=== PATIENT | female | born 1950 | race Caucasian/White ===

== ENCOUNTER 2019-06-07 12:57 | Emergency (ER) | payer MEDICARE, OTHER, SELFPAY ==
[2019-06-07 12:59] VITALS: BP 142/74; PULSE 70; RESP 20; TEMP 36.4; O2SAT 97; BMI 36.2
--- NOTE | 2019-06-07 13:02 | ED_ITS ---
Entered by Gumaro Herrera, acting as scribe for Willie Cabezas DO HPI - Syncope General: Chief Complaint: Syncope Stated Complaint: SYNCOPE Time Seen by Provider: 06/07/19 13:09 History of Present Illness: HPI narrative: 68 yo female presents with fall. Pt states that she was taking her medications, she was standing. Pt states that she blacked out and woke up on the floor. Pt states that her throat hit a roller. Pt states that she passed out 1 month ago. MD complaint: loss of consciousness Witnessed: No Context: standing up Injuries sustained associated with event: neck Associated symptoms: Reports other (throat pain); Deny abdominal pain, chest pain, fever(s), headache(s), lightheadedness or nausea Review of Systems Const: Denies: fever, chills, body aches, change in appetite, change in weight, fatigue or malaise Eyes: Denies: change in vision, blurry vision, eye discomfort or eye discharge ENMT: Reports: throat pain, painful swallowing and hoarseness; Denies: ear discharge, Change in hearing or nasal congestion Card: Reports: swelling of feet/ankles and syncope; Denies: chest pain, palpitations or lightheadedness Resp: Denies: shortness of breath, productive cough, wheezing or pain on inspiration GI: Reports: difficulty swallowing; Denies: abdominal pain, nausea, vomiting, vomiting blood, coffee grounds in vomit, diarrhea or painful bowel movements : Denies: flank pain, difficulty urinating, painful urination, urinary frequency or urinary urgency Musc: Reports: neck pain and extremity swelling; Denies: back pain, extremity pain, joint pain or joint swelling Neuro: Denies: headache, numbness in extremities or weakness in extremities Endo: Denies: excessive urination or excessive thirst Ricardo/Lymph: Denies: easy bruising or easy bleeding PFSH ED PFSH: Statuses (acute, chronic, etc) shown below reflect problem list status as previously entered and may not be historically accurate Social History Smoking and tobacco status: former smoker Physical Exam Const: COMMON NORMALS: no apparent distress, oriented x3 and alert GENERAL APPEARANCE: cooperative and well kempt; not in distress ORIENTATION/CONSCIOUSNESS: Yes awake, Yes oriented to person, Yes oriented to place and Yes oriented to time HENMT: COMMON NORMALS: normocephalic HEAD & SCALP: normal to inspection and normocephalic Eye: COMMON NORMALS: PERRL PUPIL: Yes PERRL Neck/C-Spine: COMMON NORMALS: full ROM, no lymphadenopathy, supple and no JVD OTHER: bruising on left side of throat at the base of the neck Lymph: LYMPHATIC: no lymphadenopathy noted and no lymphedema noted Chest: COMMONS NORMALS: inspection of chest normal and palpation of chest normal Resp: COMMON NORMALS: normal respiratory effort, no retractions, no use of accessory muscles and clear to auscultation bilaterally AUSCULTATION: clear to auscultation bilaterally Cardio: COMMON NORMALS: no JVD, regular rate, regular rhythm, S1 normal heart sound and S2 normal heart sound RATE: regular rate RHYTHM: regular rhythm HEART SOUNDS: S1 normal and S2 normal GI: COMMON NORMALS: normal to inspection, nondistended, normoactive bowel sounds, soft to palpation, non-tender, no hepatosplenomegaly and no masses INSPECTION: Yes normal to inspection PALPATION: Yes soft and Yes no hepatosplenomegaly : COMMON NORMALS: Yes no CVA tenderness BLADDER/KIDNEY EXAM: Yes no CVA tenderness Back/Pelvis: COMMON NORMALS: no CVA tenderness THORACIC SPINE/UPPER BACK: Yes normal to inspection, Yes thoracic ROM normal and Yes ROM limited Extremity: COMMON NORMALS: normal to inspection and full ROM Neuro: COMMON NORMALS: oriented x3 SENSORIUM/ORIENTATION: Yes alert, Yes oriented to person, Yes oriented to place and Yes oriented to time Psych: APPEARANCE: Yes well kempt Course ED course: Initial evaluation there is no stridor no subcutaneous air in the neck there is some bruising at the base the neck on the left side. CT head and neck were unremarkable patient is feeling fine sounds that she had a vasovagal episode. I went back up to discuss her findings with her she states she had difficulty swallowing which was a new finding from when I first examined her. We ordered a CT of the neck with IV contrast soft tissues this was reviewed and was negative patient was discharged home. Vital Signs: Vital signs: Vital Signs Temperature 97.5 F L 06/07/19 12:59 Pulse Rate 78 06/07/19 18:24 Respiratory Rate 18 06/07/19 18:24 Blood Pressure 154/83 06/07/19 18:24 Pulse Oximetry 97 06/07/19 18:24 MDM - Syncope Lab Data: Labs: Lab Results 06/07/19 06/07/19 Range/Units 13:59 15:42 WBC 5.1 (4.0-10.0) 10^3/ uL RBC 4.33 (4.1-5.3) 10^6/u L Hgb 13.7 (11.5-15.3) g/dL Hct 43.8 (37.0-47.0) % MCV 101.2 H (81-99) fL MCH 31.6 (28.0-34.0) pg MCHC 31.3 (30.0-36.0) g/dL RDW 12.3 (12.1-15.1) % Plt Count 179 (130-400) 10^3/c mm MPV 10.9 H (7.4-10.4) fL Neut % (Auto) 56.4 % Lymph % (Auto) 31.4 % [place] % (Auto) 10.8 % Eos % (Auto) 0.8 % Baso % (Auto) 0.4 % Neut # (Auto) 2.9 (1.8-7.7) 10^3/u L Lymph # (Auto) 1.6 (0.8-4.8) 10^3/u L [place] # (Auto) 0.6 (0.2-0.9) 10^3/u L Eos # (Auto) 0.0 (0.0-0.8) 10^3/u L Baso # (Auto) 0.0 (0.0-0.1) 10^3/u L Nucleated RBC % (a uto) 0 % Nucleated RBCs # 0.0 /100WBC Sodium 140 (136-145) mmol/L Potassium 4.0 (3.5-5.1) mmol/L Chloride 102 (98-107) mmol/L Carbon Dioxide 26 (22-29) mmol/L Anion Gap 16.0 (5-19) BUN 22 (8-23) mg/dL Creatinine 1.3 H (0.5-0.9) mg/dL GFR Calculation 40.6 L (90-130) mL/min Glucose 105 (74-106) mg/dL Calcium 9.8 (8.8-10.2) mg/Dl Total Bilirubin 0.3 (0.15-1.2) mg/dL AST 21 (0-32) U/L ALT 5 (0-33) U/L Alkaline Phosphata se 72 (35-105) IU/L Total Protein 7.1 (6.6-8.7) g/dL Albumin 3.9 (3.5-5.2) g/dL Globulin 3.2 (1.3-4.6) g/dL Imaging Data^: Other Xray: Radiologist's impression: Cervical spine, 3 views, 06/07/2019 Clinical Data: fall/neck pain Comparison: None. Findings: No compression fractures are seen. The disc heights are mildly narrow at C5-C6 and C6-C7. Anterior osteophyte formation is present at the C5 and C6 vertebral bodies.. There is no prevertebral soft tissue swelling. The odontoid is unremarkable. The soft tissues of the neck demonstrate minimal calcification which may be in the carotid arteries. The lung apices are normal. XR/XR cervical spine 2V* [id number] Impression: Negative for cervical spine fracture. Dictated By: Lesly Thompson MD Other Imaging: Radiologist's impression: PROCEDURE INFORMATION: Exam: CT Neck With Contrast Exam date and time: 06/07/2019 4:51 PM Age: 68 years old Clinical indication: Injury or trauma; Fall; Work related; Initial encounter; Blunt trauma (contusions or hematomas); Dysphagia / difficulty swallowing and other: Feels like lump in throat; Injury details: Syncopal episode-- woke up with neck against a walker wheel TECHNIQUE: Imaging protocol: Computed tomography images of the neck with intravenous contrast. Total DLP: 697.2 mGy-cm Radiation optimization: All CT scans at this facility use at least one of these dose optimization techniques: automated exposure control; mA and/or kV adjustment per patient size (includes targeted exams where dose is matched to clinical indication); or iterative reconstruction. Contrast material: VISI 320; Contrast volume: 95 ml; Contrast route: IV; COMPARISON: CR XR cervical spine 2V* [id number] 06/07/2019 2:07 PM FINDINGS: Nasopharynx: Unremarkable. Oropharynx: Unremarkable. No significant tonsillar enlargement. Hypopharynx: Unremarkable Larynx: Unremarkable. Normal epiglottis. Retropharyngeal space: Unremarkable. Submandibular/Parotid glands: Normal. Glands are normal in size. Thyroid: Normal. No enlarged or calcified nodules. Lymph nodes: Unremarkable. No lymphadenopathy. Trachea: Visualized trachea is unremarkable. Lungs: Unremarkable as visualized. Emphysematous changes and mild apical fibrosis is noted. Bones/joints: Unremarkable. No acute fracture. [id number] diffuse degenerative changes. Soft tissues: Unremarkable. No significant soft tissue swelling. No fluid collection. CT/CT neck w con* [id number] IMPRESSION: No acute findings. Radiation Dose CTDIVOL = (mGy): DLP = 697.2 (mGy-cm) Dictated By: Christi Hamilton CT Head: Radiologist's impression: Clinical Data: LOC, fall Comparison: None. DLP: 762.[address] scans at [facility] use at least one of these dose optimization techniques: automated exposure control; mA and/or kV adjustment per patient size (includes targeted exams where dose is matched to clinical indication); or iterative reconstruction. Findings: The ventricular system is minimally dilated without shift. No recent infarct or hemorrhage is seen. There are no abnormal intracerebral masses. The cerebellum and brainstem are not remarkable. Bony windows of the skull and skull base show no fractures or erosions. The mastoid air cells, internal auditory canals, sella turcica, intraorbital contents, and paranasal sinuses are unremar kable. CT/CT head wo con* [id number] Impression: 1. Mild cerebral atrophy. 2. The emergency room was contacted at 1400 hours. Dictated By: Lesly Thompson MD Discharge Plan Discharge Patient Disposition: Home, Self-Care Clinical Impression: Vasovagal syncope, Fall Condition: Stable Prescriptions: No Action lamotrigine 200 mg tablet 200 mg PO BEDTIME RF: 0 potassium chloride 10 mEq tablet extended release 10 meq PO BID RF: 0 Aspirin Low Dose 81 mg Tablet,Delayed Release (Dr/Ec) 81 mg PO DAILY RF: 0 Calcium 600 600 mg calcium (1,500 mg) Tablet 600 mg PO TID RF: 0 modafinil 200 mg tablet 200 mg PO DAILY RF: 0 gabapentin 300 mg capsule 300 mg PO TID RF: 0 furosemide 20 mg tablet 20 mg PO BID RF: 0 docusate sodium 250 mg Capsule 250 mg PO BID RF: 0 carbidopa-levodopa 25-100 mg tablet 1 tab PO TID RF: 0 lisinopril 2.5 mg Tablet 2.5 mg PO DAILY PRN (Reason: Blood Pressure) RF: 0 aripiprazole 10 mg tablet 10 mg PO BEDTIME RF: 0 rosuvastatin 20 mg tablet 20 mg PO BEDTIME RF: 0 memantine 10 mg tablet 10 mg PO BID RF: 0 duloxetine 30 mg capsule,delayed release(DR/EC) See Rx Instructions .ROUTE .COMPLEX RF: 0 [place] Thyroid 90 mg tablet 90 mg PO DAILY RF: 0 Discharge Orders: Discharge Order (Routine); Ordered 06/07/19 Ordered By: Willie Cabezas Referrals: Jose Esquivel, [employer] [Primary Care Provider] - Discharge Diet: Advance as tolerated Discharge Activity: Increase activity as tolerated Discharge Date/Time: 06/07/19 19:27 Coding Level of Care Code ED Animal Park Code Enforcement Officer for Chg Fwd Exam Problem Focused The documentation recorded by the Javier myles Kialy, accurately reflects the service I personally performed and the decisions made by Jocelynn guillermo Curtis L, DO Jun 07, 2019 12:57
[2019-06-07 13:08] VITALS: O2SAT 97
--- NOTE | 2019-06-07 13:17 | CT_ITS ---
WS: [id number] CT scan of the head, 06/07/2019 Clinical Data: LOC, fall Comparison: None. DLP: 762.[address] scans at [facility] use at least one of these dose optimization techniques: automat ed exposure control; mA and/or kV adjustment per patient size (includes targeted exams where dose is matched to clinical indication); or iterative reconstruction. Findings: The ventricular system is minimally dilated without shift. No recent infarct or hemorrhage is seen. T here are no abnormal intracerebral masses. The cerebellum and brainstem are not remarkable. Bony windows of the skull and skull base show no fractures or erosions. The mastoid air cells, intern brand al auditory canals, sella turcica, intraorbital contents, and paranasal sinuses are unremarkable. CT/CT head wo con* [id number] Impression: 1. Mild cerebral atrophy. 2. The emergency room was contacted at 1400 hours.
--- NOTE | 2019-06-07 13:17 | XR_ITS ---
WS: [id number] Cervical spine, 3 views, 06/07/2019 Clinical Data: fall/neck pain Comparison: None. Findings: No compression fractures are seen. The disc heights are mildly narrow at C5-C6 and C6-C7. A nterior osteophyte formation is present at the C5 and C6 vertebral bodies.. There is no prevertebral soft tissue swelling. The odontoid is unremarkable. The soft tissues of the neck demonstrate minimal calcification which may be in the carotid arteries. The lung apices are normal. XR/XR cervical spine 2V* [id number] Impression: Negative for cervical spine fracture.
[2019-06-07] MEDS: sodium chloride 0.9% 500 ML IV (13:35)
[2019-06-07 14:07] LABS: Basophils % 0.4 %; Eosinophils % 0.8 %; Hematocrit 43.8 % (37.0-47.0); Hemoglobin 13.7 g/dL (11.5-15.3); Lymphocytes # 1.6 10^3/uL (0.8-4.8); Lymphocytes % 31.4 %; Mean Corpuscular HGB Conc 31.3 g/dL (30.0-36.0); Mean Corpuscular Hemoglobin 31.6 pg (28.0-34.0); Mean Corpuscular Volume 101.2 fL (81-99); Mean Platelet Volume 10.9 fL (7.4-10.4); Monocytes # 0.6 10^3/uL (0.2-0.9); Monocytes % 10.8 %; Neutrophils # 2.9 10^3/uL (1.8-7.7); Neutrophils % 56.4 %; Nucleated Red Blood Cells % 0 %; Platelet Count 179 10^3/cmm (130-400); Red Blood Count 4.33 10^6/uL (4.1-5.3); Red Cell Distribution Width 12.3 % (12.1-15.1); White Blood Count 5.1 10^3/uL (4.0-10.0)
[2019-06-07 14:58] VITALS: PULSE 72; RESP 16; O2SAT 99
[2019-06-07 15:21] VITALS: BP 152/102; BP 159/79; BP 162/88; PULSE 69; PULSE 74; PULSE 77
[2019-06-07 16:06] LABS: Alanine Aminotransferase 5 U/L (0-33); Albumin Level 3.9 g/dL (3.5-5.2); Alkaline Phosphatase 72 IU/L (35-105); Aspartate Amino Transferase 21 U/L (0-32); Blood Urea Nitrogen 22 mg/dL (8-23); Calcium 9.8 mg/Dl (8.8-10.2); Carbon Dioxide 26 mmol/L (22-29); Chloride 102 mmol/L (98-107); Globulin 3.2 g/dL (1.3-4.6); Glomerular Filtration Rate 40.6 mL/min (90-130); Glucose 105 mg/dL (74-106); Sodium 140 mmol/L (136-145); Total Bilirubin 0.3 mg/dL (0.15-1.2); Total Protein 7.1 g/dL (6.6-8.7)
[2019-06-07] MEDS: acetaminophen 500 mg Tablet 1000 MG PO (16:26)
--- NOTE | 2019-06-07 16:48 | CTR_ITS ---
PROCEDURE INFORMATION: Exam: CT Neck With Contrast Exam date and time: 06/07/2019 4:51 PM Age: 68 years old Clinical indication: Injury or trauma; Fall; Work related; Initial encounter; Blunt trauma (contusions or hematomas); Dysphagia / difficulty swallowing and other: Feels like lump in throat; Injury details: Syncopal episode-- woke up with neck against a walker wheel TECHNIQUE: Imaging protocol: Computed tomography images of the neck with intravenous contrast. Total DLP: 697.2 mGy-cm Radiation optimization: All CT scans at this facility use at least one of these dose optimization techniques: automated exposure control; mA and/or kV adjustment per patient size (includes targeted exams where dose is matched to clinical indication); or iterative reconstruction. Contrast material: VISI 320; Contrast volume: 95 ml; Contrast route: IV; COMPARISON: CR XR cervical spine 2V* [id number] 06/07/2019 2:07 PM FINDINGS: Nasopharynx: Unremarkable. Oropharynx: Unremarkable. No significant tonsillar enlargement. Hypopharynx: Unremarkable Larynx: Unremarkable. Normal epiglottis. Retropharyngeal space: Unremarkable. Submandibular/Parotid glands: Normal. Glands are normal in size. Thyroid: Normal. No enlarged or calcified nodules. Lymph nodes: Unremarkable. No lymphadenopathy. Trachea: Visualized trachea is unremarkable. Lungs: Unremarkable as visualized. Emphysematous changes and mild apical fibrosis is noted. Bones/joints: Unremarkable. No acute fracture. [id number] diffuse degenerative changes. Soft tissues: Unremarkable. No significant soft tissue swelling. No fluid collection. CT/CT neck w con* [id number] IMPRESSION: No acute findings. Radiation Dose CTDIVOL = (mGy): DLP = 697.2 (mGy-cm)
[2019-06-07 17:08] VITALS: BP 185/90; PULSE 74; RESP 14; O2SAT 96
--- NOTE | 2019-06-07 17:29 | ECG_ITS ---
Measurements Intervals Sharon Rate: 67 P: 34 UT: 208 QRS: 9 QRSD: 101 T: 13 QT: 399 QTc: 421 SINUS RHYTHM POSSIBLE ANTERIOR MYOCARDIAL INFARCTION [30 ms Q WAVE IN V3/V4, OR R < 0.2 mV IN V4], OF INDETERMINATE AGE Compared to ECG 12/02/2017 11:45:20 Myocardial infarct finding now present Electronically Signed On 06-08-2019 5:39:11 GLOBAL CATEGORY MANAGER by Mirian Hernández M.D. [id number] f
[2019-06-07 18:24] VITALS: BP 154/83; PULSE 78; RESP 18; O2SAT 97
== END 2019-06-07 19:27 | disposition home or self-care (01) ==
PROVIDERS: Emergency Provider Family Medicine; Family Provider Nurse Practitioner; PCP Nurse Practitioner
DX: R55 Syncope and collapse (principal); Z87.891 Personal history of nicotine dependence
CPT/HCPCS: 36415; 70450; 70491; 72040; 80053; 85025; 93005; 96360; 99283; J7040; Q9967

== ENCOUNTER → 2019-07-25 08:30 | Outpatient (BNVA) | payer MEDICARE, OTHER, SELFPAY | PROVIDERS: Family Provider Nurse Practitioner; PCP Nurse Practitioner; Visit Provider Nurse Practitioner | DX: E03.8 Other specified hypothyroidism (principal); E55.9 Vitamin D deficiency, unspecified; I10 Essential (primary) hypertension; R55 Syncope and collapse | CPT/HCPCS: 82306 ==

== ENCOUNTER → 2019-08-02 09:53 | Outpatient (BNVA) | payer MEDICARE, OTHER, SELFPAY | PROVIDERS: Family Provider Nurse Practitioner; PCP Nurse Practitioner; Referring Provider Nurse Practitioner; Visit Provider Podiatrist Foot & Ankle Surgery | DX: M79.671 Pain in right foot (principal); E11.43 Type 2 diabetes mellitus with diabetic autonomic (poly)neuropathy; R09.89 Other specified symptoms and signs involving the circulatory and respiratory systems; L60.3 Nail dystrophy | CPT/HCPCS: 73630 ==

== ENCOUNTER → 2019-08-14 08:54 | Outpatient (BNVA) | payer MEDICARE, OTHER, SELFPAY | PROVIDERS: Family Provider Nurse Practitioner; PCP Nurse Practitioner; Visit Provider Specialist | DX: R25.1 Tremor, unspecified (principal); Z87.891 Personal history of nicotine dependence | CPT/HCPCS: 99214 ==

== ENCOUNTER 2019-08-16 06:00 | Outpatient (RCR) | payer MEDICARE, OTHER, SELFPAY | END 2019-09-04 23:59 | disposition home or self-care (01) | LOC: APT 06:00 | PROVIDERS: Family Provider Nurse Practitioner; PCP Nurse Practitioner; Referring Provider Internal Medicine Critical Care Medicine; Visit Provider Internal Medicine Critical Care Medicine | DX: R26.89 Other abnormalities of gait and mobility (principal) | CPT/HCPCS: 97110; 97163 ==

== ENCOUNTER 2019-09-03 08:00 | Outpatient (CLI) | payer MEDICARE, OTHER, SELFPAY | END 2019-09-03 09:00 | disposition home or self-care (01) | LOC: RHEOACUTE 01-22 15:15 | PROVIDERS: PCP Nurse Practitioner; Visit Provider Internal Medicine Rheumatology | DX: M81.0 Age-related osteoporosis without current pathological fracture (principal); Z79.899 Other long term (current) drug therapy; I10 Essential (primary) hypertension | CPT/HCPCS: 36415; 82310; 82565 ==

== ENCOUNTER 2019-09-06 13:51 | Outpatient (CLI) | payer MEDICARE, OTHER, SELFPAY ==
[2019-09-06 14:10] VITALS: BP 139/84; PULSE 57; RESP 18; TEMP 36.7; O2SAT 95
[2019-09-06] MEDS: denosumab 60 mg SDV (14:18)
[2019-09-06 14:19] VITALS: BP 113/74; TEMP 36.6
== END 2019-09-06 13:52 | disposition home or self-care (01) ==
LOC: RHEOACUTE 13:53
PROVIDERS: Family Provider Nurse Practitioner; PCP Nurse Practitioner; Visit Provider Internal Medicine Rheumatology
DX: M81.0 Age-related osteoporosis without current pathological fracture (principal)
CPT/HCPCS: 96372; J0897

== ENCOUNTER → 2019-10-31 11:19 | Outpatient (BNVA) | payer MEDICARE, OTHER, SELFPAY | PROVIDERS: Family Provider Nurse Practitioner; PCP Nurse Practitioner; Visit Provider Specialist | DX: R55 Syncope and collapse (principal); E03.8 Other specified hypothyroidism; I10 Essential (primary) hypertension; E55.9 Vitamin D deficiency, unspecified; F33.2 Major depressive disorder, recurrent severe without psychotic features | CPT/HCPCS: 80053; 80061; 82306; 82607; 84443; 85025; 85651; 86780 ==

== ENCOUNTER → 2019-11-05 09:18 | Outpatient (BNVA) | payer MEDICARE, OTHER, SELFPAY | PROVIDERS: Family Provider Nurse Practitioner; PCP Nurse Practitioner; Visit Provider Specialist | DX: G20 Parkinson's disease (principal); Z87.891 Personal history of nicotine dependence | CPT/HCPCS: 99214 ==

== ENCOUNTER 2019-11-06 10:01 | Outpatient (CLI) | payer MEDICARE, OTHER, SELFPAY ==
--- NOTE | 2019-11-06 13:06 | PFTS_ITS ---
Date of Study:11/06/19 Date of Dictation: MECHANICS: Forced vital capacity (FVC) is normal. Forced expiratory volume in one second (FEV1) is normal. FEV1/FVC is normal. FLOW VOLUME LOOP: Normal. LUNG VOLUMES: Total lung capacity (TLC) is normal. Residual volume (RV) is normal. DIFFUSING CAPACITY FOR CARBON MONOXIDE: Normal. INTERPRETATION: The pulmonary function tests are normal. Lung volumes are normal. Gas exchange (DLCO) is normal. MTDD
== END 2019-11-06 10:02 | disposition home or self-care (01) ==
LOC: RT 10:04
PROVIDERS: Family Provider Nurse Practitioner; PCP Nurse Practitioner; Visit Provider Internal Medicine Critical Care Medicine
DX: J44.9 Chronic obstructive pulmonary disease, unspecified (principal)
CPT/HCPCS: 94010; 94726; 94729

== ENCOUNTER 2019-11-27 06:00 | Outpatient (RCR) | payer MEDICARE, OTHER, SELFPAY | END 2019-12-04 23:59 | disposition home or self-care (01) | LOC: SPT 06:00 | PROVIDERS: PCP Nurse Practitioner; Referring Provider Specialist; Visit Provider Specialist | DX: G20 Parkinson's disease (principal) | CPT/HCPCS: 97110; 97163; 97530 ==

== ENCOUNTER 2019-12-05 06:00 | Outpatient (RCR) | payer MEDICARE, OTHER, SELFPAY | END 2020-01-04 23:59 | disposition home or self-care (01) | LOC: SPT 06:00 | PROVIDERS: PCP Nurse Practitioner; Referring Provider Specialist; Visit Provider Specialist | DX: G20 Parkinson's disease (principal) | CPT/HCPCS: 97110; 97112 ==

== ENCOUNTER 2019-12-10 09:56 | Outpatient (CLI) | payer MEDICARE, OTHER, SELFPAY ==
--- NOTE | 2019-12-10 11:00 | MR_ITS ---
WS: [id number] MRI BRAIN WITH HIGH-RESOLUTION IMAGING THROUGH THE INTERNAL AUDITORY CANALS WITHOUT AND WITH CONTRAST HISTORY: SYNCOPE/COLLAPSE;DIZZINESS/GIDDINESS;ELVIS SENSORINEURAL HEARING LOSS COMPARISON: 06/07/2019 TECHNIQUE: Multiplanar, multisequence imaging is performed through the brain. Additional 3 mm imaging performed in multiple planes through the internal auditory canal. Postcontrast imaging with 17 ml's of Prohance. Postcontrast studies are limited by motion. No acute intracranial hemorrhage, midline shift, edema or mass effect. Moderate chronic microvascular ischemic disease in the periventricular white matter and subcortical w jessica matter. Small ischemic area in the RIGHT jessica. No prior large territory infarcts. Mild atrophy. Ventricles and extra-axial spaces are normal. No inferior displacement of cerebellar tonsils. Clivus and pituitary gland are normal. Internal and external auditory canals: Unremarkable. Cranial nerves VII and VIII complexes: Unremarkable. No enhancement or mass. Cerebellopontine angles: Normal. Paranasal sinuses: Normal. Mastoid air cells: Normal. Calvarium and scalp: Normal. Visualized ruby of Kang and dural venous sinuses demonstrate no abnormality. MR/MR iac's wo/w con* [id number] IMPRESSION: 1. Negative MRI internal auditory canals. No masses. 2. Normal cerebellopontine angles. 3. Moderate chronic microvascular ischemic disease and mild cerebral atrophy. 4. No enhancing masses.
--- NOTE | 2019-12-10 11:45 | MR_ITS ---
WS: [id number] MRA CAROTID ARTERIES HISTORY: SYNCOPE;DIZZINESS;ELVIS SENSORINEURAL HEARING LOSS;ELVIS tinnitus COMPARISON: None available. TECHNIQUE: MRA is performed with intravenous gadolinium. MIP and source images are reviewed. Right: Mildly tortuous common carotid artery. There is very minimal plaque and intimal thickening at the bifurcation. No significant stenosis. Left: Common carotid artery arises normally from the arch. No significant stenosis. Very minimal plaq ue at the bifurcation. External carotid artery is patent. Subclavian Arteries: Normal. No stenosis. Vertebral Arteries: Normal. No significant asymmetry in caliber. MR/MR angio neck w con* [id number] IMPRESSION: 1. Minimal atherosclerosis at the carotid bifurcations. No stenosis. 2. Patent vertebral arteries.
== END 2019-12-10 09:57 | disposition home or self-care (01) ==
LOC: RADSHAW 10:09
PROVIDERS: PCP Nurse Practitioner; Visit Provider Specialist
DX: R55 Syncope and collapse (principal); R42 Dizziness and giddiness; H90.3 Sensorineural hearing loss, bilateral; H93.13 Tinnitus, bilateral; I67.82 Cerebral ischemia; G31.9 Degenerative disease of nervous system, unspecified
CPT/HCPCS: 70548; 70553; A9579

== ENCOUNTER 2019-12-11 11:40 | Outpatient (CLI) | payer MEDICARE, OTHER, SELFPAY ==
--- NOTE | 2019-12-11 11:46 | USCV_ITS ---
Crys Mir Age: 69 Gender: F : 1950 Exam Date: 12/11/2019 11:50 Ordering Phys: Scott Farley DPM Technologist: Exam Location: [facility] [place]_ Indication: DECREASED PEDAL PULSES RIGHT LEFT Brachial 127.00 mmHg Brachial 155.00 mmHg Pressure (mmHg) Waveform Pressure (mmHg) Waveform 152.00 Above Knee 144.00 166.00 Below Knee 157.00 113.00 PHYSICIAN'S ASSISTANT 165.00 179.00 DPA 158.00 1.15 Ankle/Brachial Index 1.06 117.00 Pre-Exercise Toe Pressure 116.00 0.75 Pre-Exercise Toe/Brachial Index 0.75 FINDINGS Normal resting ABIs bilaterally Normal resting TBI bilaterally PVR waveforms showing loss of dicrotic notch CONCLUSIONS 1. No significant arterial obstruction, based on the above findings 2. Features of extensive arterial sclerosis Dr Lonnie Torres MD [facility] (Electronically Signed) Final Date: 11 December 2019 20:11 S
== END 2019-12-11 11:41 | disposition home or self-care (01) ==
LOC: RAD 11:43
PROVIDERS: PCP Nurse Practitioner; Visit Provider Podiatrist Foot & Ankle Surgery
DX: R09.89 Other specified symptoms and signs involving the circulatory and respiratory systems (principal)
CPT/HCPCS: 93923; 99214

== ENCOUNTER → 2020-01-04 07:44 | Outpatient (BNVA) | payer MEDICARE, OTHER, SELFPAY | PROVIDERS: PCP Nurse Practitioner; Visit Provider Nurse Practitioner | DX: F33.2 Major depressive disorder, recurrent severe without psychotic features (principal) | CPT/HCPCS: 99214 ==

== ENCOUNTER 2020-01-30 20:00 | Outpatient (CLI) | payer MEDICARE, OTHER, SELFPAY | END 2020-01-30 20:01 | disposition home or self-care (01) | LOC: SLEEP 01-31 08:43 | PROVIDERS: PCP Nurse Practitioner; Visit Provider Internal Medicine Critical Care Medicine | DX: G47.33 Obstructive sleep apnea (adult) (pediatric) (principal) | CPT/HCPCS: 95811 ==

== ENCOUNTER 2020-02-05 08:43 | Outpatient (CLI) | payer MEDICARE, OTHER, SELFPAY ==
[2020-02-05 09:15] VITALS: BMI 34.0
--- NOTE | 2020-02-05 09:18 | ECG_ITS ---
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 Interpretive Statements NAME OF STUDY: LEXISCAN SESTAMIBI STRESS TEST INDICATION: Atypical chest symptoms, abnormal ekg/results to elaina garcia PROCEDURE: At the baseline, the EKG revealed normal sinus rhythm with borderline first-degree AV block. Possible left atrial enlargement. The baseline blood pressure was 211/91 mm Hg with a heart rate of 70 beats/min. Lexiscan was infused over a period of 20 seconds. A total of 0.4 milligrams of Lexiscan was infused. The stress phase was continued for a total of 5 minutes. Heart rate at the end of the stress phase was 80 with a blood pressure 144/80. The EKG at the peak infusion revealed no significant changes. Sestamibi was injected 20 seconds after the Lexiscan infusion. Blood pressure at the end of the recovery phase was 139/73 with a heart rate of 79 per minute. CONCLUSION: 1. No significant EKG changes with the LexiScan infusion 2. No LexiScan induced chest pain or cardiac arrhythmia 3. Normal blood pressur and heart rate response to exercise 4. Sestamibi/sestamibi perfusion scan pending; see separate report. Electronically Signed On 02-13-2020 19:31:32 CDT by Lonnie Torres M.D. [id number]
--- NOTE | 2020-02-05 09:19 | NMCV_ITS ---
NM steve perf SPECT r/s* [id number] Crys Mir Age: 69 Gender: F : 1950 Exam Date: 02/05/2020 10:07 Ordering Phys: Lonnie Torres MD ([email or web address]) Technologist: VLADIMIR Escobar Exam Location: [facility] Indications: Syncope, chest symptoms STRESS TEST Please [facility] stress [facility] for [facility] IMAGE PROTOCOL Rest/Stress 1 Lexiscan Day Radiopharmaceutical Dose (mCi) Administration Site Administered by Rest: Tc-99m 10.5 IV VLADIMIR Fry Sestamibi Stress:Tc-99m 32.8 IV VLADIMIR Escobar Sestamibi Rest: 05-Feb-2020 60 Discovery 630 Stress: 05-Feb-2020 45 Discovery 630 0.4mg Lexiscan. Images obtained in supine and prone position. SPECT RESULTS Technical Quality: Good Raw Data Analysis: Breast attenuation Image Corrections: Patient motion artifact - partial motion correction applied to supine stress images. Summed Stress Score: 1 Summed Rest Score: 0 Summed Difference Score: 1 PERFUSION FINDINGS A small area of mildly decreased tracer uptake in the apical lateral region with complete reversibility. However with the defect blackout mapping there was no significant reversibility. FUNCTIONAL RESULTS (calculated via Gated SPECT) Stress Image LV EF (%): 73 Stress EDV (mL):92 TID: 1.2 Stress ESV (mL):25 FUNCTIONAL FINDINGS: Segmental wall motion analysis revealing no gross wall motion normalities. IMPRESSIONS 1. Myocardial perfusion may revealing a small area of reversible defect in the apical lateral region, suggestive of ischemia in the distribution of the left circumflex artery. However because of the inconsistency, the reliability is questionable. Clinical correlation recommended. 2. Normal LV ejection fraction 73%. 3. LV wall motion analysis revealing no gross wall motion normalities. 4. Normal LV volume. No similar previous studies are available for comparison Dr Lonnie Torres MD [facility] (Electronically Signed) Final Date: 05 February 2020 18:33 S
[2020-02-05] MEDS: regadenoson 0.4 Mg/5 ml Syringe IVP (11:08)
[2020-02-05 11:31] VITALS: BP 139/73; PULSE 76
== END 2020-02-05 08:44 | disposition home or self-care (01) ==
LOC: CDL 08:44
PROVIDERS: PCP Nurse Practitioner; Visit Provider Internal Medicine Cardiovascular Disease
DX: R55 Syncope and collapse (principal)
CPT/HCPCS: 78452; 93017; A9500; J2785

== ENCOUNTER 2020-02-19 12:54 | Outpatient (CLI) | payer MEDICARE, OTHER, SELFPAY ==
--- NOTE | 2020-02-19 12:58 | USCV_ITS ---
Crys Mir Age: 69 Gender: F : 1950 Exam Date: 02/19/2020 13:32 Ordering Phys: Lonnie Torres MD ([email or web address]) Technologist: Kj Skelton Exam Location: [facility] [place] Indication: TIA Risk Factors: None Previous Vascular Surgery: None Right Brachial BP: / Left Brachial BP: / Right Left Velocity (cm/s) Spectral Plaque Velocity (cm/s) Spectral Plaque Syst/Diast Broadening Syst/Diast Broadening 88.20/ 12.10 Prox CCA 89.10 / 15.10 87.10/ 16.50 Mid CCA 80.70 / 11.80 79.40/ 15.40 Hetro Distal CCA 51.30 / 9.20 Hetro 91.60/ 17.40 Hetro Prox ICA 84.00 / 18.50 Hetro 81.50/ 23.50 Mid ICA 89.90 / 24.40 79.00/ 21.00 Distal ICA 93.30 / 23.50 83.80 ECA 99.20 1.04 ICA/CCA 1.05 Antegrade Vertebral Antegrade 60.50/ 12.60 cm/s 64.70/ 10.10 cm/s Tri Subclavian Tri 82.30 143.3 0 FINDINGS Moderate intravenous plaques of the right bifurcation and proximal internal carotid artery Mild to moderate plaques of the left bifurcation internal carotid artery Intimal thickening in the common carotid arteries bilaterally Antegrade flow in the vertebral arteries bilaterally Normal Doppler flow velocities in the external carotid arteries bilaterally CONCLUSIONS Moderate heterogeneous plaques at the right bifurcation and proximal internal carotid arterywith velocity elevation consistent with 16-49% stenosis. Mild to moderate plaques at the left bifurcation internal carotid artery No previous studies are available for comparison. Dr Lonnie Torres MD [facility] (Electronically Signed) Final Date: 19 February 2020 13:56 S
== END 2020-02-19 12:55 | disposition home or self-care (01) ==
LOC: US 12:55
PROVIDERS: PCP Nurse Practitioner; Visit Provider Internal Medicine Cardiovascular Disease
DX: R55 Syncope and collapse (principal); G45.9 Transient cerebral ischemic attack, unspecified
CPT/HCPCS: 93880

== ENCOUNTER → 2020-03-04 09:05 | Outpatient (BNVA) | payer MEDICARE, OTHER, SELFPAY | PROVIDERS: PCP Nurse Practitioner; Visit Provider Nurse Practitioner | DX: M17.11 Unilateral primary osteoarthritis, right knee (principal); M25.461 Effusion, right knee; M25.561 Pain in right knee; E03.8 Other specified hypothyroidism; E78.2 Mixed hyperlipidemia; E55.9 Vitamin D deficiency, unspecified | CPT/HCPCS: 73562; 80053; 80061; 82607; 84443; 85025; 85651 ==

== ENCOUNTER → 2020-03-11 09:19 | Outpatient (BNVA) | payer MEDICARE, OTHER, SELFPAY | PROVIDERS: PCP Nurse Practitioner; Visit Provider Specialist | DX: G20 Parkinson's disease (principal) | CPT/HCPCS: 99214 ==

== ENCOUNTER → 2020-03-12 09:05 | Outpatient (BNVA) | payer MEDICARE, OTHER, SELFPAY | PROVIDERS: PCP Nurse Practitioner; Visit Provider Nurse Practitioner | DX: M54.5 Low back pain; M54.2 Cervicalgia; M54.6 Pain in thoracic spine | CPT/HCPCS: 72040; 72072; 72100 ==

== ENCOUNTER 2020-03-18 15:44 | Outpatient (CLI) | payer MEDICARE, OTHER, SELFPAY ==
[2020-03-18 15:45] VITALS: BP 152/80; PULSE 68; RESP 16; TEMP 36.9; O2SAT 97
[2020-03-18] MEDS: denosumab 60 mg SDV (15:50)
[2020-03-18 15:55] VITALS: BMI 36.2
[2020-03-18 16:30] VITALS: BP 132/77; PULSE 70; RESP 16; TEMP 36.7; O2SAT 94
--- NOTE | 2020-03-18 16:31 | PC.NURSE ---
Pt inquired how long she's been on Prolia. Pt states used to get it at [facility] [address]. Release of information form signed.
--- NOTE | 2020-03-18 16:32 | PC.NURSE ---
1630 Escorted to vehicle to daughter. Ambulating with walker.
== END 2020-03-18 15:45 | disposition home or self-care (01) ==
LOC: RHEOACUTE 15:46
PROVIDERS: PCP Nurse Practitioner; Visit Provider Internal Medicine Rheumatology
DX: M81.0 Age-related osteoporosis without current pathological fracture (principal)
CPT/HCPCS: 96372; J0897

== ENCOUNTER 2020-03-25 13:56 | Outpatient (CLI) | payer MEDICARE, OTHER, SELFPAY ==
--- NOTE | 2020-03-25 14:00 | USCV_ITS ---
AdeolaChetia Age: 69 Gender: F : 1950 Exam Date: 03/25/2020 14:00 Ordering Phys: Lonnie Torres MD ([email or web address]) Technologist: Kj Skelton Exam Location: [facility] [place] Indication: SYNCOPE AND COLLAPSE BP: 120 / 70 HR: 70 Rhythm: Sinus Technical Quality: Fair MEASUREMENTS (Male / Female) Normal Values 2D ECHO LV Diastolic Diameter PLAX 4.2 cm 4.2 - 5.9 / 3.9 - 5.3 cm LV Systolic Diameter PLAX 2.4 cm IVS Diastolic Thickness 1.1 cm 0.6 - 1.0 / 0.6 - 0.9 cm IVS Systolic Thickness 1.2 cm LVPW Diastolic Thickness 1.0 cm 0.6 - 1.0 / 0.6 - 0.9 cm LVPW Systolic Thickness 1.3 cm LVOT Diameter 2.2 cm LV Ejection Fraction 2D Teich 74.9 % LV Ejection Fraction MOD 2C 49.9 % LV Ejection Fraction 2C AL 50.1 % LA Diameter 3.4 cm LA Width 4.2 cm LA Height 5.0 cm RA Width 3.5 cm RA Height 4.8 cm Aorta at Sinotubular Diameter 0.9 cm M-MODE LV Diastolic Diameter MM 4.7 cm 4.2 - 5.9 / 3.9 - 5.3 cm LV Systolic Diameter MM 3.0 cm LV Ejection Fraction MM Teich 67.6 % IVS Diastolic Thickness MM 1.1 cm 0.6 - 1.0 / 0.6 - 0.9 cm IVS Systolic Thickness MM 1.6 cm LVPW Diastolic Thickness MM 1.1 cm 0.6 - 1.0 / 0.6 - 0.9 cm LVPW Systolic Thickness MM 1.5 cm RV Diastolic Diameter MM 1.8 cm Aortic Annulus Diameter 2.9 cm LA Ao Ratio MM 1.4 MV E Point Septal Separation 0.6 cm DOPPLER AV Peak Velocity 162.0 cm/s LVOT Peak Velocity 104.0 cm/s AV Area Cont Eq vti 2.2 cm squared AV Area Cont Eq pk 2.4 cm squared MV Area PHT 5.0 cm squared Mitral E to A Ratio 0.8 MV E' Velocity 44.0 cm/s Mitral E to MV E' Ratio 9.4 Mitral E to LV E' Lateral Ratio 10.6 Mitral E to LV E' Septal Ratio 8.5 TR Peak Velocity 144.3 cm/s TR Peak Gradient 8.3 mmHg Right Atrial Pressure 3.0 mmHg Pulmonary Artery Systolic Pressu 11.3 mmHg PV Peak Velocity 127.0 cm/s FINDINGS Left Ventricle Normal left ventricular size and systolic function, EF 61 %. Mild left ventricular hypertrophy. Right Ventricle The right ventricle is normal in size and function. Right Atrium The right atrium is normal in size. Left Atrium Mildly increased left atrial size. Mitral Valve No gross abnormalities noted Aortic Valve Thickened aortic valve. Tricuspid Valve No gross abnormalities noted. Pulmonic Valve No gross abnormalities noted. Pericardium Normal pericardium without effusion. Aorta Normal ascending aorta dimension. CONCLUSIONS Normal left ventricular size and systolic function, EF 61 %. Mildly increased left atrial size. Mild left ventricular hypertrophy. Thickened aortic valve. There is no pericardial effusion. There are no intracardiac masses. No similar previous study is available for comparison. Dr Lonnie Torres MD FACC (Electronically Signed) Final Date: 25 March 2020 21:03 S
== END 2020-03-25 13:57 | disposition home or self-care (01) ==
PROVIDERS: PCP Nurse Practitioner; Visit Provider Internal Medicine Cardiovascular Disease
DX: R55 Syncope and collapse (principal); I35.8 Other nonrheumatic aortic valve disorders
CPT/HCPCS: 93306

== ENCOUNTER → 2020-04-21 10:13 | Outpatient (BNVA) | payer MEDICARE, OTHER, SELFPAY | PROVIDERS: PCP Nurse Practitioner; Referring Provider Nurse Practitioner; Visit Provider Specialist | DX: M25.562 Pain in left knee (principal); M25.561 Pain in right knee; M17.0 Bilateral primary osteoarthritis of knee; M25.462 Effusion, left knee; M25.461 Effusion, right knee | CPT/HCPCS: 73560; 73565 ==

== ENCOUNTER → 2020-04-25 07:24 | Outpatient (BNVA) | payer MEDICARE, OTHER, SELFPAY | PROVIDERS: PCP Nurse Practitioner; Visit Provider Nurse Practitioner | DX: F33.2 Major depressive disorder, recurrent severe without psychotic features (principal) | CPT/HCPCS: 99214 ==

== ENCOUNTER → 2020-06-18 09:51 | Outpatient (BNVA) | payer MEDICARE, OTHER, SELFPAY | PROVIDERS: PCP Nurse Practitioner; Visit Provider Specialist | DX: G20 Parkinson's disease (principal); Z87.891 Personal history of nicotine dependence | CPT/HCPCS: 99214 ==

== ENCOUNTER → 2020-08-07 09:00 | Outpatient (BNVA) | payer MEDICARE, OTHER, SELFPAY | PROVIDERS: PCP Nurse Practitioner; Visit Provider Nurse Practitioner | DX: F33.2 Major depressive disorder, recurrent severe without psychotic features (principal) | CPT/HCPCS: 99214 ==

== ENCOUNTER → 2020-08-27 15:37 | Outpatient (BNVA) | payer MEDICARE, OTHER, SELFPAY | PROVIDERS: PCP Nurse Practitioner; Visit Provider Nurse Practitioner | DX: E03.8 Other specified hypothyroidism (principal); E55.9 Vitamin D deficiency, unspecified; I10 Essential (primary) hypertension | CPT/HCPCS: 80053; 80061; 82306; 84443 ==

== ENCOUNTER → 2020-09-03 08:12 | Outpatient (BNVA) | payer MEDICARE, OTHER, SELFPAY | PROVIDERS: PCP Nurse Practitioner; Visit Provider Nurse Practitioner | DX: F33.2 Major depressive disorder, recurrent severe without psychotic features (principal) | CPT/HCPCS: 99214 ==

== ENCOUNTER → 2020-09-29 10:15 | Outpatient (BNVA) | payer MEDICARE, OTHER, SELFPAY | PROVIDERS: PCP Nurse Practitioner; Visit Provider Nurse Practitioner | DX: F33.2 Major depressive disorder, recurrent severe without psychotic features (principal); I10 Essential (primary) hypertension | CPT/HCPCS: 99214 ==

== ENCOUNTER 2020-09-30 13:05 | Outpatient (CLI) | payer MEDICARE, OTHER, SELFPAY ==
[2020-09-30] MEDS: denosumab 60 mg SDV SUBCUT (13:33)
== END 2020-09-30 13:06 | disposition home or self-care (01) ==
PROVIDERS: PCP Nurse Practitioner; Visit Provider Nurse Practitioner
DX: M81.0 Age-related osteoporosis without current pathological fracture (principal)
CPT/HCPCS: 96372; J0897

== ENCOUNTER 2020-10-20 15:20 | Emergency (ER) | payer MEDICARE, OTHER, SELFPAY ==
[2020-10-20 15:22] VITALS: BP 153/86; PULSE 84; RESP 16; TEMP 36.6; O2SAT 98; BMI 33.0
--- NOTE | 2020-10-20 15:50 | W.ED.PSYCH ---
Documented by User: Grace Johnson MD, MSM 10/21/20 22:55 HPI - Psych General: Chief Complaint: Psychiatric Symptoms Stated Complaint: MENTAL HEALTH EVAL/ SI Time Seen by Provider: 10/20/20 15:31 Source: patient Mode of arrival: EMS Limitations: no limitations History of Present Illness: HPI Narrative: 70-year-old female who was sent to the emergency department for psychiatric evaluation from [facility]. The patient complains of uncontrollable crying for several days. She had medication changed about 2 to 3 weeks ago, with her antidepressant stopped and another one started. She says she is very depressed and while not overtly suicidal she is worried that she may get to the point and she to call her sharp object out of her room and handed over to the nurses at the nurses station at [facility]. The patient states that she has had depression for 45 years but she has never felt this depressed in her life before. complaint: feels depressed Duration: constant History of same: Yes Relieving factors: none Exacerbating factors: medication Context: new medication(s) Associated psychiatric symptoms: depression Associated symptoms: Reports depression; Deny auditory hallucinations, visual hallucinations, delusions, homicidal ideation, suicidal ideation or racing thoughts Review of Systems General: Reports: 10 or more systems reviewed and unremarkable except in HPI and below Psych: Reports: depression; Denies: visual hallucinations, auditory hallucinations, suicidal ideation or homicidal ideation [facility] ED PFSH: Medical History Abnormal EKG Adult onset hypothyroidism Anxiety and depression Bradycardia COPD (chronic obstructive pulmonary disease) CPAP (continuous positive airway pressure) dependence Dementia Dependent on walker for ambulation Dyslipidemia Hypertension Lives in assisted living facility Major depressive disorder, recurrent severe without psychotic features Mixed hyperlipidemia Osteoarthritis of both knees Osteoarthritis of knee Osteoporosis, post-menopausal Parkinson disease Recurrent syncope Seasonal allergic rhinitis due to pollen Sleep apnea Slow transit constipation Spine deformity Vitamin D deficiency Surgical History History of back surgery 2016 T11-T12 History of bunionectomy bilateral 2015 History of hernia repair 2017 History of laparotomy 1972 no body parts removed History of tubal ligation Left removed only 1972 Hx of right breast biopsy 1999 Family History Mother Congestive heart failure Clotting disorder CAD (coronary artery disease) Family/Other Lung disease Cancer Grandmother Stroke Denies family history of Diabetes Dementia Chronic kidney disease (CKD) Suicide Anesthesia complication Bleeding disorder Social History Smoking and tobacco status: former smoker Quit status (tobacco): has quit using tobacco Year quit tobacco: 2004 - PPD x 35 Years Second hand smoke exposure: No Smoking risk assessment/counseling performed?: No Alcohol intake: former Desire information about alcohol rehabilitation?: No Counseling given: No Desire information about substance/drug rehabilitation?: No Counseling given: No Adopted: No Caregiver/support person: No Lives independently: Yes Household members: none Housing: House Marital status: Unknown Number of children: 1 service: Yes branch: [employer] Current occupational status: retired and disabled Pets and animals: No History of recent travel: No Current gender identity: Female Physical Exam Const: COMMON NORMALS: no acute distress, average body habitus, patient oriented x3, no limitations, healthy appearing, alert and well nourished HENMT: COMMON NORMALS: normocephalic, atraumatic and moist oral mucous membranes HEAD & SCALP: normocephalic and atraumatic Eye: COMMON NORMALS: Equal, round and reactive pupils present, EOMs intact bilaterally, conjunctivae normal and no scleral icterus CONJUNCTIVA: Yes conjunctivae normal PUPIL: Yes Equal, round and reactive pupils present Neck/C-Spine: COMMON NORMALS: no meningeal signs and no JVD Resp: COMMON NORMALS: normal respiratory effort, No retractions, No use of accessory muscles, clear to auscultation bilaterally and percussion normal AUSCULTATION: clear to auscultation bilaterally PERCUSSION: percussion normal Cardio: COMMON NORMALS: no JVD, regular rate, regular rhythm, S1 normal heart sound present, S2 normal heart sound present, No gallops present (Cardio), No clicks present (Cardio), No murmurs present (Cardio), No rub (Cardio) and Peripheral pulses 2+ throughout RATE: regular rate RHYTHM: regular rhythm HEART SOUNDS: S1 normal heart sound present and S2 normal heart sound present PERIPHERAL PULSES: Peripheral pulses 2+ throughout GI: COMMON NORMALS: Normal to inspection, nondistended, normoactive bowel sounds present, Soft to palpation, non-tender, No hepatosplenomegaly present, no masses and no bruits PALPATION: Yes Soft to palpation and Yes No hepatosplenomegaly present Extremity: COMMON NORMALS: normal to inspection, full ROM, capillary refill normal, no calf tenderness and no pedal edema Neuro: COMMON NORMALS: patient oriented x3 SENSORIUM/ORIENTATION: Yes alert MENINGEAL SIGNS: Yes no meningeal signs Psych: THOUGHT CONTENT: No delusions Skin: COMMON NORMALS: no rashes or lesions noted, no wounds, turgor normal, no jaundice, no petechiae and no mottling GENERAL SKIN EXAM: no rashes or lesions noted and turgor normal Course Reevaluation(s): Reevaluation #1: Patient with severe depression and who is at risk for suicide. She has been medically cleared and is awaiting acceptance by a geriatric psychiatric facility. I have explained the process to the patient and her daughter, especially letting them know that it might be a long time before she gets a bed. Time: 23:36 Vital Signs: Vital signs: Vital Signs Temperature 99 F 10/21/20 02:16 Pulse Rate 70 10/21/20 02:16 Respiratory Rate 16 10/21/20 02:16 Blood Pressure 128/70 10/21/20 02:16 Pulse Oximetry 95 10/21/20 02:16 MDM - Psych Lab Data: Labs: Lab Results 10/20/20 10/20/20 10/20/20 Range/Units 15:30 15:30 16:09 WBC 8.0 (4.0-10.0) 10^3/ uL RBC 4.09 L (4.1-5.3) 10^6/u L Hgb 13.5 (11.5-15.3) g/dL Hct 40.9 (37.0-47.0) % MCV 100.0 H (81-99) fL MCH 33.0 (28.0-34.0) pg MCHC 33.0 (30.0-36.0) g/dL RDW 13.1 (12.1-15.1) % Plt Count 184 (130-400) 10^3/c mm MPV 10.8 H (7.4-10.4) fL Neut % (Auto) 60.6 % Lymph % (Auto) 31.3 % [place] % (Auto) 7.5 % Eos % (Auto) 0.2 % Baso % (Auto) 0.2 % Neut # (Auto) 4.85 (1.8-7.7) 10^3/u L Lymph # (Auto) 2.5 (0.8-4.8) 10^3/u L [place] # (Auto) 0.6 (0.2-0.9) 10^3/u L Eos # (Auto) 0.0 (0.0-0.8) 10^3/u L Baso # (Auto) 0.0 (0.0-0.1) 10^3/u L Nucleated RBC % (a uto) 0 % Nucleated RBCs # 0.0 /100WBC Sodium (136-145) mmol/L Potassium (3.5-5.1) mmol/L Chloride (98-107) mmol/L Carbon Dioxide (22-29) mmol/L Anion Gap (5-19) BUN (8-23) mg/dL Creatinine (0.5-0.9) mg/dL GFR Calculation Glucose (65-115) mg/dL Calculated Osmolal ity (285-295) mOsm/k g Calcium (8.5-10.5) mg/dL Total Bilirubin (0.15-1.2) mg/dL AST (0-32) U/L ALT (0-33) U/L Alkaline Phosphata se (35-105) IU/L Total Protein (6.6-8.7) g/dL Albumin (3.5-5.2) g/dL Globulin (1.3-4.6) g/dL Urine Color Yellow (Yellow) Urine Appearance Clear (CLEAR) Urine pH 5 (5-7) Ur Specific Gravit y 1.015 (1.005-1.030) Urine Protein Neg (Negative) Urine Glucose (UA) Norm (Normal) Urine Ketones Negative (Negative) Urine Blood Neg (Negative) Urine Nitrate Negative (Negative) Urine Bilirubin Neg (Negative) Urine Urobilinogen Norm (Negative) mg/dL Ur Leukocyte Caren ase Negative (Negative) Salicylates (3-10) mg/dL Urine Opiates Scre en Negative (Negative) ng/mL Acetaminophen (10-30) ug/mL Ur Barbiturates Sc reen Negative (Negative) ng/mL Ur Phencyclidine S crn Negative (Negative) ng/mL Ur Amphetamines Sc reen Negative (Negative) ng/mL U Benzodiazepines Scrn Negative (Negative) ng/mL Urine Cocaine Scre en Negative (Negative) ng/mL U Marijuana (THC) Screen Negative (Negative) ng/mL Ethyl Alcohol (0-10) mg/dL SARS-CoV-2 Ag (Rap id) (Negative) 10/20/20 10/20/20 Range/Units 16:09 17:58 WBC (4.0-10.0) 10^3/ uL RBC (4.1-5.3) 10^6/u L Hgb (11.5-15.3) g/dL Hct (37.0-47.0) % MCV (81-99) fL MCH (28.0-34.0) pg MCHC (30.0-36.0) g/dL RDW (12.1-15.1) % Plt Count (130-400) 10^3/c mm MPV (7.4-10.4) fL Neut % (Auto) % Lymph % (Auto) % [place] % (Auto) % Eos % (Auto) % Baso % (Auto) % Neut # (Auto) (1.8-7.7) 10^3/u L Lymph # (Auto) (0.8-4.8) 10^3/u L [place] # (Auto) (0.2-0.9) 10^3/u L Eos # (Auto) (0.0-0.8) 10^3/u L Baso # (Auto) (0.0-0.1) 10^3/u L Nucleated RBC % (a uto) % Nucleated RBCs # /100WBC Sodium 140 (136-145) mmol/L Potassium 4.2 (3.5-5.1) mmol/L Chloride 102 (98-107) mmol/L Carbon Dioxide 24 (22-29) mmol/L Anion Gap 18.2 (5-19) BUN 28 H (8-23) mg/dL Creatinine 0.9 (0.5-0.9) mg/dL GFR Calculation Not Reportable Glucose 98 (65-115) mg/dL Calculated Osmolal ity 295 (285-295) mOsm/k g Calcium 9.4 (8.5-10.5) mg/dL Total Bilirubin 0.2 (0.15-1.2) mg/dL AST 21 (0-32) U/L ALT < 5 (0-33) U/L Alkaline Phosphata se 86 (35-105) IU/L Total Protein 7.5 (6.6-8.7) g/dL Albumin 4.7 (3.5-5.2) g/dL Globulin 2.8 (1.3-4.6) g/dL Urine Color (Yellow) Urine Appearance (CLEAR) Urine pH (5-7) Ur Specific Gravit y (1.005-1.030) Urine Protein (Negative) Urine Glucose (UA) (Normal) Urine Ketones (Negative) Urine Blood (Negative) Urine Nitrate (Negative) Urine Bilirubin (Negative) Urine Urobilinogen (Negative) mg/dL Ur Leukocyte Caren ase (Negative) Salicylates < 0.3 L (3-10) mg/dL Urine Opiates Scre en (Negative) ng/mL Acetaminophen < 5.0 L (10-30) ug/mL Ur Barbiturates Sc reen (Negative) ng/mL Ur Phencyclidine S crn (Negative) ng/mL Ur Amphetamines Sc reen (Negative) ng/mL U Benzodiazepines Scrn (Negative) ng/mL Urine Cocaine Scre en (Negative) ng/mL U Marijuana (THC) Screen (Negative) ng/mL Ethyl Alcohol < 10 (0-10) mg/dL SARS-CoV-2 Ag (Rap id) Negative (Negative) Imaging Data^: CXR: Attestation: I personally reviewed and interpreted this imaging study as follows: My impression: No acute findings on x-ray. Discharge Plan Discharge Patient Disposition: Xfer Psychiatric Hosp Clinical Impression: Suicidal risk Depression Qualifiers: Depression Type: major depressive disorder Major depression recurrence: recurrent Active/Remission status: currently active Major depression episode severity: severe Psychotic features: without psychotic features Qualified Code(s): F33.2 - Major depressive disorder, recurrent severe without psychotic features Condition: Stable Referrals: Jose Esquivel FNP-C [Primary Care Provider] - Coding Level of Care Code ED Certified Respiratory Therapist for g Fwd Exam Comprehensive Documented by User: Dl Harris MD 10/21/20 01:25 HPI - Psych General: Chief Complaint: Psychiatric Symptoms Stated Complaint: MENTAL HEALTH EVAL/ SI Time Seen by Provider: 10/20/20 15:31 PFSH ED PFSH: Medical History Abnormal EKG Adult onset hypothyroidism Anxiety and depression Bradycardia COPD (chronic obstructive pulmonary disease) CPAP (continuous positive airway pressure) dependence Dementia Dependent on walker for ambulation Dyslipidemia Hypertension Lives in assisted living facility Major depressive disorder, recurrent severe without psychotic features Mixed hyperlipidemia Osteoarthritis of both knees Osteoarthritis of knee Osteoporosis, post-menopausal Parkinson disease Recurrent syncope Seasonal allergic rhinitis due to pollen Sleep apnea Slow transit constipation Spine deformity Vitamin D deficiency Surgical History History of back surgery 2016 T11-T12 History of bunionectomy bilateral 2015 History of hernia repair 2017 History of laparotomy 1972 no body parts removed History of tubal ligation Left removed only 1972 Hx of right breast biopsy 1999 Family History Mother Congestive heart failure Clotting disorder CAD (coronary artery disease) Family/Other Lung disease Cancer Grandmother Stroke Denies family history of Diabetes Dementia Chronic kidney disease (CKD) Suicide Anesthesia complication Bleeding disorder Social History Smoking and tobacco status: former smoker Quit status (tobacco): has quit using tobacco Year quit tobacco: 2005 - PPD x 35 Years Second hand smoke exposure: No Smoking risk assessment/counseling performed?: No Alcohol intake: former Desire information about alcohol rehabilitation?: No Counseling given: No Desire information about substance/drug rehabilitation?: No Counseling given: No Adopted: No Caregiver/support person: No Lives independently: Yes Household members: none Housing: House Marital status: Unknown Number of children: 1 service: Yes branch: [employer] Current occupational status: retired and disabled Pets and animals: No History of recent travel: No Current gender identity: Female Course Vital Signs: Vital signs: Vital Signs Temperature 99 F 10/21/20 02:16 Pulse Rate 70 10/21/20 02:16 Respiratory Rate 16 10/21/20 02:16 Blood Pressure 128/70 10/21/20 02:16 Pulse Oximetry 95 10/21/20 02:16 MDM - Psych MDM Narrative: Medical decision making narrative: Patient presents here with suicidal ideation with severe depression. Patient excepted at [facility] and is medically cleared will transfer there. Lab Data: Labs: Lab Results 10/20/20 10/20/20 10/20/20 Range/Units 15:30 15:30 16:09 WBC 8.0 (4.0-10.0) 10^3/ uL RBC 4.09 L (4.1-5.3) 10^6/u L Hgb 13.5 (11.5-15.3) g/dL Hct 40.9 (37.0-47.0) % MCV 100.0 H (81-99) fL MCH 33.0 (28.0-34.0) pg MCHC 33.0 (30.0-36.0) g/dL RDW 13.1 (12.1-15.1) % Plt Count 184 (130-400) 10^3/c mm MPV 10.8 H (7.4-10.4) fL Neut % (Auto) 60.6 % Lymph % (Auto) 31.3 % [place] % (Auto) 7.5 % Eos % (Auto) 0.2 % Baso % (Auto) 0.2 % Neut # (Auto) 4.85 (1.8-7.7) 10^3/u L Lymph # (Auto) 2.5 (0.8-4.8) 10^3/u L [place] # (Auto) 0.6 (0.2-0.9) 10^3/u L Eos # (Auto) 0.0 (0.0-0.8) 10^3/u L Baso # (Auto) 0.0 (0.0-0.1) 10^3/u L Nucleated RBC % (a uto) 0 % Nucleated RBCs # 0.0 /100WBC Sodium (136-145) mmol/L Potassium (3.5-5.1) mmol/L Chloride (98-107) mmol/L Carbon Dioxide (22-29) mmol/L Anion Gap (5-19) BUN (8-23) mg/dL Creatinine (0.5-0.9) mg/dL GFR Calculation Glucose (65-115) mg/dL Calculated Osmolal ity (285-295) mOsm/k g Calcium (8.5-10.5) mg/dL Total Bilirubin (0.15-1.2) mg/dL AST (0-32) U/L ALT (0-33) U/L Alkaline Phosphata se (35-105) IU/L Total Protein (6.6-8.7) g/dL Albumin (3.5-5.2) g/dL Globulin (1.3-4.6) g/dL Urine Color Yellow (Yellow) Urine Appearance Clear (CLEAR) Urine pH 5 (5-7) Ur Specific Gravit y 1.015 (1.005-1.030) Urine Protein Neg (Negative) Urine Glucose (UA) Norm (Normal) Urine Ketones Negative (Negative) Urine Blood Neg (Negative) Urine Nitrate Negative (Negative) Urine Bilirubin Neg (Negative) Urine Urobilinogen Norm (Negative) mg/dL Ur Leukocyte Caren ase Negative (Negative) Salicylates (3-10) mg/dL Urine Opiates Scre en Negative (Negative) ng/mL Acetaminophen (10-30) ug/mL Ur Barbiturates Sc reen Negative (Negative) ng/mL Ur Phencyclidine S crn Negative (Negative) ng/mL Ur Amphetamines Sc reen Negative (Negative) ng/mL U Benzodiazepines Scrn Negative (Negative) ng/mL Urine Cocaine Scre en Negative (Negative) ng/mL U Marijuana (THC) Screen Negative (Negative) ng/mL Ethyl Alcohol (0-10) mg/dL SARS-CoV-2 Ag (Rap id) (Negative) 10/20/20 10/20/20 Range/Units 16:09 17:58 WBC (4.0-10.0) 10^3/ uL RBC (4.1-5.3) 10^6/u L Hgb (11.5-15.3) g/dL Hct (37.0-47.0) % MCV (81-99) fL MCH (28.0-34.0) pg MCHC (30.0-36.0) g/dL RDW (12.1-15.1) % Plt Count (130-400) 10^3/c mm MPV (7.4-10.4) fL Neut % (Auto) % Lymph % (Auto) % [place] % (Auto) % Eos % (Auto) % Baso % (Auto) % Neut # (Auto) (1.8-7.7) 10^3/u L Lymph # (Auto) (0.8-4.8) 10^3/u L [place] # (Auto) (0.2-0.9) 10^3/u L Eos # (Auto) (0.0-0.8) 10^3/u L Baso # (Auto) (0.0-0.1) 10^3/u L Nucleated RBC % (a uto) % Nucleated RBCs # /100WBC Sodium 140 (136-145) mmol/L Potassium 4.2 (3.5-5.1) mmol/L Chloride 102 (98-107) mmol/L Carbon Dioxide 24 (22-29) mmol/L Anion Gap 18.2 (5-19) BUN 28 H (8-23) mg/dL Creatinine 0.9 (0.5-0.9) mg/dL GFR Calculation Not Reportable Glucose 98 (65-115) mg/dL Calculated Osmolal ity 295 (285-295) mOsm/k g Calcium 9.4 (8.5-10.5) mg/dL Total Bilirubin 0.2 (0.15-1.2) mg/dL AST 21 (0-32) U/L ALT < 5 (0-33) U/L Alkaline Phosphata se 86 (35-105) IU/L Total Protein 7.5 (6.6-8.7) g/dL Albumin 4.7 (3.5-5.2) g/dL Globulin 2.8 (1.3-4.6) g/dL Urine Color (Yellow) Urine Appearance (CLEAR) Urine pH (5-7) Ur Specific Gravit y (1.005-1.030) Urine Protein (Negative) Urine Glucose (UA) (Normal) Urine Ketones (Negative) Urine Blood (Negative) Urine Nitrate (Negative) Urine Bilirubin (Negative) Urine Urobilinogen (Negative) mg/dL Ur Leukocyte Caren ase (Negative) Salicylates < 0.3 L (3-10) mg/dL Urine Opiates Scre en (Negative) ng/mL Acetaminophen < 5.0 L (10-30) ug/mL Ur Barbiturates Sc reen (Negative) ng/mL Ur Phencyclidine S crn (Negative) ng/mL Ur Amphetamines Sc reen (Negative) ng/mL U Benzodiazepines Scrn (Negative) ng/mL Urine Cocaine Scre en (Negative) ng/mL U Marijuana (THC) Screen (Negative) ng/mL Ethyl Alcohol < 10 (0-10) mg/dL SARS-CoV-2 Ag (Rap id) Negative (Negative) Discharge Plan Discharge Patient Disposition: Xfer Psychiatric Hosp Clinical Impression: Suicidal risk Depression Qualifiers: Depression Type: major depressive disorder Major depression recurrence: recurrent Active/Remission status: currently active Major depression episode severity: severe Psychotic features: without psychotic features Qualified Code(s): F33.2 - Major depressive disorder, recurrent severe without psychotic features Condition: Stable Referrals: Jose Esquivel [employer] SPECIALIST-C [Primary Care Provider] - Coding Level of Care Code ED Certified Respiratory Therapist for [facility] Fwd Exam Comprehensive
[2020-10-20 15:59] LABS: Add Urine Microscopic? NO; Charge for UA Resulting for Rev
[2020-10-20 16:11] LABS: Urine Appearance Clear (CLEAR); Urine Color Yellow (Yellow); pH Urine 5 (5-7)
[2020-10-20 16:12] LABS: Bilirubin Urine Neg (Negative); Blood Urine Neg (Negative); Glucose Urine UA Norm (Normal); Ketones Urine Negative (Negative); Leukocyte Esterase Urine Negative (Negative); Nitrate Urine Negative (Negative); Protein Urine Neg (Negative); Specific Gravity, Urine 1.015 (1.005-1.030); Urobilinogen Urine Norm (Negative)
[2020-10-20 16:15] LABS: Amphetamines Screen Urine Negative (Negative); Barbiturates Screen Urine Negative (Negative); Benzodiazepines Screen Urine Negative (Negative); Cocaine Screen Urine Negative (Negative); Opiate Screen Urine Negative (Negative); PCP Screen Urine Negative (Negative); THC Screen Urine Negative (Negative)
[2020-10-20 16:17] LABS: Basophils % 0.2 %; Eosinophils % 0.2 %; Hematocrit 40.9 % (37.0-47.0); Hemoglobin 13.5 g/dL (11.5-15.3); Lymphocytes # 2.5 10^3/uL (0.8-4.8); Lymphocytes % 31.3 %; Mean Platelet Volume 10.8 fL (7.4-10.4); Monocytes # 0.6 10^3/uL (0.2-0.9); Monocytes % 7.5 %; Neutrophils # 4.85 10^3/uL (1.8-7.7); Neutrophils % 60.6 %; Nucleated Red Blood Cells % 0 %; Platelet Count 184 10^3/cmm (130-400); Red Blood Count 4.09 10^6/uL (4.1-5.3); Red Cell Distribution Width 13.1 % (12.1-15.1)
[2020-10-20 16:50] LABS: Alanine Aminotransferase < 5 U/L (0-33); Albumin Level 4.7 g/dL (3.5-5.2); Alkaline Phosphatase 86 IU/L (35-105); Anion Gap 18.2 (5-19); Aspartate Amino Transferase 21 U/L (0-32); Blood Urea Nitrogen 28 mg/dL (8-23); Calcium 9.4 mg/dL (8.5-10.5); Carbon Dioxide 24 mmol/L (22-29); Chloride 102 mmol/L (98-107); Globulin 2.8 g/dL (1.3-4.6); Glucose 98 mg/dL (65-115); Osmolality Calculated 295 mOsm/kg (285-295); Potassium 4.2 mmol/L (3.5-5.1); Sodium 140 mmol/L (136-145); Total Bilirubin 0.2 mg/dL (0.15-1.2); Total Protein 7.5 g/dL (6.6-8.7)
[2020-10-20 16:54] LABS: Acetaminophen < 5.0 ug/mL (10-30); Alcohol Level < 10 mg/dL (0-10); Salicylate < 0.3 mg/dL (3-10)
--- NOTE | 2020-10-20 17:01 | PC.NURSE ---
contacted [facility] for pt placement. [place] confirms that they have [facility] beds available. [place] requests that information be faxed to the facility and placement pending.
--- NOTE | 2020-10-20 17:19 | ECG_ITS ---
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 Measurements Intervals [place] Rate: 83 P: 47 [place]: 185 QRS: 5 QRSD: 107 T: -1 QT: 351 QTc: 414 Interpretive Statements SINUS RHYTHM POSSIBLE LEFT ATRIAL ENLARGEMENT [-0.1mV P WAVE IN V1/V2] PROBABLE LATERAL MYOCARDIAL INFARCTION , PROBABLY OLD [35 ms Q WAVE IN I/aVL/V5/V6] Compared to ECG 06/07/2019 13:07:35 No significant changes Electronically Signed On 10-21-2020 0:48:57 CDT by Lonnie Torres M.D. [email or web address]
[2020-10-20 18:35] VITALS: BP 132/78; PULSE 82; RESP 17; O2SAT 98
[2020-10-20 18:49] LABS: SARS Covid-2 Antigen Negative (Negative)
[2020-10-20 19:00] VITALS: BP 122/70; PULSE 75; RESP 17; O2SAT 95
[2020-10-20] MEDS: LORazepam 1 mg Tablet PO (19:22)
--- NOTE | 2020-10-20 20:15 | PC.NURSE ---
Neg covid result and chart faxed to [facility]. pt and pt daughter informed.
[2020-10-20 21:00] VITALS: BP 128/70; PULSE 75; RESP 16; O2SAT 99
--- NOTE | 2020-10-20 22:13 | XRR_ITS ---
PROCEDURE INFORMATION: Exam: XR Chest Exam date and time: 10/20/2020 10:14 PM Age: 70 years old Clinical indication: Screening exam; Other screening; Additional info: Medical clearance TECHNIQUE: Imaging protocol: XR of the chest. Views: 1 view. COMPARISON: CR XR knees AP WB w BI lmt ORTH 04/21/2020 10:19 AM FINDINGS: Lungs: There is no consolidation. Pleural spaces: There is no pleural effusion or pneumothorax. Heart/Mediastinum: There is mild enlargement of the cardiac silhouette. Bones/joints: Bones are unremarkable. XR/XR chest 1V portable [id number] IMPRESSION: No acute findings.
[2020-10-20 23:00] VITALS: BP 126/68; PULSE 75; RESP 16; O2SAT 99
[2020-10-21 00:13] VITALS: BP 126/70; PULSE 75
--- NOTE | 2020-10-21 01:10 | PC.NURSE ---
Report to Tonia Morris RN
[2020-10-21 02:16] VITALS: BP 128/70; PULSE 70; RESP 16; TEMP 37.2; O2SAT 95
== END 2020-10-21 02:18 ==
PROVIDERS: Family Medicine; Emergency Provider Emergency Medicine; PCP Nurse Practitioner
DX: F33.2 Major depressive disorder, recurrent severe without psychotic features (principal); J44.9 Chronic obstructive pulmonary disease, unspecified; E78.5 Hyperlipidemia, unspecified; I10 Essential (primary) hypertension; E78.2 Mixed hyperlipidemia; G20 Parkinson's disease; F02.80 Dementia in other diseases classified elsewhere, unspecified severity, without behavioral disturbance, psychotic disturbance, mood disturbance, and anxiety; Z87.891 Personal history of nicotine dependence
CPT/HCPCS: 71045; 80053; 80306; 80307; 81003; 85025; 87426; 93005; 99285

== ENCOUNTER → 2020-11-25 12:49 | Outpatient (BNVA) | payer MEDICARE, OTHER, SELFPAY | PROVIDERS: PCP Nurse Practitioner; Visit Provider Nurse Practitioner Psychiatric/Mental Health | DX: F33.2 Major depressive disorder, recurrent severe without psychotic features (principal) | CPT/HCPCS: 99213 ==

== ENCOUNTER → 2020-12-22 07:22 | Outpatient (BNVA) | payer MEDICARE, OTHER, SELFPAY | PROVIDERS: PCP Nurse Practitioner; Visit Provider Nurse Practitioner Psychiatric/Mental Health | DX: F33.2 Major depressive disorder, recurrent severe without psychotic features (principal); F90.2 Attention-deficit hyperactivity disorder, combined type | CPT/HCPCS: 99213 ==

== ENCOUNTER → 2020-12-31 11:49 | Outpatient (BNVA) | payer MEDICARE, OTHER, SELFPAY | PROVIDERS: PCP Nurse Practitioner; Visit Provider Specialist | DX: G20 Parkinson's disease (principal); F33.2 Major depressive disorder, recurrent severe without psychotic features; Z87.891 Personal history of nicotine dependence | CPT/HCPCS: 99214 ==

== ENCOUNTER → 2021-02-17 07:40 | Outpatient (BNVA) | payer MEDICARE, OTHER, SELFPAY | PROVIDERS: PCP Nurse Practitioner; Visit Provider Nurse Practitioner Psychiatric/Mental Health | DX: F33.2 Major depressive disorder, recurrent severe without psychotic features (principal) | CPT/HCPCS: 99214 ==

== ENCOUNTER → 2021-03-04 12:20 | Outpatient (BNVA) | payer MEDICARE, OTHER, SELFPAY | PROVIDERS: PCP Nurse Practitioner; Visit Provider Nurse Practitioner | DX: E03.8 Other specified hypothyroidism (principal); E55.9 Vitamin D deficiency, unspecified; Z23 Encounter for immunization; J41.0 Simple chronic bronchitis; I10 Essential (primary) hypertension | CPT/HCPCS: 80053; 80061; 82306; 84443 ==

== ENCOUNTER → 2021-04-02 08:00 | Outpatient (BNVA) | payer MEDICARE, OTHER, SELFPAY | PROVIDERS: PCP Nurse Practitioner; Visit Provider Nurse Practitioner Psychiatric/Mental Health | DX: F33.2 Major depressive disorder, recurrent severe without psychotic features (principal) | CPT/HCPCS: 99213 ==

== ENCOUNTER 2021-04-06 12:48 | Outpatient (CLI) | payer MEDICARE, OTHER, SELFPAY ==
[2021-04-06 13:05] VITALS: BP 149/85; PULSE 71; RESP 18; TEMP 36.7; O2SAT 97
[2021-04-06] MEDS: denosumab 60 mg SDV SUBCUT (13:17)
[2021-04-06 13:25] VITALS: BP 144/83; PULSE 68; RESP 18; TEMP 36.8; O2SAT 90
== END 2021-04-06 12:49 | disposition home or self-care (01) ==
PROVIDERS: PCP Nurse Practitioner; Referring Provider Nurse Practitioner; Visit Provider Internal Medicine Medical Oncology
DX: M81.0 Age-related osteoporosis without current pathological fracture (principal)
CPT/HCPCS: 96372; J0897

== ENCOUNTER → 2021-06-17 09:38 | Outpatient (BNVA) | payer MEDICARE, OTHER, SELFPAY | PROVIDERS: PCP Nurse Practitioner; Visit Provider Specialist | DX: G20 Parkinson's disease (principal) | CPT/HCPCS: 99214 ==

== ENCOUNTER 2021-07-02 15:02 | Outpatient (CLI) | payer MEDICARE, OTHER, SELFPAY | END 2021-07-02 15:03 | disposition home or self-care (01) | LOC: SPT 15:03 | PROVIDERS: PCP Nurse Practitioner; Visit Provider Specialist | DX: Z46.89 Encounter for fitting and adjustment of other specified devices (principal) | CPT/HCPCS: 97760; L1812 ==

== ENCOUNTER → 2021-07-22 11:25 | Outpatient (BNVA) | payer MEDICARE, OTHER, SELFPAY | PROVIDERS: PCP Nurse Practitioner; Visit Provider Specialist | DX: M17.0 Bilateral primary osteoarthritis of knee (principal) | CPT/HCPCS: 73560; 73565 ==

== ENCOUNTER 2021-08-02 20:00 | Emergency (ER) | payer MEDICARE, OTHER, SELFPAY ==
[2021-08-02 20:04] VITALS: BP 192/73; PULSE 78; RESP 16; TEMP 36.6; O2SAT 95; BMI 33.2
--- NOTE | 2021-08-02 20:11 | PC.NURSE ---
patient received via EMS stretcher with c/o fall from wheel chair, states just leaned over to far. denies LOC, no confusion noted. speech clear, sentences complete, respirations even equal and unlabored.
--- NOTE | 2021-08-02 20:20 | CTR_ITS ---
PROCEDURE INFORMATION: Exam: CT Head Without Contrast Exam date and time: 08/02/2021 8:20 PM Age: 71 years old Clinical indication: Injury or trauma; Fall; Blunt trauma (contusions or hematomas); Without loss of consciousness; Patient HX: Fell out of wheelchair -loc abrasion to R side of head; Additional info: Fall hit head TECHNIQUE: Imaging protocol: Computed tomography of the head without contrast. Radiation optimization: All CT scans at this facility use at least one of these dose optimization techniques: automated exposure control; mA and/or kV adjustment per patient size (includes targeted exams where dose is matched to clinical indication); or iterative reconstruction. COMPARISON: CT head wo con* [id number] 06/07/2019 1:43 PM RADIATION DOSE METRICS: Total DLP (mGy-cm): 818.86 FINDINGS: Brain: There is marked cerebral atrophy. There is mild diffuse heterogeneity of the white matter attenuation, consistent with chronic white matter ischemic changes. Negative for acute intracranial hemorrhage. No midline shift of the brain. No cerebral sulcal effacement. No space-occupying intracranial mass. Cerebral ventricles: No ventriculomegaly. Paranasal sinuses: Visualized sinuses are unremarkable. No fluid levels. Mastoid air cells: Visualized mastoid air cells are well aerated. Orbital cavity: Symmetric orbits. Bones/joints: Unremarkable. No acute fracture. Soft tissues: Unremarkable. CT/CT head wo con* [id number] IMPRESSION: Negative for acute intracranial injury.
--- NOTE | 2021-08-02 20:20 | XRR_ITS ---
PROCEDURE INFORMATION: Exam: XR Right Elbow Exam date and time: 08/02/2021 8:20 PM Age: 71 years old Clinical indication: Injury or trauma; Fall; Blunt trauma (contusions or hematomas); Elbow; Right; Additional info: Fall elbow pain TECHNIQUE: Imaging protocol: XR Right elbow. Views: 3 or more views. COMPARISON: No relevant prior studies available. FINDINGS: Bones/joints: Normal. Soft tissues: Normal. XR/XR elbow RT min 3V* [id number] IMPRESSION: No acute findings.
--- NOTE | 2021-08-02 20:20 | XRR_ITS ---
PROCEDURE INFORMATION: Exam: XR Chest Exam date and time: 08/02/2021 8:20 PM Age: 71 years old Clinical indication: Cough TECHNIQUE: Imaging protocol: XR of the chest. Views: 1 view. COMPARISON: CR (CHEST, ) 10/20/2020 10:13 PM FINDINGS: Lungs: Unremarkable. No consolidation. Pleural spaces: Unremarkable. No pleural effusion. No pneumothorax. Heart/Mediastinum: Unremarkable. No cardiomegaly. Bones/joints: Unremarkable. XR/XR chest 1V portable [id number] IMPRESSION: No acute findings.
[2021-08-02 20:51] LABS: Basophils % 0.3 %; Eosinophils # 0.1 10^3/uL (0.0-0.8); Eosinophils % 1.8 %; Hematocrit 37.2 % (37.0-47.0); Hemoglobin 12.1 g/dL (11.5-15.3); Lymphocytes # 3.2 10^3/uL (0.8-4.8); Lymphocytes % 41.3 %; Mean Corpuscular HGB Conc 32.5 g/dL (30.0-36.0); Mean Corpuscular Hemoglobin 33.2 pg (28.0-34.0); Mean Corpuscular Volume 102.2 fl (81-99); Monocytes # 0.8 10^3/uL (0.2-0.9); Monocytes % 10.2 %; Neutrophils # 3.55 10^3/uL (1.8-7.7); Neutrophils % 46.1 %; Nucleated Red Blood Cells % 0 %; Platelet Count 214 10^3/cmm (130-400); Red Blood Count 3.64 10^6/uL (4.1-5.3); Red Cell Distribution Width 12.4 % (12.1-15.1); White Blood Count 7.7 10^3/uL (4.0-10.0)
[2021-08-02 21:12] LABS: Alanine Aminotransferase < 5 U/L (0-33); Albumin Level 4.1 g/dL (3.5-5.2); Alkaline Phosphatase 94 IU/L (35-105); Aspartate Amino Transferase 19 U/L (0-32); Blood Urea Nitrogen 20 mg/dL (8-23); Calcium 9.9 mg/dL (8.5-10.5); Carbon Dioxide 26 mmol/L (22-29); Chloride 100 mmol/L (98-107); Globulin 3.1 g/dL (1.3-4.6); Glucose 94 mg/dL (65-115); Osmolality Calculated 286 mOsm/kg (285-295); Sodium 137 mmol/L (136-145); Total Bilirubin 0.2 mg/dL (0.15-1.2); Total Protein 7.2 g/dL (6.6-8.7)
[2021-08-02 21:14] LABS: Creatinine Clr Calc Pharmacy 48.6586
[2021-08-02 21:15] LABS: Anion Gap 15.4 (5-19); Potassium 4.4 mmol/L (3.5-5.1)
[2021-08-02 21:22] LABS: Add Urine Microscopic? NO; Charge for UA Resulting for Rev
--- NOTE | 2021-08-02 21:25 | W.ED.FALL ---
HPI - Fall General: Chief Complaint: Fall Stated Complaint: FALL Time Seen by Provider: 08/02/21 20:07 Source: patient and other History of Present Illness: 71-year-old lady from assisted living facility. She fell out of a wheelchair, sliding to the ground striking her head. She has a headache. She also struck her right elbow. No loss of consciousness. She says she has been more generally weak lately. Facility reports that this is her third fall/stumble today. complaint: fall Onset (ago): minute(s) Fall from: wheelchair Fall witnessed: yes, by living facility staff Place fall occurred: other Loss of consciousness: None Prolonged down time: no Symptoms prior to fall: none Location of injury: head Location of injury - extremities: Right: elbow Severity: moderate Quality: throbbing Associated symptoms-after fall: Reports headache(s); Denies abdominal pain, chest pain, confusion, lightheadedness, neck pain, numbness, short of breath or weakness Review of Systems Card: Denies: chest pain or lightheadedness GI: Denies: abdominal pain Musc: Denies: neck pain Neuro: Reports: headache(s); Denies: confusion PFSH ED PFSH: Medical History Abnormal EKG Adult onset hypothyroidism Anxiety and depression Bradycardia COPD (chronic obstructive pulmonary disease) CPAP (continuous positive airway pressure) dependence Dementia Dependent on walker for ambulation DNR no code (do not resuscitate) Dyslipidemia Hypertension Lives in assisted living facility Lymphedema Major depressive disorder, recurrent severe without psychotic features Mixed hyperlipidemia Osteoarthritis of knee Osteoporosis, post-menopausal Parkinson disease Psychiatric care Recurrent syncope Seasonal allergic rhinitis due to pollen Sleep apnea Slow transit constipation Spine deformity Vitamin D deficiency Surgical History History of back surgery 2016 T11-T12 History of bunionectomy bilateral 2015 History of hernia repair 2017 History of laparotomy 1972 no body parts removed History of repair of hiatal hernia History of tubal ligation Left removed only 1972 Hx of cataract surgery Hx of right breast biopsy 1999 Family History Mother Congestive heart failure Clotting disorder CAD (coronary artery disease) Family/Other Lung disease Cancer Grandmother Stroke Denies family history of Diabetes Dementia Chronic kidney disease (CKD) Suicide Anesthesia complication Bleeding disorder Social History Smoking and tobacco status: never smoked Quit status (tobacco): has quit using tobacco Year quit tobacco: 2004 - PPD x 35 Years Second hand smoke exposure: No Smoking risk assessment/counseling performed?: No Alcohol intake: former Desire information about alcohol rehabilitation?: No Counseling given: No Desire information about substance/drug rehabilitation?: No Counseling given: No Adopted: No Caregiver/support person: No Lives independently: Yes Household members: none Housing: House Marital status: Unknown Number of children: 1 service: Yes branch: [employer] Current occupational status: retired and disabled Pets and animals: No History of recent travel: No Current gender identity: Female Physical Exam Const: GENERAL APPEARANCE: cooperative and frail appearing; not ill appearing HENMT: COMMON NORMALS: normocephalic, atraumatic and Normal external nose present HEAD & SCALP: normocephalic and atraumatic FACE & SINUS: normal facial exam and face symmetric NOSE: Normal external nose present Eye: COMMON NORMALS: EOMs intact bilaterally Chest: COMMONS NORMALS: normal inspection of the chest Resp: COMMON NORMALS: normal respiratory effort, No use of accessory muscles and clear to auscultation bilaterally AUSCULTATION: clear to auscultation bilaterally Cardio: COMMON NORMALS: regular rate and regular rhythm RATE: regular rate RHYTHM: regular rhythm GI: COMMON NORMALS: Normal to inspection, nondistended, normoactive bowel sounds present, Soft to palpation and non-tender PALPATION: Yes Soft to palpation Back/Pelvis: PELVIS: Yes no pain with anterior-posterior compression Extremity: NARRATIVE EXTREMITY EXAM: Exam of the right upper extremity reveals some tenderness over the right lateral posterior elbow. No deformity. Range of motion is actually normal. Course Vital Signs: Vital signs: Vital Signs Temperature 97.8 F 08/02/21 20:04 Pulse Rate 78 08/02/21 20:04 Respiratory Rate 16 08/02/21 20:04 Blood Pressure 192/73 08/02/21 20:04 Pulse Oximetry 95 08/02/21 20:04 MDM - Fall Medical Decision Making X-ray of the elbow is normal. CT of the head is negative for hemorrhage or swelling. Chest x-ray is read as normal as well she will be allowed back to nursing facility. Lab Data : 08/02/21 20:45 08/02/21 20:45 Radiology Impressions Chest X-Ray 08/02/21 20:20 IMPRESSION: No acute findings. Elbow X-Ray 08/02/21 20:20 IMPRESSION: No acute findings. Head CT 08/02/21 20:20 IMPRESSION: Negative for acute intracranial injury. Laboratory Results WBC 7.7 10^3/uL (4.0-10.0) 08/02/21 20:45 RBC 3.64 10^6/uL (4.1-5.3) L 08/02/21 20:45 Hgb 12.1 g/dL (11.5-15.3) 08/02/21 20:45 Hct 37.2 % (37.0-47.0) 08/02/21 20:45 MCV 102.2 fl (81-99) H 08/02/21 20:45 MCH 33.2 pg (28.0-34.0) 08/02/21 20:45 MCHC 32.5 g/dL (30.0-36.0) 08/02/21 20:45 RDW 12.4 % (12.1-15.1) 08/02/21 20:45 Plt Count 214 10^3/cmm (130-400) 08/02/21 20:45 MPV 11.0 fL (7.4-10.4) H 08/02/21 20:45 Neut % (Auto) 46.1 % 08/02/21 20:45 Lymph % (Auto) 41.3 % 08/02/21 20:45 [place] % (Auto) 10.2 % 08/02/21 20:45 Eos % (Auto) 1.8 % 08/02/21 20:45 Baso % (Auto) 0.3 % 08/02/21 20:45 Neut # (Auto) 3.55 10^3/uL (1.8-7.7) 08/02/21 20:45 Lymph # (Auto) 3.2 10^3/uL (0.8-4.8) 08/02/21 20:45 [place] # (Auto) 0.8 10^3/uL (0.2-0.9) 08/02/21 20:45 Eos # (Auto) 0.1 10^3/uL (0.0-0.8) 08/02/21 20:45 Baso # (Auto) 0.0 10^3/uL (0.0-0.1) 08/02/21 20:45 Nucleated RBC % (auto) 0 % 08/02/21 20:45 Nucleated RBCs # 0.0 /100WBC 08/02/21 20:45 Sodium 137 mmol/L (136-145) 08/02/21 20:45 Potassium 4.4 mmol/L (3.5-5.1) 08/02/21 20:45 Chloride 100 mmol/L (98-107) 08/02/21 20:45 Carbon Dioxide 26 mmol/L (22-29) 08/02/21 20:45 Anion Gap 15.4 (5-19) 08/02/21 20:45 BUN 20 mg/dL (8-23) 08/02/21 20:45 Creatinine 1.0 mg/dL (0.5-0.9) H 08/02/21 20:45 GFR Calculation Not Reportable 08/02/21 20:45 Glucose 94 mg/dL (65-115) 08/02/21 20:45 Calculated Osmolality 286 mOsm/kg (285-295) 08/02/21 20:45 Lactate 1.2 mmol/L (0.5-2.2) 08/02/21 21:07 Calcium 9.9 mg/dL (8.5-10.5) 08/02/21 20:45 Total Bilirubin 0.2 mg/dL (0.15-1.2) 08/02/21 20:45 AST 19 U/L (0-32) 08/02/21 20:45 ALT < 5 U/L (0-33) 08/02/21 20:45 Alkaline Phosphatase 94 IU/L (35-105) 08/02/21 20:45 C-Reactive Protein 3.0 mg/L (0.0-4.9) 08/02/21 20:45 Total Protein 7.2 g/dL (6.6-8.7) 08/02/21 20:45 Albumin 4.1 g/dL (3.5-5.2) 08/02/21 20:45 Globulin 3.1 g/dL (1.3-4.6) 08/02/21 20:45 Urine Color Yellow (Yellow) 08/02/21 21:04 Urine Appearance Clear (CLEAR) 08/02/21 21:04 Urine pH 7 (5-7) 08/02/21 21:04 Ur Specific [place] 1.010 (1.005-1.030) 08/02/21 21:04 Urine Protein Neg (Negative) 08/02/21 21:04 Urine Glucose (UA) Norm (Normal) 08/02/21 21:04 Urine Ketones Negative (Negative) 08/02/21 21:04 Urine Blood Neg (Negative) 08/02/21 21:04 Urine Nitrate Negative (Negative) 08/02/21 21:04 Urine Bilirubin Neg (Negative) 08/02/21 21:04 Urine Urobilinogen Norm mg/dL (Negative) 08/02/21 21:04 Ur Leukocyte Esterase Negative (Negative) 08/02/21 21:04 Discharge Plan Discharge Patient Disposition: Home Clinical Impression: Contusion of scalp, Contusion of elbow Condition: Stable Prescriptions: No Action ascorbate calcium (vitamin C) 500 mg tablet 1,000 mg PO DAILY@0800 0RF multivitamin Tablet 1 tab PO DAILY@0800 0[place] [place] [facility] Code for Bed side rails, half length. See Rx Instructions .Route .MEDSUPPLY Qty: 1 0RF Rx Instructions: As directed potassium chloride 10 mEq tablet extended release 10 meq PO BID Qty: 180 1RF quetiapine [Seroquel] 100 mg tablet 100 mg PO DAILY Qty: 90 3RF carbidopa-levodopa 25-100 mg tablet 1 tab PO TID@08,13,20 Qty: 270 3RF donepezil 10 mg tablet See Rx Instructions .ROUTE .COMPLEX Qty: 90 2RF Dose Instruction: TAKE 1 TABLET DAILY Rx Instructions: TAKE 1 TABLET DAILY memantine 10 mg tablet See Rx Instructions .ROUTE .COMPLEX Qty: 180 2RF Dose Instruction: TAKE 1 TABLET TWICE A DAY Rx Instructions: TAKE 1 TABLET TWICE A DAY hydrocortisone 1 % cream 1 applic topical BID PRN (Reason: skin irritation) Qty: 28.4 0RF promethazine-DM 6.25-15 mg/5 mL syrup 5 ml PO Q6H Qty: 120 0RF Rx Instructions: use for 5 days then stop lorazepam 0.5 mg tablet 0.5 mg PO TID PRN (Reason: anxiety) Qty: 90 0RF Systane Complete 0.6 % drops 1 drp ophthalmic (eye) TID PRN (Reason: dry eye(s)) Qty: 10 0RF (DME) Bed Rail See Rx Instructions .Route .MEDSUPPLY Qty: 1 0RF Rx Instructions: As directed (DME) HINGED KNEE BRACE See Rx Instructions .Route .MEDSUPPLY Qty: 1 0RF Rx Instructions: As directed docusate sodium 100 mg capsule See Rx Instructions PO .COMPLEX Qty: 1 0RF Rx Instructions: 300mg AM and 200mg PM PO; Please make changes on MAR lamotrigine 200 mg tablet 200 mg PO DAILY@1800 Qty: 90 0RF Rx Instructions: take one tablet daily each evening [place] [place]er front wheel slide on back See Rx Instructions .Route .MEDSUPPLY Qty: 1 0RF Rx Instructions: As directed gabapentin 300 mg capsule See Rx Instructions .ROUTE .COMPLEX Qty: 90 11RF Dose Instruction: TAKE 1 CAPSULE THREE TIMES A DAY Rx Instructions: TAKE 1 CAPSULE THREE TIMES A DAY furosemide 20 mg tablet 40 mg PO QAM Qty: 180 0RF duloxetine [Cymbalta] 30 mg capsule,delayed release(DR/EC) 30 mg PO BID Qty: 180 1RF modafinil 200 mg tablet 200 mg PO DAILY@0800 Qty: 90 1RF rosuvastatin 10 mg tablet 10 mg PO BEDTIME@2000 Qty: 90 0RF lisinopril 5 mg tablet 5 mg PO DAILY@0800 Qty: 90 0RF [place] Thyroid 90 mg tablet 90 mg PO .at 8PM Qty: 90 1RF nystatin 100,000 unit/gram powder 1 applic topical BID Qty: 60 1RF Rx Instructions: apply abdomen skin fold Flovent Diskus 100 mcg/actuation blister with device 1 inh inhalation Q12H Qty: 180 3RF Aspirin Low Dose 81 mg tablet,delayed release (DR/EC) 81 mg PO DAILY@0800 0RF Calcium 600 600 mg calcium (1,500 mg) tablet 600 mg PO BID@0800,1999 0RF fluticasone propionate 50 mcg/actuation spray,suspension 2 spray INTRANASAL DAILY@1999 0RF acetaminophen 500 mg capsule 500 mg PO TID@,,20 0RF PreserVision AREDS 1 cap PO BID@08,21 0RF Discharge Orders: Discharge ED (Routine); Ordered 08/02/21 Ordered By: Nabor Stein Referrals: Jose Esquivel, [employer] [Primary Care Provider] - Patient Instructions: Scalp Contusion in Adults (ED) Activity Restrictions/Additional Instructions: Return for worsening mental status, vomiting, continued or repeated episodes of falls, shortness of breath, chest discomfort, any other concerning symptoms. Check morning blood pressures prior to blood pressure medication administration. If blood pressure is less than 130 systolic, hold medication. Coding Level of Care Code ED Neurodiagnostic Technician for Chg Fwd Exam Comprehensive
[2021-08-02 21:27] LABS: Bilirubin Urine Neg (Negative); Blood Urine Neg (Negative); Glucose Urine UA Norm (Normal); Ketones Urine Negative (Negative); Leukocyte Esterase Urine Negative (Negative); Nitrate Urine Negative (Negative); Protein Urine Neg (Negative); Urine Appearance Clear (CLEAR); Urine Color Yellow (Yellow); Urobilinogen Urine Norm (Negative); pH Urine 7 (5-7)
[2021-08-02 21:27] LABS: Lactate (Lactic Acid level) 1.2 mmol/L (0.5-2.2)
== END 2021-08-02 22:20 | disposition home or self-care (01) ==
PROVIDERS: Emergency Provider Emergency Medicine; PCP Nurse Practitioner
DX: S00.03XA Contusion of scalp, initial encounter (principal); S50.01XA Contusion of right elbow, initial encounter; Z79.82 Long term (current) use of aspirin; J44.9 Chronic obstructive pulmonary disease, unspecified; I10 Essential (primary) hypertension; E78.2 Mixed hyperlipidemia; G20 Parkinson's disease; F02.80 Dementia in other diseases classified elsewhere, unspecified severity, without behavioral disturbance, psychotic disturbance, mood disturbance, and anxiety; Z87.891 Personal history of nicotine dependence; W05.0XXA Fall from non-moving wheelchair, initial encounter
CPT/HCPCS: 70450; 71045; 73080; 80053; 81003; 83605; 85025; 86140; 99283

== ENCOUNTER → 2021-10-01 10:32 | Outpatient (BNVA) | payer MEDICARE, OTHER, SELFPAY | PROVIDERS: PCP Nurse Practitioner; Visit Provider Specialist | DX: Z71.89 Other specified counseling (principal); Z87.891 Personal history of nicotine dependence; M17.0 Bilateral primary osteoarthritis of knee | CPT/HCPCS: 20610; J1100; J2795; J3301 ==

== ENCOUNTER 2021-10-05 13:05 | Outpatient (CLI) | payer MEDICARE, OTHER, SELFPAY ==
[2021-10-05 13:23] VITALS: BP 116/69; PULSE 71; RESP 18; TEMP 36.5; O2SAT 96
[2021-10-05] MEDS: denosumab 60 mg SDV SUBCUT (13:45)
[2021-10-05 13:53] VITALS: BP 104/66; PULSE 69; RESP 18; TEMP 36.6; O2SAT 95
== END 2021-10-05 13:06 | disposition home or self-care (01) ==
PROVIDERS: PCP Nurse Practitioner; Referring Provider Nurse Practitioner; Visit Provider Nurse Practitioner
DX: M81.0 Age-related osteoporosis without current pathological fracture (principal)
CPT/HCPCS: 96372; J0897

== ENCOUNTER 2021-10-26 09:26 | Outpatient (CLI) | payer MEDICARE, OTHER, SELFPAY ==
--- NOTE | 2021-10-26 11:00 | CT_ITS ---
WS: [id number] CT CHEST, ABDOMEN, AND PELVIS TECHNIQUE: Noncontrast CT of the chest, abdomen, and pelvis with coronal and sagittal reformatted katarina ges. CLINICAL INFORMATION: J41.0 - Simple chronic bronchitis COMPARISON: None. DLP: 1198.[address] scans at [facility] use at least one of these dose optimization techniques: automated e xposure control; mA and/or kV adjustment per patient size (includes targeted exams where dose is matc hed to clinical indication); or iterative reconstruction. CT CHEST: Mild chronic emphysematous changes. Biapical fibrosis. Subsegmental atelectasis in the RIGHT middle l obe. No acute pulmonary infiltrates. No focal pneumonia or pleural fluid. No mediastinal or hilar lym phadenopathy. Mild aortic calcification. Coronary calcification. Moderate esophageal hiatal hernia. A ssociated periesophageal component. No axillary lymphadenopathy.Prior vertebroplasty changes T11 and T12 with chronic compression at T12 vertebral body. CT ABDOMEN AND PELVIS: Noncontrast liver is normal. Adrenal glands are normal. Noncontrast pancreas appears normal. Normal n oncontrast spleen. Adrenal glands are normal. No hydronephrosis in either kidney. Normal caliber abdo carola aorta. Mild aortic calcification. Prior hysterectomy. No evidence of high-grade small or large bowel obstruction. Tiny fat-containing umbilical hernia. Dis c space narrowing worse at T12-L1 and L5-S1. CT/CT chest abd pel wo con IMPRESSION: 1. Prior hysterectomy. 2. Mild chronic emphysematous changes. No acute pulmonary infiltrates. 3. Moderate esophageal hiatal hernia with a paraesophageal component. 4. Tiny fat-containing umbilical hernia. 5. Prior vertebroplasty changes T11 and T12. Chronic compression of the T12 ve rtebral body. 6. No other acute findings.
== END 2021-10-26 09:27 | disposition home or self-care (01) ==
LOC: RAD 09:29
PROVIDERS: PCP Nurse Practitioner; Visit Provider Nurse Practitioner
DX: J44.9 Chronic obstructive pulmonary disease, unspecified (principal); R63.4 Abnormal weight loss; Z90.710 Acquired absence of both cervix and uterus; K44.9 Diaphragmatic hernia without obstruction or gangrene
CPT/HCPCS: 71250; 74176

== ENCOUNTER → 2021-11-24 08:15 | Outpatient (BNVA) | payer MEDICARE, OTHER, SELFPAY | PROVIDERS: PCP Nurse Practitioner; Visit Provider Specialist | DX: G20 Parkinson's disease (principal); F32.A Depression, unspecified; I95.9 Hypotension, unspecified; I95.1 Orthostatic hypotension | CPT/HCPCS: 99214 ==

== ENCOUNTER → 2022-01-06 14:29 | Outpatient (BNVA) | payer MEDICARE, OTHER, SELFPAY | PROVIDERS: PCP Nurse Practitioner; Visit Provider Nurse Practitioner | DX: R20.0 Anesthesia of skin (principal); R20.2 Paresthesia of skin; E03.8 Other specified hypothyroidism; I10 Essential (primary) hypertension; E55.9 Vitamin D deficiency, unspecified | CPT/HCPCS: 80053; 80061; 82306; 84443; 85025 ==

== ENCOUNTER 2022-01-27 19:54 | Emergency (ER) | payer MEDICARE, OTHER, SELFPAY ==
[2022-01-27 20:01] VITALS: BP 117/63; PULSE 70; RESP 18; TEMP 36.8; O2SAT 99; BMI 26.6
--- NOTE | 2022-01-27 20:03 | XRR_ITS ---
PROCEDURE INFORMATION: Exam: XR Right Shoulder Exam date and time: 01/27/2022 8:24 PM Age: 71 years old Clinical indication: Pain; Shoulder; Right; Additional info: Injury TECHNIQUE: Imaging protocol: Radiologic exam of the Right shoulder. Views: 2 or more views. COMPARISON: [place] [id number] 10/26/2021 9:57 AM FINDINGS: Bones/joints: Alignment is normal. No acute fracture. Soft tissues: Visible soft tissues are unremarkable. XR/XR shoulder RT min 2V* [id number] IMPRESSION: No acute findings.
--- NOTE | 2022-01-27 20:03 | XRR_ITS ---
PROCEDURE INFORMATION: Exam: XR Right Knee Exam date and time: 01/27/2022 8:24 PM Age: 71 years old Clinical indication: Injury or trauma; Fall; Other: Unknown TECHNIQUE: Imaging protocol: Radiologic exam of the Right knee. Views: 3 views. COMPARISON: CR XR knees AP WB w BI lmt ORTH 07/22/2021 11:32 AM FINDINGS: Bones/joints: Mild lateral compartment joint space narrowing. Mild tricompartmental osteophytes. Alignment is normal. No acute fracture. No joint effusion. Soft tissues: Visible soft tissues are unremarkable. XR/XR knee RT 3V* [id number] IMPRESSION: No acute findings.
--- NOTE | 2022-01-27 20:03 | XRR_ITS ---
PROCEDURE INFORMATION: Exam: XR Right Hip Exam date and time: 01/27/2022 8:24 PM Age: 71 years old Clinical indication: Injury or trauma; Fall; Other: Unknown TECHNIQUE: Imaging protocol: Radiologic exam of the Right hip. Views: 1 view hip with pelvis when performed. COMPARISON: [place] [id number] 10/26/2021 9:57 AM FINDINGS: Bones/joints: Alignment is normal. No acute fracture. Soft tissues: Unremarkable. XR/XR hip RT 2-3V wo/w pel* [id number] IMPRESSION: No acute fracture.
--- NOTE | 2022-01-27 20:04 | ED_ITS ---
HPI - Fall General: Chief Complaint: Fall Stated Complaint: Fall/Hip Pain Time Seen by Provider: 01/27/22 20:00 Source: patient and EMS Mode of arrival: EMS Limitations: no limitations History of Present Illness: 71-year-old female states that she had was walking and felt like her knee gave out and fell. States she has chronic issues with her right knee she landed on that knee has pain to the lateral portion of the knee and hip has some mild shoulder pain as well she denies any head injury denies any headache or neck pain. States pain is currently a 4 out of 10. Associated symptoms-after fall: Denies abdominal pain, chest pain or headache(s) Review of Systems Const: Denies: fever(s), chills, body aches or change in appetite Eyes: Denies: blurry vision or eye discomfort ENMT: Denies: throat pain or dental pain Card: Denies: chest pain Resp: Denies: dyspnea GI: Denies: abdominal pain, nausea, vomiting or diarrhea : Denies: dysuria Musc: Reports: extremity pain Skin/Breast: Denies: rash Neuro: Denies: headache(s) Psych: Denies: depression Ricardo/Lymph: Denies: easy bruising All/Imm: Denies: urticaria PFSH ED PFSH: Medical History Abnormal EKG Adult onset hypothyroidism Anxiety and depression Bradycardia COPD (chronic obstructive pulmonary disease) CPAP (continuous positive airway pressure) dependence Dementia Dependent on walker for ambulation DNR no code (do not resuscitate) Dyslipidemia Hypertension Lives in assisted living facility Lymphedema Major depressive disorder, recurrent severe without psychotic features Mixed hyperlipidemia Osteoarthritis of knee Osteoporosis, post-menopausal Parkinson disease Recurrent syncope Seasonal allergic rhinitis due to pollen Sleep apnea Slow transit constipation Spine deformity Vitamin D deficiency Surgical History History of back surgery 2016 T11-T12 History of bunionectomy bilateral 2015 History of hernia repair 2017 History of laparotomy 1972 no body parts removed History of repair of hiatal hernia History of tubal ligation Left removed only 1972 Hx of cataract surgery Hx of right breast biopsy 1999 Family History Mother Congestive heart failure Clotting disorder CAD (coronary artery disease) Family/Other Lung disease Cancer Grandmother Stroke Denies family history of Diabetes Dementia Chronic kidney disease (CKD) Suicide Anesthesia complication Bleeding disorder Social History Smoking and tobacco status: never smoked Quit status (tobacco): has quit using tobacco Year quit tobacco: 2004 - PPD x 35 Years Second hand smoke exposure: No Smoking risk assessment/counseling performed?: No Alcohol intake: former Desire information about alcohol rehabilitation?: No Counseling given: No Desire information about substance/drug rehabilitation?: No Counseling given: No Adopted: No Caregiver/support person: No Lives independently: Yes Household members: none Housing: House Marital status: Unknown Number of children: 1 service: Yes branch: [employer] Current occupational status: retired and disabled Pets and animals: No History of recent travel: No Current gender identity: Female Physical Exam Const: COMMON NORMALS: no acute distress, patient oriented x3 and healthy appearing HENMT: COMMON NORMALS: normocephalic and atraumatic HEAD & SCALP: normocephalic and atraumatic Eye: COMMON NORMALS: Equal, round and reactive pupils present and EOMs intact bilaterally PUPIL: Yes Equal, round and reactive pupils present Neck/C-Spine: COMMON NORMALS: full ROM and supple Chest: COMMONS NORMALS: normal inspection of the chest and normal palpation of entire chest wall Resp: COMMON NORMALS: normal respiratory effort, No retractions, No use of accessory muscles and clear to auscultation bilaterally AUSCULTATION: clear to auscultation bilaterally Cardio: COMMON NORMALS: regular rate, regular rhythm and No murmurs present (Cardio) RATE: regular rate RHYTHM: regular rhythm GI: COMMON NORMALS: Normal to inspection, nondistended, normoactive bowel sounds present, Soft to palpation, non-tender and no masses PALPATION: Yes Soft to palpation Extremity: COMMON NORMALS: full ROM NARRATIVE EXTREMITY EXAM: Some tenderness over right lateral knee and hip and right shoulder full range of motion available no obvious deformity. Neuro: COMMON NORMALS: patient oriented x3, moves all extremities and no focal motor deficits Psych: COMMON NORMALS: mental status grossly normal, Normal thought process present and cooperative THOUGHT PROCESS: Normal thought process present Skin: COMMON NORMALS: no rashes or lesions noted and no wounds GENERAL SKIN EXAM: no rashes or lesions noted Course Vital Signs: Vital signs: Vital Signs Temperature 98.3 F 01/27/22 20:01 Pulse Rate 70 01/27/22 20:01 Respiratory Rate 18 01/27/22 20:01 Blood Pressure 117/63 01/27/22 20:01 Pulse Oximetry 99 01/27/22 20:01 Oxygen Delivery Me thod 01/27/22 20:01 MDM - Fall Medical Decision Making Patient presents here with a contusion to the knee from a fall x-ray here is negative she is able to walk with her walker she is stable for discharge she is to follow-up with PCP and return if worsening. Lab Data Radiology Impressions Hip/Pelvis X-Ray 01/27/22 20:03 IMPRESSION: No acute fracture. Knee X-Ray 01/27/22 20:03 IMPRESSION: No acute findings. Shoulder X-Ray 01/27/22 20:03 IMPRESSION: No acute findings. Discharge Plan Discharge Patient Disposition: Home Clinical Impression: Fall, Contusion of knee, right Condition: Stable Prescriptions: No Action ascorbate calcium (vitamin C) 500 mg tablet 1,000 mg PO DAILY@0800 multivitamin Tablet 1 tab PO DAILY@0800 (DME) [id number] - [facility] Code for Bed side rails, half length. See Rx Instructions .Route .MEDSUPPLY Qty: 1 0RF Rx Instructions: As directed hydrocortisone 1 % cream 1 applic topical BID PRN (Reason: skin irritation) Qty: 28.4 0RF promethazine-DM 6.25-15 mg/5 mL syrup 5 ml PO Q6H Qty: 120 0RF Rx Instructions: use for 5 days then stop lorazepam 0.5 mg tablet 0.5 mg PO TID PRN (Reason: anxiety) Qty: 90 0RF (DME) Bed Rail See Rx Instructions .Route .MEDSUPPLY Qty: 1 0RF Rx Instructions: As directed (DME) HINGED KNEE BRACE See Rx Instructions .Route .MEDSUPPLY Qty: 1 0RF Rx Instructions: As directed docusate sodium 100 mg capsule See Rx Instructions PO .COMPLEX Qty: 1 0RF Rx Instructions: 300mg AM and 200mg PM PO; Please make changes on MAR (DME) walker front wheel slide on back See Rx Instructions .Route .MEDSUPPLY Qty: 1 0RF Rx Instructions: As directed furosemide 20 mg tablet 20 mg PO QAM Qty: 1 0RF Hold Instructions: Low Blood pressure Rx Instructions: Put on hold on the EMR duloxetine [Cymbalta] 60 mg capsule,delayed release(DR/EC) 60 mg PO BID Qty: 180 1RF Rx Instructions: dose increase modafinil 200 mg tablet 200 mg PO DAILY@0800 Qty: 90 1RF rosuvastatin 10 mg tablet 10 mg PO BEDTIME@2000 Qty: 90 1RF Stem Thyroid 90 mg tablet 90 mg PO .at 8PM Qty: 90 1RF gabapentin 300 mg capsule See Rx Instructions .ROUTE .COMPLEX Qty: 90 11RF Dose Instruction: TAKE 1 CAPSULE THREE TIMES A DAY Rx Instructions: TAKE 1 CAPSULE THREE TIMES A DAY nystatin 100,000 unit/gram powder 1 applic topical BID Qty: 60 1RF Rx Instructions: apply abdomen skin fold Flovent Diskus 100 mcg/actuation blister with device 1 inh inhalation Q12H Qty: 180 3RF potassium chloride 10 mEq tablet extended release 10 meq PO BID Qty: 180 1RF lisinopril 5 mg tablet 5 mg PO DAILY@0800 Qty: 90 1RF lamotrigine 200 mg tablet 200 mg PO DAILY@1800 Qty: 90 0RF Rx Instructions: take one tablet daily each evening donepezil 10 mg tablet See Rx Instructions .ROUTE .COMPLEX Qty: 90 3RF Dose Instruction: TAKE 1 TABLET DAILY Rx Instructions: TAKE 1 TABLET DAILY memantine 10 mg tablet See Rx Instructions .ROUTE .COMPLEX Qty: 180 3RF Dose Instruction: TAKE 1 TABLET TWICE A DAY Rx Instructions: TAKE 1 TABLET TWICE A DAY quetiapine 100 mg tablet See Rx Instructions .ROUTE .COMPLEX Qty: 90 3RF Dose Instruction: TAKE 1 TABLET DAILY Rx Instructions: TAKE 1 TABLET DAILY Systane Complete 0.6 % drops 1 drp ophthalmic (eye) TID PRN (Reason: dry eye(s)) Qty: 10 0RF carbidopa-levodopa 25-100 mg tablet See Rx Instructions .ROUTE .COMPLEX Qty: 180 5RF Dose Instruction: TAKE 1 TABLET THREE TIMES A DAY AT 0800, 1300 AND 2000 Rx Instructions: TAKE 2 TABLET THREE TIMES A DAY AT 0800, 1300 AND 1800 Arya Low Dose Aspirin 81 mg tablet,delayed release (DR/EC) 81 mg PO DAILY@0800 Calcium 600 600 mg calcium (1,500 mg) tablet 600 mg PO BID@0800,2000 fluticasone propionate 50 mcg/actuation spray,suspension 2 spray INTRANASAL DAILY@1999 acetaminophen 500 mg capsule 500 mg PO TID@,, PreserVision AREDS 1 cap PO BID@, Discharge Orders: Discharge ED (Routine); Ordered 01/27/22 Ordered By: Dl Harris Referrals: Jose Esquivel, ARTISTIC DIRECTOR-C [Primary Care Provider] - 1-3 days Discharge Diet: Advance as tolerated Discharge Activity: Resume usual activity Patient Instructions: Contusion in Adults (ED) Coding Level of Care Code ED Product Tester Fiberglass for Chg Fwd Exam Comprehensive
--- NOTE | 2022-01-27 20:45 | PC.NURSE ---
Pt was ambulated to restroom and back with rolling walker. Pt was placed in no-slip socks and tolerated walk well. She was able to bear weight on the right leg with a slight limp; however, independent enough to not need assistance from nurse but standby assistance. Dr. Harris notified of progress.
[2022-01-27 21:38] VITALS: BP 112/68; PULSE 74; RESP 18; TEMP 36.8; O2SAT 99
== END 2022-01-27 21:48 | disposition home or self-care (01) ==
PROVIDERS: Emergency Provider Emergency Medicine; PCP Nurse Practitioner
DX: S80.01XA Contusion of right knee, initial encounter (principal); Z79.82 Long term (current) use of aspirin; J44.9 Chronic obstructive pulmonary disease, unspecified; I10 Essential (primary) hypertension; E78.2 Mixed hyperlipidemia; G20 Parkinson's disease; F02.80 Dementia in other diseases classified elsewhere, unspecified severity, without behavioral disturbance, psychotic disturbance, mood disturbance, and anxiety; Z87.891 Personal history of nicotine dependence; W18.39XA Other fall on same level, initial encounter
CPT/HCPCS: 73030; 73502; 73562; 99284

== ENCOUNTER 2022-01-28 06:00 | Outpatient (RCR) | payer MEDICARE, OTHER, SELFPAY | END 2022-02-03 23:59 | disposition home or self-care (01) | LOC: AOT 06:00 | PROVIDERS: PCP Nurse Practitioner; Referring Provider Nurse Practitioner; Visit Provider Nurse Practitioner | DX: G20 Parkinson's disease (principal); R53.81 Other malaise | CPT/HCPCS: 97167 ==

== ENCOUNTER → 2022-02-11 10:48 | Outpatient (BNVA) | payer MEDICARE, OTHER, SELFPAY | PROVIDERS: PCP Nurse Practitioner; Visit Provider Specialist | DX: M17.0 Bilateral primary osteoarthritis of knee (principal) | CPT/HCPCS: 20610; J7327 ==

== ENCOUNTER 2022-03-09 03:44 | Emergency (ER) | payer MEDICARE, OTHER, SELFPAY ==
[2022-03-09 03:46] VITALS: PULSE 67; RESP 18; TEMP 36.4; O2SAT 98; BMI 25.9
--- NOTE | 2022-03-09 03:46 | XRR_ITS ---
PROCEDURE INFORMATION: Exam: XR Right Hip Exam date and time: 03/09/2022 3:52 AM Age: 71 years old Clinical indication: Injury or trauma; Blunt trauma (contusions or hematomas); Right; Patient HX: From assisted living facility for fall. Fell back striking back of head against door and falling onto RT hip on floor. C/O head and hip pain. TECHNIQUE: Imaging protocol: Radiologic exam of the Right hip. Views: 1 view hip with pelvis when performed. COMPARISON: CR XR hip RT 2-3V wo/w pel* [id number] 01/27/2022 8:24 PM FINDINGS: Bones/joints: Unremarkable. No acute fracture. Soft tissues: Unremarkable. XR/XR hip RT 2-3V wo/w pel* [id number] IMPRESSION: No acute findings.
--- NOTE | 2022-03-09 03:46 | W.ED.FALL ---
HPI - Fall General: Chief Complaint: Fall Stated Complaint: Fall Time Seen by Provider: 03/09/22 03:59 Source: patient and EMS Mode of arrival: EMS Limitations: no limitations History of Present Illness: 71-year-old female who is here from assisted living she had 2 falls yesterday morning she states she has had hip pain. She was able to ambulate yesterday but states that she woke up this morning having severe pain in the right hip she rates her pain a 7 out of 10 denies any other injuries with her falls. Associated symptoms-after fall: Denies abdominal pain, chest pain or headache(s) Review of Systems Const: Denies: fever(s), chills, body aches or change in appetite Eyes: Denies: blurry vision or eye discomfort ENMT: Denies: throat pain or dental pain Card: Denies: chest pain Resp: Denies: dyspnea GI: Denies: abdominal pain, nausea, vomiting or diarrhea : Denies: dysuria Musc: Reports: extremity pain Skin/Breast: Denies: rash Neuro: Denies: headache(s) Psych: Denies: depression Ricardo/Lymph: Denies: easy bruising All/Imm: Denies: urticaria PFSH ED PFSH: Medical History Abnormal EKG Adult onset hypothyroidism Anxiety and depression Bradycardia COPD (chronic obstructive pulmonary disease) CPAP (continuous positive airway pressure) dependence Dementia Dependent on walker for ambulation DNR no code (do not resuscitate) Dyslipidemia Lives in assisted living facility Major depressive disorder, recurrent severe without psychotic features Mixed hyperlipidemia Osteoarthritis of knee Osteoporosis, post-menopausal Parkinson disease Recurrent syncope Seasonal allergic rhinitis due to pollen Sleep apnea Slow transit constipation Spine deformity Vitamin D deficiency Surgical History History of back surgery 2016 T11-T12 History of bunionectomy bilateral 2015 History of hernia repair 2017 History of laparotomy 1972 no body parts removed History of repair of hiatal hernia History of tubal ligation Left removed only 1972 Hx of cataract surgery Hx of right breast biopsy 1999 Family History Mother Congestive heart failure Clotting disorder CAD (coronary artery disease) Family/Other Lung disease Cancer Grandmother Stroke Denies family history of Diabetes Dementia Chronic kidney disease (CKD) Suicide Anesthesia complication Bleeding disorder Social History Smoking and tobacco status: never smoked Quit status (tobacco): has quit using tobacco Year quit tobacco: 2004 - PPD x 35 Years Second hand smoke exposure: No Smoking risk assessment/counseling performed?: No Alcohol intake: former Desire information about alcohol rehabilitation?: No Counseling given: No Desire information about substance/drug rehabilitation?: No Counseling given: No Adopted: No Caregiver/support person: No Lives independently: Yes Household members: none Housing: House Marital status: Unknown Number of children: 1 service: Yes branch: [employer] Current occupational status: retired and disabled Pets and animals: No History of recent travel: No Current gender identity: Female Physical Exam Const: COMMON NORMALS: no acute distress, patient oriented x3 and healthy appearing HENMT: COMMON NORMALS: normocephalic and atraumatic HEAD & SCALP: normocephalic and atraumatic Eye: COMMON NORMALS: Equal, round and reactive pupils present and EOMs intact bilaterally PUPIL: Yes Equal, round and reactive pupils present Neck/C-Spine: COMMON NORMALS: full ROM and supple Chest: COMMONS NORMALS: normal inspection of the chest and normal palpation of entire chest wall Resp: COMMON NORMALS: normal respiratory effort, No retractions, No use of accessory muscles and clear to auscultation bilaterally AUSCULTATION: clear to auscultation bilaterally Cardio: COMMON NORMALS: regular rate, regular rhythm and No murmurs present (Cardio) RATE: regular rate RHYTHM: regular rhythm GI: COMMON NORMALS: Normal to inspection, nondistended, normoactive bowel sounds present, Soft to palpation, non-tender and no masses PALPATION: Yes Soft to palpation Extremity: COMMON NORMALS: full ROM NARRATIVE EXTREMITY EXAM: tenderness to right hip, distal pulses intact Neuro: COMMON NORMALS: patient oriented x3, moves all extremities and no focal motor deficits Psych: COMMON NORMALS: mental status grossly normal, Normal thought process present and cooperative THOUGHT PROCESS: Normal thought process present Skin: COMMON NORMALS: no rashes or lesions noted and no wounds GENERAL SKIN EXAM: no rashes or lesions noted Course Vital Signs: Vital signs: Vital Signs Temperature 97.5 F L 03/09/22 03:46 Pulse Rate 65 03/09/22 05:14 Respiratory Rate 16 03/09/22 05:14 Blood Pressure 127/70 03/09/22 05:14 Pulse Oximetry 100 03/09/22 05:14 Oxygen Delivery Me thod 03/09/22 03:46 MDM - Fall Medical Decision Making Patient presents with hip contusion from a fall. CT of her hip here is normal she did hit her head as well her head CT is normal she has no neck pain she is stable for discharge back to retirement. Lab Data Radiology Impressions Hip/Pelvis X-Ray 03/09/22 03:46 IMPRESSION: No acute findings. Head CT 03/09/22 03:59 IMPRESSION: No acute intracranial abnormality. Please note that MRI is more sensitive for early changes of acute ischemia. Hip CT 03/09/22 03:59 IMPRESSION: There are no acute osseous findings.. Discharge Plan Discharge Patient Disposition: Home Clinical Impression: Fall Contusion of hip Qualifiers: Encounter type: initial encounter Laterality: right Qualified Code(s): S70.01XA - Contusion of right hip, initial encounter Condition: Stable Prescriptions: No Action ascorbate calcium (vitamin C) 500 mg tablet 1,000 mg PO DAILY@0800 multivitamin Tablet 1 tab PO DAILY@0800 hydrocortisone 1 % cream 1 applic topical BID PRN (Reason: skin irritation) Qty: 28.4 0RF promethazine-DM 6.25-15 mg/5 mL syrup 5 ml PO Q6H Qty: 120 0RF Rx Instructions: use for 5 days then stop lorazepam 0.5 mg tablet 0.5 mg PO TID PRN (Reason: anxiety) Qty: 90 0RF docusate sodium 100 mg capsule See Rx Instructions PO .COMPLEX Qty: 1 0RF Rx Instructions: 300mg AM and 200mg PM PO; Please make changes on AUG duloxetine [Cymbalta] 60 mg capsule,delayed release(DR/EC) 60 mg PO BID Qty: 180 1RF Rx Instructions: dose increase trazodone 100 mg tablet 100 mg PO .bedtime for sleep Qty: 1 0RF Rx Instructions: STOP Lasix 20mg on AUG....add trazodone 100mg at bedtime to AUG..[facility] to [facility] modafinil 200 mg tablet 200 mg PO DAILY@0800 Qty: 90 1RF rosuvastatin 10 mg tablet 10 mg PO BEDTIME@2000 Qty: 90 1RF [place] Thyroid 90 mg tablet 90 mg PO .at 8PM Qty: 90 1RF gabapentin 300 mg capsule See Rx Instructions .ROUTE .COMPLEX Qty: 90 11RF Dose Instruction: TAKE 1 CAPSULE THREE TIMES A DAY Rx Instructions: TAKE 1 CAPSULE THREE TIMES A DAY nystatin 100,000 unit/gram powder 1 applic topical BID Qty: 60 1RF Rx Instructions: apply abdomen skin fold Flovent Diskus 100 mcg/actuation blister with device 1 inh inhalation Q12H Qty: 180 3RF potassium chloride 10 mEq tablet extended release 10 meq PO BID Qty: 180 1RF lamotrigine 200 mg tablet 200 mg PO DAILY@1800 Qty: 90 0RF Rx Instructions: take one tablet daily each evening donepezil 10 mg tablet See Rx Instructions .ROUTE .COMPLEX Qty: 90 3RF Hold Instructions: Nausea Dose Instruction: TAKE 1 TABLET DAILY Rx Instructions: TAKE 1 TABLET DAILY memantine 10 mg tablet See Rx Instructions .ROUTE .COMPLEX Qty: 180 3RF Dose Instruction: TAKE 1 TABLET TWICE A DAY Rx Instructions: TAKE 1 TABLET TWICE A DAY quetiapine 100 mg tablet See Rx Instructions .ROUTE .COMPLEX Qty: 90 3RF Dose Instruction: TAKE 1 TABLET DAILY Rx Instructions: TAKE 1 TABLET DAILY Systane Complete 0.6 % drops 1 drp ophthalmic (eye) TID PRN (Reason: dry eye(s)) Qty: 10 0RF carbidopa-levodopa 25-100 mg tablet 1 tab PO QID Qty: 120 5RF Rx Instructions: 2 with breakfast, 1 with lunch and 1 with supper Arya Low Dose Aspirin 81 mg tablet,delayed release (DR/EC) 81 mg PO DAILY@0800 Calcium 600 600 mg calcium (1,500 mg) tablet 600 mg PO BID@0800,2000 fluticasone propionate 50 mcg/actuation spray,suspension 2 spray INTRANASAL DAILY@1999 acetaminophen 500 mg capsule 500 mg PO TID@07,,20 PreserVision AREDS 1 cap PO BID@,21 Discharge Orders: Discharge ED (Routine); Ordered 03/09/22 Ordered By: Dl Harris Referrals: Jose Esquivel, SOCKET PULLER-C [Primary Care Provider] - 1-3 days Discharge Diet: Advance as tolerated Discharge Activity: Resume usual activity Patient Instructions: Hip Contusion (ED) Coding Level of Care Code ED Turbine Attendant for Chg Fwd Exam Comprehensive
[2022-03-09 03:51] VITALS: BP 157/82
--- NOTE | 2022-03-09 03:59 | CTR_ITS ---
PROCEDURE INFORMATION: Exam: CT Right Lower Extremity Without Contrast, Hip Exam date and time: 03/09/2022 4:14 AM Age: 71 years old Clinical indication: Injury or trauma; Blunt trauma; Right; Patient HX: From assisted living facility for fall. Fell back striking back of head against door and falling onto RT hip on floor. C/O head and hip pain. TECHNIQUE: Imaging protocol: CT of the Right lower extremity without contrast was performed. Exam focused on the hip. Radiation optimization: All CT scans at this facility use at least one of these dose optimization techniques: automated exposure control; mA and/or kV adjustment per patient size (includes targeted exams where dose is matched to clinical indication); or iterative reconstruction. COMPARISON: CR (PELVIS, ) 03/09/2022 3:52 AM RADIATION DOSE METRICS: Total DLP (mGy-cm): 213.09 FINDINGS: Bones/joints: Normal. No acute fracture or dislocation. Soft tissues: Some strandy opacities are seen in the subcutaneous fat and fascia overlying the right gluteal region compatible with some bruising or edema.. CT/CT hip RT wo con* [id number] IMPRESSION: There are no acute osseous findings..
--- NOTE | 2022-03-09 03:59 | CTR_ITS ---
PROCEDURE INFORMATION: Exam: CT Head Without Contrast Exam date and time: 03/09/2022 4:10 AM Age: 71 years old Clinical indication: Injury or trauma; Blunt trauma (contusions or hematomas); Patient HX: From assisted living facility for fall. Fell back striking back of head against door and falling onto RT hip on floor. C/O head and hip pain. TECHNIQUE: Imaging protocol: Computed tomography of the head without contrast. Radiation optimization: All CT scans at this facility use at least one of these dose optimization techniques: automated exposure control; mA and/or kV adjustment per patient size (includes targeted exams where dose is matched to clinical indication); or iterative reconstruction. COMPARISON: CT head wo con* [id number] 08/02/2021 8:33 PM RADIATION DOSE METRICS: Total DLP (mGy-cm): 1004.98 FINDINGS: Brain: Patchy hypoattenuation in the periventricular and subcortical white matter, consistent with chronic small vessel ischemia. No CT evidence of acute ischemia. No acute hemorrhage. No mass effect. Cerebral ventricles: Global cerebral volume loss with ex vacuo dilatation of the ventricles. Paranasal sinuses: Visualized sinuses are unremarkable. No fluid levels. Mastoid air cells: Visualized mastoid air cells are well aerated. Bones/joints: Unremarkable. No acute fracture. Soft tissues: Unremarkable. CT/CT head wo con* [id number] IMPRESSION: No acute intracranial abnormality. Please note that MRI is more sensitive for early changes of acute ischemia.
[2022-03-09 04:25] VITALS: BP 170/80; PULSE 66; RESP 18; O2SAT 98
[2022-03-09] MEDS: ondansetron 2 mg/ML SDV 2 mL 4 MG IVP (04:31)
[2022-03-09 04:32] VITALS: RESP 18
[2022-03-09] MEDS: HYDROmorphone 1 mg/mL INJ 1 mL 0.5 MG IVP (04:32)
[2022-03-09 04:45] VITALS: BP 123/68; PULSE 69; RESP 16; O2SAT 96
--- NOTE | 2022-03-09 04:50 | PC.NURSE ---
After pt was given pain medication, O2 saturation was dropping to low 80's. Upon entering room pt was resting with eyes closed and was asked to take deep breaths in through her nose and out through her mouth. Upon instruction to take deep breaths, O2 saturation increased to high 90s. Returned to nurse station and within minutes pt O2 sats returned to low to mid 80's. I returned to pt room and applied 2L oxygen nasal cannula
--- NOTE | 2022-03-09 05:00 | PC.NURSE ---
Daughter arrived to transport pt back to detention, O2 was removed from pt and O2 saturation stayed between 98-100 without O2. Pt transfer from bed to wheelchair and taken to vehicle
[2022-03-09 05:14] VITALS: BP 127/70; PULSE 65; RESP 16; O2SAT 100
== END 2022-03-09 05:05 | disposition home or self-care (01) ==
PROVIDERS: Emergency Provider Emergency Medicine; PCP Nurse Practitioner
DX: S70.01XA Contusion of right hip, initial encounter (principal); J44.9 Chronic obstructive pulmonary disease, unspecified; E78.2 Mixed hyperlipidemia; F03.90 Unspecified dementia, unspecified severity, without behavioral disturbance, psychotic disturbance, mood disturbance, and anxiety; Z87.891 Personal history of nicotine dependence; W19.XXXA Unspecified fall, initial encounter
CPT/HCPCS: 70450; 73502; 73700; 96374; 96375; 99285; J1170; J2405

== ENCOUNTER → 2022-03-23 11:50 | Outpatient (BNVA) | payer MEDICARE, OTHER, SELFPAY | PROVIDERS: PCP Nurse Practitioner; Visit Provider Nurse Practitioner | DX: R30.0 Dysuria (principal) | CPT/HCPCS: 81000 ==

== ENCOUNTER 2022-04-08 12:47 | Outpatient (CLI) | payer MEDICARE, OTHER, SELFPAY ==
[2022-04-08 13:43] LABS: Albumin Level 4.2 g/dL (3.5-5.2); Calcium 9.7 mg/dL (8.5-10.5)
[2022-04-08 13:56] VITALS: BP 180/86; PULSE 83; RESP 18; TEMP 36.9; O2SAT 99
[2022-04-08] MEDS: denosumab 60 mg SDV SUBCUT (14:05)
[2022-04-08 14:10] VITALS: BP 184/92; PULSE 84; RESP 18; TEMP 36.4; O2SAT 98
== END 2022-04-08 12:48 | disposition home or self-care (01) ==
PROVIDERS: PCP Nurse Practitioner; Visit Provider Nurse Practitioner
DX: Z01.89 Encounter for other specified special examinations (principal); M81.0 Age-related osteoporosis without current pathological fracture
CPT/HCPCS: 36415; 82040; 82310; 96372; J0897

== ENCOUNTER 2022-04-18 22:41 | Emergency (ER) | payer MEDICARE, OTHER, SELFPAY ==
[2022-04-18 22:41] VITALS: BP 152/89; PULSE 86; RESP 18; TEMP 37.1; O2SAT 97; BMI 27.6
[2022-04-18 22:49] VITALS: O2SAT 95
[2022-04-18 23:00] VITALS: BP 172/87; O2SAT 88
--- NOTE | 2022-04-18 23:17 | XRR_ITS ---
PROCEDURE INFORMATION: Exam: XR Chest Exam date and time: 04/19/2022 12:25 AM Age: 71 years old Clinical indication: Cough; Additional info: Cough, AMS TECHNIQUE: Imaging protocol: Radiologic exam of the chest. Views: 1 view. COMPARISON: CT chest abdpel [id number] 10/26/2021 9:57 AM FINDINGS: Lungs: Emphysematous changes. Right hilar to lower lobe atelectasis versus infiltrate. Pleural spaces: Unremarkable. No pleural effusion. No pneumothorax. Heart/Mediastinum: Unremarkable. No cardiomegaly. Bones/joints: Unremarkable. XR/XR chest 1V portable [id number] IMPRESSION: 1. Emphysematous changes. 2. Right hilar to lower lobe atelectasis versus infiltrate.
--- NOTE | 2022-04-18 23:17 | CTR_ITS ---
PROCEDURE INFORMATION: Exam: CT Head Without Contrast Exam date and time: 04/18/2022 11:28 PM Age: 71 years old Clinical indication: Injury or trauma; Fall; Blunt trauma (contusions or hematomas); Additional info: Head injury, AMS TECHNIQUE: Imaging protocol: Computed tomography of the head without contrast. Radiation optimization: All CT scans at this facility use at least one of these dose optimization techniques: automated exposure control; mA and/or kV adjustment per patient size (includes targeted exams where dose is matched to clinical indication); or iterative reconstruction. COMPARISON: CT head wo con* [id number] 03/09/2022 4:10 AM RADIATION DOSE METRICS: Total DLP (mGy-cm): 1785.32 FINDINGS: Brain: Mild diffuse white matter disease likely reflecting chronic microvascular ischemic changes. Cerebral ventricles: No ventriculomegaly. Paranasal sinuses: Paranasal sinus opacifications. Mastoid air cells: Visualized mastoid air cells are well aerated. Bones/joints: Unremarkable. No acute fracture. Soft tissues: Unremarkable. CT/CT head wo con* [id number] IMPRESSION: 1. Negative for intracranial hemorrhage or mass effect. 2. Paranasal sinus opacifications. 3. Mild diffuse white matter disease likely reflecting chronic microvascular ischemic changes.
[2022-04-18 23:30] VITALS: BP 135/104
[2022-04-18 23:31] LABS: Basophils % 0.2 %; Hemoglobin 13.1 g/dL (11.5-15.3); Lymphocytes # 2.9 10^3/uL (0.8-4.8); Lymphocytes % 24.3 %; Mean Corpuscular HGB Conc 32.8 g/dL (30.0-36.0); Mean Corpuscular Volume 103.9 fl (81-99); Mean Platelet Volume 11.2 fL (7.4-10.4); Monocytes # 1.2 10^3/uL (0.2-0.9); Monocytes % 9.8 %; Neutrophils # 7.89 10^3/uL (1.8-7.7); Neutrophils % 65.3 %; Nucleated Red Blood Cells % 0 %; Platelet Count 176 10^3/cmm (130-400); Red Blood Count 3.85 10^6/uL (4.1-5.3); Red Cell Distribution Width 12.4 % (12.1-15.1); White Blood Count 12.1 10^3/uL (4.0-10.0)
[2022-04-18 23:44] LABS: Alanine Aminotransferase < 5 U/L (0-33); Albumin Level 3.9 g/dL (3.5-5.2); Alkaline Phosphatase 82 U/L (35-105); Anion Gap 15.6 (5-19); Aspartate Amino Transferase 22 U/L (0-32); Blood Urea Nitrogen 20 mg/dL (8-23); Calcium 9.7 mg/dL (8.5-10.5); Carbon Dioxide 27 mmol/L (22-29); Chloride 99 mmol/L (98-107); Globulin 3.1 g/dL (1.3-4.6); Glucose 105 mg/dL (65-115); Osmolality Calculated 287 mOsm/kg (285-295); Potassium 4.6 mmol/L (3.5-5.1); Sodium 137 mmol/L (136-145); Total Bilirubin 0.3 mg/dL (0.15-1.2)
[2022-04-19] VITALS: O2SAT 95
[2022-04-19 00:30] VITALS: BP 153/81; O2SAT 94
--- NOTE | 2022-04-19 00:59 | ED_ITS ---
HPI - General Adult General: Chief complaint: General Medical Stated complaint: AMS, Alzheimer's, lethargy, drowsiness Time Seen by Provider: 04/18/22 22:42 History of Present Illness: 71-year-old female with a recent diagnosis of Alzheimer's dementia. senior living called EMS, as evidently she was more sleepy than usual. She is mildly lethargic, but answers questions appropriately. She has some bruising to her right eyelid. She notes that she fell a few days ago, striking this area. She denies any headache associated with this. She was not evaluated for it. She also notes that she has been coughing quite a bit the last couple of days. She has chills. No documented fever to her knowledge. No sputum production. No vomiting no diarrhea. Onset (ago): hour(s) Radiation: other Severity: mild Quality: other Pain Consistency: other Relieving factors: other Exacerbating factors: other Associated symptoms: Reports confusion, decreased appetite and fevers/chills; Deny chest pain, dyspnea, headache(s), nausea, rash or vomiting Review of Systems Const: Reports: chills; Denies: fever(s) ENMT: Denies: throat pain Card: Denies: chest pain Resp: Reports: non-productive cough; Denies: dyspnea GI: Denies: abdominal pain, nausea or vomiting : Denies: flank pain Skin/Breast: Denies: rash Neuro: Reports: confusion; Denies: headache(s) [facility] ED PFSH: Medical History Abnormal EKG Adult onset hypothyroidism Anxiety and depression Bradycardia COPD (chronic obstructive pulmonary disease) CPAP (continuous positive airway pressure) dependence Dementia Dependent on walker for ambulation DNR no code (do not resuscitate) Dyslipidemia Lives in assisted living facility Major depressive disorder, recurrent severe without psychotic features Mixed hyperlipidemia Osteoarthritis of knee Osteoporosis, post-menopausal Parkinson disease Recurrent syncope Seasonal allergic rhinitis due to pollen Sleep apnea Slow transit constipation Spine deformity Vitamin D deficiency Surgical History History of back surgery 2016 [id number] History of bunionectomy bilateral 2015 History of hernia repair 2017 History of laparotomy 1972 no body parts removed History of repair of hiatal hernia History of tubal ligation Left removed only 1972 Hx of cataract surgery Hx of right breast biopsy 1999 Family History Mother Congestive heart failure Clotting disorder CAD (coronary artery disease) Family/Other Lung disease Cancer Grandmother Stroke Denies family history of Diabetes Dementia Chronic kidney disease (CKD) Suicide Anesthesia complication Bleeding disorder Social History Smoking and tobacco status: never smoked Quit status (tobacco): has quit using tobacco Year quit tobacco: 2004 - PPD x 35 Years Second hand smoke exposure: No Smoking risk assessment/counseling performed?: No Alcohol intake: former Desire information about alcohol rehabilitation?: No Counseling given: No Desire information about substance/drug rehabilitation?: No Counseling given: No Adopted: No Caregiver/support person: No Lives independently: Yes Household members: none Housing: House Marital status: Unknown Number of children: 1 service: Yes branch: [employer] Current occupational status: retired and disabled Pets and animals: No History of recent travel: No Current gender identity: Female Physical Exam Const: COMMON NORMALS: no acute distress GENERAL APPEARANCE: cooperative and frail appearing HENMT: COMMON NORMALS: normocephalic and Normal external nose present HEAD & SCALP: normocephalic and contusion (r uuper eyelid and periorbital); no scalp tenderness FACE & SINUS: no edema NOSE: Normal external nose present and Normal nares present Eye: COMMON NORMALS: Equal, round and reactive pupils present and EOMs intact bilaterally PUPIL: Yes Equal, round and reactive pupils present Neck/C-Spine: GENERAL: Yes trachea midline Chest: CHEST: Yes Symmetrical chest wall rise Resp: COMMON NORMALS: normal respiratory effort, No use of accessory muscles and clear to auscultation bilaterally AUSCULTATION: clear to auscultation bilaterally Cardio: COMMON NORMALS: regular rate and regular rhythm RATE: regular rate RHYTHM: regular rhythm GI: COMMON NORMALS: Normal to inspection, nondistended, normoactive bowel sounds present and Soft to palpation PALPATION: Yes Soft to palpation Extremity: GENERAL: Yes edema (minimal) Neuro: ARGELIA COMA SCALE: document GCS findings Argelia coma scale eye opening: To sound [place] coma scale verbal response: Orientated Argelia coma scale motor response: Obey commands [place] coma scale total score: 14 Psych: COMMON NORMALS: cooperative Skin: COMMON NORMALS: no rashes or lesions noted GENERAL SKIN EXAM: no rashes or lesions noted Course Vital Signs: Vital signs: Vital Signs Temperature 98.7 F 04/18/22 22:41 Pulse Rate 86 04/18/22 22:41 Respiratory Rate 18 04/18/22 22:41 Blood Pressure 149/74 04/19/22 01:30 Pulse Oximetry 92 04/19/22 01:30 Oxygen Delivery Me thod 04/18/22 22:41 MDM - General Adult Medical Decision Making White blood cell count is 12. BMP is normal. Head CT is nonacute. Chest x-ray shows right hilar to lower lobe atelectasis versus infiltrate. Other laboratories not remarkable. Sats have been normal here. She will be placed on antibiotics, and allowed to return. We will perform respiratory panel on the patient. Lab Data : 04/18/22 22:48 04/18/22 22:48 Radiology Impressions Chest X-Ray 04/18/22 23:17 IMPRESSION: 1. Emphysematous changes. 2. Right hilar to lower lobe atelectasis versus infiltrate. Head CT 04/18/22 23:17 IMPRESSION: 1. Negative for intracranial hemorrhage or mass effect. 2. Paranasal sinus opacifications. 3. Mild diffuse white matter disease likely reflecting chronic microvascular ischemic changes. Laboratory Results WBC 12.1 10^3/uL (4.0-10.0) H 04/18/22 22:48 RBC 3.85 10^6/uL (4.1-5.3) L 04/18/22 22:48 Hgb 13.1 g/dL (11.5-15.3) 04/18/22 22:48 Hct 40.0 % (37.0-47.0) 04/18/22 22:48 MCV 103.9 fl (81-99) H 04/18/22 22:48 MCH 34.0 pg (28.0-34.0) 04/18/22 22:48 MCHC 32.8 g/dL (30.0-36.0) 04/18/22 22:48 RDW 12.4 % (12.1-15.1) 04/18/22 22:48 Plt Count 176 10^3/cmm (130-400) 04/18/22 22:48 MPV 11.2 fL (7.4-10.4) H 04/18/22 22:48 Neut % (Auto) 65.3 % 04/18/22 22:48 Lymph % (Auto) 24.3 % 04/18/22 22:48 [place] % (Auto) 9.8 % 04/18/22 22:48 Eos % (Auto) 0.0 % 04/18/22 22:48 Baso % (Auto) 0.2 % 04/18/22 22:48 Neut # (Auto) 7.89 10^3/uL (1.8-7.7) H 04/18/22 22:48 Lymph # (Auto) 2.9 10^3/uL (0.8-4.8) 04/18/22 22:48 [place] # (Auto) 1.2 10^3/uL (0.2-0.9) H 04/18/22 22:48 Eos # (Auto) 0.0 10^3/uL (0.0-0.8) 04/18/22 22:48 Baso # (Auto) 0.0 10^3/uL (0.0-0.1) 04/18/22 22:48 Nucleated RBC % (auto) 0 % 04/18/22 22:48 Nucleated RBCs # 0.0 /100WBC 04/18/22 22:48 Sodium 137 mmol/L (136-145) 04/18/22 22:48 Potassium 4.6 mmol/L (3.5-5.1) 04/18/22 22:48 Chloride 99 mmol/L (98-107) 04/18/22 22:48 Carbon Dioxide 27 mmol/L (22-29) 04/18/22 22:48 Anion Gap 15.6 (5-19) 04/18/22 22:48 BUN 20 mg/dL (8-23) 04/18/22 22:48 Creatinine 0.7 mg/dL (0.5-0.9) 04/18/22 22:48 GFR Calculation Not Reportable 04/18/22 22:48 Glucose 105 mg/dL (65-115) 04/18/22 22:48 Calculated Osmolality 287 mOsm/kg (285-295) 04/18/22 22:48 Calcium 9.7 mg/dL (8.5-10.5) 04/18/22 22:48 Total Bilirubin 0.3 mg/dL (0.15-1.2) 04/18/22 22:48 AST 22 U/L (0-32) 04/18/22 22:48 ALT < 5 U/L (0-33) 04/18/22 22:48 Alkaline Phosphatase 82 U/L (35-105) 04/18/22 22:48 Total Protein 7.0 g/dL (6.6-8.7) 04/18/22 22:48 Albumin 3.9 g/dL (3.5-5.2) 04/18/22 22:48 Globulin 3.1 g/dL (1.3-4.6) 04/18/22 22:48 Nasal Influ A H1 2009 PCR Not detected (NOT DETECT) 04/19/22 01:40 Adenovirus (PCR) Not detected (NOT DETECT) 04/19/22 01:40 C. pneumoniae DNA (PCR) Not detected (NOT DETECT) 04/19/22 01:40 Coronavirus 229E (PCR) Not detected (NOT DETECT) 04/19/22 01:40 Human Metapneumovir PCR Not detected (NOT DETECT) 04/19/22 01:40 Influenza A (H1) PCR Not detected (NOT DETECT) 04/19/22 01:40 Influenza A (H3) PCR Not detected (NOT DETECT) 04/19/22 01:40 Influenza Type A (PCR) Not detected (NOT DETECT) 04/19/22 01:40 Influenza Type B (PCR) Not detected (NOT DETECT) 04/19/22 01:40 M. pneumoniae (PCR) Not detected (NOT DETECT) 04/19/22 01:40 Parainfluenza 1 (PCR) Not detected (NOT DETECT) 04/19/22 01:40 Parainfluenza 2 (PCR) Not detected (NOT DETECT) 04/19/22 01:40 Parainfluenza 3 (PCR) Not detected (NOT DETECT) 04/19/22 01:40 Parainfluenza 4 (PCR) Not detected (NOT DETECT) 04/19/22 01:40 RSV Type A (PCR) Detected (NOT DETECT) A 04/19/22 01:40 RSV Type B (PCR) Not detected (NOT DETECT) 04/19/22 01:40 Entero/Rhino (PCR) Not detected (NOT DETECT) 04/19/22 01:40 SARS-CoV-2 (PCR) Not detected (NOT DETECT) 04/19/22 01:40 Discharge Plan Discharge Patient Disposition: Home Clinical Impression: Pneumonia Condition: Stable Prescriptions: New doxycycline hyclate 100 mg tablet 100 mg PO BID 7 Days Qty: 14 0RF albuterol sulfate 2.5 mg /3 mL (0.083 %) solution for nebulization 1.25 mg inhalation Q6H PRN (Reason: shortness of breath or wheezing) Qty: 90 0RF No Action ascorbate calcium (vitamin C) 500 mg tablet 1,000 mg PO DAILY@0800 multivitamin Tablet 1 tab PO DAILY@0800 hydrocortisone 1 % cream 1 applic topical BID PRN (Reason: skin irritation) Qty: 28.4 0RF promethazine-DM 6.25-15 mg/5 mL syrup 5 ml PO Q6H Qty: 120 0RF Rx Instructions: use for 5 days then stop docusate sodium 100 mg capsule See Rx Instructions PO .COMPLEX Qty: 1 0RF Rx Instructions: 300mg AM and 200mg PM PO; Please make changes on AUG duloxetine [Cymbalta] 60 mg capsule,delayed release(DR/EC) 60 mg PO BID Qty: 180 1RF Rx Instructions: dose increase trazodone 100 mg tablet 100 mg PO .bedtime for sleep Qty: 1 0RF Rx Instructions: STOP Lasix 20mg on AUG....add trazodone 100mg at bedtime to AUG..[facility] modafinil 200 mg tablet 200 mg PO DAILY@0800 Qty: 90 1RF rosuvastatin 10 mg tablet 10 mg PO BEDTIME@2000 Qty: 90 1RF [place] Thyroid 90 mg tablet 90 mg PO .at 8PM Qty: 90 1RF gabapentin 300 mg capsule See Rx Instructions .ROUTE .COMPLEX Qty: 90 11RF Dose Instruction: TAKE 1 CAPSULE THREE TIMES A DAY Rx Instructions: TAKE 1 CAPSULE THREE TIMES A DAY nystatin 100,000 unit/gram powder 1 applic topical BID Qty: 60 1RF Rx Instructions: apply abdomen skin fold Flovent Diskus 100 mcg/actuation blister with device 1 inh inhalation Q12H Qty: 180 3RF donepezil 10 mg tablet See Rx Instructions .ROUTE .COMPLEX Qty: 90 3RF Hold Instructions: Nausea Dose Instruction: TAKE 1 TABLET DAILY Rx Instructions: TAKE 1 TABLET DAILY memantine 10 mg tablet See Rx Instructions .ROUTE .COMPLEX Qty: 180 3RF Dose Instruction: TAKE 1 TABLET TWICE A DAY Rx Instructions: TAKE 1 TABLET TWICE A DAY quetiapine 100 mg tablet See Rx Instructions .ROUTE .COMPLEX Qty: 90 3RF Dose Instruction: TAKE 1 TABLET DAILY Rx Instructions: TAKE 1 TABLET DAILY Systane Complete 0.6 % drops 1 drp ophthalmic (eye) TID PRN (Reason: dry eye(s)) Qty: 10 0RF carbidopa-levodopa 25-100 mg tablet 1 tab PO QID Qty: 120 5RF Rx Instructions: 2 with breakfast, 1 with lunch and 1 with supper fluticasone propionate 50 mcg/actuation spray,suspension 2 spray INTRANASAL DAILY@2000 Qty: 48 1RF potassium chloride 10 mEq tablet extended release 10 meq PO BID Qty: 180 1RF lamotrigine 200 mg tablet 200 mg PO DAILY@1800 Qty: 90 1RF Rx Instructions: take one tablet daily each evening lorazepam 0.5 mg tablet 0.5 mg PO TID PRN (Reason: anxiety) Qty: 90 0RF Arya Low Dose Aspirin 81 mg tablet,delayed release (DR/EC) 81 mg PO DAILY@0800 Calcium 600 600 mg calcium (1,500 mg) tablet 600 mg PO BID@0800,2000 acetaminophen 500 mg capsule 500 mg PO TID@07,13,20 PreserVision AREDS 1 cap PO BID@08,21 Discharge Orders: Discharge ED (Routine); Ordered 04/19/22 Ordered By: Nabor Stein Referrals: Jose Esquivel, [employer] [Primary Care Provider] - Patient Instructions: Pneumonia (ED) Activity Restrictions/Additional Instructions: Return for worsening mental status despite treatment, fever despite 3 or more doses of antibiotics, worsening shortness of breath, any other concerning symptoms. Call back later today for respiratory panel results, as it may change treatment. 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
[2022-04-19 01:00] VITALS: BP 160/84; O2SAT 74
[2022-04-19 01:30] VITALS: BP 149/74; O2SAT 92
[2022-04-19] MEDS: doxycycline 100 mg Tablet PO (01:36)
[2022-04-19 03:55] LABS: Adenovirus Not Detected (NOT DETECT); Chlamydia Pneumoniae Not Detected (NOT DETECT); Coronavirus 229E,HKU1,NL63,OC4 Not Detected (NOT DETECT); Human Metapneumovirus Not Detected (NOT DETECT); Human Rhinovirus/Enterovirus Not Detected (NOT DETECT); Influenza A Not Detected (NOT DETECT); Influenza A H1 Not Detected (NOT DETECT); Influenza A H1-2009 Not Detected (NOT DETECT); Influenza A H3 Not Detected (NOT DETECT); Influenza B Not Detected (NOT DETECT); Mycoplasma Pneumoniae Not Detected (NOT DETECT); Parainfluenza Virus Type 1 Not Detected (NOT DETECT); Parainfluenza Virus Type 2 Not Detected (NOT DETECT); Parainfluenza Virus Type 3 Not Detected (NOT DETECT); Parainfluenza Virus Type 4 Not Detected (NOT DETECT); Respiratory Syncytial Virus A Detected (NOT DETECT); Respiratory Syncytial Virus B Not Detected (NOT DETECT); SARS-COV-2 Not Detected (NOT DETECT)
== END 2022-04-19 02:06 | disposition home or self-care (01) ==
PROVIDERS: Emergency Provider Emergency Medicine; PCP Nurse Practitioner
DX: J18.9 Pneumonia, unspecified organism (principal); S00.11XA Contusion of right eyelid and periocular area, initial encounter; W19.XXXA Unspecified fall, initial encounter
CPT/HCPCS: 70450; 71045; 80053; 85025; 87486; 87581; 87633; 99285

== ENCOUNTER → 2022-04-26 08:53 | Outpatient (BNVA) | payer MEDICARE, OTHER, SELFPAY | PROVIDERS: PCP Nurse Practitioner; Visit Provider Specialist | DX: G31.83 Neurocognitive disorder with Lewy bodies (principal); F02.80 Dementia in other diseases classified elsewhere, unspecified severity, without behavioral disturbance, psychotic disturbance, mood disturbance, and anxiety; F32.A Depression, unspecified | CPT/HCPCS: 99214 ==

== ENCOUNTER → 2022-07-13 10:35 | Outpatient (BNVA) | payer MEDICARE, OTHER, SELFPAY | PROVIDERS: PCP Nurse Practitioner; Visit Provider Specialist | DX: G20 Parkinson's disease (principal); F02.B2 Dementia in other diseases classified elsewhere, moderate, with psychotic disturbance | CPT/HCPCS: 99214 ==

== ENCOUNTER 2022-10-21 11:33 | Oncology outpatient (recurring) (ONCR) | payer MEDICARE, OTHER, SELFPAY ==
[2022-10-21] MEDS: denosumab 60 mg SDV SUBCUT (12:14)
[2022-10-21 13:25] VITALS: BP 175/77; PULSE 83; RESP 16; TEMP 36.4; O2SAT 93
== END 2022-11-03 23:59 | disposition home or self-care (01) ==
LOC: ONCMED 11:39
PROVIDERS: PCP Internal Medicine; Visit Provider Internal Medicine
DX: M81.0 Age-related osteoporosis without current pathological fracture (principal)
CPT/HCPCS: 96401; J0897

== ENCOUNTER 2022-12-11 07:45 | Emergency (ER) | payer MEDICARE, OTHER, SELFPAY ==
[2022-12-11 07:48] VITALS: BP 150/78; PULSE 82; RESP 18; TEMP 36.9; O2SAT 99; BMI 22.5
--- NOTE | 2022-12-11 07:50 | W.ED.NEUROSD ---
HPI - Neuro Symptoms/Deficit General: Chief Complaint: Neuro Symptoms/Deficit Stated Complaint: RIGHT SIDE FACIAL DROOP Time Seen by Provider: 12/11/22 07:50 Source: patient and EMS Mode of arrival: EMS History of Present Illness: 72-year-old female presents to the emergency room with complaint of right-sided facial droop and significant swelling to the face on the right side and the right arm. Patient is a resident of [facility] last known well was reported to be 5:10 AM was given medications and the nurse returned around 545 noticed some swelling and deficits and called EMS. On arrival here patient responds with a forced whisper she has a history of Parkinson's and dementia. She is not on any anticoagulants. There are no family members in attendance. Patient is able to answer questions she is aware that she is at the hospital and that she lives at the senior living. She will follow all simple commands is generally weak bilaterally difficult to score an NIH. Her only complaint is of bilateral knee pain. Time: 07:45 Last Observed Normal: 05:10 Timing confirmed by: caregiver Location: speech and left face Relieving factors: none Exacerbating factors: none Context: sudden onset Associated symptoms: Deny chest pain, cough, diaphoresis, fevers/chills, headache(s), anorexia, malaise, nausea, seizures, short of breath, syncope, tingling, vertigo, vomiting or weakness Review of Systems Const: Denies: fever(s), chills, malaise or diaphoresis Card: Denies: chest pain or syncope Resp: Denies: dyspnea GI: Denies: abdominal pain, nausea or vomiting : Denies: flank pain, dysuria, urinary frequency or urinary urgency Musc: Reports: joint pain (Bilateral knees) Skin/Breast: Denies: rash or pruritus Neuro: Denies: headache(s) or vertigo PFS ED PFSH: Medical History Abnormal EKG Adult onset hypothyroidism Anxiety and depression Bradycardia COPD (chronic obstructive pulmonary disease) CPAP (continuous positive airway pressure) dependence Dementia Dependent on walker for ambulation DNR no code (do not resuscitate) Dyslipidemia Lives in assisted living facility Major depressive disorder, recurrent severe without psychotic features Mixed hyperlipidemia Osteoarthritis of knee Osteoporosis, post-menopausal Parkinson disease Recurrent syncope Seasonal allergic rhinitis due to pollen Sleep apnea Slow transit constipation Spine deformity Vitamin D deficiency Surgical History History of back surgery 2016 T11-T12 History of bunionectomy bilateral 2015 History of hernia repair 2017 History of laparotomy 1972 no body parts removed History of repair of hiatal hernia History of tubal ligation Left removed only 1972 Hx of cataract surgery Hx of right breast biopsy 1999 Family History Mother Congestive heart failure Clotting disorder CAD (coronary artery disease) Family/Other Lung disease Cancer Grandmother Stroke Denies family history of Diabetes Dementia Chronic kidney disease (CKD) Suicide Anesthesia complication Bleeding disorder Social History Smoking and tobacco status: never smoked Quit status (tobacco): has quit using tobacco Year quit tobacco: 2004 - PPD x 35 Years Second hand smoke exposure: No Smoking risk assessment/counseling performed?: No Alcohol intake: former Desire information about alcohol rehabilitation?: No Counseling given: No Substance/Drug Use: never Desire information about substance/drug rehabilitation?: No Counseling given: No Adopted: No Caregiver/support person: No Lives independently: Yes Household members: none Housing: House Marital status: Unknown Number of children: 1 service: Yes branch: [employer] Current occupational status: retired and disabled Pets and animals: No Do you think of yourself as: Straight/Heterosexual Current gender identity: Female NIH stroke score NIHSS: Level Of Consciousness - 1a: 1 Level Of Consciousness Questions - 1b: One Correct Level Of Consciousness Commands - 1c: Both Correct Best Gaze - 2: Normal Visual Payne - 3: No Visual Loss Facial Palsy - 4: Normal Motor Arm Right - 5: No Drift Motor Arm Left - 5: No Drift Motor Leg Right - 6: No Drift Motor Leg Left - 6: No Drift Limb Ataxia - 7: Absent Sensory - 8: Normal Best Language - 9: No Aphasia Dysarthia - 10: Mild/Moderate Dysarthia Extinction And Inattention - 11: 1 Score: Total Score: 4 Physical Exam Const: GENERAL APPEARANCE: cooperative and comfortable HENMT: COMMON NORMALS: normocephalic, atraumatic and hearing grossly normal bilaterally HEAD & SCALP: normocephalic and atraumatic Resp: COMMON NORMALS: normal respiratory effort, No retractions, No use of accessory muscles and clear to auscultation bilaterally AUSCULTATION: clear to auscultation bilaterally Cardio: COMMON NORMALS: regular rate, regular rhythm and No murmurs present (Cardio) RATE: regular rate RHYTHM: regular rhythm GI: COMMON NORMALS: Soft to palpation and No hepatosplenomegaly present AUSCULTATION: Yes normoactive bowel sounds PALPATION: Yes Soft to palpation, No Tenderness to palpation present (GI), No Guarding due to palpation present (GI) and Yes No hepatosplenomegaly present Extremity: COMMON NORMALS: normal to inspection, capillary refill normal, no clubbing, cyanosis or edema, no calf tenderness and no pedal edema Skin: COMMON NORMALS: no rashes or lesions noted GENERAL SKIN EXAM: no rashes or lesions noted Course Vital Signs: Vital signs: Vital Signs Temperature 98.5 F 12/11/22 07:48 Pulse Rate 76 12/11/22 10:10 Respiratory Rate 16 12/11/22 10:10 Blood Pressure 183/91 12/11/22 10:10 Pulse Oximetry 100 12/11/22 10:10 Oxygen Delivery Me thod Room Air 12/11/22 10:10 MDM - Neuro Symptoms/Deficit Medical Decision Making Were able to get a hold of the senior living staff. They report that the PERIOPERATIVE ASSISTANT came in the room and gave her the Synthroid they did not feel like she had a lot of facial swelling at that point. PERIOPERATIVE ASSISTANT went back in her room around 545 notices swelling reported to the nurse the nurse went in the room around 610 and felt there was swelling and some questionable facial droop and called EMS. Discussion with on-call neurologist for [facility] concurs with their assessment that he would not recommend thrombolytics at this time several of the points that we are assessing for on her stroke score are likely due to swelling in her face and her underlying chronic medical illnesses there does not appear to be any focality to her symptoms. Our nursing staff when talking to the nursing staff at [facility] also was told there is some question that the patient may have had some falls, evidently the roommate reported she had fallen out of her wheelchair but got herself back in the wheelchair not reported to staff. Family arrived at the bedside reviewed with them at the time they arrived patient was up looking around facial swelling had decreased significantly that even noticed that it decreased in the time they are waiting for the work-up to be completed. She does have a little bit left along the jawline but she is able to open her eyes she is up awake moving with good facial symmetry and use of all extremities. Suspect some of this may have been her Lewy body disease and/or Parkinson's as we had originally thought when we initially evaluated her. At this point there is no sign of any infection or other ongoing issue we will discharge her back to the senior living family will return her there. Reviewed differential diagnosis with them they are comfortable at this point with discharging home and just observing. Other differential diagnosis includes Gordillo's palsy seizure other craniofacial neuropathies Lewy bodies and Parkinson's Differential Diagnosis Likely convulsions, delirium, subarachnoid hemorrhage, peripheral neuropathy and cerebrovascular accident Medical Records I reviewed the patient's medical records. Lab Data I reviewed the patient's lab results. 12/11/22 08:11 12/11/22 08:[address] 12/11/22 07:51 IMPRESSION: No acute intracranial abnormality. ASSESSMENT: ASPECTS ([place] Stroke Program Early CT Score) is 10. Face CT 12/11/22 08:33 IMPRESSION: No acute findings. Laboratory Results WBC 8.0 10^3/uL (4.0-10.0) 12/11/22 08:11 RBC 3.59 10^6/uL (4.1-5.3) L 12/11/22 08:11 Hgb 11.6 g/dL (11.5-15.3) 12/11/22 08:11 Hct 36.5 % (37.0-47.0) L 12/11/22 08:11 MCV 101.7 fl (81-99) H 12/11/22 08:11 MCH 32.3 pg (28.0-34.0) 12/11/22 08:11 MCHC 31.8 g/dL (30.0-36.0) 12/11/22 08:11 RDW 12.2 % (12.1-15.1) 12/11/22 08:11 Plt Count 185 10^3/cmm (130-400) 12/11/22 08:11 MPV 10.8 fL (7.4-10.4) H 12/11/22 08:11 Neut % (Auto) 64.0 % 12/11/22 08:11 Lymph % (Auto) 24.4 % 12/11/22 08:11 Real % (Auto) 11.2 % 12/11/22 08:11 Eos % (Auto) 0.0 % 12/11/22 08:11 Baso % (Auto) 0.3 % 12/11/22 08:11 Neut # (Auto) 5.09 10^3/uL (1.8-7.7) 12/11/22 08:11 Lymph # (Auto) 1.9 10^3/uL (0.8-4.8) 12/11/22 08:11 Real # (Auto) 0.9 10^3/uL (0.2-0.9) 12/11/22 08:11 Eos # (Auto) 0.0 10^3/uL (0.0-0.8) 12/11/22 08:11 Baso # (Auto) 0.0 10^3/uL (0.0-0.1) 12/11/22 08:11 Nucleated RBC % (auto) 0 % 12/11/22 08:11 Nucleated RBCs # 0.0 /100WBC 12/11/22 08:11 PT 14.10 SECONDS (12.1-14.9) 12/11/22 08:11 INR 1.06 (0.8-1.2) 12/11/22 08:11 APTT 25.4 SECONDS (23.9-36.7) 12/11/22 08:11 Sodium 140 mmol/L (136-145) 12/11/22 08:11 Potassium 4.1 mmol/L (3.5-5.1) 12/11/22 08:11 Chloride 108 mmol/L (98-107) H 12/11/22 08:11 Carbon Dioxide 21 mmol/L (22-29) L 12/11/22 08:11 Anion Gap 15.1 (5-19) 12/11/22 08:11 BUN 18 mg/dL (8-23) 12/11/22 08:11 Creatinine 0.9 mg/dL (0.5-0.9) 12/11/22 08:11 GFR Calculation Not Reportable 12/11/22 08:11 Glucose 106 mg/dL (65-115) 12/11/22 08:11 POC Glucose 101 mg/dL (70-110) 12/11/22 07:58 Calculated Osmolality 292 mOsm/kg (285-295) 12/11/22 08:11 Calcium 8.4 mg/dL (8.5-10.5) L 12/11/22 08:11 Total Bilirubin 0.2 mg/dL (0.15-1.2) 12/11/22 08:11 AST 17 U/L (0-32) 12/11/22 08:11 ALT 13 U/L (0-33) 12/11/22 08:11 Alkaline Phosphatase 56 U/L (35-105) 12/11/22 08:11 Total Protein 6.2 g/dL (6.6-8.7) L 12/11/22 08:11 Albumin 3.7 g/dL (3.5-5.2) 12/11/22 08:11 Globulin 2.5 g/dL (1.3-4.6) 12/11/22 08:11 Urine Color Straw (Yellow) 12/11/22 09:27 Urine Appearance Cloudy (CLEAR) A 12/11/22 09:27 Urine pH 9 (5-7) H 12/11/22 09:27 Ur Specific Jay 1.015 (1.005-1.030) 12/11/22 09:27 Urine Protein Neg (Negative) 12/11/22 09:27 Urine Glucose (UA) Norm (Normal) 12/11/22 09:27 Urine Ketones Negative (Negative) 12/11/22 09:27 Urine Blood Neg (Negative) 12/11/22 09:27 Urine Nitrate Negative (Negative) 12/11/22 09:27 Urine Bilirubin Neg (Negative) 12/11/22 09:27 Prot Sulfosalicylic Acd Negative (Negative) 12/11/22 09:27 Urine Urobilinogen Norm mg/dL (Negative) 12/11/22 09:27 Ur Leukocyte Esterase Negative (Negative) 12/11/22 09:27 Urine RBC None /hpf (0-2) 12/11/22 09:27 Urine WBC None /hpf (0-5) 12/11/22 09:27 Ur Squamous Epith Cells None /hpf (0-5) 12/11/22 09:27 Amorphous Sediment 3+ /hpf 12/11/22 09:27 Urine Bacteria Trace /hpf (NONE) 12/11/22 09:27 Urine Opiates Screen Negative ng/mL (Negative) 12/11/22 09:27 Ur Barbiturates Screen Negative ng/mL (Negative) 12/11/22 09:27 Ur Phencyclidine Scrn Negative ng/mL (Negative) 12/11/22 09:27 Ur Amphetamines Screen Negative ng/mL (Negative) 12/11/22 09:27 U Benzodiazepines Scrn Negative ng/mL (Negative) 12/11/22 09:27 Urine Cocaine Screen Negative ng/mL (Negative) 12/11/22 09:27 U Marijuana (THC) Screen Negative ng/mL (Negative) 12/11/22 09:27 Discharge Plan Discharge Patient Disposition: Home Clinical Impression: Parkinson disease, Lewy body dementia, Facial swelling Condition: Stable Prescriptions: No Action docusate sodium 100 mg capsule See Rx Instructions PO .COMPLEX Qty: 1 0RF Rx Instructions: 300mg AM and 200mg PM PO; duloxetine [Cymbalta] 60 mg capsule,delayed release(DR/EC) 60 mg PO BID Qty: 180 1RF Rx Instructions: dose increase Flovent Diskus 100 mcg/actuation blister with device 1 inh inhalation Q12H Qty: 180 3RF fluticasone propionate 50 mcg/actuation spray,suspension 2 spray INTRANASAL DAILY@1999 Qty: 48 1RF potassium chloride 10 mEq tablet extended release 10 meq PO BID Qty: 180 1RF rosuvastatin 10 mg tablet 10 mg PO BEDTIME@1999 Qty: 90 1RF gabapentin 300 mg capsule 300 mg PO BID 30 Days Qty: 60 11RF aspirin [Arya Low Dose Aspirin] 81 mg tablet,delayed release (DR/EC) 81 mg PO DAILY@0800 calcium carbonate [Calcium 600] 600 mg calcium (1,500 mg) tablet 600 mg PO BID@0800,1999 memantine 28 mg capsule,sprinkle,ER 24hr 28 mg PO DAILY quetiapine 50 mg Tablet 50 mg PO BID carbidopa-levodopa 25-100 mg tablet 1 tab PO TID Rx Instructions: 2 with breakfast, 1 with lunch and 1 with supper Topamax 100 mg tablet 100 mg PO DAILY loperamide 2 mg Tablet 2 mg PO Q8H PRN (Reason: Diarrhea) Tylenol Ex Str Rapid Release 500 mg Tablet 500 mg PO TID lamotrigine 25 mg tablet 50 mg PO BEDTIME levothyroxine 200 mcg tablet 200 mcg PO QAM mirtazapine 15 mg tablet 15 mg PO BEDTIME polyethylene glycol 3350 17 gram/dose Powder 4 g PO DAILY Tylenol 325 mg Capsule 650 mg PO Q6H PRN (Reason: Pain) Seroquel XR 300 mg Tablet Extended Release 24 Hr 300 mg PO QPM melatonin 5 mg Capsule 5 mg PO BEDTIME Artificial Tears (cmc) 1 % Drops 1 drp OPHTHALMIC (EYE) QID PRN (Reason: Dry Eye(S)) naloxone 2 mg/2 mL Syringe Kit 2 mg IM Q3M PRN (Reason: Opioid Overdose) Rx Instructions: NTExceed 10 mg total dose/episode trazodone 100 mg tablet 100 mg PO BEDTIME Discharge Orders: Discharge ED (Routine); Ordered 12/11/22 Ordered By: Willie Cabezas Referrals: Deo Marshall MD [Primary Care Provider] - Discharge Diet: Usual diet Discharge Activity: Increase activity as tolerated Patient Instructions: Opioid Safety, Pain Management Coding Level of Care Code ED Tare Weigher for Anthony Love
--- NOTE | 2022-12-11 07:51 | ECG_ITS ---
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 Measurements Intervals [place] Rate: 81 P: 10 [place]: 183 QRS: 28 QRSD: 132 T: 24 QT: 379 QTc: 440 Interpretive Statements SINUS RHYTHM POSSIBLE LEFT ATRIAL ENLARGEMENT [-0.1mV P-WAVE IN V1/V2] INTRAVENTRICULAR CONDUCTION DELAY [130+ ms QRS DURATION] PROBABLE INFERIOR MYOCARDIAL INFARCTION , PROBABLY OLD [35 ms Q WAVE IN II/aVF] Compared to ECG 10/20/2020 18:30:47 Intraventricular conduction delay now present Myocardial infarct finding still present Electronically Signed On 12-11-2022 11:14:45 CDT by David Stokes M.D. [id number]
--- NOTE | 2022-12-11 07:51 | CTR_ITS ---
PROCEDURE INFORMATION: Exam: CT Head Without Contrast Exam date and time: 12/11/2022 7:44 AM Age: 72 years old Clinical indication: Stroke-like symptoms; Right facial droop; Additional info: Symptoms of acute stroke TECHNIQUE: Imaging protocol: Computed tomography of the head without contrast. Radiation optimization: All CT scans at this facility use at least one of these dose optimization techniques: automated exposure control; mA and/or kV adjustment per patient size (includes targeted exams where dose is matched to clinical indication); or iterative reconstruction. Other technique: STROKE PROTOCOL was implemented. REPORTING DATA: Count of CT and Cardiac NM exams in prior 12 months: This patient has received 3 known CTs and 0 known cardiac nuclear medicine studies in the 12 months prior to the current study. COMPARISON: CT head wo con* [id number] 04/18/2022 11:28 PM RADIATION DOSE METRICS: Total DLP (mGy-cm): 1122.58 FINDINGS: Brain: No hemorrhage, mass effect or midline shift. No acute, major vascular distribution infarction identified. There is foci of decreased attenuation in the periventricular and subcortical white matter, likely representing chronic small vessel ischemic changes. Mild cerebral volume loss is present. No intra-axial or extra-axial fluid collection seen. Cerebral ventricles: No ventriculomegaly. Paranasal sinuses: Visualized sinuses are unremarkable. No fluid levels. Mastoid air cells: Visualized mastoid air cells are well aerated. Orbital cavities: Bilateral lens replacement noted. Bones/joints: Unremarkable. No acute fracture. Soft tissues: There is mild swelling of the left facial and forehead soft tissues. CT/CT head thrombolytic [id number] IMPRESSION: No acute intracranial abnormality. ASSESSMENT: ASPECTS ([place] Stroke Program Early CT Score) is 10.
--- NOTE | 2022-12-11 08:00 | PC.NURSE ---
Spoke with RN at [facility] who reports that patient was seen this morning by ETHNOLOGY TEACHER in room at 0515 and reported to have increased swelling to bilateral hands. Patient given Synthroid as prescribed this morning at 0515. RN at [facility] observed patient at 0615 this morning and was unresponsive and appeared to have generalized swelling to face, bilateral hands, and bilateral hands. Pt derek reported to [facility] staff this morning that patient had fallen numerous times yesterday and that she got herself back up and into wheelchair after falls.
[2022-12-11 08:02] LABS: Glucose Point of Care 101 mg/dL (70-110)
[2022-12-11 08:11] VITALS: BP 140/70
[2022-12-11 08:15] LABS: Basophils % 0.3 %; Hematocrit 36.5 % (37.0-47.0); Hemoglobin 11.6 g/dL (11.5-15.3); Lymphocytes # 1.9 10^3/uL (0.8-4.8); Lymphocytes % 24.4 %; Mean Corpuscular HGB Conc 31.8 g/dL (30.0-36.0); Mean Corpuscular Hemoglobin 32.3 pg (28.0-34.0); Mean Corpuscular Volume 101.7 fl (81-99); Mean Platelet Volume 10.8 fL (7.4-10.4); Monocytes # 0.9 10^3/uL (0.2-0.9); Monocytes % 11.2 %; Neutrophils # 5.09 10^3/uL (1.8-7.7); Nucleated Red Blood Cells % 0 %; Platelet Count 185 10^3/cmm (130-400); Red Blood Count 3.59 10^6/uL (4.1-5.3); Red Cell Distribution Width 12.2 % (12.1-15.1)
[2022-12-11 08:19] VITALS: BP 150/78; PULSE 76; RESP 14; O2SAT 98
[2022-12-11 08:30] LABS: INR 1.06 (0.8-1.2)
[2022-12-11 08:31] LABS: Partial Thromboplastin Time 25.4 SECONDS (23.9-36.7)
--- NOTE | 2022-12-11 08:33 | CTR_ITS ---
PROCEDURE INFORMATION: Exam: CT Maxillofacial Without Contrast Exam date and time: 12/11/2022 8:40 AM Age: 72 years old Clinical indication: Injury or trauma; Fall; Blunt trauma (contusions or hematomas); Eyelid; Upper left; Additional info: Fall facial swelling TECHNIQUE: Imaging protocol: Computed tomography of the face without contrast. Radiation optimization: All CT scans at this facility use at least one of these dose optimization techniques: automated exposure control; mA and/or kV adjustment per patient size (includes targeted exams where dose is matched to clinical indication); or iterative reconstruction. REPORTING DATA: Count of CT and Cardiac NM exams in prior 12 months: This patient has received 3 known CTs and 0 known cardiac nuclear medicine studies in the 12 months prior to the current study. COMPARISON: CT head thrombolytic [id number] 12/11/2022 7:44 AM RADIATION DOSE METRICS: Total DLP (mGy-cm): 612.48 FINDINGS: Orbital cavities: Bilateral lens replacement noted. Bones/joints: Unremarkable. No acute fracture. Paranasal sinuses: Mild pansinus mucosal thickening is present. No fluid levels. Soft tissues: There is mild swelling of the left facial and forehead soft tissues. No significant hematoma identified. CT/CT facial bones wo con* [id number] IMPRESSION: No acute findings.
[2022-12-11 08:36] LABS: Alanine Aminotransferase 13 U/L (0-33); Albumin Level 3.7 g/dL (3.5-5.2); Alkaline Phosphatase 56 U/L (35-105); Blood Urea Nitrogen 18 mg/dL (8-23); Calcium 8.4 mg/dL (8.5-10.5); Carbon Dioxide 21 mmol/L (22-29); Chloride 108 mmol/L (98-107); Globulin 2.5 g/dL (1.3-4.6); Glucose 106 mg/dL (65-115); Osmolality Calculated 292 mOsm/kg (285-295); Sodium 140 mmol/L (136-145); Total Bilirubin 0.2 mg/dL (0.15-1.2); Total Protein 6.2 g/dL (6.6-8.7)
[2022-12-11 08:40] LABS: Anion Gap 15.1 (5-19); Potassium 4.1 mmol/L (3.5-5.1)
[2022-12-11 08:41] LABS: Aspartate Amino Transferase 17 U/L (0-32)
[2022-12-11] MEDS: acetaminophen 500 mg Tablet 1000 MG PO (09:39)
[2022-12-11 10:10] VITALS: BP 183/91; PULSE 76; RESP 16; O2SAT 100
[2022-12-11 10:48] LABS: Amphetamines Screen Urine Negative (Negative); Barbiturates Screen Urine Negative (Negative); Benzodiazepines Screen Urine Negative (Negative); Cocaine Screen Urine Negative (Negative); Opiate Screen Urine Negative (Negative); PCP Screen Urine Negative (Negative); THC Screen Urine Negative (Negative)
[2022-12-11 10:52] LABS: Specific Gravity, Urine 1.015 (1.005-1.030); Urine Appearance Cloudy (CLEAR); Urine Color Straw (Yellow); pH Urine 9 (5-7)
[2022-12-11 10:53] LABS: Add Urine Culture? No; Add Urine Microscopic? YES; Amorphous Sediment Urine 3+ /hpf; Bacteria Urine TRACE /hpf; Bilirubin Urine Neg (Negative); Blood Urine Neg (Negative); Glucose Urine UA Norm (Normal); Ketones Urine Negative (Negative); Leukocyte Esterase Urine Negative (Negative); Nitrate Urine Negative (Negative); Protein Urine Neg (Negative); Sulfosalicylic Acid Urine Negative (Negative); Urobilinogen Urine Norm (Negative)
--- NOTE | 2022-12-11 11:33 | PC.NURSE ---
Discharge report given to Susana BOSS at [facility].
== END 2022-12-11 11:49 | disposition home or self-care (01) ==
PROVIDERS: Emergency Provider Family Medicine; PCP Internal Medicine
DX: G20 Parkinson's disease (principal); F02.80 Dementia in other diseases classified elsewhere, unspecified severity, without behavioral disturbance, psychotic disturbance, mood disturbance, and anxiety; M79.89 Other specified soft tissue disorders; G31.83 Neurocognitive disorder with Lewy bodies; Z79.82 Long term (current) use of aspirin; Z87.891 Personal history of nicotine dependence; J44.9 Chronic obstructive pulmonary disease, unspecified; E78.2 Mixed hyperlipidemia
CPT/HCPCS: 36416; 70450; 70486; 80053; 80306; 81001; 82962; 85025; 85610; 85730; 93005; 99285

== ENCOUNTER → 2022-12-22 12:38 | Outpatient (BNVA) | payer MEDICARE, OTHER, SELFPAY | PROVIDERS: PCP Internal Medicine; Visit Provider Specialist | DX: G20 Parkinson's disease (principal) | CPT/HCPCS: 99215 ==

== ENCOUNTER 2023-03-17 17:52 | Emergency (ER) | payer MEDICARE, OTHER, MEDICAID, SELFPAY ==
[2023-03-17 17:59] VITALS: BP 177/97; PULSE 99; RESP 18; TEMP 36.9; O2SAT 97; BMI 21.7
[2023-03-17 18:13] VITALS: BP 177/97; PULSE 85; RESP 18; O2SAT 100
--- NOTE | 2023-03-17 18:15 | ECG_ITS ---
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 Measurements Intervals [place] Rate: 83 P: 32 [place]: 178 QRS: -1 QRSD: 127 T: -10 QT: 350 QTc: 413 Interpretive Statements SINUS RHYTHM POSSIBLE LEFT ATRIAL ENLARGEMENT [-0.1mV P-WAVE IN V1/V2] RIGHT BUNDLE BRANCH BLOCK [120+ ms QRS DURATION, UPRIGHT V1, 40+ ms S IN I/aVL/V4/V5/V6] Compared to ECG 12/11/2022 08:00:56 Right bundle-branch block now present Intraventricular conduction delay no longer present Myocardial infarct finding no longer present Electronically Signed On 03-17-2023 21:34:56 CDT by Lonnie Torres M.D. [id number]
--- NOTE | 2023-03-17 18:15 | CTR_ITS ---
PROCEDURE INFORMATION: Exam: CT Head Without Contrast Exam date and time: 03/17/2023 6:27 PM Age: 72 years old Clinical indication: Altered mental status/memory loss; Additional info: AMS TECHNIQUE: Imaging protocol: Computed tomography of the head without contrast. Radiation optimization: All CT scans at this facility use at least one of these dose optimization techniques: automated exposure control; mA and/or kV adjustment per patient size (includes targeted exams where dose is matched to clinical indication); or iterative reconstruction. REPORTING DATA: Count of CT and Cardiac NM exams in prior 12 months: This patient has received 3 known CTs and 0 known cardiac nuclear medicine studies in the 12 months prior to the current study. COMPARISON: CT head thrombolytic [id number] 12/11/2022 7:44 AM RADIATION DOSE METRICS: Total DLP (mGy-cm): 1078 FINDINGS: Brain: No hemorrhage. No edema. Moderate diffuse cerebral atrophy and mild sequela of chronic small vessel ischemic disease. No mass effect. Cerebral ventricles: No ventriculomegaly. Paranasal sinuses: Visualized sinuses are unremarkable. No fluid levels. Mastoid air cells: Visualized mastoid air cells are well aerated. Bones/joints: Unremarkable. No acute fracture. Soft tissues: Unremarkable. CT/CT head wo con* [id number] IMPRESSION: No acute intracranial abnormality.
[2023-03-17 19:14] LABS: Basophils % 0.5 %; Eosinophils # 0.1 10^3/uL (0.0-0.8); Eosinophils % 0.7 %; Hematocrit 37.3 % (36-47); Lymphocytes # 2.6 10^3/uL (0.8-4.8); Lymphocytes % 35.7 %; Mean Corpuscular HGB Conc 32.7 g/dL (30-55); Mean Corpuscular Hemoglobin 33.8 pg (27-33); Mean Corpuscular Volume 103.3 fl (85-98); Mean Platelet Volume 10.5 fL (7.4-10.4); Monocytes # 0.7 10^3/uL (0.2-0.9); Monocytes % 9.7 %; Neutrophils # 3.91 10^3/uL (1.8-7.7); Neutrophils % 53.3 %; Nucleated Red Blood Cells % 0 %; Platelet Count 235 10^3/cmm (157-399); Red Blood Count 3.61 10^6/uL (3.85-5.65); Red Cell Distribution Width 13.5 % (12.1-15.1); White Blood Count 7.34 10^3/uL (3.29-11.43)
--- NOTE | 2023-03-17 19:23 | W.ED.AMS ---
HPI - Altered Mental Status General: Chief Complaint: Altered Mental Status Stated Complaint: AMS Time Seen by Provider: 03/17/23 18:14 History of Present Illness: Patient presents to the ER by EMS from [facility]. Still he reports patient has multiple falls today and was found down on at least 2 occasions. Patient is alert and oriented x2 unknown baseline. Patient denies hitting her head and states the only thing that hurts is her back. Patient does states she has chronic back pain and takes pain medicine for. Patient has no other complaints at this time. Review of Systems General: Reports: 10 or more systems reviewed and unremarkable except in HPI and below PFSH ED PFSH: Medical History Abnormal EKG Adult onset hypothyroidism Anxiety and depression Bradycardia COPD (chronic obstructive pulmonary disease) CPAP (continuous positive airway pressure) dependence Dementia Dependent on walker for ambulation DNR no code (do not resuscitate) Dyslipidemia Lives in assisted living facility Major depressive disorder, recurrent severe without psychotic features Mixed hyperlipidemia Osteoarthritis of knee Osteoporosis, post-menopausal Parkinson disease Recurrent syncope Seasonal allergic rhinitis due to pollen Sleep apnea Slow transit constipation Spine deformity Vitamin D deficiency Surgical History History of back surgery 2016 T11-T12 History of bunionectomy bilateral 2015 History of hernia repair 2017 History of laparotomy 1972 no body parts removed History of repair of hiatal hernia History of tubal ligation Left removed only 1972 Hx of cataract surgery Hx of right breast biopsy 1999 Family History Mother Congestive heart failure Clotting disorder CAD (coronary artery disease) Family/Other Lung disease Cancer Grandmother Stroke Denies family history of Diabetes Dementia Chronic kidney disease (CKD) Suicide Anesthesia complication Bleeding disorder Social History Smoking and tobacco/nicotine status: never used tobacco/nicotine Quit status (tobacco/nicotine): has quit using Year quit tobacco: 2004 - PPD x 35 Years Second hand smoke exposure: No Alcohol intake: former Substance/Drug Use: never Adopted: No Caregiver/support person: No Lives independently: Yes Household members: none Housing: House Marital status: Unknown Number of children: 1 service: Yes branch: [employer] Current occupational status: retired and disabled Pets and animals: No Do you think of yourself as: Straight/Heterosexual Current gender identity: Female Physical Exam Const: COMMON NORMALS: no acute distress, average body habitus, healthy appearing, alert and well nourished; limitations (Altered mental status) HENMT: COMMON NORMALS: normocephalic, atraumatic, hearing grossly normal bilaterally, external ears normal, Normal external nose present, moist oral mucous membranes and oropharynx normal HEAD & SCALP: normocephalic and atraumatic NOSE: Normal external nose present EXTERNAL EAR: Yes external ears normal Eye: COMMON NORMALS: Equal, round and reactive pupils present, EOMs intact bilaterally, conjunctivae normal and no scleral icterus CONJUNCTIVA: Yes conjunctivae normal PUPIL: Yes Equal, round and reactive pupils present Neck/C-Spine: COMMON NORMALS: full ROM, no lymphadenopathy, supple, no meningeal signs, no JVD and Thyroid normal THYROID: Thyroid normal Lymph: LYMPHATIC: no lymphadenopathy noted Chest: COMMONS NORMALS: normal inspection of the chest and normal palpation of entire chest wall Resp: COMMON NORMALS: normal respiratory effort, No retractions, No use of accessory muscles and clear to auscultation bilaterally AUSCULTATION: clear to auscultation bilaterally Cardio: COMMON NORMALS: no JVD, regular rate, regular rhythm, S1 normal heart sound present, S2 normal heart sound present, No gallops present (Cardio), No clicks present (Cardio), No murmurs present (Cardio) and No rub (Cardio) RATE: regular rate RHYTHM: regular rhythm HEART SOUNDS: S1 normal heart sound present and S2 normal heart sound present GI: COMMON NORMALS: Normal to inspection, nondistended, normoactive bowel sounds present, Soft to palpation, non-tender and No hepatosplenomegaly present PALPATION: Yes Soft to palpation and Yes No hepatosplenomegaly present : COMMON NORMALS: Yes no CVA tenderness BLADDER/KIDNEY EXAM: Yes no CVA tenderness Back/Pelvis: COMMON NORMALS: no CVA tenderness Neuro: SENSORIUM/ORIENTATION: Yes alert MENINGEAL SIGNS: Yes no meningeal signs Course Vital Signs: Vital signs: Vital Signs Temperature 98.5 F 03/17/23 17:59 Pulse Rate 85 03/17/23 18:13 Respiratory Rate 18 03/17/23 18:13 Blood Pressure 177/97 03/17/23 18:13 Pulse Oximetry 100 03/17/23 18:13 Oxygen Delivery Me thod Room Air 03/17/23 18:13 MDM - Altered Mental Status Medical Decision Making Patient is alert and oriented x2 with no complaints. Patient had lab work done as well as a head CT and chest x-ray all essentially is normal except patient is high per thyroid. Patient be discharged back to the senior care for further evaluation and treatment. Differential Diagnosis Likely altered mental status; Unlikely alcoholic intoxication, delirium, dementia, hypoglycemia, hyponatremia, subarachnoid hemorrhage or sepsis Medical Records I reviewed the patient's medical records. Lab Data I reviewed the patient's lab results. 03/17/23 18:52 03/17/23 18:[address] 03/17/23 18:15 IMPRESSION: No acute intracranial abnormality. Chest X-Ray 03/17/23 19:31 IMPRESSION: No acute findings. Laboratory Results WBC 7.34 10^3/uL (3.29-11.43) 03/17/23 18:52 RBC 3.61 10^6/uL (3.85-5.65) L 03/17/23 18:52 Hgb 12.20 g/dL (11.27-16.99) 03/17/23 18:52 Hct 37.3 % (36-47) 03/17/23 18:52 MCV 103.3 fl (85-98) H 03/17/23 18:52 MCH 33.8 pg (27-33) H 03/17/23 18:52 MCHC 32.7 g/dL (30-55) 03/17/23 18:52 RDW 13.5 % (12.1-15.1) 03/17/23 18:52 Plt Count 235 10^3/cmm (157-399) 03/17/23 18:52 MPV 10.5 fL (7.4-10.4) H 03/17/23 18:52 Neut % (Auto) 53.3 % 03/17/23 18:52 Lymph % (Auto) 35.7 % 03/17/23 18:52 Frontier % (Auto) 9.7 % 03/17/23 18:52 Eos % (Auto) 0.7 % 03/17/23 18:52 Baso % (Auto) 0.5 % 03/17/23 18:52 Neut # (Auto) 3.91 10^3/uL (1.8-7.7) 03/17/23 18:52 Lymph # (Auto) 2.6 10^3/uL (0.8-4.8) 03/17/23 18:52 Frontier # (Auto) 0.7 10^3/uL (0.2-0.9) 03/17/23 18:52 Eos # (Auto) 0.1 10^3/uL (0.0-0.8) 03/17/23 18:52 Baso # (Auto) 0.0 10^3/uL (0.0-0.1) 03/17/23 18:52 Nucleated RBC % (auto) 0 % 03/17/23 18:52 Nucleated RBCs # 0.0 /100WBC 03/17/23 18:52 Sodium 144 mmol/L (136-145) 03/17/23 18:52 Potassium 4.0 mmol/L (3.5-5.1) 03/17/23 18:52 Chloride 107 mmol/L (98-107) 03/17/23 18:52 Carbon Dioxide 27 mmol/L (22-29) 03/17/23 18:52 Anion Gap 14.0 (5-19) 03/17/23 18:52 BUN 28 mg/dL (8-23) H 03/17/23 18:52 Creatinine 0.8 mg/dL (0.5-0.9) 03/17/23 18:52 GFR Calculation Not Reportable 03/17/23 18:52 Glucose 100 mg/dL (65-115) 03/17/23 18:52 Calculated Osmolality 304 mOsm/kg (285-295) H 03/17/23 18:52 Calcium 9.4 mg/dL (8.5-10.5) 03/17/23 18:52 Magnesium 2.6 mg/dL (1.7-2.3) H 03/17/23 18:52 Total Bilirubin 0.2 mg/dL (0.15-1.2) 03/17/23 18:52 AST 16 U/L (0-32) 03/17/23 18:52 ALT 11 U/L (0-33) 03/17/23 18:52 Alkaline Phosphatase 65 U/L (35-105) 03/17/23 18:52 Total Protein 7.6 g/dL (6.6-8.7) 03/17/23 18:52 Albumin 4.6 g/dL (3.5-5.2) 03/17/23 18:52 Globulin 3.0 g/dL (1.3-4.6) 03/17/23 18:52 TSH 0.04 uIU/mL (0.27-4.20) L 03/17/23 18:52 Urine Color Yellow (Yellow) 03/17/23 19:09 Urine Appearance Sl hazy (CLEAR) A 03/17/23 19:09 Urine pH 6.5 (5-7) 03/17/23 19:09 Ur Specific [place] 1.015 (1.005-1.030) 03/17/23 19:09 Urine Protein Neg (Negative) 03/17/23 19:09 Urine Glucose (UA) Norm (Normal) 03/17/23 19:09 Urine Ketones Negative (Negative) 03/17/23 19:09 Urine Blood Neg (Negative) 03/17/23 19:09 Urine Nitrate Negative (Negative) 03/17/23 19:09 Urine Bilirubin Neg (Negative) 03/17/23 19:09 Urine Urobilinogen Neg mg/dL (Negative) 03/17/23 19:09 Ur Leukocyte Esterase Negative (Negative) 03/17/23 19:09 Urine RBC None /hpf (0-2) 03/17/23 19:09 Urine WBC None /hpf (0-5) 03/17/23 19:09 Ur Squamous Epith Cells None /hpf (0-5) 03/17/23 19:09 Amorphous Sediment 1+ /hpf 03/17/23 19:09 Urine Bacteria Trace /hpf (NONE) 03/17/23 19:09 Urine Mucus 2+ /hpf 03/17/23 19:09 All radiology interpretation(s) finalized by discharge EKG Data EKG 1: I personally reviewed and interpreted this EKG as follows: EKG interpretation date: 03/17/23 EKG interpretation time: 18:41 Prior EKG tracings: not available for review Interpretation: EKG showed ventricular rate 83 bpm, DC interval 178, QRS duration 127, QTc of 390, sinus rhythm, possible left atrial lodgment, right bundle branch block Discharge Plan Discharge Patient Disposition: Home Clinical Impression: Hyperthyroidism Altered mental status Qualifiers: Altered mental status type: unspecified Qualified Code(s): R41.82 - Altered mental status, unspecified Condition: Stable Prescriptions: No Action docusate sodium 100 mg capsule See Rx Instructions PO .COMPLEX Qty: 1 0RF Rx Instructions: 300mg AM and 200mg PM PO; duloxetine [Cymbalta] 60 mg capsule,delayed release(DR/EC) 60 mg PO BID Qty: 180 1RF Rx Instructions: dose increase Flovent Diskus 100 mcg/actuation blister with device 1 inh inhalation Q12H Qty: 180 3RF fluticasone propionate 50 mcg/actuation spray,suspension 2 spray INTRANASAL DAILY@1999 Qty: 48 1RF potassium chloride 10 mEq tablet extended release 10 meq PO BID Qty: 180 1RF rosuvastatin 10 mg tablet 10 mg PO BEDTIME@1999 Qty: 90 1RF gabapentin 300 mg capsule 300 mg PO BID 30 Days Qty: 60 11RF aspirin [Arya Low Dose Aspirin] 81 mg tablet,delayed release (DR/EC) 81 mg PO DAILY@0800 calcium carbonate [Calcium 600] 600 mg calcium (1,500 mg) tablet 600 mg PO BID@0800,1999 memantine 28 mg capsule,sprinkle,ER 24hr 28 mg PO DAILY quetiapine 50 mg Tablet 50 mg PO BID carbidopa-levodopa 25-100 mg tablet 1 tab PO TID Rx Instructions: 2 with breakfast, 1 with lunch and 1 with supper Topamax 100 mg tablet 100 mg PO DAILY loperamide 2 mg Tablet 2 mg PO Q8H PRN (Reason: Diarrhea) Tylenol Ex Str Rapid Release 500 mg Tablet 500 mg PO TID lamotrigine 25 mg tablet 50 mg PO BEDTIME levothyroxine 200 mcg tablet 200 mcg PO QAM mirtazapine 15 mg tablet 15 mg PO BEDTIME polyethylene glycol 3350 17 gram/dose Powder 4 g PO DAILY Tylenol 325 mg Capsule 650 mg PO Q6H PRN (Reason: Pain) Seroquel XR 300 mg Tablet Extended Release 24 Hr 300 mg PO QPM melatonin 5 mg Capsule 5 mg PO BEDTIME Artificial Tears (cmc) 1 % Drops 1 drp OPHTHALMIC (EYE) QID PRN (Reason: Dry Eye(S)) naloxone 2 mg/2 mL Syringe Kit 2 mg IM Q3M PRN (Reason: Opioid Overdose) Rx Instructions: NTExceed 10 mg total dose/episode trazodone 100 mg tablet 100 mg PO BEDTIME Discharge Orders: Discharge ED (Routine); Ordered 03/17/23 Ordered By: Jose M Hyatt Referrals: Deo Marshall MD [Primary Care Provider] - 1 week Patient Instructions: Hyperthyroidism (ED), Altered Mental Status (ED) Activity Restrictions/Additional Instructions: Please follow-up with your family practice physician within the next week for more testing and evaluation. It appears she may be on too much thyroid medicine. They may want to lower your dose. Coding Level of Care Code ED Clinical Research Coordinator for Anthony Love
--- NOTE | 2023-03-17 19:31 | XRR_ITS ---
PROCEDURE INFORMATION: Exam: XR Chest Exam date and time: 03/17/2023 8:23 PM Age: 72 years old Clinical indication: Other: AMS TECHNIQUE: Imaging protocol: Radiologic exam of the chest. Views: 1 view. COMPARISON: CR XR chest 1V portable [id number] 04/19/2022 12:25 AM FINDINGS: Lungs: No consolidation. Pleural spaces: No pleural effusion. No pneumothorax. Heart/Mediastinum: No cardiomegaly. Bones/joints: Visualized osseous structures are intact. XR/XR chest 1V portable [id number] IMPRESSION: No acute findings.
[2023-03-17 19:40] LABS: Alanine Aminotransferase 11 U/L (0-33); Albumin Level 4.6 g/dL (3.5-5.2); Alkaline Phosphatase 65 U/L (35-105); Aspartate Amino Transferase 16 U/L (0-32); Blood Urea Nitrogen 28 mg/dL (8-23); Calcium 9.4 mg/dL (8.5-10.5); Carbon Dioxide 27 mmol/L (22-29); Chloride 107 mmol/L (98-107); Glucose 100 mg/dL (65-115); Magnesium 2.6 mg/dL (1.7-2.3); Osmolality Calculated 304 mOsm/kg (285-295); Sodium 144 mmol/L (136-145); Thyroid Stimulating Hormone 0.04 uIU/mL (0.27-4.20); Total Bilirubin 0.2 mg/dL (0.15-1.2); Total Protein 7.6 g/dL (6.6-8.7)
[2023-03-17 20:06] LABS: Add Urine Culture? No; Add Urine Microscopic? YES; Amorphous Sediment Urine 1+ /hpf; Bacteria Urine TRACE /hpf; Bilirubin Urine Neg (Negative); Blood Urine Neg (Negative); Glucose Urine UA Norm (Normal); Ketones Urine Negative (Negative); Leukocyte Esterase Urine Negative (Negative); Mucus Urine 2+ /hpf; Nitrate Urine Negative (Negative); Protein Urine Neg (Negative); Specific Gravity, Urine 1.015 (1.005-1.030); Urine Appearance SL Hazy (CLEAR); Urine Color Yellow (Yellow); Urobilinogen Urine Neg (Negative); pH Urine 6.5 (5-7)
[2023-03-18 01:33] VITALS: BP 148/73; PULSE 76; RESP 16; O2SAT 98
--- NOTE | 2023-03-18 02:11 | PC.NURSE ---
Patient had an episode of urinary incontinence. Patient was cleaned up, put in fresh briefs, and put in new pants and given new bedding. Pt was also given warm blanket.
== END 2023-03-18 04:10 | disposition home or self-care (01) ==
PROVIDERS: Emergency Provider Emergency Medicine; PCP Internal Medicine
DX: R41.82 Altered mental status, unspecified (principal); E05.90 Thyrotoxicosis, unspecified without thyrotoxic crisis or storm; Z79.82 Long term (current) use of aspirin; Z87.891 Personal history of nicotine dependence; J44.9 Chronic obstructive pulmonary disease, unspecified; E78.2 Mixed hyperlipidemia; G20.A1 Parkinson's disease without dyskinesia, without mention of fluctuations; F02.80 Dementia in other diseases classified elsewhere, unspecified severity, without behavioral disturbance, psychotic disturbance, mood disturbance, and anxiety
CPT/HCPCS: 36415; 70450; 71045; 80053; 81001; 83735; 84443; 85025; 93005; 99285

== ENCOUNTER 2023-03-21 00:52 | Inpatient (IN) | payer MEDICARE, OTHER, MEDICAID, SELFPAY ==
[2023-03-21] VITALS (10 sets, daily range): BP systolic 93–196; BP diastolic 50–116; PULSE 71–97; RESP 16–20; TEMP 36.4–37.3; O2SAT 95–99; BMI 20.7
--- NOTE | 2023-03-21 00:55 | CTR_ITS ---
PROCEDURE INFORMATION: Exam: CT Head Without Contrast Exam date and time: 03/21/2023 1:20 AM Age: 72 years old Clinical indication: Injury or trauma; Blunt trauma (contusions or hematomas); Patient HX: From retirement for unwitnessed fall. History of dementia and parkinson's TECHNIQUE: Imaging protocol: Computed tomography of the head without contrast. Radiation optimization: All CT scans at this facility use at least one of these dose optimization techniques: automated exposure control; mA and/or kV adjustment per patient size (includes targeted exams where dose is matched to clinical indication); or iterative reconstruction. REPORTING DATA: Count of CT and Cardiac NM exams in prior 12 months: This patient has received 4 known CTs and 0 known cardiac nuclear medicine studies in the 12 months prior to the current study. COMPARISON: CT head wo con* [id number] 03/17/2023 6:27 PM RADIATION DOSE METRICS: Total DLP (mGy-cm): 1029.18 FINDINGS: Brain: There is moderate cerebral atrophy. There is moderate diffuse heterogeneity of the white matter attenuation, consistent with chronic white matter ischemic changes. Negative for acute intracranial hemorrhage. Negative for intracranial mass. Negative for midline shift of the brain. Lyons matter and white matter interfaces are unremarkable. Cerebral ventricles: No ventriculomegaly. Paranasal sinuses: Visualized sinuses are unremarkable. No fluid levels. Mastoid air cells: Visualized mastoid air cells are well aerated. Bones/joints: Unremarkable. No acute fracture. Soft tissues: Unremarkable. CT/CT head wo con* [id number] IMPRESSION: Negative for acute intracranial pathology.
--- NOTE | 2023-03-21 00:55 | XRR_ITS ---
PROCEDURE INFORMATION: Exam: XR Pelvis Exam date and time: 03/21/2023 1:01 AM Age: 72 years old Clinical indication: Injury or trauma; Blunt trauma (contusions or hematomas); Prior surgery; Surgery date: 6+ months; Surgery type: Tubal ligation; Patient HX: From snf for unwitnessed fall. C/O left hip pain. TECHNIQUE: Imaging protocol: Radiologic exam of the pelvis. Views: 1 or 2 view. COMPARISON: CR XR hip RT 2-3V wo/w pel* [id number] 03/09/2022 3:52 AM FINDINGS: Bones/joints: Impacted left femoral neck fracture. Pelvic ring alignment is normal. Hip joints are aligned. Mild narrowing of joint spaces. Soft tissues: Unremarkable. XR/XR pelvis 1-2V* [id number] IMPRESSION: Acute impacted left proximal femoral neck fracture.
--- NOTE | 2023-03-21 00:55 | ED_ITS ---
HPI - Fall General: Chief Complaint: Fall Stated Complaint: Fall Time Seen by Provider: 03/21/23 00:53 Source: EMS Mode of arrival: EMS Limitations: no limitations History of Present Illness: Patient is a 72-year-old female who presents the emergency room via EMS for a fall. Patient resides at [facility] where she reports that she was up helping her roommate to the bathroom where she fell. She denies tripping over anything and states the room was dark. Patient has a complaint of left elbow pain, right knee pain, and bilateral hip pain. Denies hitting her head or losing consciousness. past medical history of Lewy body dementia and patient is unable to state current year or current place. denies any other symptoms at this time. MD complaint: fall Fall witnessed: no Associated symptoms-after fall: Denies abdominal pain, chest pain or headache(s) Review of Systems Const: Denies: fever(s), chills, body aches or change in appetite Eyes: Denies: blurry vision or eye discomfort ENMT: Denies: throat pain or dental pain Card: Denies: chest pain Resp: Denies: dyspnea GI: Denies: abdominal pain, nausea, vomiting or diarrhea : Denies: dysuria Musc: Reports: extremity pain ( Left elbow, right knee, bilateral hip) Skin/Breast: Denies: rash Neuro: Denies: headache(s) Psych: Denies: depression Ricardo/Lymph: Denies: easy bruising All/Imm: Denies: urticaria PFSH ED PFSH: Medical History Abnormal EKG Adult onset hypothyroidism Anxiety and depression Bradycardia COPD (chronic obstructive pulmonary disease) CPAP (continuous positive airway pressure) dependence Dementia Dependent on walker for ambulation DNR no code (do not resuscitate) Dyslipidemia Lives in assisted living facility Major depressive disorder, recurrent severe without psychotic features Mixed hyperlipidemia Osteoarthritis of knee Osteoporosis, post-menopausal Parkinson disease Recurrent syncope Seasonal allergic rhinitis due to pollen Sleep apnea Slow transit constipation Spine deformity Vitamin D deficiency Surgical History History of back surgery 2016 T11-T12 History of bunionectomy bilateral 2015 History of hernia repair 2017 History of laparotomy 1972 no body parts removed History of repair of hiatal hernia History of tubal ligation Left removed only 1972 Hx of cataract surgery Hx of right breast biopsy 1999 Family History Mother Congestive heart failure Clotting disorder CAD (coronary artery disease) Family/Other Lung disease Cancer Grandmother Stroke Denies family history of Diabetes Dementia Chronic kidney disease (CKD) Suicide Anesthesia complication Bleeding disorder Social History Smoking and tobacco/nicotine status: never used tobacco/nicotine Quit status (tobacco/nicotine): has quit using Year quit tobacco: 2004 - PPD x 35 Years Second hand smoke exposure: No Alcohol intake: former Substance/Drug Use: never Adopted: No Caregiver/support person: No Lives independently: Yes Household members: none Housing: House Marital status: Unknown Number of children: 1 service: Yes branch: [employer] Current occupational status: retired and disabled Pets and animals: No Do you think of yourself as: Straight/Heterosexual Current gender identity: Female Physical Exam Const: COMMON NORMALS: no acute distress and healthy appearing GENERAL APPEARANCE: cooperative ORIENTATION/CONSCIOUSNESS: Yes oriented to person; not oriented to place and not oriented to time ( at baseline) HENMT: COMMON NORMALS: normocephalic and atraumatic HEAD & SCALP: normocephalic and atraumatic Eye: COMMON NORMALS: Equal, round and reactive pupils present and EOMs intact bilaterally PUPIL: Yes Equal, round and reactive pupils present Neck/C-Spine: COMMON NORMALS: full ROM and supple Chest: COMMONS NORMALS: normal inspection of the chest and normal palpation of entire chest wall Resp: COMMON NORMALS: normal respiratory effort, No retractions, No use of accessory muscles and clear to auscultation bilaterally AUSCULTATION: clear to auscultation bilaterally Cardio: COMMON NORMALS: regular rate, regular rhythm and No murmurs present (Cardio) RATE: regular rate RHYTHM: regular rhythm GI: COMMON NORMALS: Normal to inspection, nondistended, normoactive bowel s ounds present, Soft to palpation, non-tender and no masses PALPATION: Yes Soft to palpation Extremity: COMMON NORMALS: normal to inspection and full ROM LEFT UPPER EXTREMITY: Yes elbow joint ( laceration, pain on palpation) Left elbow: Yes inspection and Yes palpation RIGHT LOWER EXTREMITY: Yes knee joint ( pain on palpation) Neuro: COMMON NORMALS: moves all extremities and no focal motor deficits SENSORIUM/ORIENTATION: Yes oriented to person, No oriented to place and No oriented to time ( at baseline) Psych: COMMON NORMALS: mental status grossly normal, Normal thought process present and cooperative THOUGHT PROCESS: Normal thought process present Skin: COMMON NORMALS: no rashes or lesions noted and no wounds GENERAL SKIN EXAM: no rashes or lesions noted Course Vital Signs: Vital signs: Vital Signs Temperature 98.2 F 03/21/23 00:53 Pulse Rate 75 03/21/23 01:08 Respiratory Rate 18 03/21/23 01:08 Blood Pressure 180/91 03/21/23 01:08 Pulse Oximetry 98 03/21/23 01:08 Oxygen Delivery Me thod Room Air 03/21/23 01:08 MDM - Fall Medical Decision Making Patient presents here with left hip fracture from a fall she has no other injuries noted spoke to the hospitalist along with orthopedic and will admit Medical Records I reviewed the patient's medical records. Lab Data I reviewed the patient's lab results. 03/21/23 01:00 03/21/23 01:00 Radiology Impressions Elbow X-Ray 03/21/23 00:55 IMPRESSION: No acute findings. Head CT 03/21/23 00:55 IMPRESSION: Negative for acute intracranial pathology. Knee X-Ray 03/21/23 00:55 IMPRESSION: Negative for acute fracture. Pelvis X-Ray 03/21/23 00:55 IMPRESSION: Acute impacted left proximal femoral neck fracture. Hip CT 03/21/23 01:17 IMPRESSION: Acute left hip fracture. All radiology interpretation(s) finalized by discharge Discharge Plan Discharge Condition: Stable Prescriptions: No Action docusate sodium 100 mg capsule See Rx Instructions PO .COMPLEX Qty: 1 0RF Rx Instructions: 300mg AM and 200mg PM PO; duloxetine [Cymbalta] 60 mg capsule,delayed release(DR/EC) 60 mg PO BID Qty: 180 1RF Rx Instructions: dose increase Flovent Diskus 100 mcg/actuation blister with device 1 inh inhalation Q12H Qty: 180 3RF fluticasone propionate 50 mcg/actuation spray,suspension 2 spray INTRANASAL DAILY@1999 Qty: 48 1RF potassium chloride 10 mEq tablet extended release 10 meq PO BID Qty: 180 1RF rosuvastatin 10 mg tablet 10 mg PO BEDTIME@1999 Qty: 90 1RF gabapentin 300 mg capsule 300 mg PO BID 30 Days Qty: 60 11RF aspirin [Arya Low Dose Aspirin] 81 mg tablet,delayed release (DR/EC) 81 mg PO DAILY@0800 calcium carbonate [Calcium 600] 600 mg calcium (1,500 mg) tablet 600 mg PO BID@0800,1999 memantine 28 mg capsule,sprinkle,ER 24hr 28 mg PO DAILY quetiapine 50 mg Tablet 50 mg PO BID carbidopa-levodopa 25-100 mg tablet 1 tab PO TID Rx Instructions: 2 with breakfast, 1 with lunch and 1 with supper Topamax 100 mg tablet 100 mg PO DAILY loperamide 2 mg Tablet 2 mg PO Q8H PRN (Reason: Diarrhea) Tylenol Ex Str Rapid Release 500 mg Tablet 500 mg PO TID lamotrigine 25 mg tablet 50 mg PO BEDTIME levothyroxine 200 mcg tablet 200 mcg PO QAM mirtazapine 15 mg tablet 15 mg PO BEDTIME polyethylene glycol 3350 17 gram/dose Powder 4 g PO DAILY Tylenol 325 mg Capsule 650 mg PO Q6H PRN (Reason: Pain) Seroquel XR 300 mg Tablet Extended Release 24 Hr 300 mg PO QPM melatonin 5 mg Capsule 5 mg PO BEDTIME Artificial Tears (cmc) 1 % Drops 1 drp OPHTHALMIC (EYE) QID PRN (Reason: Dry Eye(S)) naloxone 2 mg/2 mL Syringe Kit 2 mg IM Q3M PRN (Reason: Opioid Overdose) Rx Instructions: NTExceed 10 mg total dose/episode trazodone 100 mg tablet 100 mg PO BEDTIME Referrals: Deo Marshall MD [Primary Care Provider] - Coding Level of Care Code ED Refiner Operator for Anthony Love
--- NOTE | 2023-03-21 00:55 | XRR_ITS ---
PROCEDURE INFORMATION: Exam: XR Left Elbow Exam date and time: 03/21/2023 1:10 AM Age: 72 years old Clinical indication: Injury or trauma; Blunt trauma (contusions or hematomas); Patient HX: From [facility] for unwitnessed fall. C/O left elbow pain. TECHNIQUE: Imaging protocol: Radiologic exam of the left elbow. Views: 3 or more views. COMPARISON: No relevant prior studies available. FINDINGS: Bones/joints: Normal. Soft tissues: Normal. XR/XR elbow LT min 3V* [id number] IMPRESSION: No acute findings.
--- NOTE | 2023-03-21 00:55 | XRR_ITS ---
PROCEDURE INFORMATION: Exam: XR Right Knee Exam date and time: 03/21/2023 1:05 AM Age: 72 years old Clinical indication: Injury or trauma; Blunt trauma; Right; Patient HX: From skilled nursing for unwitnessed fall. C/O RT knee pain. TECHNIQUE: Imaging protocol: Radiologic exam of the right knee. Views: 3 views. COMPARISON: CT hip RT wo con* [id number] 03/09/2022 4:14 AM FINDINGS: Bones/joints: Severely narrowed joint spaces. Small joint effusion. Marginal osteophyte spurring. Negative for fracture or dislocation. Soft tissues: Normal. XR/XR knee RT 3V* [id number] IMPRESSION: Negative for acute fracture.
--- NOTE | 2023-03-21 01:17 | CTR_ITS ---
PROCEDURE INFORMATION: Exam: CT Left Lower Extremity Without Contrast, Hip Exam date and time: 03/21/2023 1:23 AM Age: 72 years old Clinical indication: Injury or trauma; Blunt trauma; Patient HX: From shelter for unwitnessed fall. C/O left hip pain. TECHNIQUE: Imaging protocol: CT of the left lower extremity without contrast was performed. Exam focused on the hip. Radiation optimization: All CT scans at this facility use at least one of these dose optimization techniques: automated exposure control; mA and/or kV adjustment per patient size (includes targeted exams where dose is matched to clinical indication); or iterative reconstruction. REPORTING DATA: Count of CT and Cardiac NM exams in prior 12 months: This patient has received 4 known CTs and 0 known cardiac nuclear medicine studies in the 12 months prior to the current study. COM[place] [id number] 10/26/2021 9:57 AM RADIATION DOSE METRICS: Total DLP (mGy-cm): 423.22 FINDINGS: Bones/joints: Impacted comminuted left femoral neck fracture. Bones are demineralized. Femoral head is aligned with the acetabulum. Moderate narrowing of the posterior joint space. Marginal osteophyte spurring of the acetabulum. Small left hip joint effusion. Soft tissues: Patchy superficial soft tissue edema lateral to the left hip. CT/CT hip LT wo con* [id number] IMPRESSION: Acute left hip fracture.
--- NOTE | 2023-03-21 02:05 | PC.NURSE ---
Found patient sitting up in bed with feet hanging off one side. Appeared as if patient was trying to get out of bed but denies this. Call light was within reach of patient. Informed patient to use call light if needing to get up or any other type of assistance. Patient verbalized understanding.
--- NOTE | 2023-03-21 02:28 | XRR_ITS ---
PROCEDURE INFORMATION: Exam: XR Chest Exam date and time: 03/21/2023 2:32 AM Age: 72 years old Clinical indication: Injury or trauma; Fall; Blunt trauma (contusions or hematomas); Prior surgery; Surgery date: 6+ months; Surgery type: Breast biopsy. Kyphoplasty; Patient HX: Pre op for ortho. TECHNIQUE: Imaging protocol: Radiologic exam of the chest. Views: 1 view. COMPARISON: CR (CHEST, ) 03/17/2023 8:23 PM FINDINGS: Lungs: Unremarkable. No consolidation. Pleural spaces: Unremarkable. No pleural effusion. No pneumothorax. Heart/Mediastinum: Unremarkable. No cardiomegaly. Bones/joints: Multilevel vertebral augmentation changes near the thoracolumbar junction. XR/XR chest 1V portable [id number] IMPRESSION: Negative for acute pulmonary disease.
[2023-03-21 02:42] LABS: Basophils % 0.4 %; Eosinophils # 0.1 10^3/uL (0.0-0.8); Hematocrit 37.8 % (36-47); INR 1.05 (0.8-1.2); Lymphocytes % 29.6 %; Mean Corpuscular HGB Conc 32.3 g/dL (30-55); Mean Corpuscular Hemoglobin 33.7 pg (27-33); Mean Corpuscular Volume 104.4 fl (85-98); Mean Platelet Volume 11.2 fL (7.4-10.4); Monocytes # 0.6 10^3/uL (0.2-0.9); Monocytes % 8.3 %; Neutrophils # 4.15 10^3/uL (1.8-7.7); Neutrophils % 60.1 %; Nucleated Red Blood Cells % 0 %; Platelet Count 213 10^3/cmm (157-399); Red Blood Count 3.62 10^6/uL (3.85-5.65); Red Cell Distribution Width 13.6 % (12.1-15.1)
--- NOTE | 2023-03-21 02:42 | ECG_ITS ---
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 Measurements Intervals [place] Rate: 75 P: 49 WI: 183 QRS: 8 QRSD: 141 T: 18 QT: 381 QTc: 428 Interpretive Statements SINUS RHYTHM RIGHT BUNDLE BRANCH BLOCK [120+ ms QRS DURATION, UPRIGHT V1, 40+ ms S IN I/aVL/V4/V5/V6] Compared to ECG 03/17/2023 18:41:22 No significant changes Electronically Signed On 03-21-2023 23:14:45 CDT by Lonnie Torres M.D. [id number]
[2023-03-21 02:49] LABS: Alanine Aminotransferase 15 U/L (0-33); Albumin Level 4.6 g/dL (3.5-5.2); Alkaline Phosphatase 71 U/L (35-105); Blood Urea Nitrogen 31 mg/dL (8-23); Calcium 9.7 mg/dL (8.5-10.5); Carbon Dioxide 27 mmol/L (22-29); Chloride 107 mmol/L (98-107); Creatinine Clr Calc Pharmacy 48.0891; Globulin 2.7 g/dL (1.3-4.6); Glucose 97 mg/dL (65-115); Osmolality Calculated 304 mOsm/kg (285-295); Sodium 144 mmol/L (136-145); Total Bilirubin 0.3 mg/dL (0.15-1.2); Total Protein 7.3 g/dL (6.6-8.7)
[2023-03-21 03:06] LABS: Anion Gap 14.2 (5-19); Aspartate Amino Transferase 19 U/L (0-32); Potassium 4.2 mmol/L (3.5-5.1)
--- NOTE | 2023-03-21 03:35 | P.HP_ITS ---
Providers/Chief Complaint Admitting Physician: Cristine Bell MD Primary Care Provider: Gerson Marshall MD Chief Complaint: Fall History of Present Illness Crys Mir is a 72 year old female with history of anxiety depression altered mental status hypothyroidism Lewy body dementia sleep apnea asthma dyslipidemia COPD was brought in from correction secondary to an unwitnessed fall. As per the nurse she was trying to help her roommate when she fell on her left hip. T here is no history of fever cold cough shortness of breath chest pain dizziness urinary or bowel complaints. She was able to answer few questions appropriately. She is a poor historian Review of Systems Narrative: As per HPI, limited Medications/Allergies Home Medications Medication Instructions Recorded Confirmed Last Taken Type aspirin 81 mg tablet,delayed 81 mg PO DAILY@0800 10/20/20 03/21/23 03/20/23 History release (Arya Low Dose Aspirin) calcium carbonate 600 mg calcium 600 mg PO BID@0800,199910/20/20 12/22/22 10/20/20 History (1,500 mg) tablet (Calcium) docusate sodium 100 mg capsule See Rx Instructions PO .COMPLEX #1 04/01/21 03/21/23 03/20/23 Rx cap fluticasone propionate 100 1 inh inhalation Q12H #180 ea 07/31/21 03/21/23 03/20/23 Rx mcg/actuation blister powder for inhalation (Flovent Diskus) duloxetine 60 mg capsule,delayed 60 mg PO BID #180 caps 12/13/21 03/21/23 03/20/23 Rx release (Cymbalta) fluticasone propionate 50 2 spray intranasal DAILY@1999 #48 03/28/22 03/21/23 03/20/23 Rx mcg/actuation nasal grams spray,suspension potassium chloride 10 mEq 10 meq PO BID #180 tabs 03/28/22 03/21/23 03/20/23 Rx tablet,extended release rosuvastatin 10 mg tablet 10 mg PO BEDTIME@1999 #90 tabs 04/25/22 03/21/23 03/20/23 Rx acetaminophen 325 mg capsule 650 mg PO Q6H PRN Pain 12/11/22 12/22/22 Unknown History (Tylenol) acetaminophen 500 mg tablet 500 mg PO TID 12/11/22 03/21/23 03/20/23 12:00 History carbidopa 25 mg-levodopa 100 mg 1 tab PO BID 12/11/22 03/21/23 03/20/23 History tablet carboxymethylcellulose sodium 1 % 1 drp ophthalmic (eye) QID PRN Dry 12/11/22 12/22/22 Unknown History eye drops (Artificial Tears Eye(S) (carboxymethylcellulose)) lamotrigine 25 mg tablet 50 mg PO BEDTIME 12/11/22 12/22/22 Unknown History levothyroxine 200 mcg tablet 200 mcg PO QAM 12/11/22 03/21/23 03/20/23 History loperamide 2 mg tablet 2 mg PO Q8H PRN Diarrhea 12/11/22 03/21/23 Unknown History melatonin 5 mg capsule 5 mg PO BEDTIME 12/11/22 03/21/23 03/20/23 History memantine 28 mg capsule 28 mg PO DAILY 12/11/22 12/22/22 Unknown History sprinkle,extended release 24hr mirtazapine 15 mg tablet 15 mg PO BEDTIME 12/11/22 03/21/23 03/20/23 History naloxone 2 mg/2 mL syringe kit 2 mg IM Q3M PRN Opioid Overdose 12/11/22 12/22/22 Unknown History polyethylene glycol 3350 17 4 g PO DAILY 12/11/22 03/21/23 Unknown History gram/dose oral powder quetiapine 300 mg tablet,extended 300 mg PO BEDTIME 12/11/22 03/21/23 03/20/23 History release 24 hr (Seroquel XR) quetiapine 50 mg tablet 25 mg PO 0700,1200 12/11/22 03/21/23 03/20/23 12:00 History topiramate 100 mg tablet (Topamax) 100 mg PO DAILY@1400 12/11/22 03/21/23 Unknown History trazodone 100 mg tablet 100 mg PO BEDTIME 12/11/22 12/22/22 Unknown History Artificial Tears 1 drp eye-both QID PRN Dry Eyes 03/21/23 03/21/23 Unknown History Med Plus 120 ml PO TIDWM 03/21/23 03/20/23 History aluminum-mag hydroxide-simethicone 30 ml PO Q8H PRN GI upset 03/21/23 03/21/23 Unknown History 200 mg-200 mg-20 mg/5 mL oral susp (Katy-[place]) ascorbic acid (vitamin C) 500 mg 1,000 mg PO QAM 03/21/23 03/21/23 03/14/23 History tablet bisacodyl 10 mg rectal suppository 10 mg AR DAILY PRN Constipation 03/21/23 03/21/23 Unknown History calcium carbonate 500 mg-vitamin 1 tab PO BID 03/21/23 03/21/23 03/20/23 History D3 10 mcg (400 unit) tablet (Calcium 500 + D) lamotrigine 150 mg tablet 150 mg PO QAM 03/21/23 03/20/23 History pregabalin 75 mg capsule 75 mg PO BID 03/21/23 03/21/23 03/20/23 History valacyclovir 1 gram tablet 1,000 mg PO TID 03/21/23 03/21/23 03/20/23 12:00 History Allergies Allergy/AdvReac Type Severity Reaction Status Date / Time No Known Allergies Allergy Verified 03/21/23 00:53 PFSH Acute PFSH: Medical History Abnormal EKG Adult onset hypothyroidism Anxiety and depression Bradycardia COPD (chronic obstructive pulmonary disease) CPAP (continuous positive airway pressure) dependence Dementia Dependent on walker for ambulation DNR no code (do not resuscitate) Dyslipidemia Lives in assisted living facility Major depressive disorder, recurrent severe without psychotic features Mixed hyperlipidemia Osteoarthritis of knee Osteoporosis, post-menopausal Parkinson disease Recurrent syncope Seasonal allergic rhinitis due to pollen Sleep apnea Slow transit constipation Spine deformity Vitamin D deficiency Surgical History History of back surgery 2016 T11-T12 History of bunionectomy bilateral 2015 History of hernia repair 2017 History of laparotomy 1972 no body parts removed History of repair of hiatal hernia History of tubal ligation Left removed only 1972 Hx of cataract surgery Hx of right breast biopsy 1999 Family History Mother Congestive heart failure Clotting disorder CAD (coronary artery disease) Family/Other Lung disease Cancer Grandmother Stroke Denies family history of Diabetes Dementia Chronic kidney disease (CKD) Suicide Anesthesia complication Bleeding disorder Social History Smoking and tobacco/nicotine status: never used tobacco/nicotine Quit status (tobacco/nicotine): has quit using Year quit tobacco: 2005 - PPD x 35 Years Second hand smoke exposure: No Alcohol intake: former Substance/Drug Use: never Adopted: No Caregiver/support person: No Lives independently: Yes Household members: none Housing: House Marital status: Unknown Number of children: 1 service: Yes branch: [employer] Current occupational status: retired and disabled Pets and animals: No Do you think of yourself as: Straight/Heterosexual Current gender identity: Female Vitals/I&O/Wt Last Vital Signs Temp 98.2 F 03/21/23 00:53 Pulse 78 03/21/23 03:03 Resp 20 H 03/21/23 03:03 BP 139/116 03/21/23 03:03 Pulse Ox 96 03/21/23 03:03 O2 Del Method Room Air 03/21/23 01:08 Weight last 48 hrs Weight 49.895 kg Physical Exam Narrative: She is awake alert oriented x2, poorly comprehensive Chest clear to auscultation bilaterally Cardiovascular normal heart sounds Abdomen soft nontender nondistended normal bowel sounds Extremities no edema noted bilaterally, she was sleeping on her left hip without any complaint of pain Data 03/21/23 01:00 03/21/23 01:00 Xray Ortho: Radiologist's impression: X-ray right knee No acute findings X-ray left elbow No acute findings X-ray pelvis IMPRESSION: Acute impacted left proximal femoral neck fracture. Other CT: Radiologist's impression: CT left hip Acute left hip fracture CT Head: Radiologist's impression: No acute findings CXR: Radiologist's impression: No acute findings EKG 1: My Interpretation: Normal sinus rhythm Right bundle branch block A&P Assessment and plan (1) Closed left hip fracture: (2) Fall: Plan 72 year old female with history of anxiety depression altered mental status hypothyroidism Lewy body dementia sleep apnea asthma dyslipidemia COPD was brought in from correction secondary to an unwitnessed fall and found to have left hip fracture Orthopedics aware of the patient She is n.p.o. past midnight Resume home medications IV Pepcid 20 mg twice a day for stress ulcer prophylaxis Intermittent compression devices for DVT prophylaxis She is full code[has power of assistant attorney general scanned in the system] Attestations Medical Necessity Statement*: She needs more than 2 days of continued hospitalization for corrective surgery for left hip fracture and postop recovery Time Spent in Patient Care: 25 minutes Coding Level of Care Code Acute Code for Chg Fwd Diagnoses Closed left hip fracture S72.002A Fall W19.XXXA Time Spent (min) 25
[2023-03-21] MEDS: famotidine 20 mg/2 mL INJ IVP ×2 (04:03→15:02)
[2023-03-21] MEDS: sodium chloride 0.9% 1,000 ML 60 ML IV ×2 (04:03→20:39)
[2023-03-21] MEDS: duloxetine 60 mg Capsule PO (08:14)
[2023-03-21] MEDS: quetiapine 25 mg Tablet 50 MG PO (08:14)
[2023-03-21] MEDS: polyethylene glycol 3350 Pkt 17 gm 4 GM PO (08:14)
[2023-03-21] MEDS: aspirin 81 mg EC Tablet PO (08:15)
[2023-03-21] MEDS: carbidopa-levodopa 25-100mg Tablet 1 EACH PO (08:15)
[2023-03-21] MEDS: topiramate 100 mg Tablet PO (08:15)
--- NOTE | 2023-03-21 08:51 | P.CONIM_ITS ---
Patient was seen and examined. Given patient's dementia unable to obtain HPI from patient however POA is present during encounter reviewed and agree with PAs assessment and plan. At this point in time reviewing of imaging patient has a displaced left femoral neck fracture and as result would recommend a left hip hemiarthroplasty. We talked about this in detail with patient's POA. We talked about the risks benefits complication alternatives surgery. In order for earlier mobilization as well as pain control would recommend surgical intervention. She understands the risk of surgery include not limited to make it better make it worse injury to nerves vessels or tendons blood clot, heart attack, stroke, on the table, leg length discrepancies, infection, instability. Understanding risk of surgery she agrees to have us proceed with surgical intervention. All questions answered at this time. We will proceed with a left hip hemiarthroplasty tomorrow morning. Teo Sewell DO/orthopedic surgery Providers/Reason For Consult Consulting Physician/Specialty*: Dr. Donato ORTEGA/orthopedic surgery Reason for Consult*: Closed left hip fracture Requesting Physician: Dr. Harris emergency department Attending Physician: Randal Stoner MD Primary Care Provider: Gerson Marshall MD History of Present Illness History of Present Illness Crys Mir is a 72 year old female with a history of altered mental status, hypothyroidism, Lewy body dementia, sleep apnea, asthma, dyslipidemia, COPD was brought in from skilled nursing secondary to an unwitnessed fall. Patient is a poor historian. She was unable to answer any of my questions at bedside today. I reviewed the previous history and notes from the emergency department and hospitalist for HPI information. Patient lives at [facility]. ?Nurse at facility stated patient was trying to help her roommate out when she fell and hurt her left hip. It was reported that she had no recent history of fever, cough, shortness of breath, chest pain, urinary or bowel complaints. Pt is not on a blood thinner. She does take aspirin daily. Unknown baseline ambulatory status. Review of Systems General: Reports: ROS unobtainable due to mental status (pt has lewy body dementia) Medications/Allergies Home Medications Medication Instructions Recorded Confirmed Last Taken Type aspirin 81 mg tablet,delayed 81 mg PO DAILY@0800 10/20/20 03/21/23 03/20/23 History release (Arya Low Dose Aspirin) calcium carbonate 600 mg calcium 600 mg PO BID@0800,199910/20/20 12/22/22 10/20/20 History (1,500 mg) tablet (Calcium) docusate sodium 100 mg capsule See Rx Instructions PO .COMPLEX #1 04/01/21 03/21/23 03/20/23 Rx cap fluticasone propionate 100 1 inh inhalation Q12H #180 ea 07/31/21 03/21/23 03/20/23 Rx mcg/actuation blister powder for inhalation (Flovent Diskus) duloxetine 60 mg capsule,delayed 60 mg PO BID #180 caps 12/13/21 03/21/23 03/20/23 Rx release (Cymbalta) fluticasone propionate 50 2 spray intranasal DAILY@1999 #48 03/28/22 03/21/23 03/20/23 Rx mcg/actuation nasal grams spray,suspension potassium chloride 10 mEq 10 meq PO BID #180 tabs 03/28/22 03/21/23 03/20/23 Rx tablet,extended release rosuvastatin 10 mg tablet 10 mg PO BEDTIME@1999 #90 tabs 04/25/22 03/21/23 03/20/23 Rx acetaminophen 325 mg capsule 650 mg PO Q6H PRN Pain 12/11/22 12/22/22 Unknown History (Tylenol) acetaminophen 500 mg tablet 500 mg PO TID 12/11/22 03/21/23 03/20/23 12:00 History carbidopa 25 mg-levodopa 100 mg 1 tab PO BID 12/11/22 03/21/23 03/20/23 History tablet carboxymethylcellulose sodium 1 % 1 drp ophthalmic (eye) QID PRN Dry 12/11/22 12/22/22 Unknown History eye drops (Artificial Tears Eye(S) (carboxymethylcellulose)) lamotrigine 25 mg tablet 50 mg PO BEDTIME 12/11/22 12/22/22 Unknown History levothyroxine 200 mcg tablet 200 mcg PO QAM 12/11/22 03/21/23 03/20/23 History loperamide 2 mg tablet 2 mg PO Q8H PRN Diarrhea 12/11/22 03/21/23 Unknown History melatonin 5 mg capsule 5 mg PO BEDTIME 12/11/22 03/21/23 03/20/23 History memantine 28 mg capsule 28 mg PO DAILY 12/11/22 12/22/22 Unknown History sprinkle,extended release 24hr mirtazapine 15 mg tablet 15 mg PO BEDTIME 12/11/22 03/21/23 03/20/23 History naloxone 2 mg/2 mL syringe kit 2 mg IM Q3M PRN Opioid Overdose 12/11/22 12/22/22 Unknown History polyethylene glycol 3350 17 4 g PO DAILY 12/11/22 03/21/23 Unknown History gram/dose oral powder quetiapine 300 mg tablet,extended 300 mg PO BEDTIME 12/11/22 03/21/23 03/20/23 History release 24 hr (Seroquel XR) quetiapine 50 mg tablet 25 mg PO 0700,1200 12/11/22 03/21/23 03/20/23 12:00 History topiramate 100 mg tablet (Topamax) 100 mg PO DAILY@1400 12/11/22 03/21/23 Unknown History trazodone 100 mg tablet 100 mg PO BEDTIME 12/11/22 12/22/22 Unknown History Artificial Tears 1 drp eye-both QID PRN Dry Eyes 03/21/23 03/21/23 Unknown History Med Plus 120 ml PO TIDWM 03/21/23 03/20/23 History aluminum-mag hydroxide-simethicone 30 ml PO Q8H PRN GI upset 03/21/23 03/21/23 Unknown History 200 mg-200 mg-20 mg/5 mL oral susp (Katy-Lanta) ascorbic acid (vitamin C) 500 mg 1,000 mg PO QAM 03/21/23 03/21/23 03/14/23 H istory tablet bisacodyl 10 mg rectal suppository 10 mg FL DAILY PRN Constipation 03/21/23 Unknown History calcium carbonate 500 mg-vitamin 1 tab PO BID 03/21/23 03/21/23 03/20/23 History D3 10 mcg (400 unit) tablet (Calcium 500 + D) lamotrigine 150 mg tablet 150 mg PO QAM 03/21/23 03/20/23 History pregabalin 75 mg capsule 75 mg PO BID 03/21/23 03/21/23 03/20/23 History valacyclovir 1 gram tablet 1,000 mg PO TID 03/21/23 03/21/23 03/20/23 12:00 History Allergies Allergy/AdvReac Type Severity Reaction Status Date / Time No Known Allergies Allergy Verified 03/21/23 00:53 Current Medications Generic Name Dose Route Start Last Admin Trade Name Malvin PRIndira Reason Stop Dose Admin Aspirin 81 mg 03/21/23 08:00 03/21/23 08:15 Aspirin 81 Mg Ec Tablet PO 81 mg DAILY@0800 GO Administration Carbidopa/Levodopa 1 each 03/21/23 09:00 03/21/23 08:15 Carbidopa-Levodopa 25-100mg Tablet PO 1 each TID GO Administration Duloxetine HCl 60 mg 03/21/23 09:00 03/21/23 08:14 Duloxetine 60 Mg Capsule PO 60 mg BID GO Administration Famotidine 20 mg 03/21/23 03:30 03/21/23 04:03 Famotidine 20 Mg/2 Ml Inj IVP 20 mg Q12H GO Administration Sodium Chloride 1,000 mls @ 60 mls/hr 03/21/23 03:30 03/21/23 04:03 Sodium Chloride 0.9% IV 60 mls/hr .[id number] GO Administration Levothyroxine Sodium 200 mcg 03/21/23 06:00 03/21/23 06:19 Levothyroxine 200 Mcg Tablet PO Not Given QAM GO Non-Formulary Medication 28 mg 03/21/23 09:00 03/21/23 08:15 Memantine PO Not Given DAILY GO Polyethylene Glycol 4 gm 03/21/23 09:00 03/21/23 08:14 Polyethylene Glycol 3350 Pkt 17 Gm PO 4 gm DAILY GO Administration Quetiapine Fumarate 50 mg 03/21/23 09:00 03/21/23 08:14 Quetiapine 25 Mg Tablet PO 50 mg BID GO Administration Topiramate 100 mg 03/21/23 09:00 03/21/23 08:15 Topiramate 100 Mg Tablet PO 100 mg DAILY GO Administration PFSH Acute PFSH: Medical History Abnormal EKG Adult onset hypothyroidism Anxiety and depression Bradycardia COPD (chronic obstructive pulmonary disease) CPAP (continuous positive airway pressure) dependence Dementia Dependent on walker for ambulation DNR no code (do not resuscitate) Dyslipidemia Lives in assisted living facility Major depressive disorder, recurrent severe without psychotic features Mixed hyperlipidemia Osteoarthritis of knee Osteoporosis, post-menopausal Parkinson disease Recurrent syncope Seasonal allergic rhinitis due to pollen Sleep apnea Slow transit constipation Spine deformity Vitamin D deficiency Surgical History History of back surgery 2016 T11-T12 History of bunionectomy bilateral 2015 History of hernia repair 2017 History of laparotomy 1972 no body parts removed History of repair of hiatal hernia History of tubal ligation Left removed only 1972 Hx of cataract surgery Hx of right breast biopsy 1999 Family History Mother Congestive heart failure Clotting disorder CAD (coronary artery disease) Family/Other Lung disease Cancer Grandmother Stroke Denies family history of Diabetes Dementia Chronic kidney disease (CKD) Suicide Anesthesia complication Bleeding disorder Social History Smoking and tobacco/nicotine status: never used tobacco/nicotine Quit status (tobacco/nicotine): has quit using Year quit tobacco: 2004 - PPD x 35 Years Second hand smoke exposure: No Alcohol intake: former Substance/Drug Use: never Adopted: No Caregiver/support person: No Lives independently: Yes Household members: none Housing: House Marital status: Unknown Number of children: 1 service: Yes branch: [employer] Current occupational status: retired and disabled Pets and animals: No Do you think of yourself as: Straight/Heterosexual Current gender identity: Female Vitals/I&O/Wt Last Vital Signs Temp 97.5 F L 03/21/23 07:52 Pulse 80 03/21/23 07:52 Resp 19 H 03/21/23 07:52 BP 140/68 03/21/23 07:52 Pulse Ox 95 03/21/23 07:52 O2 Del Method Room Air 03/21/23 07:52 Weight last 48 hrs Weight 110 lb Physical Exam Const: EXAM LIMITATIONS: altered mental status Resp: COMMON NORMALS: normal respiratory effort EFFORT & INSPECTION: No respiratory distress and No labored Extremity: NARRATIVE EXTREMITY EXAM: Left leg?shortened and externally rotated. Pedal pulse 2+. Her toes are warm and well-perfused and she has a normal cap refill under 2 seconds. Unable to assess sensation or have patient perform dorsiflex and plantarflexion or straight leg raise due to mental status Secondary assessment of other extremities Right leg show no obvious deformity. No trauma or injury seen. Pedal pulse 2+. Her toes are warm well perfused and she has normal cap refill under 2 seconds. Bilateral arms?no signs of any trauma or deformity noted. Radial pulse 2+ and fingers are warm and well-perfused with normal cap refill under 2 seconds. Patient was able to move her arms. Skin: GENERAL SKIN EXAM: dry skin Urinary Catheter Management: Kurtz Latex: Cath Placed During This Visit: yes Reason for Continuing Indwelling Catheter: Perioperative Use in Selected Surgeries Urinary Catheter Date of Insertion: 03/21/23 Urinary Catheter Time of Insertion: 03:15 Data 03/21/23 01:00 03/21/23 01:00 Xray Ortho: Radiologist's impression: [id number] [address] XRay Report Signed Patient: Crys Mir Unit #: [id number] : 1950 Age/Sex: 72 / F ADM Date: 03/21/23 Loc: ER Room/Bed: Attending Dr: Ordering Provider/Ordering MD: Dl Harris MD Date of Service: 03/21/23 Procedure(s): XR pelvis 1-2V* [id number] Accession Number(s): [id number] Report Number: [id number] PROCEDURE INFORMATION: Exam: XR Pelvis Exam date and time: 03/21/2023 1:01 AM Age: 72 years old Clinical indication: Injury or trauma; Blunt trauma (contusions or hematomas); Prior surgery; Surgery date: 6+ months; Surgery type: Tubal ligation; Patient HX: From skilled nursing for unwitnessed fall. C/O left hip pain. TECHNIQUE: Imaging protocol: Radiologic exam of the pelvis. Views: 1 or 2 view. COMPARISON: CR XR hip RT 2-3V wo/w pel* [id number] 03/09/2022 3:52 AM FINDINGS: Bones/joints: Impacted left femoral neck fracture. Pelvic ring alignment is normal. Hip joints are aligned. Mild narrowing of joint spaces. Soft tissues: Unremarkable. XR/XR pelvis 1-2V* [id number] IMPRESSION: Acute impacted left proximal femoral neck fracture. ? Dictated By: David Loya Signed By: David Loya Signed Date/Time: 03/21/23216 DD/ [address]: Radiologist's impression: [address] [place] [address] CT Scan Report Signed Patient: Crys Mir Unit #: [id number] : 1950 Age/Sex: 72 / F ADM Date: 03/21/23 Loc: ER Room/Bed: Attending Dr: Ordering Provider/Ordering MD: Dl Harris MD Date of Service: 03/21/23 Procedure(s): CT hip LT wo con* [id number] Accession Number(s): [id number] Report Number: [id number] PROCEDURE INFORMATION: Exam: CT Left Lower Extremity Without Contrast, Hip Exam date and time: 03/21/2023 1:23 AM Age: 72 years old Clinical indication: Injury or trauma; Blunt trauma; Patient HX: From skilled nursing for unwitnessed fall. C/O left hip pain. TECHNIQUE: Imaging protocol: CT of the left lower extremity without contrast was performed. Exam focused on the hip. Radiation optimization: All CT scans at this facility use at least one of these dose optimization techniques: automated exposure control; mA and/or kV adjustment per patient size (includes targeted exams where dose is matched to clinical indication); or iterative reconstruction. REPORTING DATA: Count of CT and Cardiac NM exams in prior 12 months: This patient has received 4 known CTs and 0 known cardiac nuclear medicine studies in the 12 months prior to the current study. COMPARISON[place] [id number] 10/26/2021 9:57 AM RADIATION DOSE METRICS: Total DLP (mGy-cm): 423.22 FINDINGS: Bones/joints: Impacted comminuted left femoral neck fracture. Bones are demineralized. Femoral head is aligned with the acetabulum. Moderate narrowing of the posterior joint space. Marginal osteophyte spurring of the acetabulum. Small left hip joint effusion. Soft tissues: Patchy superficial soft tissue edema lateral to the left hip. CT/CT hip LT wo con* [id number] IMPRESSION: Acute left hip fracture. ? Dictated By: David Loya Signed By: David Loya Signed Date/Time: 03/21/23216 DD/ 0123 A&P Assessment and plan (1) Closed left hip fracture: Plan Plan: -Imaging and Labs reviewed -Hospitalist on board for medical management. -VTE prophylaxis -Nonweightbearing on Left leg -Pain control -N.p.o. after midnight -Surgery tomorrow (03/22/23) morning for Left Hip hemiarthroplasty -Contacted her POA which is her daughter Prachi Beckman and told her about plan for surgery tomorrow. She understood and agreed with plan. Consult Attestations Medical Necessity Statement: Ongoing care for left hip fracture Coding Level of Care Code Acute Code for Chg Fwd Diagnoses Closed left hip fracture S72.002A
--- NOTE | 2023-03-21 10:19 | P.MISC_ITS ---
Miscellaneous Note Note: Patient is pleasant but confused She is from [facility] consulted Currently n.p.o. We will do physical therapy and DVT prophylaxis after her intervention She carries history of Parkinson's, continue carbidopa levodopa
[2023-03-21] MEDS: morphine 4 mg/mL SDV 1 mL 2 MG IVP (16:47)
[2023-03-22] VITALS (24 sets, daily range): BP systolic 106–155; BP diastolic 53–87; PULSE 74–87; RESP 10–20; TEMP 36–37.3; O2SAT 93–99
[2023-03-22] MEDS: morphine 4 mg/mL SDV 1 mL 2 MG IVP (01:39)
[2023-03-22] MEDS: famotidine 20 mg/2 mL INJ IVP ×2 (04:09→17:58)
[2023-03-22 05:41] LABS: Basophils % 0.5 %; Eosinophils % 0.4 %; Hematocrit 34.9 % (36-47); Lymphocytes # 1.7 10^3/uL (0.8-4.8); Lymphocytes % 21.2 %; Mean Corpuscular HGB Conc 32.7 g/dL (30-55); Mean Corpuscular Volume 104.2 fl (85-98); Mean Platelet Volume 10.4 fL (7.4-10.4); Monocytes # 0.8 10^3/uL (0.2-0.9); Monocytes % 9.4 %; Neutrophils # 5.45 10^3/uL (1.8-7.7); Neutrophils % 68.2 %; Nucleated Red Blood Cells % 0 %; Platelet Count 176 10^3/cmm (157-399); Red Blood Count 3.35 10^6/uL (3.85-5.65); Red Cell Distribution Width 13.7 % (12.1-15.1); White Blood Count 7.98 10^3/uL (3.29-11.43)
[2023-03-22 06:07] LABS: Alanine Aminotransferase 11 U/L (0-33); Albumin Level 3.6 g/dL (3.5-5.2); Alkaline Phosphatase 64 U/L (35-105); Anion Gap 12.8 (5-19); Aspartate Amino Transferase 14 U/L (0-32); Blood Urea Nitrogen 24 mg/dL (8-23); Calcium 8.1 mg/dL (8.5-10.5); Carbon Dioxide 21 mmol/L (22-29); Chloride 110 mmol/L (98-107); Creatinine Clr Calc Pharmacy 48.0891; Globulin 2.8 g/dL (1.3-4.6); Glucose 95 mg/dL (65-115); Osmolality Calculated 294 mOsm/kg (285-295); Phosphorus 1.8 mg/dL (2.5-4.5); Potassium 3.8 mmol/L (3.5-5.1); Sodium 140 mmol/L (136-145); Total Bilirubin 0.5 mg/dL (0.15-1.2); Total Protein 6.4 g/dL (6.6-8.7)
--- NOTE | 2023-03-22 06:34 | ANES.PREANE2 ---
Pre-Anesthetic Assessment Height/Weight: Height 1.55 m Weight 49.895 kg Temp Pulse Resp BP Pulse Ox O2 Del Method 98.6 F 83 18 150/70 95 Room Air 03/22/23 04:16 03/22/23 04:16 03/22/23 04:16 03/22/23 04:16 03/22/23 04:16 03/21/23 16:00 Operation Date: 03/22/23 07:00 Proposed Procedures p Hemiarthroplasty Hip-Cemented(Left) - Teo Sewell DO Familial anesthetic complications: None Was Beta Jhonny taken within 24 hours: N/A Was Clonidine taken within 24 hours: N/A Last intake: Intake Last Liquid Date 03/21/23 Last Liquid Time 20:00 Last Solid Date 03/20/23 Last Solid Time 19:00 Social No alcohol and No tobacco fromer smoker Exam alert, clear to auscultation bilaterally and regular rate & rhythm Airway Dentition: false Pulmonary Asthma, Chronic Obstructive Pulmonary Disease and Sleep Apnea Metabolic Hyperlipidemia and Thyroid Disease Neuropsych Dementia (lewy body) parkinson's disease Anesthetic Plan ASA status: 3 Anesthesia: General Risk of > 500 ml blood loss (7ml/kg in children): No Medications/Allergies Home Medications Medication Instructions Recorded Confirmed Last Taken Type aspirin 81 mg tablet,delayed 81 mg PO DAILY@0800 10/20/20 03/21/23 03/20/23 History release (Arya Low Dose Aspirin) calcium carbonate 600 mg calcium 600 mg PO BID@0800,199910/20/20 03/21/23 03/20/23 History (1,500 mg) tablet (Calcium) docusate sodium 100 mg capsule See Rx Instructions PO .COMPLEX #1 04/01/21 03/21/23 03/20/23 Rx cap fluticasone propionate 100 1 inh inhalation Q12H #180 ea 07/31/21 03/21/23 03/20/23 Rx mcg/actuation blister powder for inhalation (Flovent Diskus) duloxetine 60 mg capsule,delayed 60 mg PO BID #180 caps 12/13/21 03/21/23 03/20/23 Rx release (Cymbalta) fluticasone propionate 50 2 spray intranasal DAILY@1999 #48 03/28/22 03/21/23 03/20/23 Rx mcg/actuation nasal grams spray,suspension potassium chloride 10 mEq 10 meq PO BID #180 tabs 03/28/22 03/21/23 03/20/23 Rx tablet,extended release rosuvastatin 10 mg tablet 10 mg PO BEDTIME@1999 #90 tabs 04/25/22 03/21/23 03/20/23 Rx acetaminophen 325 mg capsule 650 mg PO Q6H PRN Pain 12/11/22 03/21/23 Unknown History (Tylenol) carbidopa 25 mg-levodopa 100 mg 1 tab PO BID 12/11/22 03/21/23 03/20/23 History tablet levothyroxine 200 mcg tablet 200 mcg PO QAM 12/11/22 03/21/23 03/20/23 History loperamide 2 mg tablet 2 mg PO Q8H PRN Diarrhea 12/11/22 03/21/23 Unknown History melatonin 5 mg capsule 5 mg PO BEDTIME 12/11/22 03/21/23 03/20/23 History mirtazapine 15 mg tablet 15 mg PO BEDTIME 12/11/22 03/21/23 03/20/23 History polyethylene glycol 3350 17 4 g PO DAILY 12/11/22 03/21/23 Unknown History gram/dose oral powder quetiapine 300 mg tablet,extended 300 mg PO BEDTIME 12/11/22 03/21/23 03/20/23 History release 24 hr (Seroquel XR) quetiapine 50 mg tablet 25 mg PO 0700,1200 12/11/22 03/21/23 03/20/23 12:00 History topiramate 100 mg tablet (Topamax) 100 mg PO DAILY@1400 12/11/22 03/21/23 03/20/23 History Artificial Tears 1 drp eye-both QID PRN Dry Eyes 03/21/23 03/21/23 Unknown History Med Plus 120 ml PO TIDWM 03/21/23 03/21/23 03/20/23 History acetaminophen 500 mg tablet 500 mg PO TID 03/21/23 03/21/23 03/20/23 History aluminum-mag hydroxide-simethicone 30 ml PO Q8H PRN GI upset 03/21/23 03/21/23 Unknown History 200 mg-200 mg-20 mg/5 mL oral susp (Katy-Lanta) ascorbic acid (vitamin C) 500 mg 1,000 mg PO QAM 03/21/23 03/21/23 03/14/23 History tablet bisacodyl 10 mg rectal suppository 10 mg [place] DAILY PRN Constipation 03/21/23 03/21/23 Unknown History calcium carbonate 500 mg-vitamin 1 tab PO BID 03/21/23 03/21/23 03/20/23 History D3 10 mcg (400 unit) tablet (Calcium 500 + D) gabapentin 300 mg capsule 300 mg PO BID 03/21/23 03/21/23 03/14/23 History lamotrigine 150 mg tablet 150 mg PO QAM 03/21/23 03/21/23 03/20/23 History pregabalin 75 mg capsule 75 mg PO BID 03/21/23 03/21/23 03/20/23 History valacyclovir 1 gram tablet 1,000 mg PO TID 03/21/23 03/21/23 03/20/23 12:00 History Allergies Allergy/AdvReac Type Severity Reaction Status Date / Time No Known Allergies Allergy Verified 03/21/23 00:53 Current Medications Generic Name Dose Route Start Last Admin Trade Name Freq PRN Reason Stop Dose Admin Aspirin 81 mg 03/21/23 08:00 03/21/23 08:15 Aspirin 81 Mg Ec Tablet PO 81 mg DAILY@0800 GO Administration Atorvastatin Calcium 40 mg 03/21/23 20:00 03/21/23 20:40 Atorvastatin 40 Mg Tablet PO Not Given BEDTIME@2000 [facility] Carbidopa/Levodopa 1 each 03/21/23 09:00 03/21/23 20:40 Carbidopa-Levodopa 25-100mg Tablet PO Not Given TID [facility] Duloxetine HCl 60 mg 03/21/23 09:00 03/21/23 17:25 Duloxetine 60 Mg Capsule PO Not Given BID GO Famotidine 20 mg 03/21/23 03:30 03/22/23 04:09 Famotidine 20 Mg/2 Ml Inj IVP 20 mg Q12H GO Administration Sodium Chloride 1,000 mls @ 60 mls/hr 03/21/23 03:30 03/21/23 20:39 Sodium Chloride 0.9% IV 60 mls/hr .[id number] GO Administration Lamotrigine 50 mg 03/21/23 21:00 03/21/23 20:40 Lamotrigine 25 Mg Tablet PO Not Given BEDTIME GO Levothyroxine Sodium 200 mcg 03/21/23 06:00 03/22/23 05:21 Levothyroxine 200 Mcg Tablet PO Not Given QAM GO Morphine Sulfate 2 mg 03/21/23 03:27 03/22/23 01:39 Morphine 4 Mg/Ml Sdv 1 Ml IVP 2 mg Q4H PRN Administration SEVERE PAIN Non-Formulary Medication 28 mg 03/21/23 09:00 03/21/23 08:15 Memantine PO Not Given DAILY GO Polyethylene Glycol 4 gm 03/21/23 09:00 03/21/23 08:14 Polyethylene Glycol 3350 Pkt 17 Gm PO 4 gm DAILY GO Administration Quetiapine Fumarate 50 mg 03/21/23 09:00 03/21/23 17:25 Quetiapine 25 Mg Tablet PO Not Given BID GO Topiramate 100 mg 03/21/23 09:00 03/21/23 08:15 Topiramate 100 Mg Tablet PO 100 mg DAILY GO Administration PFSH Anesthesia Medical History Abnormal EKG Adult onset hypothyroidism Anxiety and depression Bradycardia COPD (chronic obstructive pulmonary disease) CPAP (continuous positive airway pressure) dependence Dementia Dependent on walker for ambulation DNR no code (do not resuscitate) Dyslipidemia Lives in assisted living facility Major depressive disorder, recurrent severe without psychotic features Mixed hyperlipidemia Osteoarthritis of knee Osteoporosis, post-menopausal Parkinson disease Recurrent syncope Seasonal allergic rhinitis due to pollen Sleep apnea Slow transit constipation Spine deformity Vitamin D deficiency Surgical History History of back surgery 2016 T11-T12 History of bunionectomy bilateral 2015 History of hernia repair 2017 History of laparotomy 1972 no body parts removed History of repair of hiatal hernia History of tubal ligation Left removed only 1973 Hx of cataract surgery Hx of right breast biopsy 1999 Family History Mother Congestive heart failure Clotting disorder CAD (coronary artery disease) Family/Other Lung disease Cancer Grandmother Stroke Denies family history of Diabetes Dementia Chronic kidney disease (CKD) Suicide Anesthesia complication Bleeding disorder Social History Smoking and tobacco/nicotine status: never used tobacco/nicotine Quit status (tobacco/nicotine): has quit using Year quit tobacco: 2004 - PPD x 35 Years Second hand smoke exposure: No Alcohol intake: former Substance/Drug Use: never Adopted: No Caregiver/support person: No Lives independently: Yes Household members: none Housing: House Marital status: Unknown Number of children: 1 service: Yes branch: [employer] Current occupational status: retired and disabled Pets and animals: No Do you think of yourself as: Straight/Heterosexual Current gender identity: Female Data Anesthesia 03/22/23 05:25 03/22/23 05:25 Short CBC 03/21/23 03/22/23 Range/Units 01:00 05:25 WBC 6.90 7.98 (3.29-11.43) 10^3/uL Hgb 12.20 11.40 (11.27-16.99) g/dL Hct 37.8 34.9 L (36-47) % MCV 104.4 H 104.2 H (85-98) fl Plt Count 213 176 (157-399) 10^3/cmm Neut % (Auto) 60.1 68.2 % Neut # (Auto) 4.15 5.45 (1.8-7.7) 10^3/uL BMP 03/21/23 03/22/23 01:00 05:25 Sodium 144 140 Potassium 4.2 3.8 Chloride 107 110 H Carbon Dioxide 27 21 L BUN 31 H 24 H Creatinine 0.8 0.7 Glucose 97 95 Calcium 9.7 8.1 L Liver Function 03/21/23 03/22/23 Range/Units 01:00 05:25 Total Bilirubin 0.3 0.5 (0.15-1.2) mg/dL AST 19 14 (0-32) U/L ALT 15 11 (0-33) U/L Alkaline Phosphatase 71 64 (35-105) U/L Albumin 4.6 3.6 (3.5-5.2) g/dL Coags 03/21/23 01:00 PT 14.10 INR 1.05 Cardiac Studies: Echocardiogram Ultrasound 03/25/20 Sestamibi Stress Test (Cardiology) 02/05/20 Holter Monitor 01/04/20
--- NOTE | 2023-03-22 06:38 | W.PM.OPSUD ---
Surgery/Procedure H&P Update DATE OF PROCEDURE: March 22, 2023 DATE H&P PERFORMED: 03/21/23 H&P UPDATE INFORMATION: I have reviewed H&P completed within last 30 days, I have examined patient prior to procedure and No changes to prior documentation PREOP DIAGNOSIS: Left displaced femoral neck fracture PRIMARY INDICATION FOR PROCEDURE: Left femoral neck fracture PLANNED PROCEDURE: Operation Date: 03/22/23 07:00 Proposed Procedures p Hemiarthroplasty Hip-Cemented(Left) - Teo Sewell DO
[2023-03-22] MEDS: sodium chloride 0.9% 1,000 ML 30 ML IV (06:57)
[2023-03-22] MEDS: ceFAZolin 2,000 MG in sodium chloride 0.9% (plus) 50 ML 100 MG IV ×3 (06:59→22:07)
[2023-03-22] MEDS: vancomycin 1,000 MG SDV 1000 MG XX (08:02)
--- NOTE | 2023-03-22 08:06 | PC.NURSE ---
Patient family updated at 0873
--- NOTE | 2023-03-22 09:05 | PM.OP ---
Operative Report Date of procedure: March 22, 2023 Pre-op diagnosis: Left hip displaced femoral neck fracture Surgeon: Teo Sewell DO Senior Process Analyst: Billy Sewell PA-C PA was necessary for assistance in this case with appropriate leg positioning as well as to assist in implantation and retraction protection of neurovascular structures. Assist in wound closure Procedure: Post-op diagnosis: Same Procedure done: Left hip hemiarthroplasty, cemented Implants: Gill Accolade C 127 degree femoral stem size 3 Bipolar head 44 mm Femoral head +4 mm offset 8mm distal cement spacer Surgeon: Teo Sewell DO Estimated blood loss: 200 mL IV fluids: See anesthesia record Urine output: See anesthesia record Complications: None Findings: See operative report Condition: stable Disposition: floor Brief History: Patient was seen in the emergency department and subsequently admitted after fall.? Patient sustained a left displaced femoral neck fracture.? Patient was subsequently admitted by the hospitalist team for medical management and optimization and the orthopedic surgery team was consulted for evaluation and treatment recommendations.? At that point time discussed with patient? treatment options.? We talked about nonoperative versus operative intervention talked about the risk benefits complication alternatives to surgical nonsurgical treatment options.? Risks of surgery were discussed and patient's POA/daughter understands and agrees to proceed with procedure.? At this point time would recommend a left hip hemiarthroplasty.? This will offer patient pain control as well as early weightbearing.? Patient was medically optimized and was then taken to the OR.? Family understands risk benefits complication alternatives with surgical nonsurgical treatment options.? At this point time elects to proceed with left hip hemiarthroplasty.? All questions answered.? Patient understands agrees with current plan.? All questions answered. Procedure: Patient seen evaluated the preoperative holding area.? Consent was reviewed and signed with patient.? ?Pt was seen evaluated by the anesthesia department.? Once cleared for surgery patient patient was taken back to the operative suite.? Patient was then transported onto the OR table.? pt underwent anesthesia per the anesthesia department.? Once appropriately anesthetized patient was then positioned in lateral decubitus position with the left hip up.? Patient was placed on a pegboard appropriately secured to the bed all bony prominences well-padded.? Next the left lower extremity was then prepped and draped in sterile orthopedic fashion.? Final timeout performed.? Patient received appropriate preoperative antibiotics. A standard posterolateral approach was then made over the lateral aspect of the hip.? Sharp scalpel incision was made through skin and subcutaneous tissue I then utilized a Ronquillo elevator to mobilize over the fascia.? The fascia was then split longitudinally with electrocautery.? Next a bursectomy was then performed.? I then placed Hohmann underneath the abductors.? The hip was placed under tension with internal rotation.? I then utilizing electrocautery performed a full-thickness release of the short external rotators and capsule in 1 full thick sleeve for lateral repair.? This was then taken down to the lesser trochanter.? Immediately on capsulotomy hematoma was noticed and displaced femoral neck fracture appreciated.? I then placed a Hohmann above and below the neck.? I then utilized an oscillating saw to freshen the cut this was roughly half of a fingerbreadth above the lesser as patient did fracture slightly lower on the neck.? Once this was performed this access was removed with rongeur.? ?I then utilized a corkscrew to remove the head.? This was then subsequently sized and measured to be a 44 mm head size.? I then thoroughly irrigated the acetabulum.? A Hohmann was placed anteriorly and thorough inspection of the acetabulum no significant arthritic changes were noted.? I then utilized a rongeur and Bovie to remove the pulvinar.? Once this was performed I then subsequently took my trial 44 mm head and trialed this which had excellent fit and appropriate suction fit noted.? This was then subsequently removed. Once this was performed I irrigated the socket and then turned my attention towards the femoral preparation.? I utilized Bovie and rongeur to remove the soft tissue off of the saddle.? Once this was done a box osteotome followed by a canal finder and? lateralizing rattail rasp was used to appropriately lateralized in the canal.? Next I then subsequently broached to a size 3Accolade C. Gill femoral stem which had appropriate fixation.? I was able to trial with this and this appeared to be appropriate length with ability to add slight offset if needed once cemented.? Once this was done I then removed the femoral stem and then subsequently proceeded with standard cementation technique.? Cement was mixed on the back table the final implant was opened and appropriately measurement on distal cement plug to accommodate the cement mantle and femoral stem.? This was set and impacted in place to appropriate depth.? Next I utilized the cement brush thoroughly irrigated the canal and then dry the canal tampon.? Once cement was appropriately mixed and ready for cementation informed anesthesia and they optimize patient's oxygenation cement was then impacted using cement gun and then was subsequently pressurized.?? The femoral stem size 3 was then impacted in place with appropriate anteversion and held into place and all excess cement was removed and allowed to cure once cured I then trialed a standard size head which at that point there was which had excellent leg lengths as well as appropriate shuck, and excellent stability in all planes of motion with no evidence of instability.? At this point this was determined to being my final femoral head size.? This was subsequently dislocated the trial head was then removed the final implant of bipolar head 44 mm with a +4 mm offset was then opened.? The trunnion was then cleaned and dried and this was impacted in place with excellent fixation.? I then reduced the hip this had excellent stability and appropriate leg lengths.? The wound bed was then thoroughly irrigated.? I then utilizing #5 Ethibond suture performed my repair of the capsule and short external rotators through bone tunnels.? ?Wound bed was then thoroughly irrigated,1 gram vanco powder placed in wound bed.? IT band was closed with strata fix suture and the deep subcutaneous and subcutaneous layers were closed with 0 strata fix and 2-0 strata fix.? Skin was then closed reapproximated with rossi.? Silverlon dressing applied.? Patient placed in abduction pillow posterior hip precautions.? pt? was awakened from anesthesia and taken to PACU in stable condition Disposition: Patient taken to PACU in stable condition will receive appropriate discharge directions as well as pain medication DVT prophylaxis postoperatively.? Patient? will return to the floor postoperatively.? Patient will be weightbearing as tolerated to the operative lower extremity.? Posterior hip precautions. Abduction pillow in place.? DVT prophylaxis, pain medication, postoperative antibiotics and TXA.? Patient will work with PT/OT and discharge services for discharge planning.? Patient understands agrees with current plan.? All questions answered.? ?patient will? see me in the office in 2 weeks.
--- NOTE | 2023-03-22 09:06 | P.BOP_ITS ---
Date of Procedure: [March 22, 2023] Surgeon: [Dr. Donato ORTEGA] Health Careers Instructor(s): [Billy Sewell physician associate] Procedure(s) performed: [Left hip hemiarthroplasty with cement] Findings of the procedure(s): [Left displaced femoral neck fracture] Estimated blood loss: [150 mL] Specimen(s) removed: [N/A] Post-operative diagnosis: [Left displaced femoral neck fracture]
--- NOTE | 2023-03-22 09:07 | XRR_ITS ---
PROCEDURE INFORMATION: Exam: XR Left Hip Exam date and time: 03/22/2023 9:16 AM Age: 72 years old Clinical indication: Device placement; Other: Left ela; Prior surgery; Surgery date: Post-operative (0-2 days); Additional info: Post op left ela, do in pacu TECHNIQUE: Imaging protocol: Radiologic exam of the left hip. Views: 2 or 3 views hip with pelvis when performed. COMPARISON: CT hip LT wo con* [id number] 03/21/2023 1:23 AM FINDINGS: Bones/joints: The patient is post total hip arthroplasty without evidence for hardware complication. Soft tissues: Postsurgical change includes air in the deep soft tissues and overlying skin staple line. XR/XR hip LT 2-3V wo/w pel* [id number] IMPRESSION: Postsurgical change in the left hip.
--- NOTE | 2023-03-22 09:45 | ANE.PACU2 ---
Inpatient post-anesthesia follow up: Airway intact: Yes Vital signs: Temperature 97.2 F Pulse Rate 82 Respiratory Rate 18 Blood Pressure 153/71 Pulse Oximetry 93 Oxygen Delivery Me thod Room Air Oxygen Flow Rate 3 Fraction of Inspir ed Oxygen Hydration adequate: Yes Nausea and vomiting: No Pain level: 1 Mental status: Baseline
--- NOTE | 2023-03-22 09:51 | PC.CHAP ---
Pastoral Care Encounter/Spiritual Assessment Type of Contact [] Declined associate sales visit [] Patient/Family/Request visit [] Outpatient visit [] Follow-up visit [] Physician referral [] Code/Alert [] Routine visit [] Staff referral [] Actively dying [] Patient sleeping [] Family support [] [x] Out of room [] Palliative care [] [] Receiving care in room [] Pre-surgical visit [] Trauma [] Long length of stay [] ICU visit [] Other: Relational/Emotional Strength [] Patient feels connected with others/family/visitors/staff [] Distress [] Loneliness/isolation [] Abandonment Spirituality of Patient [] Person of Katelyn [] Attends Jehovah'S Witness of their Katelyn [] Believes in Prayer [] Reads Bible or Mu-Ism materials [] There are Spiritual issues to be addressed [employer] Craftsman Interventions [] Prayer [] Active listening [] Non-anxious presence [] Spiritual/emotional support [] Crisis/trauma care [] Spiritual counseling [] Bereavement support [] Provided bereavement packet [] Provided Bible/devotional materials [] Provided toy/stuffed animal, coloring book to patient or family member [] Provided Communion [] Anointing/[place] [] Salvation [] Completed spiritual assessment [] Other: Impact on Illness or Injury [] Angry [] Fearful [] Anxious [] Often cries [] Exhaustion [] Unable to work [] Unable to attend oriental orthodox [] Unable to walk/stand [] Unable to read [] Unable to drive [] Unable to eat/drink [] Unable to sleep [] Unable to be with family [] Patient intubated [] Other: Summary Time spent with patient
[2023-03-22] MEDS: HYDROmorphone 1 mg/mL INJ 1 mL 0.5 MG IVP ×2 (11:32→17:07)
--- NOTE | 2023-03-22 11:45 | PM.PN ---
Subjective Subjective: Postop day 0 No overnight events CBC BMP normal Low phosphorus noted Vitals/I&O/Wt Last Vital Signs Temp 97.2 F L 03/22/23 10:55 Pulse 82 03/22/23 10:55 Resp 18 03/22/23 11:32 BP 153/71 03/22/23 10:55 Pulse Ox 93 03/22/23 10:55 O2 Del Method Room Air 03/22/23 10:55 O2 Flow Rate 3 03/22/23 09:35 03/21/23 03/22/23 03/22/23 22:59 06:59 14:59 Intake Total 1116 / 1116 263 / 263 Output Total 1000 / 1000 350 / 1350 350 / 350 Balance 116 / 116 -350 / -234 -87 / -87 Weight last 48 hrs Weight 49.895 kg Physical Exam Narrative: Patient seems to have underlying dementia Memory issues S1, S2 Euvolemic Kurtz catheter in place Currently on room air Hypertensive Nonfocal neuro exam No audible stridor or wheezing Urinary Catheter Management: Kurtz Latex: Cath Placed During This Visit: yes Reason for Continuing Indwelling Catheter: Acute Urinary Retention or Obstruction Urinary Catheter Date of Insertion: 03/21/23 Urinary Catheter Time of Insertion: 03:15 Data 03/22/23 05:25 03/22/23 05:25 A&P Assessment and plan (1) Fall: (2) Closed left hip fracture: (3) Altered mental status: Qualifiers: Altered mental status type: unspecified Qualified Code(s): R41.82 - Altered mental status, unspecified (4) Hyperthyroidism: (5) Lewy body dementia: (6) CPAP (continuous positive airway pressure) dependence: (7) DNR no code (do not resuscitate): (8) Parkinson disease: (9) Sleep apnea: Plan Postop day 0 Patient will need to go back to her facility We will do PT after surgery DVT prophylaxis Resume diet Continue Parkinson's medications Bowel regimen added along opioids Attestations Medical Necessity Statement*: Anticipating discharge within next 24 to 48 hours Diagnoses Fall W19.XXXA Closed left hip fracture S72.002A Altered mental status R41.82 Altered mental status type: unspecified Hyperthyroidism E05.90 Lewy body dementia G31.83; F02.80 CPAP (continuous positive airway pressure) dependence Z99.89 DNR no code (do not resuscitate) Z66 Parkinson disease G20 Sleep apnea G47.30
[2023-03-22] MEDS: sodium chloride 0.9% 1,000 ML 60 ML IV (12:52)
--- NOTE | 2023-03-22 15:55 | PC.NURSE ---
Patient is alert to person but will not open mouth when directed by nurse. Patient can not safely consume oral medications at this time. Provider notified at 1640
[2023-03-22] MEDS: acetaminophen 1,000 MG/100 ML PIGGYBACK 400 MG IV ×2 (16:17→23:10)
[2023-03-22] MEDS: mupirocin oint 22 gm 1 APPLIC NASAL (18:07)
[2023-03-23] VITALS (12 sets, daily range): BP systolic 112–179; BP diastolic 51–81; PULSE 80–95; RESP 16–20; TEMP 36.5–37.6; O2SAT 95–98
[2023-03-23] MEDS: famotidine 20 mg/2 mL INJ IVP (04:02)
[2023-03-23] MEDS: morphine 4 mg/mL SDV 1 mL 2 MG IVP ×3 (05:00→21:02)
[2023-03-23 05:15] LABS: Basophils % 0.2 %; Eosinophils % 0.3 %; Hematocrit 32.1 % (36-47); Lymphocytes # 1.5 10^3/uL (0.8-4.8); Lymphocytes % 15.5 %; Mean Corpuscular HGB Conc 31.8 g/dL (30-55); Mean Corpuscular Hemoglobin 33.6 pg (27-33); Mean Corpuscular Volume 105.6 fl (85-98); Mean Platelet Volume 10.5 fL (7.4-10.4); Monocytes # 1.2 10^3/uL (0.2-0.9); Monocytes % 12.4 %; Neutrophils # 6.78 10^3/uL (1.8-7.7); Neutrophils % 71.3 %; Nucleated Red Blood Cells % 0 %; Platelet Count 159 10^3/cmm (157-399); Red Blood Count 3.04 10^6/uL (3.85-5.65); Red Cell Distribution Width 13.7 % (12.1-15.1); White Blood Count 9.51 10^3/uL (3.29-11.43)
[2023-03-23 05:34] LABS: Anion Gap 13.7 (5-19); Blood Urea Nitrogen 19 mg/dL (8-23); Calcium 7.8 mg/dL (8.5-10.5); Carbon Dioxide 18 mmol/L (22-29); Chloride 111 mmol/L (98-107); Creatinine Clr Calc Pharmacy 48.0891; Glucose 105 mg/dL (65-115); Osmolality Calculated 291 mOsm/kg (285-295); Potassium 3.7 mmol/L (3.5-5.1); Sodium 139 mmol/L (136-145)
[2023-03-23] MEDS: HYDROmorphone 1 mg/mL INJ 1 mL 0.5 MG IVP ×2 (05:50→16:05)
[2023-03-23] MEDS: sodium chloride 0.9% 1,000 ML 60 ML IV (06:30)
[2023-03-23] MEDS: ceFAZolin 2,000 MG in sodium chloride 0.9% (plus) 50 ML 100 MG IV (06:34)
[2023-03-23] MEDS: acetaminophen 1,000 MG/100 ML PIGGYBACK 400 MG IV (08:34)
[2023-03-23] MEDS: enoxaparin 30 mg/0.3 mL Syringe SUBCUT (08:35)
[2023-03-23] MEDS: mupirocin oint 22 gm 1 APPLIC NASAL (08:35)
--- NOTE | 2023-03-23 09:20 | PC.NURSE ---
MD aware of pt inability to swallow medications, not alert
--- NOTE | 2023-03-23 10:09 | PC.CHAP ---
Pastoral Care Encounter/Spiritual Assessment Type of Contact [] Declined edge banding off bearer visit [] Patient/Family/Request visit [] Outpatient visit [] Follow-up visit [] Physician referral [] Code/Alert [x] Routine visit [] Staff referral [] Actively dying [] Patient sleeping [] Family support [] [] Out of room [] Palliative care [] [] Receiving care in room [] Pre-surgical visit [] Trauma [] Long length of stay [] ICU visit [] Other: Relational/Emotional Strength [x] Patient feels connected with others/family/visitors/staff [] Distress [] Loneliness/isolation [] Abandonment Spirituality of Patient [] Person of Katelyn [] Attends Sabianism of their Katelyn [x] Believes in Prayer [] Reads Bible or Jew materials [] There are Spiritual issues to be addressed Tobacco Grower Interventions [x] Prayer [x] Active listening [] Non-anxious presence [] Spiritual/emotional support [] Crisis/trauma care [] Spiritual counseling [] Bereavement support [] Provided bereavement packet [] Provided Bible/devotional materials [] Provided toy/stuffed animal, coloring book to patient or family member [] Provided Communion [] Anointing/[place] [] Salvation [] Completed spiritual assessment [] Other: Impact on Illness or Injury [] Angry [] Fearful [] Anxious [] Often cries [] Exhaustion [] Unable to work [] Unable to attend pentecostal [] Unable to walk/stand [] Unable to read [] Unable to drive [] Unable to eat/drink [] Unable to sleep [] Unable to be with family [] Patient intubated [] Other: Summary Time spent with patient 15 min
[2023-03-23] MEDS: LORazepam 2 mg/mL INJ 1 mL 0.5 MG IVP (11:11)
--- NOTE | 2023-03-23 12:23 | PC.SOCIAL ---
Pg 2 IMM Explained to pt's daughter Pg 2 IMM. No questions voiced. Provided pt a copy. Initialed, dated, & timed a copy & placed in chart.
--- NOTE | 2023-03-23 17:10 | P.PN_ITS ---
reviewed PAs assessment and plan as well as patient was seen and evaluated and family was at bedside. She is more awake this evening with still low appetite and has not gotten up with therapy. Orthopedics will continue to follow. Dressings clean dry and intact postoperative x-rays show stable left hip hemiarthroplasty. Teo Sewell DO Subjective Subjective: Patient is a 72-year-old female that is 1 day postop left hip hemiarthroplasty. Denies any acute events overnight. Patient is a poor historian and did not answer any of my questions today. Family was not present either. I spoke with patient's nurse and she stated that patient was having trouble doing any PT/OT therapy and was not cooperating. Vitals/I&O/Wt Last Vital Signs Temp 98.5 F 03/23/23 16:03 Pulse 95 03/23/23 16:03 Resp 19 H 03/23/23 16:05 BP 175/81 03/23/23 16:03 Pulse Ox 95 03/23/23 16:05 O2 Del Method Room Air 03/23/23 16:03 O2 Flow Rate 3 03/22/23 09:35 03/23/23 03/23/23 03/23/23 06:59 14:59 22:59 Intake Total 1100 / 2766 390 / 390 Output Total 250 / 1075 Balance 850 / 1691 390 / 390 Physical Exam Narrative: Patient has underlying dementia and would not respond to any of my questions. Resp: COMMON NORMALS: normal respiratory effort EFFORT & INSPECTION: No respiratory distress and No labored Extremity: NARRATIVE EXTREMITY EXAM: Unable to do any further assessment of patient's extremity due to patient's mental status. Her surgical dressing on left hip was dry and in place. Her toes were warm and well-perfused and she had a normal cap refill under 2 seconds. Pedal pulse 2+. Skin: GENERAL SKIN EXAM: dry skin Urinary Catheter Management: Kurtz Latex: Cath Placed During This Visit: yes, but has since been removed by the nurse Reason for Continuing Indwelling Catheter: Decision to DC Catheter Urinary Catheter Date of Insertion: 03/21/23 Urinary Catheter Time of Insertion: 03:15 Date Urinary Catheter Removed: 03/23/23 Time Urinary Catheter Discontinued: 11:03 Data 03/23/23 04:30 03/23/23 04:30 A&P Assessment and plan (1) Closed left hip fracture: (2) Status post hip hemiarthroplasty: Plan Plan: -Imaging and Labs reviewed -Hospitalist on board for medical management. -DVT prophylaxis?medication per medicine (Lovenox) -Weight-bear as tolerated on left leg -Pain control -PT -Keep dressing on and dry -Schedule pt for a 2 week post op appt at Orthopedic clinic Attestations Medical Necessity Statement*: Ongoing care for left hip fracture Coding Level of Care Code Acute Code for [facility] Fwd Diagnoses Closed left hip fracture S72.002A Status post hip hemiarthroplasty Z96.649
[2023-03-23 18:20] LABS: ABG PCO2 27.8 mmHg (35-45); ABG PH Result 7.46 (7.35-7.45); Arterial Blood Gas Hematocrit 32.7 % (37-47); Base Excess ABG -3.3 mmol/L (-2.0-2.0); Blood Gas Allen Test Pos; Blood Gas Operator Identificat WALCI; Blood Gas Sample Site Radial, right; Blood Gas Sample Type Arterial; Carboxyhemoglobin 1.7 %THgb (0.4-20.1); HCO3 ABG 19.6 mmol/L (22-26); HGB O2 Sat 95.8 % (95-100); Ionized Calcium Level - ABG 1.1 mmol/L (1.1-1.4); Methemoglobin 0.7 % (0.4-1.5); Oxygen Device ROOM AIR; Oxygen Saturation ABG 98.1; PO2 ABG 75.1 mmHg (80.0-100.0); Potassium Level - ABG 3.6 mmol/L (3.5-5.0); Total Hemoglobin 10.7 g/dL (12-16)
--- NOTE | 2023-03-23 18:44 | CTR_ITS ---
PROCEDURE INFORMATION: Exam: CT Head Without Contrast Exam date and time: 03/23/2023 11:26 PM Age: 72 years old Clinical indication: Altered mental status/memory loss; Additional info: AMS TECHNIQUE: Imaging protocol: Computed tomography of the head without contrast. Radiation optimization: All CT scans at this facility use at least one of these dose optimization techniques: automated exposure control; mA and/or kV adjustment per patient size (includes targeted exams where dose is matched to clinical indication); or iterative reconstruction. REPORTING DATA: Count of CT and Cardiac NM exams in prior 12 months: This patient has received 6 known CTs and 0 known cardiac nuclear medicine studies in the 12 months prior to the current study. COMPARISON: CT head wo con* [id number] 03/21/2023 1:20 AM RADIATION DOSE METRICS: Total DLP (mGy-cm): 1150.66 FINDINGS: Brain: No acute intracranial hemorrhage. No mass effect or midline shift. Basal cisterns are patent. Normal ness-white matter differentiation. Periventricular and subcortical white matter hypodensities compatible with small vessel ischemic change. Cerebrovascular calcifications. Diffuse cerebral and cerebellar volume loss. 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 Cerebral ventricles: No ventriculomegaly. Paranasal sinuses: Visualized sinuses are unremarkable. Mastoid air cells: Visualized mastoid air cells are clear. Orbital cavities: Bilateral cataract lens replacement. Bones/joints: No acute calvarial fracture. Soft tissues: Unremarkable. CT/CT head wo con* [id number] IMPRESSION: No acute intracranial findings.
[2023-03-24] VITALS (7 sets, daily range): BP systolic 161–185; BP diastolic 71–83; PULSE 86–93; RESP 16–20; TEMP 36.6–37.7; O2SAT 94–99
[2023-03-24] MEDS: sodium chloride 0.9% 1,000 ML 60 ML IV (00:39)
[2023-03-24] MEDS: famotidine 20 mg/2 mL INJ IVP ×2 (04:44→19:33)
[2023-03-24] MEDS: morphine 4 mg/mL SDV 1 mL 2 MG IVP (04:44)
[2023-03-24 05:52] LABS: Basophils % 0.3 %; Eosinophils % 0.2 %; Hematocrit 35.9 % (36-47); Lymphocytes # 1.2 10^3/uL (0.8-4.8); Lymphocytes % 12.5 %; Mean Corpuscular HGB Conc 32.3 g/dL (30-55); Mean Corpuscular Hemoglobin 33.8 pg (27-33); Mean Corpuscular Volume 104.7 fl (85-98); Mean Platelet Volume 10.5 fL (7.4-10.4); Monocytes % 10.3 %; Neutrophils # 7.28 10^3/uL (1.8-7.7); Neutrophils % 76.3 %; Nucleated Red Blood Cells % 0 %; Platelet Count 171 10^3/cmm (157-399); Red Blood Count 3.43 10^6/uL (3.85-5.65); Red Cell Distribution Width 13.4 % (12.1-15.1); White Blood Count 9.54 10^3/uL (3.29-11.43)
[2023-03-24 06:14] LABS: Anion Gap 15.5 (5-19); Blood Urea Nitrogen 15 mg/dL (8-23); Carbon Dioxide 20 mmol/L (22-29); Chloride 111 mmol/L (98-107); Creatinine Clr Calc Pharmacy 48.0891; Glucose 112 mg/dL (65-115); Osmolality Calculated 298 mOsm/kg (285-295); Potassium 3.5 mmol/L (3.5-5.1); Sodium 143 mmol/L (136-145)
[2023-03-24] MEDS: HYDROmorphone 1 mg/mL INJ 1 mL 0.5 MG IVP (08:06)
--- NOTE | 2023-03-24 10:40 | PM.PN ---
Subjective Subjective: We will start PPN today, she has not eaten enough since Tuesday Daughter is in agreement CT head ABG unremarkable Kurtz catheter has been removed As per the physical therapist her bed sheets were soiled with urine, will request bladder scan to make sure this is not overflow incontinence Vitals/I&O/Wt Last Vital Signs Temp 97.8 F 03/24/23 07:13 Pulse 90 03/24/23 07:13 Resp 16 03/24/23 08:06 BP 185/83 03/24/23 07:13 Pulse Ox 99 03/24/23 07:13 O2 Del Method Room Air 03/24/23 03:52 O2 Flow Rate 3 03/22/23 09:35 03/23/23 03/24/23 03/24/23 22:59 06:59 14:59 Intake Total 0 / 390 1000 / 1390 Balance 0 / 390 1000 / 1390 Physical Exam Narrative: Patient is opening eyes and looks towards the examiner on verbal close however not able to communicate, when I gave her the orange juice she tried to blow in the pipe instead of sucking in Clinically looks dehydrated Sitting in a recliner Currently on room air Neuro exam is limited Abdomen soft Urinary Catheter Management: Kurtz Latex: Cath Placed During This Visit: yes, but has since been removed by the nurse Reason for Continuing Indwelling Catheter: Decision to DC Catheter Urinary Catheter Date of Insertion: 03/21/23 Urinary Catheter Time of Insertion: 03:15 Date Urinary Catheter Removed: 03/23/23 Time Urinary Catheter Discontinued: 11:03 Data 03/24/23 05:43 03/24/23 05:43 A&P Assessment and plan (1) Status post hip hemiarthroplasty: (2) Fall: (3) Hypoactive delirium after surgical procedure: (4) Closed left hip fracture: (5) Altered mental status: Qualifiers: Altered mental status type: unspecified Qualified Code(s): R41.82 - Altered mental status, unspecified (6) Lewy body dementia: (7) CPAP (continuous positive airway pressure) dependence: (8) DNR no code (do not resuscitate): (9) Anxiety and depression: (10) Parkinson disease: (11) Sleep apnea: Plan Acute hypoactive delirium with underlying dementia Etiology seems to be postsurgical and dehydration We will give her a trial of PPI CT head unremarkable Blood gas normal Patient is avoiding, requested bladder scan to make sure she is not showing signs of overflow incontinence, rule out urinary tension I will hold off on Seroquel Considering her Parkinson's I we will wait until she starts eating to give her Parkinson's medications As per the daughter she is mostly very active and restless and tries to get up and walk around this is not herself at all DNR/DNI We will consult dietitian Hip fracture status post intervention Postoperative delirium Attestations Medical Necessity Statement*: If she improves we can discharge her by tomorrow Diagnoses Status post hip hemiarthroplasty Z96.649 Fall W19.XXXA Hypoactive delirium after surgical procedure F05 Closed left hip fracture S72.002A Altered mental status R41.82 Altered mental status type: unspecified Lewy body dementia G31.83; F02.80 CPAP (continuous positive airway pressure) dependence Z99.89 DNR no code (do not resuscitate) Z66 Anxiety and depression F41.9; F32.9 Parkinson disease G20 Sleep apnea G47.30
[2023-03-24] MEDS: enoxaparin 30 mg/0.3 mL Syringe SUBCUT (10:47)
[2023-03-24] MEDS: AA-Dex 4.25%-5% w/Lytes 1,000 ML with multivitamin inj 10 ML 12 ML IV (13:37)
[2023-03-24] MEDS: dextrose 5%-sod chloride 0.9% 1,000 ML 75 ML IV (13:51)
[2023-03-24 15:21] LABS: SARS Covid-2 Antigen negative (Negative)
--- NOTE | 2023-03-24 17:09 | PM.PN ---
Subjective Subjective: Patient is a 72-year-old female that is 2 day postop left hip hemiarthroplasty. Denies any acute events overnight. Patient is a poor historian and did not answer any of my questions today. Patient's daughter was present. I also spoke with the OT to work with patient today. She stated that patient was more acitve today a and did some ADLs today. She was Still not verbally interactive. patient with physical therapy today and they said they were able to get patient up in a chair but she did not assist in all. Daughter says that she was able to get patient to eat about a quarter of a cup of ice cream yesterday. Daughter stated that hospitalist is considering getting Patient placed at another facility for more physical therapy or potentially sending her back to her previous residential since it will be a more familiar setting for her. Vitals/I&O/Wt Last Vital Signs Temp 98.1 F 03/24/23 16:00 Pulse 89 03/24/23 16:00 Resp 16 03/24/23 16:00 BP 167/80 03/24/23 16:00 Pulse Ox 94 03/24/23 16:00 O2 Del Method Room Air 03/24/23 03:52 O2 Flow Rate 3 03/22/23 09:35 03/24/23 03/24/23 03/24/23 06:59 14:59 22:59 Intake Total 1000 / 1390 Balance 1000 / 1390 Physical Exam Narrative: Patient has underlying dementia and would not respond to any of my questions. Resp: COMMON NORMALS: normal respiratory effort EFFORT & INSPECTION: No respiratory distress and No labored Extremity: NARRATIVE EXTREMITY EXAM: Unable to do any further assessment of patient's extremity due to patient's mental status. Her surgical dressing on left hip was dry and in place. Her toes were warm and well-perfused and she had a normal cap refill under 2 seconds. Pedal pulse 2+. Skin: GENERAL SKIN EXAM: dry skin Urinary Catheter Management: Kurtz Latex: Cath Placed During This Visit: yes, but has since been removed by the nurse Reason for Continuing Indwelling Catheter: Decision to DC Catheter Urinary Catheter Date of Insertion: 03/21/23 Urinary Catheter Time of Insertion: 03:15 Date Urinary Catheter Removed: 03/23/23 Time Urinary Catheter Discontinued: 11:03 Data 03/24/23 05:43 03/24/23 05:43 A&P Assessment and plan (1) Status post hip hemiarthroplasty: Plan Plan: -Imaging and Labs reviewed -Hospitalist on board for medical management. -DVT prophylaxis?medication per medicine (Lovenox) -Weight-bear as tolerated on left leg -Pain control -PT -Keep dressing on and dry -Schedule pt for a 2 week post op appt at [facility]opedic clinic No further orthopedic surgical intervention needed. We will be signing off care of patient and will be following peripherally. contact us as needed. Attestations Medical Necessity Statement*: on going care for left hip hemiarthroplasty Coding Level of Care Code Acute Code for Chg Fwd Diagnoses Status post hip hemiarthroplasty Z96.649
[2023-03-25] VITALS: BP 162/72; PULSE 96; RESP 19; TEMP 37.1; O2SAT 94
--- NOTE | 2023-03-25 02:34 | PC.NURSE ---
at 0230 increased pts PPN rate to 22; will pass on to day shift nurse to increase to 32 at 1030
[2023-03-25] MEDS: dextrose 5%-sod chloride 0.9% 1,000 ML 75 ML IV (03:48)
[2023-03-25 04:00] VITALS: BP 171/72; PULSE 90; RESP 17; TEMP 36.9; O2SAT 95
[2023-03-25 05:43] LABS: Basophils % 0.4 %; Eosinophils % 0.1 %; Hematocrit 27.5 % (36-47); Lymphocytes # 1.5 10^3/uL (0.8-4.8); Lymphocytes % 16.5 %; Mean Corpuscular HGB Conc 34.5 g/dL (30-55); Mean Corpuscular Hemoglobin 34.2 pg (27-33); Mean Corpuscular Volume 98.9 fl (85-98); Mean Platelet Volume 10.6 fL (7.4-10.4); Monocytes # 1.1 10^3/uL (0.2-0.9); Monocytes % 12.3 %; Neutrophils # 6.27 10^3/uL (1.8-7.7); Neutrophils % 70.4 %; Nucleated Red Blood Cells % 0 %; Platelet Count 165 10^3/cmm (157-399); Red Blood Count 2.78 10^6/uL (3.85-5.65); Red Cell Distribution Width 13.2 % (12.1-15.1); White Blood Count 8.92 10^3/uL (3.29-11.43)
[2023-03-25 06:07] LABS: Anion Gap 12.2 (5-19); Blood Urea Nitrogen 16 mg/dL (8-23); Calcium 7.8 mg/dL (8.5-10.5); Carbon Dioxide 20 mmol/L (22-29); Chloride 113 mmol/L (98-107); Creatinine Clr Calc Pharmacy 48.0891; Glucose 153 mg/dL (65-115); Osmolality Calculated 298 mOsm/kg (285-295); Potassium 3.2 mmol/L (3.5-5.1); Sodium 142 mmol/L (136-145)
[2023-03-25 07:40] VITALS: BP 169/76; PULSE 84; RESP 16; TEMP 36.9; O2SAT 94
--- NOTE | 2023-03-25 08:23 | P.DS_ITS ---
Discharge Providers Date of Admission: 03/21/23 02:51 Date of Discharge: March 25, 2023 Attending Provider at Admission: Cristine Bell MD Attending Provider at Discharge: Randal Stoner MD Primary Care Provider: Gerson Marshall MD Diagnoses at Discharge Discharge Diagnosis (1) Status post hip hemiarthroplasty: Status: Acute Reason for Visit Reason for Visit: Fall Hospital Course Hospital Course 72 female who has history of Parkinson's, resident of [facility] who presented after sustaining a fall she was diagnosed with left hip fracture status post left hip hemiarthroplasty with cement 03/22, no postoperative complications, patient developed hypoactive delirium in the hospital after surgery and was not able to eat we had to give her PPN for 1 day which improved her mentation to the point that she was able to respond to her name and take liquid diet she will be discharged back to the facility. We will give her Eliquis 2.5 mg twice daily for DVT prophylaxis for 4 weeks I have conveyed my concerns to the daughter that she has Parkinson she should not stay on DVT for prolonged Duration. She is in agreement.Considering multipleMedications I will discontinue Seroquel which can increase the chance of sedation Physical Exam Narrative: Awake and alert Lower extremity no edema Currently on room air Responding to her name She was able to take sips of water with a straw Urinary Catheter Management: Kurtz Latex: Cath Placed During This Visit: yes, but has since been removed by the nurse Reason for Continuing Indwelling Catheter: Decision to DC Catheter Urinary Catheter Date of Insertion: 03/21/23 Urinary Catheter Time of Insertion: 03:15 Date Urinary Catheter Removed: 03/23/23 Time Urinary Catheter Discontinued: 11:03 Discharge Data Studies Completed and Pending Completed Studies During Hospitalization Category Date Time Status CT head wo con* [id number] Routine Cat Scan 03/23/23 18:[address] head wo con* [id number] Stat Cat Scan 03/21/23 00:[address] hip LT wo con* [id number] Stat Cat Scan 03/21/23 01:17 Completed XR chest 1V portable [id number] Stat Exams 03/21/23 02:28 Completed XR elbow LT min 3V* [id number] Stat Exams 03/21/23 00:55 Completed XR hip LT 2-3V wo/w pel* [id number] Routine Exams 03/22/23 09:07 Completed XR knee RT 3V* [id number] Stat Exams 03/21/23 00:55 Completed XR pelvis 1-2V* [id number] Stat Exams 03/21/23 00:55 Completed Radiology Impressions Elbow X-Ray 03/21/23 00:55 IMPRESSION: No acute findings. Knee X-Ray 03/21/23 00:55 IMPRESSION: Negative for acute fracture. Pelvis X-Ray 03/21/23 00:55 IMPRESSION: Acute impacted left proximal femoral neck fracture. Hip CT 03/21/23 01:17 IMPRESSION: Acute left hip fracture. Chest X-Ray 03/21/23 02:28 IMPRESSION: Negative for acute pulmonary disease. Hip/Pelvis X-Ray 03/22/23 09:07 IMPRESSION: Postsurgical change in the left hip. Head CT 03/23/23 18:44 IMPRESSION: No acute intracranial findings. Laboratory Results WBC 8.92 10^3/uL (3.29-11.43) 03/25/23 05:20 RBC 2.78 10^6/uL (3.85-5.65) L 03/25/23 05:20 Hgb 9.50 g/dL (11.27-16.99) L 03/25/23 05:20 Hct 27.5 % (36-47) L 03/25/23 05:20 MCV 98.9 fl (85-98) H D 03/25/23 05:20 MCH 34.2 pg (27-33) H 03/25/23 05:20 MCHC 34.5 g/dL (30-55) D 03/25/23 05:20 RDW 13.2 % (12.1-15.1) 03/25/23 05:20 Plt Count 165 10^3/cmm (157-399) 03/25/23 05:20 MPV 10.6 fL (7.4-10.4) H 03/25/23 05:20 Neut % (Auto) 70.4 % 03/25/23 05:20 Lymph % (Auto) 16.5 % 03/25/23 05:20 [place] % (Auto) 12.3 % 03/25/23 05:20 Eos % (Auto) 0.1 % 03/25/23 05:20 Baso % (Auto) 0.4 % 03/25/23 05:20 Neut # (Auto) 6.27 10^3/uL (1.8-7.7) 03/25/23 05:20 Lymph # (Auto) 1.5 10^3/uL (0.8-4.8) 03/25/23 05:20 [place] # (Auto) 1.1 10^3/uL (0.2-0.9) H 03/25/23 05:20 Eos # (Auto) 0.0 10^3/uL (0.0-0.8) 03/25/23 05:20 Baso # (Auto) 0.0 10^3/uL (0.0-0.1) 03/25/23 05:20 Nucleated RBC % (auto) 0 % 03/25/23 05:20 Nucleated RBCs # 0.0 /100WBC 03/25/23 05:20 PT 14.10 SECONDS (12.1-14.9) 03/21/23 01:00 INR 1.05 (0.8-1.2) 03/21/23 01:00 Specimen Type Arterial 03/23/23 18:09 Sample Site Radial, right 03/23/23 18:09 ABG pH 7.46 (7.35-7.45) H 03/23/23 18:09 ABG pCO2 27.8 mmHg (35-45) L 03/23/23 18:09 ABG pO2 75.1 mmHg (80.0-100.0) L 03/23/23 18:09 ABG HCO3 19.6 mmol/L (22-26) L 03/23/23 18:09 ABG O2 Saturation 98.1 03/23/23 18:09 ABG Base Excess -3.3 mmol/L (-2.0-2.0) L 03/23/23 18:09 Alexander Test Pos 03/23/23 18:09 A-a O2 Gradient 5.0 mmHg (5-10) 03/23/23 18:09 Hematocrit 32.7 % (37-47) L 03/23/23 18:09 Hgb O2 Saturation 95.8 % (95-100) 03/23/23 18:09 Carboxyhemoglobin 1.7 %THgb (0.4-20.1) 03/23/23 18:09 Methemoglobin 0.7 % (0.4-1.5) 03/23/23 18:09 Total Hemoglobin 10.7 g/dL (12-16) L 03/23/23 18:09 Sodium 142.0 mmol/L (131-143) 03/23/23 18:09 Potassium 3.6 mmol/L (3.5-5.0) 03/23/23 18:09 Glucose 122.0 mg/dL (70-115) H 03/23/23 18:09 Ionized Calcium 1.1 mmol/L (1.1-1.4) 03/23/23 18:09 O2 Delivery Device Room air 03/23/23 18:09 FiO2 21.0 % 03/23/23 18:09 Burglary Investigator ID [place] 03/23/23 18:09 Sodium 142 mmol/L (136-145) 03/25/23 05:20 Potassium 3.2 mmol/L (3.5-5.1) L 03/25/23 05:20 Chloride 113 mmol/L (98-107) H 03/25/23 05:20 Carbon Dioxide 20 mmol/L (22-29) L 03/25/23 05:20 Anion Gap 12.2 (5-19) 03/25/23 05:20 BUN 16 mg/dL (8-23) 03/25/23 05:20 Creatinine 0.5 mg/dL (0.5-0.9) 03/25/23 05:20 GFR Calculation Not Reportable 03/25/23 05:20 Glucose 153 mg/dL (65-115) H 03/25/23 05:20 Calculated Osmolality 298 mOsm/kg (285-295) H 03/25/23 05:20 Calcium 7.8 mg/dL (8.5-10.5) L 03/25/23 05:20 Phosphorus 1.8 mg/dL (2.5-4.5) L 03/22/23 05:25 Magnesium 2.0 mg/dL (1.7-2.3) 03/22/23 05:25 Total Bilirubin 0.5 mg/dL (0.15-1.2) 03/22/23 05:25 AST 14 U/L (0-32) 03/22/23 05:25 ALT 11 U/L (0-33) 03/22/23 05:25 Alkaline Phosphatase 64 U/L (35-105) 03/22/23 05:25 Total Protein 6.4 g/dL (6.6-8.7) L 03/22/23 05:25 Albumin 3.6 g/dL (3.5-5.2) 03/22/23 05:25 Globulin 2.8 g/dL (1.3-4.6) 03/22/23 05:25 SARS-CoV-2 Ag (Rapid) negative (Negative) 03/24/23 14:54 Blood Type A Positive 03/22/23 06:50 Rho(D) Type Positive 03/22/23 06:50 Antibody Screen Negative 03/22/23 06:50 Vitals Last Vital Signs Temp 98.4 F 03/25/23 07:40 Pulse 84 03/25/23 07:40 Resp 16 03/25/23 07:40 BP 169/76 03/25/23 07:40 Pulse Ox 94 03/25/23 07:40 O2 Del Method Room Air 03/25/23 07:40 O2 Flow Rate 3 03/22/23 09:35 Discharge Plan Discharge Patient Disposition: Xfer SNF Condition: Stable Prescriptions: New oxycodone-acetaminophen 5-325 mg tablet 1 tab PO Q8H PRN (Reason: pain) Qty: 10 0RF Eliquis 2.5 mg tablet 2.5 mg PO BID Qty: 60 0RF levofloxacin 750 mg tablet 750 mg PO DAILY 5 Days Qty: 5 0RF Continued docusate sodium 100 mg capsule See Rx Instructions PO .COMPLEX Qty: 1 0RF Rx Instructions: Give one tablet by mouth every morning and at bedtime related to slow transit constipation duloxetine [Cymbalta] 60 mg capsule,delayed release(DR/EC) 60 mg PO BID Qty: 180 1RF Rx Instructions: dose increase Flovent Diskus 100 mcg/actuation blister with device 1 inh inhalation Q12H Qty: 180 3RF Rx Instructions: 1 inhalation in the morning and at bedtime fluticasone propionate 50 mcg/actuation spray,suspension 2 spray INTRANASAL DAILY@1999 Qty: 48 1RF potassium chloride 10 mEq tablet extended release 10 meq PO BID Qty: 180 1RF rosuvastatin 10 mg tablet 10 mg PO BEDTIME@1999 Qty: 90 1RF aspirin [Arya Low Dose Aspirin] 81 mg tablet,delayed release (DR/EC) 81 mg PO DAILY@0800 calcium carbonate [Calcium 600] 600 mg calcium (1,500 mg) tablet 600 mg PO BID@0800,2000 lamotrigine 150 mg tablet 150 mg PO QAM ascorbic acid (vitamin C) 500 mg Tablet 1,000 mg PO QAM Calcium 500 + D 500 mg-10 mcg (400 unit) Tablet 1 tab PO BID Artificial Tears 1 drp eye-both QID PRN (Reason: Dry Eyes) valacyclovir 1 gram tablet 1,000 mg PO TID bisacodyl 10 mg Suppository 10 mg ME DAILY PRN (Reason: Constipation) [place] 200-200-20 mg/5 mL Suspension 30 ml PO Q8H PRN (Reason: GI upset) Rx Instructions: administer between meals and at bedtime Med Plus 120 ml PO TIDWM acetaminophen 500 mg Tablet 500 mg PO TID gabapentin 300 mg capsule 300 mg PO BID carbidopa-levodopa 25-100 mg tablet 1 tab PO BID topiramate [Topamax] 100 mg tablet 100 mg PO DAILY@1400 loperamide 2 mg Tablet 2 mg PO Q8H PRN (Reason: Diarrhea) levothyroxine 200 mcg tablet 200 mcg PO QAM mirtazapine 15 mg tablet 15 mg PO BEDTIME polyethylene glycol 3350 17 gram/dose Powder 4 g PO DAILY acetaminophen [Tylenol] 325 mg Capsule 650 mg PO Q6H PRN (Reason: Pain) quetiapine [Seroquel XR] 300 mg Tablet Extended Release 24 Hr 300 mg PO BEDTIME melatonin 5 mg Capsule 5 mg PO BEDTIME Discontinued pregabalin 75 mg capsule 75 mg PO BID quetiapine 50 mg Tablet 25 mg PO 0700,1200 Discharge Orders: Discharge Order (Routine); Ordered 03/25/23 Ordered By: Randal Stoner Referrals: Deo Marshall MD [Primary Care Provider] - Teo Sewell DO [Physician] - 2 weeks Activity Restrictions/Additional Instructions: Patient needs a lot of verbal clues and motivation in order to feed her Discharge Attestations Time Spent in Discharge Care*: greater than 30 min Quality Metrics Clinical Quality Measures [ No reported AMI, CVA or VTE this stay] Coding Level of Care Code Acute Code for Chg Fwd Diagnoses Status post hip hemiarthroplasty Z96.649
--- NOTE | 2023-03-25 08:30 | PC.SOCIAL ---
IMM Updated Updated pt's daughter on IMM. No questions voiced. Provided pt a copy. Initialed, dated, & timed copy in chart.
== END 2023-03-25 10:47 | disposition skilled nursing facility (03) | DRG 522 ==
LOC: ER 01:02 → MEDSURG 02:51
PROVIDERS: Student in an Organized Health Care Education/Training Program; Admitting Provider Internal Medicine; Emergency Provider Emergency Medicine; PCP Internal Medicine; Visit Provider Internal Medicine
PROC: 0SRS0J9 Replacement of Left Hip Joint, Femoral Surface with Synthetic Substitute, Cemented, Open Approach (ICD-10-PCS; CPT 27125; principal; 2023-03-22 07:00)
DX: S72.002A Fracture of unspecified part of neck of left femur, initial encounter for closed fracture (principal); F05 Delirium due to known physiological condition; W18.30XA Fall on same level, unspecified, initial encounter; Y92.129 Unspecified place in nursing home as the place of occurrence of the external cause; F41.9 Anxiety disorder, unspecified; F32.9 Major depressive disorder, single episode, unspecified; G31.83 Neurocognitive disorder with Lewy bodies; F02.80 Dementia in other diseases classified elsewhere, unspecified severity, without behavioral disturbance, psychotic disturbance, mood disturbance, and anxiety; G20.A1 Parkinson's disease without dyskinesia, without mention of fluctuations; E03.9 Hypothyroidism, unspecified; G47.30 Sleep apnea, unspecified; J44.9 Chronic obstructive pulmonary disease, unspecified; E78.2 Mixed hyperlipidemia; Z79.82 Long term (current) use of aspirin; Z79.891 Long term (current) use of opiate analgesic; Z99.89 Dependence on other enabling machines and devices; Z66 Do not resuscitate; M81.0 Age-related osteoporosis without current pathological fracture
CPT/HCPCS: 36415; 36600; 51702; 70450; 71045; 72170; 73080; 73502; 73562; 73700; 80048; 80051; 80053; 82330; 82805; 83735; 84100; 85025; 85610; 86850; 86900; 87426; 93005; 96372; 97110; 97161; 97167; 97530; 97535; 99285; C1713; C1776; J0131; J0360; J0690; J1100; J1170; J1650; J2060; J2270; J2371; J2704; J3010; J3370; J3490; J7030; J7042

== ENCOUNTER → 2023-04-05 10:36 | Outpatient (BNVA) | payer MEDICARE, OTHER, MEDICAID, SELFPAY | PROVIDERS: PCP Internal Medicine; Visit Provider Student in an Organized Health Care Education/Training Program | DX: Z96.642 Presence of left artificial hip joint (principal) | CPT/HCPCS: 73502; 99024 ==

== ENCOUNTER 2023-04-27 08:28 | Oncology outpatient (recurring) (ONCR) | payer MEDICARE, OTHER, MEDICAID, SELFPAY ==
[2023-04-27 10:14] LABS: Basophils # 0.1 10^3/uL (0.0-0.1); Basophils % 0.6 %; Eosinophils # 0.1 10^3/uL (0.0-0.8); Lymphocytes # 2.3 10^3/uL (0.8-4.8); Lymphocytes % 27.9 %; Mean Corpuscular HGB Conc 30.9 g/dL (30-55); Mean Corpuscular Hemoglobin 31.8 pg (27-33); Mean Corpuscular Volume 102.9 fl (85-98); Mean Platelet Volume 9.8 fL (7.4-10.4); Monocytes # 0.7 10^3/uL (0.2-0.9); Neutrophils % 62.3 %; Nucleated Red Blood Cells % 0 %; Platelet Count 357 10^3/cmm (157-399); Red Blood Count 3.11 10^6/uL (3.85-5.65); Red Cell Distribution Width 14.2 % (12.1-15.1)
[2023-04-27 10:51] LABS: Alanine Aminotransferase < 5 U/L (0-33); Albumin Level 3.9 g/dL (3.5-5.2); Alkaline Phosphatase 95 U/L (35-105); Anion Gap 15.3 (5-19); Aspartate Amino Transferase 12 U/L (0-32); Blood Urea Nitrogen 36 mg/dL (8-23); Calcium 9.4 mg/dL (8.5-10.5); Carbon Dioxide 25 mmol/L (22-29); Chloride 109 mmol/L (98-107); Creatinine Clr Calc Pharmacy 49.7035; Ferritin 65 ng/mL (15-150); Globulin 3.2 g/dL (1.3-4.6); Glucose 102 mg/dL (65-115); Iron 26 ug/dL (37-145); Lactate Dehydrogenase 177 U/L (135-214); Osmolality Calculated 307 mOsm/kg (285-295); Percent Saturation 10.8 % (20-50); Potassium 5.3 mmol/L (3.5-5.1); Sodium 144 mmol/L (136-145); Total Bilirubin 0.2 mg/dL (0.15-1.2); Total Iron Binding Capacity 240 mcg/dl; Total Protein 7.1 g/dL (6.6-8.7); Unsaturated Iron Binding 214 ug/dL (112-347); Vitamin B12 545 pg/mL (232-1245)
[2023-04-27 10:55] LABS: Folate Level 6.1 ng/mL (4.8-37.3)
[2023-04-27 14:39] LABS: LAB Peripheral Smear Sent for Review
[2023-05-06 18:19] LABS: CALR Exon 9 Mutation NOT DETECTED (NOT DETECTED); CSF3R Exon 14/17 Mutation NOT DETECTED (NOT DETECTED); JAK2 Exon 12 Mutation NOT DETECTED (NOT DETECTED); JAK2 V617 Block Specimen ID NG; JAK2 V617 Clinical Indication NG; JAK2 V617 Mutation NOT DETECTED (NOT DETECTED); JAK2 V617 Specimen Source NG; MPL Exon 12 Mutation NOT DETECTED (NOT DETECTED)
== END 2023-05-05 23:59 | disposition home or self-care (01) ==
PROVIDERS: Internal Medicine Medical Oncology; PCP Internal Medicine; Visit Provider Internal Medicine
DX: D64.9 Anemia, unspecified (principal); D75.839 Thrombocytosis, unspecified; Z79.899 Other long term (current) drug therapy
CPT/HCPCS: 36415; 80053; 81270; 81279; 81339; 81479; 82607; 82728; 82746; 83540; 83550; 83615; 85025; 99204

== ENCOUNTER → 2023-05-17 13:04 | Outpatient (BNVA) | payer MEDICARE, OTHER, MEDICAID, SELFPAY | PROVIDERS: PCP Internal Medicine; Visit Provider Student in an Organized Health Care Education/Training Program | DX: Z96.642 Presence of left artificial hip joint (principal) | CPT/HCPCS: 73502; 99024 ==

== ENCOUNTER 2023-06-24 07:54 | Oncology outpatient (recurring) (ONCR) | payer MEDICARE, OTHER, MEDICAID, SELFPAY ==
[2023-06-24 09:05] LABS: Basophils % 0.5 %; Eosinophils # 0.2 10^3/uL (0.0-0.8); Eosinophils % 3.5 %; Lymphocytes # 2.2 10^3/uL (0.8-4.8); Lymphocytes % 36.8 %; Mean Corpuscular HGB Conc 31.4 g/dL (30-55); Mean Corpuscular Hemoglobin 30.9 pg (27-33); Mean Corpuscular Volume 98.3 fl (85-98); Mean Platelet Volume 10.3 fL (7.4-10.4); Monocytes # 0.5 10^3/uL (0.2-0.9); Monocytes % 8.3 %; Neutrophils # 3.07 10^3/uL (1.8-7.7); Neutrophils % 50.6 %; Nucleated Red Blood Cells % 0 %; Platelet Count 303 10^3/cmm (157-399); Red Blood Count 3.56 10^6/uL (3.85-5.65); Red Cell Distribution Width 13.7 % (12.1-15.1); White Blood Count 6.06 10^3/uL (3.29-11.43)
[2023-06-24 09:31] LABS: Alanine Aminotransferase < 5 U/L (0-33); Alkaline Phosphatase 110 U/L (35-105); Anion Gap 13.9 (5-19); Aspartate Amino Transferase 17 U/L (0-32); Blood Urea Nitrogen 29 mg/dL (8-23); Calcium 9.7 mg/dL (8.5-10.5); Carbon Dioxide 26 mmol/L (22-29); Chloride 108 mmol/L (98-107); Ferritin 25 ng/mL (15-150); Globulin 3.4 g/dL (1.3-4.6); Glucose 86 mg/dL (65-115); Iron 49 ug/dL (37-145); Osmolality Calculated 303 mOsm/kg (285-295); Percent Saturation 18.6 % (20-50); Potassium 3.9 mmol/L (3.5-5.1); Sodium 144 mmol/L (136-145); Total Bilirubin 0.2 mg/dL (0.15-1.2); Total Iron Binding Capacity 263 mcg/dl; Total Protein 7.4 g/dL (6.6-8.7); Unsaturated Iron Binding 214 ug/dL (112-347)
== END 2023-07-06 23:59 | disposition home or self-care (01) ==
PROVIDERS: Internal Medicine Medical Oncology; PCP Internal Medicine; Visit Provider Internal Medicine
DX: D64.9 Anemia, unspecified (principal); D75.839 Thrombocytosis, unspecified; Z79.899 Other long term (current) drug therapy
CPT/HCPCS: 36415; 80053; 82728; 83540; 83550; 85025; 99214

== ENCOUNTER 2023-09-01 08:30 | Oncology outpatient (recurring) (ONCR) | payer MEDICARE, OTHER, MEDICAID, SELFPAY ==
[2023-08-26] MEDS: denosumab 60 mg SDV SUBCUT (10:46)
[2023-09-01 08:48] VITALS: BP 110/70; PULSE 71; RESP 16; TEMP 36.1; O2SAT 99
[2023-09-01] MEDS: sodium chloride 0.9% 250 ML 75 ML IV (09:00)
[2023-09-01] MEDS: ferric carboxy (IVPB) 750 MG in sodium chloride 0.9% (100 ml) 100 ML 345 MG IV (09:19)
[2023-09-01 09:59] VITALS: BP 132/78; PULSE 66; RESP 16; TEMP 36.6; O2SAT 98
== END 2023-09-04 23:59 | disposition home or self-care (01) ==
PROVIDERS: PCP Internal Medicine; Visit Provider Internal Medicine
DX: D50.9 Iron deficiency anemia, unspecified (principal); Z53.9 Procedure and treatment not carried out, unspecified reason
CPT/HCPCS: 96365; 96372; 99214; J0897; J1439; J7050

== ENCOUNTER 2023-09-07 06:44 | Inpatient (IN) | payer MEDICARE, OTHER, MEDICAID, SELFPAY ==
[2023-09-07] VITALS (46 sets, daily range): BP systolic 96–144; BP diastolic 45–110; PULSE 82–104; RESP 0–26; TEMP 37.1–38.3; O2SAT 76–98; BMI 22.6
--- NOTE | 2023-09-07 07:02 | XR_ITS ---
WS: [id number] Examination: XR chest 1V portable [id number] Reason for Exam: dyspnea/cough Date: September 07, 2023 Comparison: March 21, 2023 Findings: The heart is not grossly enlarged on this AP portable film. The mediastinum is not widened. The lung markings are diffusely increased. This is slightly more prominent than on the previous study which may be technical I see no overt failure or large effusion. There is a large amount of stool seen within the colon. IMPRESSION: The lung markings are increased which may be chronic in nature. I see no overt failure or large effus ion. If the patient's symptoms persist follow-up PA and lateral chest imaging is recommended.
--- NOTE | 2023-09-07 07:02 | CTR_ITS ---
PROCEDURE INFORMATION: Exam: CT Head Without Contrast Exam date and time: 09/07/2023 7:18 AM Age: 73 years old Clinical indication: Injury or trauma; Fall; Blunt trauma (contusions or hematomas); Altered mental status/memory loss; Additional info: Ams/fall/anticoagulants TECHNIQUE: Imaging protocol: Computed tomography of the head without contrast. Radiation optimization: All CT scans at this facility use at least one of these dose optimization techniques: automated exposure control; mA and/or kV adjustment per patient size (includes targeted exams where dose is matched to clinical indication); or iterative reconstruction. COMPARISON: CT head wo con* [id number] 03/23/2023 11:26 PM RADIATION DOSE METRICS: Total DLP (mGy-cm): 1110.78 FINDINGS: Brain: There is no mass effect, midline shift, acute hemorrhage, extra-axial fluid collection or acute lobar infarct. Periventricular white matter hypodensity likely represents chronic microvascular ischemic change. There is advanced hemispheric volume loss. Cerebral ventricles: No ventriculomegaly. Paranasal sinuses: Visualized sinuses are unremarkable. No fluid levels. Mastoid air cells: Visualized mastoid air cells are well aerated. Bones/joints: Unremarkable. No acute fracture. Soft tissues: There is left frontal soft tissue swelling. CT/CT head wo con* [id number] IMPRESSION: No acute intracranial process.
--- NOTE | 2023-09-07 07:02 | ECG_ITS ---
[facility] Test Date: 2023-09-07 Pat Name: Crys Mir Department: Room: Gender: Female Rn Labor Delivery: : 1950 Requested By: Willie Negrete Order Number: [id number] [place] MD: Chadwick Serra M.D. Measurements Intervals [place] Rate: 97 P: 86 PA: 142 QRS: -39 QRSD: 134 T: 32 QT: 363 QTc: 462 Interpretive Statements SINUS RHYTHM LEFT AXIS DEVIATION [QRS AXIS < -30] RIGHT BUNDLE BRANCH BLOCK [120+ ms QRS DURATION, UPRIGHT V1, 40+ ms S IN I/aVL/V4/V5/V6] Compared to ECG 03/21/2023 02:42:40 Left-axis deviation now present Electronically Signed On 09-07-2023 9:13:47 CDT by Chadwick Serra M.D. [id number]
[2023-09-07 07:12] LABS: Basophils % 0.2 %; Eosinophils % 0.1 %; Hematocrit 35.5 % (36-47); Lymphocytes % 5.3 %; Mean Corpuscular HGB Conc 32.7 g/dL (30-55); Mean Corpuscular Hemoglobin 31.3 pg (27-33); Mean Corpuscular Volume 95.7 fl (85-98); Mean Platelet Volume 10.6 fL (7.4-10.4); Monocytes # 2.3 10^3/uL (0.2-0.9); Monocytes % 12.5 %; Neutrophils % 80.5 %; Nucleated Red Blood Cells % 0 %; Platelet Count 349 10^3/cmm (157-399); Red Blood Count 3.71 10^6/uL (3.85-5.65); Red Cell Distribution Width 15.7 % (12.1-15.1); White Blood Count 18.62 10^3/uL (3.29-11.43)
[2023-09-07 07:35] LABS: Alanine Aminotransferase 7 U/L (0-33); Albumin Level 3.7 g/dL (3.5-5.2); Alkaline Phosphatase 138 U/L (35-105); Anion Gap 15.1 (5-19); Aspartate Amino Transferase 17 U/L (0-32); Blood Urea Nitrogen 25 mg/dL (8-23); Calcium 9.4 mg/dL (8.5-10.5); Carbon Dioxide 23 mmol/L (22-29); Chloride 107 mmol/L (98-107); Creatinine Clr Calc Pharmacy 49.1385; Globulin 3.7 g/dL (1.3-4.6); Glucose 116 mg/dL (65-115); Osmolality Calculated 297 mOsm/kg (285-295); Potassium 4.1 mmol/L (3.5-5.1); Sodium 141 mmol/L (136-145); Total Bilirubin 0.4 mg/dL (0.15-1.2); Total Protein 7.4 g/dL (6.6-8.7)
[2023-09-07 07:36] LABS: Creatine Phosphokinase 29 U/L (26-192)
[2023-09-07 07:46] LABS: Blood Gas Allen Test Pos; Blood Gas Operator Identificat CAK; Blood Gas Sample Site Radial, left; Blood Gas Sample Type Arterial; Oxygen Device ROOM AIR; PO2 FiO2 Ratio Arterial Blood 0
[2023-09-07 07:47] LABS: ABG PCO2 27.7 mmHg (35-45); ABG PH Result 7.51 (7.35-7.45); Arterial Blood Gas Hematocrit 35.5 % (37-47); Base Excess ABG -0.3 mmol/L (-2.0-2.0); Carboxyhemoglobin 1.2 %THgb (0.4-20.1); HCO3 ABG 21.8 mmol/L (22-26); HGB O2 Sat 95.6 % (95-100); Ionized Calcium Level - ABG 1.2 mmol/L (1.1-1.4); Methemoglobin 0.6 % (0.4-1.5); Oxygen Saturation ABG 97.4; PO2 ABG 73.5 mmHg (80.0-100.0); Potassium Level - ABG 3.7 mmol/L (3.5-5.0); Total Hemoglobin 11.6 g/dL (12-16)
[2023-09-07 08:20] LABS: Urine Appearance Cloudy (CLEAR); Urine Color Yellow (Yellow)
[2023-09-07 08:21] LABS: Add Urine Microscopic? YES; Bilirubin Urine Neg (Negative); Blood Urine Neg (Negative); Glucose Urine UA Norm (Normal); Ketones Urine Negative (Negative); Leukocyte Esterase Urine Trace (Negative); Nitrate Urine Positive (Negative); Protein Urine Trace (Negative); RBC Urine 0-4 /hpf (0-2); Squamous Epithelial Cell Urine 0-4 /hpf (0-5); Transitional Epi Cells Urine 0-4 /hpf; Urobilinogen Urine 1 mg/dL (Negative); WBC Urine >100 /hpf (0-5); pH Urine 7 (5-7)
[2023-09-07 08:22] LABS: Add Urine Culture? Yes; Bacteria Urine 4+ /hpf; Other Casts Urine WBC CAST /lpf
[2023-09-07 08:28] LABS: Lactic Sepsis W/Reflex 1.2 mmol/L (0.5-2.2)
--- NOTE | 2023-09-07 08:33 | CT_ITS ---
WS: [id number] Examination: CT kidney stone [id number] Reason for Exam: Pyelonephritis Date: September 07, 2023 Comparison: October 26, 2021 DLP: 418.[address] scans at [facility] use at least one of these dose optimization techniques: automated e xposure control; mA and/or kV adjustment per patient size (includes targeted exams where dose is matc hed to clinical indication); or iterative reconstruction. Findings: There has been significant interval loss of adipose tissue. The patient is quite cachectic on today's study. Without oral or intravenous contrast the sensitivity is diminished. Certain intraparenchymal and intraperitoneal abnormalities may not be identified. The heart is not grossly enlarged. Coronary artery calcification is identified. There is no pleural effusion. Mucous plugging and minimal infiltrate is suspected dominant in the rig ht lung base. There is a large hiatal hernia. The liver is enlarged. The gallbladder is distended. The spleen is not enlarged. There is no adrenal mass. The kidneys appear symmetric in size. There is no stone or hydronephrosis. The aorta is nonenlarged. Calcified plaque and atherosclerotic changes present. The pancreas is poorly delineated. There is no evidence of small bowel obstruction. There is a large amount of stool seen throughout the colon. Small bowel contains some fluid without evidence of obstruction. There is no free air. The bone density is diminished. Again previous kyphoplasties are noted at T11 and 12. These appear stable There is new significant compression of L2 with loss of greater than 50% of the vertebral body height . The posterior superior aspect is retropulsed. There is moderate to greater canal stenosis at this l evel. A suspected new inferior endplate compression fracture of T9 is noted. There are dominant L5-S1 degenerative changes. There is a left hip prosthesis with obscuration portions of the left pelvis. Impression: The patient is cachectic. Basilar inflammatory changes are noted worse on the right with mucous plugging and thickening of the airways. The liver is enlarged. The gallbladder is distended There is no kidney stone or hydronephrosis There is no small bowel obstruction. There is no free air. There is increased stool in the colon. The re is a large hiatal hernia. New severe compression of L2 is noted with retropulsion and canal stenosis. MR would be of benefit fo r further evaluation if clinically indicated.
--- NOTE | 2023-09-07 08:52 | ED_ITS ---
HPI - Altered Mental Status 2 General: Chief Complaint: Altered Mental Status Stated Complaint: AMS Time Seen by Provider: 09/07/23 06:52 Source: EMS Mode of arrival: EMS History of Present Illness: 73-year-old female presents from correction via EMS she was found unresponsive by the correction staff. EMS states she responded to questions when they seen her she was given 400 mg of Seroquel last night. She had fallen a week ago she is on anticoagulants. She was seen after she had fallen CT of the head reportedly was negative. No family available at the bedside patient is Do Not Recussitate MD complaint: altered mental status Review of Systems 2 General: Reports: ROS unobtainable due to mental status PFSH ED 2 PFSH: Medical History Closed left hip fracture Lewy body dementia DNR no code (do not resuscitate) Osteoporosis, post-menopausal Lives in assisted living facility Spine deformity Osteoarthritis of knee Bradycardia Recurrent syncope Mixed hyperlipidemia Seasonal allergic rhinitis due to pollen Slow transit constipation Major depressive disorder, recurrent severe without psychotic features Sleep apnea Anxiety and depression Adult onset hypothyroidism Vitamin D deficiency COPD (chronic obstructive pulmonary disease) Parkinson disease CPAP (continuous positive airway pressure) dependence Dependent on walker for ambulation Surgical History Status post hip hemiarthroplasty History of repair of hiatal hernia Hx of cataract surgery Hx of right breast biopsy 1999 History of laparotomy 1972 no body parts removed History of back surgery 2016 T11-T12 History of hernia repair 2017 History of tubal ligation Left removed only 1973 History of bunionectomy bilateral 2014 Family History Mother Congestive heart failure (CHF) Clotting disorder CAD (coronary artery disease) Family/Other Lung disease Cancer Grandmother Stroke Denies family history of Diabetes Dementia Chronic kidney disease (CKD) Suicide Anesthesia complication Bleeding disorder Social History Smoking and tobacco/nicotine status: former use of tobacco/nicotine Quit status (tobacco/nicotine): has quit using Year quit tobacco: 2005 - PPD x 35 Years Second hand smoke exposure: No Alcohol intake: former Substance/Drug Use: never Adopted: No Caregiver/support person: No Lives independently: Yes Household members: none Housing: House Marital status: Unknown Number of children: 1 service: Yes branch: [employer] Current occupational status: retired and disabled Pets and animals: No Do you think of yourself as: Straight/Heterosexual Current gender identity: Female Physical Exam 2 HENMT: COMMON NORMALS: normocephalic, atraumatic and hearing grossly normal bilaterally HEAD & SCALP: normocephalic and atraumatic Resp: COMMON NORMALS: normal respiratory effort, No retractions, No use of accessory muscles and clear to auscultation bilaterally AUSCULTATION: clear to auscultation bilaterally Cardio: COMMON NORMALS: regular rhythm and No murmurs present (Cardio) R ATE: tachycardic RHYTHM: regular rhythm GI: COMMON NORMALS: Soft to palpation and No hepatosplenomegaly present A USCULTATION: Yes normoactive bowel sounds PALPATION: Yes Soft to palpation, No Tenderness to palpation present (GI), No Guarding due to palpation present (GI) and Yes No hepatosplenomegaly present Extremity: COMMON NORMALS: normal to inspection, capillary refill normal, no clubbing, cyanosis or edema, no calf tenderness and no pedal edema Skin: COMMON NORMALS: no rashes or lesions noted GENERAL SKIN EXAM: no rashes or lesions noted Course 2 Vital Signs: Vital signs: Vital Signs Temperature 100.4 F H 09/07/23 06:49 Pulse Rate 102 H 09/07/23 08:25 Respiratory Rate 19 H 09/07/23 08:25 Blood Pressure 130/110 09/07/23 08:25 Pulse Oximetry 95 09/07/23 08:25 Oxygen Delivery Me thod Room Air 09/07/23 08:25 MDM - Altered Mental Status Medical Decision Making Leukocytosis with altered mental status normal lactate urine shows signs of cystitis. CT of head does not show any acute fractures or development of subdural hematoma from previous fall. Chest x-ray is negative. Admitted for encephalopathy and cystitis. Antibiotics started. Cultures have been done. Medical Records I reviewed the patient's medical records. Lab Data I reviewed the patient's lab results. 09/07/23 06:57 09/07/23 06:[address] 09/07/23 07:02 IMPRESSION: No acute intracranial process. Laboratory Results WBC 18.62 10^3/uL (3.29-11.43) H 09/07/23 06:57 RBC 3.71 10^6/uL (3.85-5.65) L 09/07/23 06:57 Hgb 11.60 g/dL (11.27-16.99) 09/07/23 06:57 Hct 35.5 % (36-47) L 09/07/23 06:57 MCV 95.7 fl (85-98) 09/07/23 06:57 MCH 31.3 pg (27-33) 09/07/23 06:57 MCHC 32.7 g/dL (30-55) 09/07/23 06:57 RDW 15.7 % (12.1-15.1) H 09/07/23 06:57 Plt Count 349 10^3/cmm (157-399) 09/07/23 06:57 MPV 10.6 fL (7.4-10.4) H 09/07/23 06:57 Neut % (Auto) 80.5 % 09/07/23 06:57 Lymph % (Auto) 5.3 % 09/07/23 06:57 [place] % (Auto) 12.5 % 09/07/23 06:57 Eos % (Auto) 0.1 % 09/07/23 06:57 Baso % (Auto) 0.2 % 09/07/23 06:57 Neut # (Auto) 15.00 10^3/uL (1.8-7.7) H 09/07/23 06:57 Lymph # (Auto) 1.0 10^3/uL (0.8-4.8) 09/07/23 06:57 [place] # (Auto) 2.3 10^3/uL (0.2-0.9) H 09/07/23 06:57 Eos # (Auto) 0.0 10^3/uL (0.0-0.8) 09/07/23 06:57 Baso # (Auto) 0.0 10^3/uL (0.0-0.1) 09/07/23 06:57 Nucleated RBC % (auto) 0 % 09/07/23 06:57 Nucleated RBCs # 0.0 /100WBC 09/07/23 06:57 Specimen Type Arterial 09/07/23 07:34 Sample Site Radial, left 09/07/23 07:34 ABG pH 7.51 (7.35-7.45) H 09/07/23 07:34 ABG pCO2 27.7 mmHg (35-45) L 09/07/23 07:34 ABG pO2 73.5 mmHg (80.0-100.0) L 09/07/23 07:34 ABG PO2/FiO2 Ratio 0 09/07/23 07:34 ABG HCO3 21.8 mmol/L (22-26) L 09/07/23 07:34 ABG O2 Saturation 97.4 09/07/23 07:34 ABG Base Excess -0.3 mmol/L (-2.0-2.0) 09/07/23 07:34 Alexander Test Pos 09/07/23 07:34 A-a O2 Gradient 5.0 mmHg (5-10) 09/07/23 07:34 Hematocrit 35.5 % (37-47) L 09/07/23 07:34 Hgb O2 Saturation 95.6 % (95-100) 09/07/23 07:34 Carboxyhemoglobin 1.2 %THgb (0.4-20.1) 09/07/23 07:34 Methemoglobin 0.6 % (0.4-1.5) 09/07/23 07:34 Total Hemoglobin 11.6 g/dL (12-16) L 09/07/23 07:34 Sodium 142.0 mmol/L (131-143) 09/07/23 07:34 Potassium 3.7 mmol/L (3.5-5.0) 09/07/23 07:34 Glucose 118.0 mg/dL (70-115) H 09/07/23 07:34 Ionized Calcium 1.2 mmol/L (1.1-1.4) 09/07/23 07:34 O2 Delivery Device Room air 09/07/23 07:34 FiO2 21.0 % 09/07/23 07:34 Circuitry Negative Inspector ID Cak 09/07/23 07:34 Sodium 141 mmol/L (136-145) 09/07/23 06:57 Potassium 4.1 mmol/L (3.5-5.1) 09/07/23 06:57 Chloride 107 mmol/L (98-107) 09/07/23 06:57 Carbon Dioxide 23 mmol/L (22-29) 09/07/23 06:57 Anion Gap 15.1 (5-19) 09/07/23 06:57 BUN 25 mg/dL (8-23) H 09/07/23 06:57 Creatinine 0.8 mg/dL (0.5-0.9) 09/07/23 06:57 GFR Calculation Not Reportable 09/07/23 06:57 Glucose 116 mg/dL (65-115) H 09/07/23 06:57 Calculated Osmolality 297 mOsm/kg (285-295) H 09/07/23 06:57 Lactic Acid 1.2 mmol/L (0.5-2.2) 09/07/23 07:58 Calcium 9.4 mg/dL (8.5-10.5) 09/07/23 06:57 Total Bilirubin 0.4 mg/dL (0.15-1.2) 09/07/23 06:57 AST 17 U/L (0-32) 09/07/23 06:57 ALT 7 U/L (0-33) 09/07/23 06:57 Alkaline Phosphatase 138 U/L (35-105) H 09/07/23 06:57 Creatine Kinase 29 U/L (26-192) 09/07/23 06:57 Total Protein 7.4 g/dL (6.6-8.7) 09/07/23 06:57 Albumin 3.7 g/dL (3.5-5.2) 09/07/23 06:57 Globulin 3.7 g/dL (1.3-4.6) 09/07/23 06:57 Urine Color Yellow (Yellow) 09/07/23 07:40 Urine Appearance Cloudy (CLEAR) A 09/07/23 07:40 Urine pH 7 (5-7) 09/07/23 07:40 Ur Specific [place] 1.010 (1.005-1.030) 09/07/23 07:40 Urine Protein Trace (Negative) 09/07/23 07:40 Urine Glucose (UA) Norm (Normal) 09/07/23 07:40 Urine Ketones Negative (Negative) 09/07/23 07:40 Urine Blood Neg (Negative) 09/07/23 07:40 Urine Nitrate Positive (Negative) H 09/07/23 07:40 Urine Bilirubin Neg (Negative) 09/07/23 07:40 Urine Urobilinogen 1 mg/dL (Negative) H 09/07/23 07:40 Ur Leukocyte Esterase Trace (Negative) H 09/07/23 07:40 Urine RBC 0-4 /hpf (0-2) H 09/07/23 07:40 Urine WBC >100 /hpf (0-5) H 09/07/23 07:40 Ur Squamous Epith Cells 0-4 /hpf (0-5) H 09/07/23 07:40 Ur Transition Epith Cell 0-4 /hpf 09/07/23 07:40 Amorphous Sediment Not Reportable 09/07/23 07:40 Urine Bacteria 4+ /hpf (NONE) H 09/07/23 07:40 Other Casts Wbc cast /lpf 09/07/23 07:40 All radiology interpretation(s) finalized by discharge Discharge Plan Discharge Patient Disposition: Admitted As Inpatient Clinical Impression: Cystitis Condition: Stable Prescriptions: No Action duloxetine [Cymbalta] 60 mg capsule,delayed release(DR/EC) 60 mg PO BID Qty: 180 1RF Gemtesa 75 mg tablet 75 mg PO QAM fluticasone propionate 50 mcg/actuation spray,suspension 2 spray INTRANASAL DAILY@1999 Qty: 48 1RF potassium chloride 10 mEq tablet extended release 10 meq PO BID Qty: 180 1RF rosuvastatin 10 mg tablet 10 mg PO BEDTIME@1999 Qty: 90 1RF ferrous sulfate [Feosol] 325 mg (65 mg iron) tablet 325 mg PO DAILY Qty: 30 3RF lamotrigine 150 mg tablet 150 mg PO QAM calcium carbonate-vitamin D3 [Calcium 500 + D] 500 mg-10 mcg (400 unit) Tablet 1 tab PO BID bisacodyl 10 mg Suppository 10 mg OH DAILY PRN (Reason: Constipation) alum-mag hydroxide-simeth [Katy-Lanta] 200-200-20 mg/5 mL Suspension 30 ml PO Q8H PRN (Reason: GI upset) Rx Instructions: administer between meals and at bedtime acetaminophen 500 mg Tablet 500 mg PO TID Eliquis 2.5 mg tablet 2.5 mg PO BID Qty: 60 0RF Aspir-81 81 mg Tablet,Delayed Release (Dr/Ec) 81 mg PO DAILY tramadol 50 mg tablet 50 mg PO TID fluticasone propionate 100 mcg/actuation blister with device 1 inh INHALATION BID 1 + Iron 65 mg iron- 1 mg Tablet 1 tab PO DAILY Artificial Tears (PF) 0.1-0.3 % Dropperette 1 drp OPHTHALMIC (EYE) Q4H PRN (Reason: Dry Eyes) Nuedexta 20-10 mg Capsule 1 cap PO QAM Med Pass 2.0 1 ea PO BID docusate sodium 100 mg capsule 100 mg PO BID quetiapine 400 mg tablet extended release 24 hr 400 mg PO BEDTIME carbidopa-levodopa 25-100 mg tablet 1 tab PO BID topiramate [Topamax] 100 mg tablet 100 mg PO DAILY@1400 loperamide 2 mg Tablet 2 mg PO Q8H PRN (Reason: Diarrhea) levothyroxine 200 mcg tablet 200 mcg PO QAM mirtazapine 15 mg tablet 15 mg PO BEDTIME polyethylene glycol 3350 17 gram/dose Powder 4 g PO DAILY acetaminophen [Tylenol] 325 mg Capsule 650 mg PO Q6H PRN (Reason: Pain) melatonin 5 mg Capsule 5 mg PO BEDTIME Referrals: Deo Marshall MD [Primary Care Provider] - Patient Instructions: Altered Mental Status (ED) Coding Level of Care Code ED Motor Man for Anthony Love
[2023-09-07] MEDS: sodium chloride 0.9% 1,000 ML 999 ML IV (08:56)
[2023-09-07] MEDS: meropenem 1,000 MG in sodium chloride 0.9% (plus) 50 ML 100 MG IV ×2 (08:58→17:33)
--- NOTE | 2023-09-07 10:13 | XR_ITS ---
WS: [id number] Examination: XR femur RT min 2V* [id number] Reason for Exam: pain Date: September 07, 2023 Comparison: None. Findings: The bone density is maintained. There is no destruction There is no displaced fracture or dislocation of the right femur. Degenerative changes at the right knee are noted Impression: No displaced fracture of the right femur is identified.
--- NOTE | 2023-09-07 10:13 | XR_ITS ---
WS: [id number] Examination: XR hip RT 2-3V wo/w pel* [id number] Reason for Exam: pain Date: September 07, 2023 Comparison: None. Findings: There is no bony destruction. There is no fracture or dislocation of the right hip. Impression: No displaced fractures identified.
--- NOTE | 2023-09-07 11:00 | P.HP_ITS ---
Providers/Chief Complaint 2 Admitting Physician: Calixto Farris MD Primary Care Provider: Gerson Marshall MD Chief Complaint: AMS History of Present Illness Crys Mir is a 73 year old female with underlying dementia who resides at [facility] presenting to the hospital with decreased responsiveness. There is no history of any fever. She did have a fall about a week ago. She has not had any vomiting, blood in stool. She often has back pain. Correlate if history is obtained from daughter who is present when I visited with her. I also called the nursing facility, who reported she has had a gradual decline in the last several months. 1 week ago she fell and hit her head and has been worse since then. She has had p.o. intake. She is decreased walking in the last 2 or 3 days. Low-grade fever last night. This morning was not very responsive, only moaning in response. Not eating and drinking well lately. Review of Systems 2 General: Reports: ROS unobtainable due to mental status Medications/Allergies Home Medications Medication Instructions Recorded Confirmed Last Taken Type duloxetine 60 mg capsule,delayed 60 mg PO BID #180 caps 12/13/21 09/07/23 09/06/23 Rx release (Cymbalta) fluticasone propionate 50 2 spray intranasal DAILY@1999 #48 03/28/22 09/07/23 09/06/23 Rx mcg/actuation nasal grams spray,suspension potassium chloride 10 mEq 10 meq PO BID #180 tabs 03/28/22 09/07/23 09/06/23 Rx tablet,extended release rosuvastatin 10 mg tablet 10 mg PO BEDTIME@1999 #90 tabs 04/25/22 09/07/23 09/06/23 Rx acetaminophen 325 mg capsule 650 mg PO Q6H PRN Pain 12/11/22 09/07/23 Unknown History (Tylenol) carbidopa 25 mg-levodopa 100 mg 1 tab PO BID 12/11/22 09/07/23 09/06/23 History tablet levothyroxine 200 mcg tablet 200 mcg PO QAM 12/11/22 09/07/23 09/06/23 History loperamide 2 mg tablet 2 mg PO Q8H PRN Diarrhea 12/11/22 09/07/23 Unknown History melatonin 5 mg capsule 5 mg PO BEDTIME 12/11/22 09/07/23 09/06/23 History mirtazapine 15 mg tablet 15 mg PO BEDTIME 12/11/22 09/07/23 09/06/23 History polyethylene glycol 3350 17 4 g PO DAILY 12/11/22 09/07/23 Unknown History gram/dose oral powder topiramate 100 mg tablet (Topamax) 100 mg PO DAILY@1400 12/11/22 09/07/23 09/06/23 History acetaminophen 500 mg tablet 500 mg PO TID 03/21/23 09/07/23 09/06/23 History aluminum-mag hydroxide-simethicone 30 ml PO Q8H PRN GI upset 03/21/23 09/07/23 Unknown History 200 mg-200 mg-20 mg/5 mL oral susp (Katy-Lanta) bisacodyl 10 mg rectal suppository 10 mg AR DAILY PRN Constipation 03/21/23 09/07/23 Unknown History calcium carbonate 500 mg-vitamin 1 tab PO BID 03/21/23 09/07/23 09/06/23 History D3 10 mcg (400 unit) tablet (Calcium 500 + D) lamotrigine 150 mg tablet 150 mg PO QAM 03/21/23 09/07/23 09/06/23 History apixaban 2.5 mg tablet (Eliquis) 2.5 mg PO BID #60 tabs 03/25/23 09/07/23 09/06/23 Rx ferrous sulfate 325 mg (65 mg 325 mg PO DAILY #30 tabs 06/28/23 09/07/23 09/06/23 Rx iron) tablet (Feosol) vibegron 75 mg tablet (Gemtesa) 75 mg PO QAM 08/26/23 09/07/23 09/06/23 History Med Pass 2.0 1 ea PO BID 09/07/23 09/07/23 09/06/23 History aspirin 81 mg tablet,delayed 81 mg PO DAILY 09/07/23 09/07/23 09/06/23 History release dextran 70-hypromellose (PF) 0.1 1 drp ophthalmic (eye) Q4H PRN Dry 09/07/23 09/07/23 Unknown History %-0.3 % eye drops in a dropperette Eyes (Artificial Tears (PF)) dextromethorphan 20 mg-quinidine 1 cap PO QAM 09/07/23 09/07/23 09/06/23 History 10 mg capsule (Nuedexta) docusate sodium 100 mg capsule 100 mg PO BID 09/07/23 09/07/23 09/06/23 History fluticasone propionate 100 1 inh inhalation BID 09/07/23 09/07/23 09/06/23 History mcg/actuation blister powder for inhalation vitamins-iron fumarate 65 1 tab PO DAILY 09/07/23 09/07/23 09/06/23 History mg iron-folic acid 1 mg tablet quetiapine 400 mg tablet,extended 400 mg PO BEDTIME 09/07/23 09/07/23 09/06/23 History release 24 hr tramadol 50 mg tablet 50 mg PO TID 09/07/23 09/07/23 09/06/23 History Allergies Allergy/AdvReac Type Severity Reaction Status Date / Time No Known Allergies Allergy Verified 09/07/23 07:44 PFSH Acute 2 PFSH: Medical History (Updated 09/07/23 @ 11:12 by Calixto Farris MD) Lewy body dementia Closed left hip fracture DNR no code (do not resuscitate) Osteoporosis, post-menopausal Lives in assisted living facility Spine deformity Osteoarthritis of knee Bradycardia Recurrent syncope Mixed hyperlipidemia Seasonal allergic rhinitis due to pollen Slow transit constipation Major depressive disorder, recurrent severe without psychotic features Sleep apnea Anxiety and depression Adult onset hypothyroidism Vitamin D deficiency COPD (chronic obstructive pulmonary disease) Parkinson disease CPAP (continuous positive airway pressure) dependence Dependent on walker for ambulation Surgical History Status post hip hemiarthroplasty History of repair of hiatal hernia Hx of cataract surgery Hx of right breast biopsy 1999 History of laparotomy 1972 no body parts removed History of back surgery 2016 T11-T12 History of hernia repair 2017 History of tubal ligation Left removed only 1973 History of bunionectomy bilateral 2015 Family History Mother Congestive heart failure (CHF) Clotting disorder CAD (coronary artery disease) Family/Other Lung disease Cancer Grandmother Stroke Denies family history of Diabetes Dementia Chronic kidney disease (CKD) Suicide Anesthesia complication Bleeding disorder Social History Smoking and tobacco/nicotine status: former use of tobacco/nicotine Quit status (tobacco/nicotine): has quit using Year quit tobacco: 2004 - PPD x 35 Years Second hand smoke exposure: No Alcohol intake: former Substance/Drug Use: never Adopted: No Caregiver/support person: No Lives independently: Yes Household members: none Housing: House Marital status: Unknown Number of children: 1 service: Yes branch: [employer] Current occupational status: retired and disabled Pets and animals: No Do you think of yourself as: Straight/Heterosexual Current gender identity: Female Vitals/I&O/Wt Last Vital Signs Temp 100.4 F H 09/07/23 06:49 Pulse 95 09/07/23 10:55 Resp 14 09/07/23 10:55 BP 118/62 09/07/23 10:55 Pulse Ox 98 09/07/23 10:55 O2 Del Method Room Air 09/07/23 09:30 Weight last 48 hrs Weight 54.431 kg Physical Exam 2 Narrative: General exam is white female, who can say a few words but is confused, who often fidgets. Temperature of 100.4 noted HEENT: Bruising is noted over forehead and nose, and it appears multiple days old. Neck is supple no lymphadenopathy thyromegaly Cardiovascular regular rate and rhythm, borderline tachycardic, no murmur Lungs clear no wheezing or crackles Abdomen is soft nontender with positive bowel sounds. No evidence of organomegaly exams deferred Extremities no sinus clubbing edema, cap refill brisk Skin no rash Neuro moving all 4 extremities. No obvious focal deficits. Data 09/07/23 06:57 09/07/23 06:57 Other Labs: ABG demonstrating pH 7.51, pCO2 28, pO2 73 on room air LFTs normal with exception of alk phos of 138 CK20 9 Albumin 3.7, calcium 9.4 Lactic acid 1.2 Urinalysis greater than 100 white blood cells, 0-4 reds, 4+ bacteria, positive nitrates Respiratory panel pending, ordered by the ER Hip pelvis on the right shows no fracture Abdominal pelvis CT demonstrates constipation, new L2 compression fracture. I reviewed this as well Head CT which I also reviewed demonstrated no acute changes Chest x-ray which I reviewed demonstrates no infiltrate, increase stool EKG which I reviewed demonstrates sinus rhythm, left axis deviation, right bundle branch block. Micro: Microbiology 04/03/24 08:02 Blood Culture - Preliminary Blood SPECIMEN COLLECTED 09/07/23 07:58 Blood Culture - Preliminary Blood SPECIMEN COLLECTED A&P Assessment and plan (1) Complicated UTI (urinary tract infection): Meropenem was initiated in the emergency department. For now continue Blood and urine cultures No evidence of obstruction on CT scan Continue hydration (2) Acute metabolic encephalopathy: Likely acute worsening secondary to UTI monitor closely for improvement (3) Compression fracture of L2: Monitor for any pain. May be acute from fall 1 week ago Discussed in detail with family, hold off on any further evaluation until mental status improves (4) Lewy body dementia: Associated with Parkinson's disease Continue home medications Has associated with behaviors. Will hold Seroquel currently as well as mirtazapine secondary to encephalopathy Plan Constipation. Initiate senna and Colace Other medical problems as outlined in past medical history Allow natural Lovenox for DVT prophylaxis Attestations 2 Medical Necessity Statement*: Will need greater than 2 midnight stay for evaluation and treatment of complicated UTI with acute encephalopathy, and this febrile patient. Diagnoses Complicated UTI (urinary tract infection) N39.0 Acute metabolic encephalopathy G93.41 Compression fracture of L2 S32.020A Lewy body dementia G31.83; F02.80 Time Spent (min) 64
[2023-09-07 11:46] LABS: Adenovirus Not Detected (NOT DETECT); Chlamydia Pneumoniae Not Detected (NOT DETECT); Coronavirus 229E,HKU1,NL63,OC4 Not Detected (NOT DETECT); Human Metapneumovirus Not Detected (NOT DETECT); Human Rhinovirus/Enterovirus Not Detected (NOT DETECT); Influenza A Not Detected (NOT DETECT); Influenza A H1 Not Detected (NOT DETECT); Influenza A H1-2009 Not Detected (NOT DETECT); Influenza A H3 Not Detected (NOT DETECT); Influenza B Not Detected (NOT DETECT); Mycoplasma Pneumoniae Not Detected (NOT DETECT); Parainfluenza Virus Type 1 Not Detected (NOT DETECT); Parainfluenza Virus Type 2 Not Detected (NOT DETECT); Parainfluenza Virus Type 3 Not Detected (NOT DETECT); Parainfluenza Virus Type 4 Not Detected (NOT DETECT); Respiratory Syncytial Virus A Not Detected (NOT DETECT); Respiratory Syncytial Virus B Not Detected (NOT DETECT); SARS-COV-2 Not Detected (NOT DETECT)
[2023-09-07 12:09] LABS: Thyroid Stimulating Hormone 0.08 uIU/mL (0.27-4.20)
[2023-09-07] MEDS: acetaminophen 325 mg Tablet 650 MG PO (12:23)
[2023-09-07] MEDS: sodium chloride 0.9% 1,000 ML 75 ML IV ×2 (12:23→23:11)
[2023-09-07] MEDS: enoxaparin 40 mg/0.4 mL Syringe SUBCUT (12:23)
[2023-09-07] MEDS: topiramate 100 mg Tablet PO (14:54)
[2023-09-07] MEDS: docusate sodium 100 mg Capsule PO (17:34)
[2023-09-07] MEDS: duloxetine 60 mg Capsule PO (17:34)
[2023-09-07] MEDS: carbidopa-levodopa 25-100mg Tablet 1 EACH PO (17:34)
[2023-09-07] MEDS: polyethylene glycol 3350 Pkt 17 gm PO (17:34)
[2023-09-07] MEDS: sennosides 8.6 mg Tablet 17.1999999999999993 MG PO (17:34)
[2023-09-07] MEDS: atorvastatin 40 mg Tablet PO (20:21)
[2023-09-07] MEDS: budesonide 0.5 mg/2 mL Neb INHALATION (20:44)
[2023-09-08] VITALS (9 sets, daily range): BP systolic 108–144; BP diastolic 57–69; PULSE 80–100; RESP 16–18; TEMP 36.5–37.8; O2SAT 78–96
[2023-09-08] MEDS: meropenem 1,000 MG in sodium chloride 0.9% (plus) 50 ML 100 MG IV ×3 (00:53→17:09)
[2023-09-08] MEDS: levothyroxine 200 mcg Tablet PO (05:31)
[2023-09-08] MEDS: lamoTRIgine 100 mg Tablet 150 MG PO (05:31)
[2023-09-08 05:35] LABS: Basophils # 0.1 10^3/uL (0.0-0.1); Basophils % 0.3 %; Eosinophils % 0.1 %; Hematocrit 30.3 % (36-47); Lymphocytes % 7.6 %; Mean Corpuscular HGB Conc 32.7 g/dL (30-55); Mean Corpuscular Hemoglobin 31.4 pg (27-33); Mean Corpuscular Volume 96.2 fl (85-98); Mean Platelet Volume 10.3 fL (7.4-10.4); Monocytes % 7.5 %; Neutrophils # 21.94 10^3/uL (1.8-7.7); Neutrophils % 83.7 %; Nucleated Red Blood Cells % 0 %; Platelet Count 333 10^3/cmm (157-399); Red Blood Count 3.15 10^6/uL (3.85-5.65); Red Cell Distribution Width 15.9 % (12.1-15.1); White Blood Count 26.19 10^3/uL (3.29-11.43)
[2023-09-08 05:59] LABS: Alanine Aminotransferase 10 U/L (0-33); Albumin Level 3.1 g/dL (3.5-5.2); Alkaline Phosphatase 127 U/L (35-105); Anion Gap 14.4 (5-19); Aspartate Amino Transferase 13 U/L (0-32); Blood Urea Nitrogen 23 mg/dL (8-23); Calcium 8.2 mg/dL (8.5-10.5); Carbon Dioxide 21 mmol/L (22-29); Chloride 111 mmol/L (98-107); Creatinine Clr Calc Pharmacy 47.0535; Globulin 3.3 g/dL (1.3-4.6); Glucose 107 mg/dL (65-115); Osmolality Calculated 300 mOsm/kg (285-295); Potassium 3.4 mmol/L (3.5-5.1); Sodium 143 mmol/L (136-145); Total Bilirubin 0.5 mg/dL (0.15-1.2); Total Protein 6.4 g/dL (6.6-8.7)
[2023-09-08] MEDS: ipratropium-albuterol 3 mL Neb INHALATION (07:39)
[2023-09-08] MEDS: budesonide 0.5 mg/2 mL Neb INHALATION (07:39)
[2023-09-08] MEDS: sennosides 8.6 mg Tablet 17.1999999999999993 MG PO ×2 (09:10→17:08)
[2023-09-08] MEDS: docusate sodium 100 mg Capsule PO ×2 (09:10→17:08)
[2023-09-08] MEDS: carbidopa-levodopa 25-100mg Tablet 1 EACH PO ×2 (09:10→17:08)
[2023-09-08] MEDS: aspirin 81 mg EC Tablet PO (09:10)
[2023-09-08] MEDS: potassium chloride ER 20 mEq Tablet 40 MEQ PO (09:10)
[2023-09-08] MEDS: duloxetine 60 mg Capsule PO ×2 (09:10→17:08)
[2023-09-08] MEDS: polyethylene glycol 3350 Pkt 17 gm PO ×2 (09:11→17:09)
[2023-09-08] MEDS: sodium chloride 0.9% 1,000 ML 75 ML IV (09:12)
--- NOTE | 2023-09-08 09:54 | P.PN_ITS ---
Documented by User: Isabelle Sultana, TIFFANIE STDWU 09/08/23 10:06 Subjective 2 Subjective: Patient is resting in bed this morning on room air. She is able to breifly recall falling in the past and states she has briues all over because of this. She wonders when she is able to go home. Denies pain, shortness of breath. Medications: Reviewed: Yes Vitals/I&O/Wt Last Vital Signs Temp 98.1 F 09/08/23 08:00 Pulse 94 09/08/23 08:00 Resp 17 09/08/23 08:00 BP 116/61 09/08/23 08:00 Pulse Ox 96 09/08/23 08:00 O2 Del Method Room Air 09/08/23 07:40 09/07/23 09/08/23 09/08/23 22:59 06:59 14:59 Intake Total 350 / 1400 860 / 2260 751.25 / 751.25 Balance 350 / 1400 860 / 2260 751.25 / 751.25 Weight last 48 hrs Weight 108 lb 3.2 oz Weight 120 lb Weight 120 lb Physical Exam 2 Narrative: General exam is white female, who can say a few words but is confused, who often fidgets. Temperature of 100.0 overnight noted HEENT: Bruising is noted over forehead and nose, and it appears multiple days old. Neck is supple no lymphadenopathy thyromegaly Cardiovascular regular rate and rhythm, borderline tachycardic, no murmur Lungs clear no wheezing or crackles, on room air. Abdomen is soft nontender with positive bowel sounds. No evidence of organomegaly Extremities no sinus clubbing edema, cap refill brisk Data 09/08/23 05:04 09/08/23 05:04 Micro: Microbiology 09/07/23 08:02 Blood Culture - Preliminary Blood NEGATIVE TO DATE 09/07/23 07:58 Blood Culture - Preliminary Blood NEGATIVE TO DATE A&P Assessment and plan (1) Complicated UTI (urinary tract infection): Continue Meropenem for now Blood and urine cultures pending No evidence of obstruction on CT scan 09/07/23 Continue IV hydration (2) Acute metabolic encephalopathy: Likely acute worsening secondary to UTI monitor closely for improvement More alert today, able to answer questions. (3) Compression fracture of L2: Monitor for any pain. May be acute from fall 1 week ago Discussed in detail with family, hold off on any further evaluation until mental status improves (4) Lewy body dementia: Associated with Parkinson's disease Continue home medications Has associated with behaviors. Hold Seroquel currently as well as mirtazapine secondary to encephalopathy Plan Constipation. Continue senna and Colace Other medical problems as outlined in past medical history Allow natural Lovenox for DVT prophylaxis Coding Level of Care Code 84376 Diagnoses Complicated UTI (urinary tract infection) N39.0 Acute metabolic encephalopathy G93.41 Compression fracture of L2 S32.020A Lewy body dementia G31.83; F02.80 Documented by User: Calixto Farris MD 09/08/23 10:34 Data 09/08/23 05:04 09/08/23 05:04 A&P Assessment and plan (1) Complicated UTI (urinary tract infection): (2) Acute metabolic encephalopathy: Likely acute worsening secondary to UTI monitor closely for improvement More alert today, able to answer questions. Improving. (3) Compression fracture of L2: (4) Lewy body dementia: Associated with Parkinson's disease Hypokalemia, supplement potassium Continue home medications Has associated with behaviors. Hold Seroquel currently as well as mirtazapine secondary to encephalopathy Attestations 2 Medical Necessity Statement*: Needs continued hospital stay for IV antibiotics, related to complicated UTI Diagnoses Complicated UTI (urinary tract infection) N39.0 Acute metabolic encephalopathy G93.41 Compression fracture of L2 S32.020A Lewy body dementia G31.83; F02.80
[2023-09-08] MEDS: iron sucrose 200 MG in sodium chloride 0.9% (100 ml) 100 ML 220 MG IV (12:42)
[2023-09-08] MEDS: enoxaparin 40 mg/0.4 mL Syringe SUBCUT (12:42)
[2023-09-08] MEDS: topiramate 100 mg Tablet PO (14:39)
[2023-09-08] MEDS: acetaminophen 325 mg Tablet 650 MG PO (14:39)
[2023-09-08] MEDS: atorvastatin 40 mg Tablet PO (21:20)
[2023-09-09] VITALS (8 sets, daily range): BP systolic 105–152; BP diastolic 55–78; PULSE 78–84; RESP 16–19; TEMP 36.6–38.2; O2SAT 93–96
[2023-09-09] MEDS: sodium chloride 0.9% 1,000 ML 75 ML IV (01:12)
[2023-09-09] MEDS: meropenem 1,000 MG in sodium chloride 0.9% (plus) 50 ML 100 MG IV ×3 (01:12→18:05)
[2023-09-09 04:52] LABS: Basophils # 0.1 10^3/uL (0.0-0.1); Basophils % 0.3 %; Eosinophils % 0.2 %; Hematocrit 29.5 % (36-47); Lymphocytes # 1.8 10^3/uL (0.8-4.8); Lymphocytes % 8.9 %; Mean Corpuscular HGB Conc 33.2 g/dL (30-55); Mean Corpuscular Hemoglobin 31.9 pg (27-33); Mean Corpuscular Volume 96.1 fl (85-98); Mean Platelet Volume 10.3 fL (7.4-10.4); Monocytes # 1.1 10^3/uL (0.2-0.9); Monocytes % 5.5 %; Neutrophils # 16.73 10^3/uL (1.8-7.7); Neutrophils % 84.1 %; Nucleated Red Blood Cells % 0 %; Platelet Count 373 10^3/cmm (157-399); Red Blood Count 3.07 10^6/uL (3.85-5.65); Red Cell Distribution Width 15.7 % (12.1-15.1); White Blood Count 19.89 10^3/uL (3.29-11.43)
[2023-09-09 05:13] LABS: Alanine Aminotransferase 9 U/L (0-33); Albumin Level 2.8 g/dL (3.5-5.2); Alkaline Phosphatase 124 U/L (35-105); Anion Gap 14.9 (5-19); Aspartate Amino Transferase 19 U/L (0-32); Blood Urea Nitrogen 18 mg/dL (8-23); Calcium 7.6 mg/dL (8.5-10.5); Carbon Dioxide 17 mmol/L (22-29); Chloride 113 mmol/L (98-107); Creatinine Clr Calc Pharmacy 47.0535; Globulin 3.2 g/dL (1.3-4.6); Glucose 107 mg/dL (65-115); Osmolality Calculated 296 mOsm/kg (285-295); Sodium 142 mmol/L (136-145); Total Bilirubin 0.4 mg/dL (0.15-1.2)
[2023-09-09 05:26] LABS: Potassium 2.9 mmol/L (3.5-5.1)
[2023-09-09] MEDS: potassium chloride ER 20 mEq Tablet 40 MEQ PO ×2 (06:29→08:25)
[2023-09-09] MEDS: lamoTRIgine 100 mg Tablet 150 MG PO (06:32)
[2023-09-09] MEDS: levothyroxine 200 mcg Tablet PO (06:32)
--- NOTE | 2023-09-09 07:41 | PC.NURSE ---
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 Farris notified and fecal occult blood test ordered.
[2023-09-09] MEDS: ipratropium-albuterol 3 mL Neb INHALATION ×2 (08:18→19:56)
[2023-09-09] MEDS: budesonide 0.5 mg/2 mL Neb INHALATION ×2 (08:18→19:56)
[2023-09-09] MEDS: lidocaine 1% 5 ML in potassium chloride premix 100 ML 52.5 ML IV (08:23)
[2023-09-09] MEDS: aspirin 81 mg EC Tablet PO (08:25)
[2023-09-09] MEDS: carbidopa-levodopa 25-100mg Tablet 1 EACH PO ×2 (08:25→18:05)
[2023-09-09] MEDS: docusate sodium 100 mg Capsule PO ×2 (08:25→18:05)
[2023-09-09] MEDS: sennosides 8.6 mg Tablet 17.1999999999999993 MG PO ×2 (08:25→18:05)
[2023-09-09] MEDS: polyethylene glycol 3350 Pkt 17 gm PO ×2 (08:25→18:05)
[2023-09-09] MEDS: duloxetine 60 mg Capsule PO ×2 (08:25→18:05)
--- NOTE | 2023-09-09 09:22 | P.PN_ITS ---
Documented by User: TIFFANIE Ravi STDWU 09/09/23 09:38 Subjective 2 Subjective: Patient resting in bed on room air. Nursing staff noted to be at bedside. Patient receiving potassium infusion currently. Ms. Mir denies chest pain, shortness of breath this morning. Nursing staff reported having serval bowel movements overnight. Medications: Reviewed: Yes Vitals/I&O/Wt Last Vital Signs Temp 97.8 F 09/09/23 07:51 Pulse 79 09/09/23 08:22 Resp 16 09/09/23 08:00 BP 130/58 09/09/23 07:51 Pulse Ox 95 09/09/23 08:00 O2 Del Method Room Air 09/09/23 08:00 09/08/23 09/09/23 09/09/23 22:59 06:59 14:59 Intake Total 1350 / 2261.25 50 / 2311.25 541.25 / 541.25 Balance 1350 / 2261.25 50 / 2311.25 541.25 / 541.25 Weight last 48 hrs Weight 108 lb 3.2 oz Weight 108 lb 3.2 oz Weight 120 lb Physical Exam 2 Narrative: General exam is white female, who can say a few words but is confused, who often fidgets. Temperature of 100.7 overnight noted. HEENT: Bruising is noted over forehead and nose, and it appears multiple days old. Neck is supple no lymphadenopathy thyromegaly Cardiovascular regular rate and rhythm, borderline tachycardic, no murmur Lungs clear no wheezing or crackles, on room air. Abdomen is soft non-tender with positive bowel sounds. No evidence of organomegaly Extremities no sinus clubbing edema, cap refill brisk Data 09/09/23 04:19 09/09/23 04:19 Micro: Microbiology 09/07/23 07:40 Urine Culture - Final Urine Catheterized Escherichia coli esbl 09/09/23 06:45 Occult Blood (FIT) - Final Stool Routine Collection 09/07/23 08:02 Blood Culture - Preliminary Blood NEGATIVE TO DATE 09/07/23 07:58 Blood Culture - Preliminary Blood NEGATIVE TO DATE A&P Assessment and plan (1) Complicated UTI (urinary tract infection): Continue Meropenem for now Blood cultures pending Urine culture noted to have Escherichia coli esbl, picc line ordered to be placed. No evidence of obstruction on CT scan 09/07/23 Continue IV hydration (2) Acute metabolic encephalopathy: Likely acute worsening secondary to UTI monitor closely for improvement More alert, able to answer questions. Improving. (3) Compression fracture of L2: Monitor for any pain. May be acute from fall 1 week ago Discussed in detail with family, hold off on any further evaluation until mental status improves (4) Lewy body dementia: Associated with Parkinson's disease Hypokalemia, supplement potassium Continue home medications Has associated with behaviors. Hold Seroquel currently as well as mirtazapine secondary to encephalopathy Plan Constipation. Continue senna and Colace Other medical problems as outlined in past medical history Allow natural Lovenox for DVT prophylaxis Coding Level of Care Code 98025 Diagnoses Complicated UTI (urinary tract infection) N39.0 Acute metabolic encephalopathy G93.41 Compression fracture of L2 S32.020A Lewy body dementia G31.83; F02.80 Time Spent (min) 24 Documented by User: Calixto Farris MD 09/09/23 11:41 Data 09/09/23 04:19 09/09/23 04:19 A&P Assessment and plan (1) Complicated UTI (urinary tract infection): Continue Meropenem for now Blood cultures pending Urine culture noted to have Escherichia coli esbl, picc line ordered to be placed. No evidence of obstruction on CT scan 09/07/23 Oral intake somewhat improved. IV fluids discontinued Plan on ertapenem at discharge, 14 days total including that which is given in the hospital. (2) Acute metabolic encephalopathy: (3) Compression fracture of L2: (4) Lewy body dementia: Plan Constipation. Continue senna and Colace Hemoccult positive, concern of blood in stool and anemia. She has been iron deficient for quite a while. An iron infusion was given here, which was already scheduled as an outpatient. Family does not really want workup of this at this time. Continue to monitor CBC daily. Placed on Protonix. Hypokalemia, supplement Other medical problems as outlined in past medical history Allow natural Lovenox for DVT prophylaxis Attestations 2 Medical Necessity Statement*: needs continued hospitalization secondary, to complicated UTI with ESBL in this patient who is still febrile. Diagnoses Complicated UTI (urinary tract infection) N39.0 Acute metabolic encephalopathy G93.41 Compression fracture of L2 S32.020A Lewy body dementia G31.83; F02.80 Time Spent (min) 24
[2023-09-09] MEDS: pantoprazole DR 40 mg Tablet PO ×2 (09:39→18:05)
--- NOTE | 2023-09-09 10:05 | XR_ITS ---
WS: [id number] Examination: XR chest 1V portable [id number] Reason for Exam: Post PICC insertion Date: September 09, 2023 Comparison: September 07, 2023 Findings: On this rotated film a right PICC has been placed. The tip lies near the junction of the superior daphney a cava and right atrium. The heart is not grossly enlarged. The mediastinum is not widened The lung markings are diffusely increased. This is again asymmetric in the right upper lung. Impression: The right PICC is well-positioned. The lung markings remain increased particularly on the right
--- NOTE | 2023-09-09 11:35 | PC.NURSE ---
Right single lumen PICC placed to right basilic vein. Referred to vascular access nurse for PICC placement due to need for antibiotics for UTI. Risks and benefits discussed and informed consent obtained from patient daughter, Ashley. Right arm assessed with right basilic vein measuring 4.0 mm, straight, and apparent best choice for placement. Using sterile technique and MST, right basilic vein accessed x 1 stick. Mid-arm circumference measured 10 cm from right AC 25 cm. Trimmed cath 38 cm with 2 cm external length noted. CXR shows tip in distal SVC, cavoatrial junction, in good position for use per radiologist. Line secured with stat-lock. Insertion site covered with Biopatch, gauze, and TSM. Report given to bedside nurse, Rebecca.
[2023-09-09] MEDS: topiramate 100 mg Tablet PO (14:05)
[2023-09-09] MEDS: acetaminophen 325 mg Tablet 650 MG PO (18:05)
[2023-09-09] MEDS: atorvastatin 40 mg Tablet PO (19:45)
[2023-09-10] VITALS (10 sets, daily range): BP systolic 131–160; BP diastolic 62–79; PULSE 80–88; RESP 16–20; TEMP 36.6–37.7; O2SAT 91–96
[2023-09-10] MEDS: meropenem 1,000 MG in sodium chloride 0.9% (plus) 50 ML 100 MG IV ×2 (01:11→09:05)
[2023-09-10] MEDS: acetaminophen 325 mg Tablet 650 MG PO (01:12)
[2023-09-10 05:23] LABS: Basophils # 0.1 10^3/uL (0.0-0.1); Basophils % 0.4 %; Eosinophils # 0.1 10^3/uL (0.0-0.8); Eosinophils % 0.6 %; Hematocrit 29.7 % (36-47); Lymphocytes # 2.1 10^3/uL (0.8-4.8); Lymphocytes % 14.7 %; Mean Corpuscular HGB Conc 32.7 g/dL (30-55); Mean Corpuscular Hemoglobin 31.6 pg (27-33); Mean Corpuscular Volume 96.7 fl (85-98); Mean Platelet Volume 10.5 fL (7.4-10.4); Monocytes # 1.1 10^3/uL (0.2-0.9); Monocytes % 7.8 %; Neutrophils # 10.55 10^3/uL (1.8-7.7); Neutrophils % 75.4 %; Nucleated Red Blood Cells % 0.1 %; Platelet Count 361 10^3/cmm (157-399); Red Blood Count 3.07 10^6/uL (3.85-5.65); Red Cell Distribution Width 15.9 % (12.1-15.1); White Blood Count 13.98 10^3/uL (3.29-11.43)
[2023-09-10] MEDS: lamoTRIgine 100 mg Tablet 150 MG PO (05:46)
[2023-09-10] MEDS: levothyroxine 200 mcg Tablet PO (05:46)
[2023-09-10 06:12] LABS: Alanine Aminotransferase 13 U/L (0-33); Albumin Level 2.9 g/dL (3.5-5.2); Alkaline Phosphatase 152 U/L (35-105); Blood Urea Nitrogen 16 mg/dL (8-23); Calcium 8.2 mg/dL (8.5-10.5); Carbon Dioxide 17 mmol/L (22-29); Chloride 116 mmol/L (98-107); Creatinine Clr Calc Pharmacy 46.4703; Globulin 3.1 g/dL (1.3-4.6); Glucose 89 mg/dL (65-115); Magnesium 2.3 mg/dL (1.7-2.3); Osmolality Calculated 297 mOsm/kg (285-295); Sodium 143 mmol/L (136-145); Total Bilirubin 0.4 mg/dL (0.15-1.2)
[2023-09-10 06:13] LABS: Anion Gap 14.2 (5-19); Aspartate Amino Transferase 27 U/L (0-32); Potassium 4.2 mmol/L (3.5-5.1)
[2023-09-10] MEDS: ipratropium-albuterol 3 mL Neb INHALATION (07:30)
[2023-09-10] MEDS: budesonide 0.5 mg/2 mL Neb INHALATION ×2 (07:31→20:05)
[2023-09-10] MEDS: aspirin 81 mg EC Tablet PO (08:56)
[2023-09-10] MEDS: carbidopa-levodopa 25-100mg Tablet 1 EACH PO ×2 (08:56→17:06)
[2023-09-10] MEDS: duloxetine 60 mg Capsule PO ×2 (08:56→17:06)
[2023-09-10] MEDS: pantoprazole DR 40 mg Tablet PO (08:56)
[2023-09-10] MEDS: sennosides 8.6 mg Tablet 17.1999999999999993 MG PO (08:56)
[2023-09-10] MEDS: docusate sodium 100 mg Capsule PO (08:56)
--- NOTE | 2023-09-10 13:31 | P.DS_ITS ---
Discharge Providers Date of Admission: 09/07/23 10:37 Date of Discharge: September 10, 2023 Attending Provider at Admission: Calixto Farris MD Attending Provider at Discharge: Brady Rolon MD Primary Care Provider: Gerson Marshall MD Diagnoses at Discharge Discharge Diagnosis (1) Complicated UTI (urinary tract infection): Status: Acute (2) Acute metabolic encephalopathy: Status: Acute (3) Compression fracture of L2: Status: Acute (4) Lewy body dementia: Status: Acute Reason for Visit Reason for Visit: AMS Brief History: History as per HPI: Crys Mir is a 73 year old female with underlying dementia who resides at [facility] presenting to the hospital with decreased responsiveness. There is no history of any fever. She did have a fall about a week ago. She has not had any vomiting, blood in stool. She often has back pain. Correlate if history is obtained from daughter who is present when I visi anatoly with her. I also called the nursing facility, who reported she has had a gradual decline in the last several months. 1 week ago she fell and hit her head and has been worse since then. She has had p.o. intake. She is decreased walking in the last 2 or 3 days. Low-grade fever last night. This morning was not very responsive, only moaning in response. Not eating and drinking well lately Hospital Course Hospital Course Patient was admitted to the hospital further evaluation and management of complicated UTI. She was started on IV meropenem as per past culture history. Urine cultures came back positive for ESBL E. coli in the blood culture remain negative. During hospitalization she underwent CT abdomen pelvis which was negative for any urinary obstruction but showed acute compression fracture of L2. Given concerns for complicated UTI IV [facility]apenem 1 g daily [facility] for overall 12-day course. She has been discharged in hemodynamically stable condition. Eliquis has been withheld given high concerns for fall. Physical Exam Narrative: General exam is white female, who can say a few words but is confused, who often fidgets. Afebrile currently on discharge HEENT: Bruising is noted over forehead and nose, and it appears multiple days old. Neck is supple no lymphadenopathy thyromegaly Cardiovascular regular rate and rhythm, no tachycardia, no murmur Lungs clear no wheezing or crackles Abdomen is soft nontender with positive bowel sounds. No evidence of organomegaly exams deferred Extremities no sinus clubbing edema, cap refill brisk Skin no rash Neuro moving all 4 extremities. No obvious focal deficits. Discharge Data Studies Completed and Pending Completed Studies During Hospitalization Category Date Time Status CT head wo con* [id number] Stat Cat Scan 09/07/23 07:[address] kidney stone [id number] Stat Cat Scan 09/07/23 08:33 Completed CXRP [XR chest 1V portable [id number]] Routine Exams 09/09/23 10:05 Completed XR chest 1V portable [id number] Stat Exams 09/07/23 07:02 Completed XR femur RT min 2V* [id number] Stat Exams 09/07/23 10:13 Completed XR hip RT 2-3V wo/w pel* [id number] Stat Exams 09/07/23 10:13 Completed Pending at discharge Category Date Time Status Blood Culture Stat Lab 09/07/23 08:02 Results Radiology Impressions Head CT 09/07/23 07:02 IMPRESSION: No acute intracranial process. Laboratory Results WBC 13.98 10^3/uL (3.29-11.43) H 09/10/23 04:22 RBC 3.07 10^6/uL (3.85-5.65) L 09/10/23 04:22 Hgb 9.70 g/dL (11.27-16.99) L 09/10/23 04:22 Hct 29.7 % (36-47) L 09/10/23 04:22 MCV 96.7 fl (85-98) 09/10/23 04:22 MCH 31.6 pg (27-33) 09/10/23 04:22 MCHC 32.7 g/dL (30-55) 09/10/23 04:22 RDW 15.9 % (12.1-15.1) H 09/10/23 04:22 Plt Count 361 10^3/cmm (157-399) 09/10/23 04:22 MPV 10.5 fL (7.4-10.4) H 09/10/23 04:22 Neut % (Auto) 75.4 % 09/10/23 04:22 Lymph % (Auto) 14.7 % 09/10/23 04:22 Gillespie % (Auto) 7.8 % 09/10/23 04:22 Eos % (Auto) 0.6 % 09/10/23 04:22 Baso % (Auto) 0.4 % 09/10/23 04:22 Neut # (Auto) 10.55 10^3/uL (1.8-7.7) H 09/10/23 04:22 Lymph # (Auto) 2.1 10^3/uL (0.8-4.8) 09/10/23 04:22 Gillespie # (Auto) 1.1 10^3/uL (0.2-0.9) H 09/10/23 04:22 Eos # (Auto) 0.1 10^3/uL (0.0-0.8) 09/10/23 04:22 Baso # (Auto) 0.1 10^3/uL (0.0-0.1) 09/10/23 04:22 Nucleated RBC % (auto) 0.1 % 09/10/23 04: Nucleated RBCs # 0.0 /100WBC 09/10/23 04:22 Specimen Type Arterial 09/07/23 07:34 Sample Site Radial, left 09/07/23 07:34 ABG pH 7.51 (7.35-7.45) H 09/07/23 07:34 ABG pCO2 27.7 mmHg (35-45) L 09/07/23 07:34 ABG pO2 73.5 mmHg (80.0-100.0) L 09/07/23 07:34 ABG PO2/FiO2 Ratio 0 09/07/23 07:34 ABG HCO3 21.8 mmol/L (22-26) L 09/07/23 07:34 ABG O2 Saturation 97.4 09/07/23 07:34 ABG Base Excess -0.3 mmol/L (-2.0-2.0) 09/07/23 07:34 Alexander Test Pos 09/07/23 07:34 A-a O2 Gradient 5.0 mmHg (5-10) 09/07/23 07:34 Hematocrit 35.5 % (37-47) L 09/07/23 07:34 Hgb O2 Saturation 95.6 % (95-100) 09/07/23 07:34 Carboxyhemoglobin 1.2 %THgb (0.4-20.1) 09/07/23 07:34 Methemoglobin 0.6 % (0.4-1.5) 09/07/23 07:34 Total Hemoglobin 11.6 g/dL (12-16) L 09/07/23 07:34 Sodium 142.0 mmol/L (131-143) 09/07/23 07:34 Potassium 3.7 mmol/L (3.5-5.0) 09/07/23 07:34 Glucose 118.0 mg/dL (70-115) H 09/07/23 07:34 Ionized Calcium 1.2 mmol/L (1.1-1.4) 09/07/23 07:34 O2 Delivery Device Room air 09/07/23 07:34 FiO2 21.0 % 09/07/23 07:34 Lead Sql Developer ID Cak 09/07/23 07:34 Sodium 143 mmol/L (136-145) 09/10/23 04:22 Potassium 4.2 mmol/L (3.5-5.1) 09/10/23 04:22 Chloride 116 mmol/L (98-107) H 09/10/23 04:22 Carbon Dioxide 17 mmol/L (22-29) L 09/10/23 04:22 Anion Gap 14.2 (5-19) 09/10/23 04:22 BUN 16 mg/dL (8-23) 09/10/23 04:22 Creatinine 0.5 mg/dL (0.5-0.9) 09/10/23 04:22 GFR Calculation Not Reportable 09/10/23 04:22 Glucose 89 mg/dL (65-115) 09/10/23 04:22 Calculated Osmolality 297 mOsm/kg (285-295) H 09/10/23 04:22 Lactic Acid 1.2 mmol/L (0.5-2.2) 09/07/23 07:58 Calcium 8.2 mg/dL (8.5-10.5) L 09/10/23 04:22 Magnesium 2.3 mg/dL (1.7-2.3) 09/10/23 04:22 Total Bilirubin 0.4 mg/dL (0.15-1.2) 09/10/23 04:22 AST 27 U/L (0-32) 09/10/23 04:22 ALT 13 U/L (0-33) 09/10/23 04:22 Alkaline Phosphatase 152 U/L (35-105) H 09/10/23 04:22 Creatine Kinase 29 U/L (26-192) 09/07/23 06:57 Total Protein 6.0 g/dL (6.6-8.7) L 09/10/23 04:22 Albumin 2.9 g/dL (3.5-5.2) L 09/10/23 04:22 Globulin 3.1 g/dL (1.3-4.6) 09/10/23 04:22 TSH 0.08 uIU/mL (0.27-4.20) L 09/07/23 06:57 Urine Color Yellow (Yellow) 09/07/23 07:40 Urine Appearance Cloudy (CLEAR) A 09/07/23 07:40 Urine pH 7 (5-7) 09/07/23 07:40 Ur Specific Henning 1.010 (1.005-1.030) 09/07/23 07:40 Urine Protein Trace (Negative) 09/07/23 07:40 Urine Glucose (UA) Norm (Normal) 09/07/23 07:40 Urine Ketones Negative (Negative) 09/07/23 07:40 Urine Blood Neg (Negative) 09/07/23 07:40 Urine Nitrate Positive (Negative) H 09/07/23 07:40 Urine Bilirubin Neg (Negative) 09/07/23 07:40 Urine Urobilinogen 1 mg/dL (Negative) H 09/07/23 07:40 Ur Leukocyte Esterase Trace (Negative) H 09/07/23 07:40 Urine RBC 0-4 /hpf (0-2) H 09/07/23 07:40 Urine WBC >100 /hpf (0-5) H 09/07/23 07:40 Ur Squamous Epith Cells 0-4 /hpf (0-5) H 09/07/23 07:40 Ur Transition Epith Cell 0-4 /hpf 09/07/23 07:40 Amorphous Sediment Not Reportable 09/07/23 07:40 Urine Bacteria 4+ /hpf (NONE) H 09/07/23 07:40 Other Casts Wbc cast /lpf 09/07/23 07:40 Adenovirus (PCR) Not detected (NOT DETECT) 09/07/23 07:40 C. pneumoniae DNA (PCR) Not detected (NOT DETECT) 09/07/23 07:40 Coronavirus 229E (PCR) Not detected (NOT DETECT) 09/07/23 07:40 Human Metapneumovir PCR Not detected (NOT DETECT) 09/07/23 07:40 Influenza A (H1) PCR Not detected (NOT DETECT) 09/07/23 07:40 Influ A (H1/09) PCR Not detected (NOT DETECT) 09/07/23 07:40 Influenza A (H3) PCR Not detected (NOT DETECT) 09/07/23 07:40 Influenza Type A (PCR) Not detected (NOT DETECT) 09/07/23 07:40 Influenza Type B (PCR) Not detected (NOT DETECT) 09/07/23 07:40 M. pneumoniae (PCR) Not detected (NOT DETECT) 09/07/23 07:40 Parainfluenza 1 (PCR) Not detected (NOT DETECT) 09/07/23 07:40 Parainfluenza 2 (PCR) Not detected (NOT DETECT) 09/07/23 07:40 Parainfluenza 3 (PCR) Not detected (NOT DETECT) 09/07/23 07:40 Parainfluenza 4 (PCR) Not detected (NOT DETECT) 09/07/23 07:40 RSV Type A (PCR) Not detected (NOT DETECT) 09/07/23 07:40 RSV Type B (PCR) Not detected (NOT DETECT) 09/07/23 07:40 Entero/Rhino (PCR) Not detected (NOT DETECT) 09/07/23 07:40 SARS-CoV-2 (PCR) Not detected (NOT DETECT) 09/07/23 07:40 Vitals Last Vital Signs Temp 98.4 F 09/10/23 11:37 Pulse 88 09/10/23 11:37 Resp 18 09/10/23 11:37 BP 150/76 09/10/23 11:37 Pulse Ox 93 09/10/23 11:37 O2 Del Method Room Air 09/10/23 11:37 Discharge Plan Discharge Patient Disposition: Xfer SNF Condition: Stable Prescriptions: New polyethylene glycol 3350 17 gram Powder In Packet 17 g PO BID Qty: 60 0RF pantoprazole 40 mg Tablet,Delayed Release (Dr/Ec) 40 mg PO BID Qty: 60 0RF ertapenem 1 gram recon soln 1 g IV DAILY Qty: 10 0RF Rx Instructions: To start 09/11/2023 Continued duloxetine [Cymbalta] 60 mg capsule,delayed release(DR/EC) 60 mg PO BID Qty: 180 1RF Gemtesa 75 mg tablet 75 mg PO QAM fluticasone propionate 50 mcg/actuation spray,suspension 2 spray INTRANASAL DAILY@1999 Qty: 48 1RF potassium chloride 10 mEq tablet extended release 10 meq PO BID Qty: 180 1RF rosuvastatin 10 mg tablet 10 mg PO BEDTIME@1999 Qty: 90 1RF ferrous sulfate [Feosol] 325 mg (65 mg iron) tablet 325 mg PO DAILY Qty: 30 3RF lamotrigine 150 mg tablet 150 mg PO QAM calcium carbonate-vitamin D3 [Calcium 500 + D] 500 mg-10 mcg (400 unit) Tablet 1 tab PO BID bisacodyl 10 mg Suppository 10 mg VA DAILY PRN (Reason: Constipation) alum-mag hydroxide-simeth [Katy-Lanta] 200-200-20 mg/5 mL Suspension 30 ml PO Q8H PRN (Reason: GI upset) Rx Instructions: administer between meals and at bedtime acetaminophen 500 mg Tablet 500 mg PO TID aspirin 81 mg Tablet,Delayed Release (Dr/Ec) 81 mg PO DAILY tramadol 50 mg tablet 50 mg PO TID fluticasone propionate 100 mcg/actuation blister with device 1 inh INHALATION BID vit-iron fum-folic ac 65 mg iron- 1 mg Tablet 1 tab PO DAILY Artificial Tears (PF) 0.1-0.3 % Dropperette 1 drp OPHTHALMIC (EYE) Q4H PRN (Reason: Dry Eyes) Med Pass 2.0 1 ea PO BID docusate sodium 100 mg capsule 100 mg PO BID carbidopa-levodopa 25-100 mg tablet 1 tab PO BID topiramate [Topamax] 100 mg tablet 100 mg PO DAILY@1400 levothyroxine 200 mcg tablet 200 mcg PO QAM mirtazapine 15 mg tablet 15 mg PO BEDTIME polyethylene glycol 3350 17 gram/dose Powder 4 g PO DAILY acetaminophen [Tylenol] 325 mg Capsule 650 mg PO Q6H PRN (Reason: Pain) melatonin 5 mg Capsule 5 mg PO BEDTIME Discontinued Eliquis 2.5 mg tablet 2.5 mg PO BID Qty: 60 0RF Nuedexta 20-10 mg Capsule 1 cap PO QAM quetiapine 400 mg tablet extended release 24 hr 400 mg PO BEDTIME loperamide 2 mg Tablet 2 mg PO Q8H PRN (Reason: Diarrhea) Discharge Orders: Discharge Order (Routine); Ordered 09/10/23 Ordered By: Brady Rolon Referrals: Deo Marshall MD [Primary Care Provider] - 4-7 days Discharge Diet: Usual diet Discharge Activity: Increase activity as tolerated Patient Instructions: Altered Mental Status (ED) Activity Restrictions/Additional Instructions: Eliquis will be discontinued secondary to concern of GI bleeding Continue aspirin, monitor for any concerns CBC, CMP in 1 week, and in 2 weeks Ertapenem 1 g IV daily for 12 days starting 09/11/2023 Discharge Attestations Time Spent in Discharge Care*: greater than 30 min Specific Discharge Activities: educating and/or supporting family/caregiver, discussing with pcp/other providers, discussing with patient case manager/social workers/dc planners, documenting/other paperwork and evaluating patient/reviewing data Status at Discharge: Cognitive status at discharge: moderately impaired cognition , Behavioral status at discharge: cooperative , Functional status at discharge: other assisted ambulation , Overall status at discharge: patient is back to baseline Quality Metrics Clinical Quality Measures [ No reported AMI, CVA or VTE this stay] Coding Level of Care Code 33779 Total time (in minutes) for Discharge: 60 Diagnoses Complicated UTI (urinary tract infection) N39.0 Acute metabolic encephalopathy G93.41 Compression fracture of L2 S32.020A Lewy body dementia G31.83; F02.80
[2023-09-10] MEDS: ertapenem 1,000 MG in sodium chloride 0.9% (plus) 100 ML 200 MG IV (13:49)
[2023-09-10] MEDS: topiramate 100 mg Tablet PO (13:49)
--- NOTE | 2023-09-10 13:50 | PC.SOCIAL ---
Spoke with Allie BROWN at [facility] to notify that patient is discharging today. Faxed discharge summary and med list. Called for medicaid ride. Spoke with Billy at [phone] to find a ride. Trip ID #[id number].
[2023-09-11 03:49] VITALS: BP 144/61; PULSE 83; RESP 17; TEMP 36.5; O2SAT 93
[2023-09-11 07:15] VITALS: BP 137/66; PULSE 85; RESP 16; TEMP 37.1; O2SAT 95
--- NOTE | 2023-09-11 07:24 | PC.SOCIAL ---
Called [facility] to get an update on patient's ride back to the [facility]. Rayne called transportation company and stated that the ride would be 830 am. Will update if needed.
[2023-09-11] MEDS: budesonide 0.5 mg/2 mL Neb INHALATION (07:45)
[2023-09-11 07:48] VITALS: PULSE 81; RESP 14; O2SAT 98
[2023-09-11 09:03] VITALS: PULSE 81; RESP 14; O2SAT 98
== END 2023-09-11 09:00 | disposition skilled nursing facility (03) | DRG 689 ==
LOC: ER 08:59 → MEDSURG 10:37
PROVIDERS: Admitting Provider Internal Medicine; Emergency Provider Family Medicine; PCP Internal Medicine; Visit Provider Student in an Organized Health Care Education/Training Program
DX: N39.0 Urinary tract infection, site not specified (principal); G93.41 Metabolic encephalopathy; Z16.12 Extended spectrum beta lactamase (ESBL) resistance; F02.818 Dementia in other diseases classified elsewhere, unspecified severity, with other behavioral disturbance; B96.20 Unspecified Escherichia coli [E. coli] as the cause of diseases classified elsewhere; G20.A1 Parkinson's disease without dyskinesia, without mention of fluctuations; K59.00 Constipation, unspecified; E87.6 Hypokalemia; W19.XXXA Unspecified fall, initial encounter; Z79.01 Long term (current) use of anticoagulants; Z66 Do not resuscitate; Z87.891 Personal history of nicotine dependence; E03.9 Hypothyroidism, unspecified; E78.5 Hyperlipidemia, unspecified; F32.A Depression, unspecified; F41.9 Anxiety disorder, unspecified; J44.9 Chronic obstructive pulmonary disease, unspecified
CPT/HCPCS: 36415; 36573; 36600; 70450; 71045; 73502; 73552; 74176; 80051; 80053; 81001; 82274; 82330; 82550; 82805; 83605; 83735; 84443; 85025; 87040; 87077; 87086; 87186; 87486; 87581; 87633; 93005; 94640; 96365; 96367; 96372; 99285; J1335; J1650; J1756; J2185; J3480; J7030; J7626

== ENCOUNTER 2023-09-13 20:38 | Emergency (ER) | payer MEDICARE, OTHER, MEDICAID, SELFPAY ==
[2023-09-13 20:40] VITALS: BP 107/56; PULSE 59; RESP 18; TEMP 36.7; O2SAT 97; BMI 21.7
--- NOTE | 2023-09-13 20:46 | CTR_ITS ---
PROCEDURE INFORMATION: Exam: CT Head Without Contrast Exam date and time: 09/13/2023 8:56 PM Age: 73 years old Clinical indication: Injury or trauma; Other: Unwitnessed fall from wheelchair; Additional info: Trauma/fall TECHNIQUE: Imaging protocol: Computed tomography of the head without contrast. Radiation optimization: All CT scans at this facility use at least one of these dose optimization techniques: automated exposure control; mA and/or kV adjustment per patient size (includes targeted exams where dose is matched to clinical indication); or iterative reconstruction. COMPARISON: CT head wo con* [id number] 09/07/2023 7:18 AM RADIATION DOSE METRICS: Total DLP (mGy-cm): 965.4 FINDINGS: Brain: There are periventricular white matter hypodensities consistent chronic ischemic small vessel disease. No mass, hemorrhage or recent infarct. Cerebral ventricles: No ventriculomegaly. Paranasal sinuses: Visualized sinuses are unremarkable. No fluid levels. Mastoid air cells: Visualized mastoid air cells are well aerated. Orbital cavities: Post bilateral cataract surgery. Bones/joints: Unremarkable. No acute fracture. Soft tissues: There is a left frontal and vertex subgaleal hematoma. CT/CT head wo con* [id number] IMPRESSION: No intracranial posttraumatic changes.
--- NOTE | 2023-09-13 20:46 | CTR_ITS ---
PROCEDURE INFORMATION: Exam: CT Cervical Spine Without Contrast Exam date and time: 09/13/2023 8:56 PM Age: 73 years old Clinical indication: Injury or trauma; Other: Unwitnessed fall from wheelchair; Additional info: Trauma/fall TECHNIQUE: Imaging protocol: Computed tomography of the cervical spine without contrast. Radiation optimization: All CT scans at this facility use at least one of these dose optimization techniques: automated exposure control; mA and/or kV adjustment per patient size (includes targeted exams where dose is matched to clinical indication); or iterative reconstruction. COMPARISON: CR XR cervical spine 3V* [id number] 03/12/2020 9:11 AM RADIATION DOSE METRICS: Total DLP (mGy-cm): 335.7 FINDINGS: Bones/joints: There is a posterior L4-L5 disc bulge causing mild thecal sac compression. Posterior osteophyte disc complexes at the body and spinal cord. Moderate degenerative disease of the anterior C1-C2 articulation. Lungs: Bilateral apical bullae. Vasculature: There are bilateral carotid calcifications. Soft tissues: Unremarkable. CT/CT cervical spin wo con* [id number] IMPRESSION: No posttraumatic changes in the cervical spine.
--- NOTE | 2023-09-13 20:49 | ECG_ITS ---
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 Measurements Intervals [place] Rate: 59 P: 81 MO: 174 QRS: 83 QRSD: 133 T: 73 QT: 460 QTc: 457 Interpretive Statements SINUS BRADYCARDIA RIGHT BUNDLE BRANCH BLOCK [120+ ms QRS DURATION, UPRIGHT V1, 40+ ms S IN I/aVL/V4/V5/V6] Compared to ECG 09/07/2023 07:32:00 Sinus rhythm no longer present Left-axis deviation no longer present Electronically Signed On 09-14-2023 18:35:24 CDT by Lonnie Torres M.D. [id number]
[2023-09-13 21:20] LABS: Basophils % 0.6 %; Eosinophils # 0.1 10^3/uL (0.0-0.8); Eosinophils % 0.9 %; Hematocrit 29.6 % (36-47); Lymphocytes # 2.7 10^3/uL (0.8-4.8); Lymphocytes % 38.2 %; Mean Corpuscular HGB Conc 32.1 g/dL (30-55); Mean Corpuscular Hemoglobin 32.1 pg (27-33); Mean Platelet Volume 9.6 fL (7.4-10.4); Monocytes # 0.8 10^3/uL (0.2-0.9); Monocytes % 10.9 %; Neutrophils # 3.33 10^3/uL (1.8-7.7); Neutrophils % 47.3 %; Nucleated Red Blood Cells % 0 %; Platelet Count 331 10^3/cmm (157-399); Red Blood Count 2.96 10^6/uL (3.85-5.65); Red Cell Distribution Width 16.1 % (12.1-15.1); White Blood Count 7.04 10^3/uL (3.29-11.43)
[2023-09-13 21:36] LABS: Alanine Aminotransferase < 5 U/L (0-33); Albumin Level 2.7 g/dL (3.5-5.2); Alkaline Phosphatase 87 U/L (35-105); Anion Gap 12.1 (5-19); Aspartate Amino Transferase 15 U/L (0-32); Calcium 7.5 mg/dL (8.5-10.5); Carbon Dioxide 21 mmol/L (22-29); Chloride 109 mmol/L (98-107); Glucose 87 mg/dL (65-115); Potassium 4.1 mmol/L (3.5-5.1); Sodium 138 mmol/L (136-145); Total Bilirubin 0.3 mg/dL (0.15-1.2); Total Protein 5.7 g/dL (6.6-8.7)
[2023-09-13 21:40] LABS: Blood Urea Nitrogen 18 mg/dL (8-23); Osmolality Calculated 287 mOsm/kg (285-295)
[2023-09-13 21:50] LABS: Add Urine Microscopic? YES; Bilirubin Urine Neg (Negative); Blood Urine Neg (Negative); Glucose Urine UA Norm (Normal); Ketones Urine 1+ (Negative); Leukocyte Esterase Urine Negative (Negative); Nitrate Urine Negative (Negative); Protein Urine Trace (Negative); Urine Appearance Clear (CLEAR); Urine Color Yellow (Yellow); Urobilinogen Urine Neg (Negative); pH Urine 7 (5-7)
[2023-09-13 21:51] LABS: Add Urine Culture? No; Bacteria Urine TRACE /hpf; Mucus Urine 3+ /hpf; WBC Urine 0-4 /hpf (0-5)
--- NOTE | 2023-09-13 22:12 | PC.NURSE ---
This nurse spoke with registered nurse Mancuso at [facility] with status update on patient, and as instructed per Dr Winslow, to decrease or remove Seroquel from medication regimen. [facility] staff also unavailable to transport patient back to facility at this time.
--- NOTE | 2023-09-13 22:13 | PC.NURSE ---
Daughter Ashley updated with patient status and discharge status. Ashley also informed of Dr Winslow's suggestion to stop or decrease seroquel from medication regimen. Ashley to call back with ride status back to nursing facility.
--- NOTE | 2023-09-13 22:23 | W.ED.FALL ---
HPI - Fall General: Chief Complaint: Fall Stated Complaint: hypotension Time Seen by Provider: 09/13/23 20:39 History of Present Illness: 73-year-old female presents to the emergency department via the emergency EMS from [facility]. EMS personnel states that they were called by the care facility to transport the patient after an unwitnessed fall from her wheelchair. EMS advised that the half-way staff stated that the patient had low blood pressure and upon arrival to the emergency department evaluation demonstrated normal acceptable blood pressure. EMS also endorsed normal blood pressures upon their arrival and transport. The patient does have a previous healing scalp hematoma that is noted. She also has a new frontal scalp hematoma. Patient is a very poor historian given that she has longstanding dementia and cognitive decline. Does appear that the patient was recently discharged from the hospital here on 09/10/2023 for which she was treated for cognitive decline, unresponsiveness and a fall. Review of Systems General: Reports: ROS unobtainable due to medical condition and ROS unobtainable due to mental status [facility] ED PFSH: Medical History (Updated 09/13/23 @ 22:27 by Tristan Winslow MD) Lewy body dementia Closed left hip fracture DNR no code (do not resuscitate) Osteoporosis, post-menopausal Lives in assisted living facility Spine deformity Osteoarthritis of knee Bradycardia Recurrent syncope Mixed hyperlipidemia Seasonal allergic rhinitis due to pollen Slow transit constipation Major depressive disorder, recurrent severe without psychotic features Sleep apnea Anxiety and depression Adult onset hypothyroidism Vitamin D deficiency COPD (chronic obstructive pulmonary disease) Parkinson disease CPAP (continuous positive airway pressure) dependence Dependent on walker for ambulation Surgical History (Updated 09/12/23 @ 00:00 by TYREE Bennett) Status post hip hemiarthroplasty History of repair of hiatal hernia Hx of cataract surgery Hx of right breast biopsy 1999 History of laparotomy 1972 no body parts removed History of back surgery 2016 T11-T12 History of hernia repair 2017 History of tubal ligation Left removed only 1973 History of bunionectomy bilateral 2014 Family History Mother Congestive heart failure (CHF) Clotting disorder CAD (coronary artery disease) Family/Other Lung disease Cancer Grandmother Stroke Denies family history of Diabetes Dementia Chronic kidney disease (CKD) Suicide Anesthesia complication Bleeding disorder Social History Smoking and tobacco/nicotine status: former use of tobacco/nicotine Quit status (tobacco/nicotine): has quit using Year quit tobacco: 2005 - PPD x 35 Years Second hand smoke exposure: No Alcohol intake: former Substance/Drug Use: never Adopted: No Caregiver/support person: No Lives independently: Yes Household members: none Housing: House Marital status: Unknown Number of children: 1 service: Yes branch: [employer] Current occupational status: retired and disabled Pets and animals: No Do you think of yourself as: Straight/Heterosexual Current gender identity: Female Physical Exam Narrative: EXAM NARRATIVE: Constitutional: the patient appears well nourished and of normal development. Vital signs as documented. No acute distress at present. Alert to person. GCS 15 Head, eyes, ears, nose, mouth, throat: Frontal scalp hematoma noted. Pupils-equal, round, reactive to light. No scleral icterus. Normal-appearing external ears. Normal appearing nasal turbinates, no drainage. No obvious oral lesions, posterior oropharynx without erythema or exudates. Neck: Supple, trachea is midline, no lymphadenopathy, no jugular venous distension, thyromegaly, or carotid bruits. Carotid upstrokes are brisk bilaterally. Nontender to palpation, no palpable step-offs or crepitus noted. Exaggerated lordotic curve noted. Thorax: Symmetrical rise and fall of the chest without obvious flail segment or deformity. Palpation to the anterior posterior thorax is nontender. Lungs: clear to auscultation to all lung hanna. Symmetrical rise and fall of chest, no obvious signs of increased work of breathing at present. Cardiac: Regular rate and rhythm, positive S1, S2. No murmurs, rubs or gallops that I can appreciate Abdomen: Soft, non-tender to palpation, normal active bowel sounds to all quadrants. No palpable masses, no organomegaly and abdominal bruits. Extremities: 2+ pulses in the upper extremities that are equal bilaterally, 2+ pulses in the lower extremities that are equal bilaterally. Non-edematous. Moves all extremities well, sensation to all extremities are noted. Skin: Warm, dry, intact. Back: Nontender to palpation, no palpable step-offs or crepitus noted. Neurological: Patient does appear to be at her baseline mental status given her longstanding history of dementia and cognitive decline. Course Vital Signs: Vital signs: Vital Signs Temperature 98.0 F 04/09/24 20:40 Pulse Rate 62 09/14/23 00:06 Respiratory Rate 15 09/14/23 00:06 Blood Pressure 129/65 09/14/23 00:06 Pulse Oximetry 99 09/14/23 00:06 Oxygen Delivery Me thod Room Air 09/14/23 00:04 MDM - Fall Medical Decision Making Physical exam completed and documented I reviewed the patient's previous medical record and recent hospital admission. Reviewed the patient's medications it does appear that she was previously taking 400 mg of Seroquel which has a sedating side effect I am unaware if they have continued that at the [facility]. The discharge note from the hospital physician states that they requested that it be discontinued at the time of discharge. Patient is on mirtazapine and melatonin which both could potentiate somnolence and lead to the patient's accidental fall. Patient was provided a CT scan of her head and her cervical spine and there does not appear to be any acute new findings. Medical Records I reviewed the patient's medical records. Lab Data I reviewed the patient's lab results. 09/13/23 21:15 09/13/23 21:15 Radiology Impressions Cervical Spine CT 09/13/23 20:46 IMPRESSION: No posttraumatic changes in the cervical spine. Head CT 09/13/23 20:46 IMPRESSION: No intracranial posttraumatic changes. Laboratory Results WBC 7.04 10^3/uL (3.29-11.43) 09/13/23 21:15 RBC 2.96 10^6/uL (3.85-5.65) L 09/13/23 21:15 Hgb 9.50 g/dL (11.27-16.99) L 09/13/23 21:15 Hct 29.6 % (36-47) L 09/13/23 21:15 MCV 100.0 fl (85-98) H 09/13/23 21:15 MCH 32.1 pg (27-33) 09/13/23 21:15 MCHC 32.1 g/dL (30-55) 09/13/23 21:15 RDW 16.1 % (12.1-15.1) H 09/13/23 21:15 Plt Count 331 10^3/cmm (157-399) 09/13/23 21:15 MPV 9.6 fL (7.4-10.4) 09/13/23 21:15 Neut % (Auto) 47.3 % 09/13/23 21:15 Lymph % (Auto) 38.2 % 09/13/23 21:15 [place] % (Auto) 10.9 % 09/13/23 21:15 Eos % (Auto) 0.9 % 09/13/23 21:15 Baso % (Auto) 0.6 % 09/13/23 21:15 Neut # (Auto) 3.33 10^3/uL (1.8-7.7) 09/13/23 21:15 Lymph # (Auto) 2.7 10^3/uL (0.8-4.8) 09/13/23 21:15 [place] # (Auto) 0.8 10^3/uL (0.2-0.9) 09/13/23 21:15 Eos # (Auto) 0.1 10^3/uL (0.0-0.8) 09/13/23 21:15 Baso # (Auto) 0.0 10^3/uL (0.0-0.1) 09/13/23 21:15 Nucleated RBC % (auto) 0 % 09/13/23 21:15 Nucleated RBCs # 0.0 /100WBC 09/13/23 21:15 Sodium 138 mmol/L (136-145) 09/13/23 21:15 Potassium 4.1 mmol/L (3.5-5.1) 09/13/23 21:15 Chloride 109 mmol/L (98-107) H 09/13/23 21:15 Carbon Dioxide 21 mmol/L (22-29) L 09/13/23 21:15 Anion Gap 12.1 (5-19) 09/13/23 21:15 BUN 18 mg/dL (8-23) 09/13/23 21:15 Creatinine 0.5 mg/dL (0.5-0.9) 09/13/23 21:15 GFR Calculation Not Reportable 09/13/23 21:15 Glucose 87 mg/dL (65-115) 09/13/23 21:15 Calculated Osmolality 287 mOsm/kg (285-295) 09/13/23 21:15 Calcium 7.5 mg/dL (8.5-10.5) L 09/13/23 21:15 Total Bilirubin 0.3 mg/dL (0.15-1.2) 09/13/23 21:15 AST 15 U/L (0-32) 09/13/23 21:15 ALT < 5 U/L (0-33) 09/13/23 21:15 Alkaline Phosphatase 87 U/L (35-105) 09/13/23 21:15 Total Protein 5.7 g/dL (6.6-8.7) L 09/13/23 21:15 Albumin 2.7 g/dL (3.5-5.2) L 09/13/23 21:15 Globulin 3.0 g/dL (1.3-4.6) 09/13/23 21:15 Urine Color Yellow (Yellow) 09/13/23 21:25 Urine Appearance Clear (CLEAR) 09/13/23 21:25 Urine pH 7 (5-7) 09/13/23 21:25 Ur Specific [place] 1.010 (1.005-1.030) 09/13/23 21:25 Urine Protein Trace (Negative) 09/13/23 21:25 Urine Glucose (UA) Norm (Normal) 09/13/23 21:25 Urine Ketones 1+ (Negative) H 09/13/23 21:25 Urine Blood Neg (Negative) 09/13/23 21:25 Urine Nitrate Negative (Negative) 09/13/23 21:25 Urine Bilirubin Neg (Negative) 09/13/23 21:25 Urine Urobilinogen Neg mg/dL (Negative) 09/13/23 21:25 Ur Leukocyte Esterase Negative (Negative) 09/13/23 21:25 Urine RBC None /hpf (0-2) 09/13/23 21:25 Urine WBC 0-4 /hpf (0-5) H 09/13/23 21:25 Ur Squamous Epith Cells None /hpf (0-5) 09/13/23 21:25 Amorphous Sediment Not Reportable 09/13/23 21:25 Urine Bacteria Trace /hpf (NONE) 09/13/23 21:25 Urine Mucus 3+ /hpf 09/13/23 21:25 Urine Opiates Screen Negative ng/mL (Negative) 09/13/23 21:35 Ur Barbiturates Screen Negative ng/mL (Negative) 09/13/23 21:35 Ur Phencyclidine Scrn Negative ng/mL (Negative) 09/13/23 21:35 Ur Amphetamines Screen Negative ng/mL (Negative) 09/13/23 21:35 U Benzodiazepines Scrn Negative ng/mL (Negative) 09/13/23 21:35 Urine Cocaine Screen Negative ng/mL (Negative) 09/13/23 21:35 U Marijuana (THC) Screen Negative ng/mL (Negative) 09/13/23 21:35 All radiology interpretation(s) finalized by discharge Discharge Plan Discharge Patient Disposition: [facility] Clinical Impression: Accidental fall Qualifiers: Encounter type: initial encounter Qualified Code(s): W19.XXXA - Unspecified fall, initial encounter Hematoma of frontal scalp Qualifiers: Encounter type: initial encounter Qualified Code(s): S00.03XA - Contusion of scalp, initial encounter Condition: Stable Discharge Orders: Discharge ED (Routine); Ordered 09/13/23 Ordered By: Tristan Winslow Referrals: Deo Marshall MD [Primary Care Provider] - Coding Level of Care Code ED Inspector Assembly for Anthony Love
[2023-09-13 23:48] LABS: Amphetamines Screen Urine Negative (Negative); Barbiturates Screen Urine Negative (Negative); Benzodiazepines Screen Urine Negative (Negative); Cocaine Screen Urine Negative (Negative); Opiate Screen Urine Negative (Negative); PCP Screen Urine Negative (Negative); THC Screen Urine Negative (Negative)
[2023-09-14 00:04] VITALS: BP 129/65; PULSE 62; RESP 15; O2SAT 99
[2023-09-14 00:06] VITALS: BP 129/65; PULSE 62; RESP 15; O2SAT 99
== END 2023-09-13 23:45 ==
PROVIDERS: Emergency Provider Internal Medicine; PCP Internal Medicine
DX: S00.03XA Contusion of scalp, initial encounter (principal); W05.0XXA Fall from non-moving wheelchair, initial encounter; Y92.129 Unspecified place in nursing home as the place of occurrence of the external cause; Z87.891 Personal history of nicotine dependence; G31.83 Neurocognitive disorder with Lewy bodies; F02.80 Dementia in other diseases classified elsewhere, unspecified severity, without behavioral disturbance, psychotic disturbance, mood disturbance, and anxiety; E78.2 Mixed hyperlipidemia; J44.9 Chronic obstructive pulmonary disease, unspecified; G20.A1 Parkinson's disease without dyskinesia, without mention of fluctuations
CPT/HCPCS: 70450; 72125; 80053; 80306; 81001; 85025; 93005; 99284

== ENCOUNTER → 2023-10-25 08:41 | Outpatient (BNVA) | payer MEDICARE, OTHER, MEDICAID, SELFPAY | PROVIDERS: PCP Internal Medicine; Visit Provider Orthopaedic Surgery | DX: S32.020A Wedge compression fracture of second lumbar vertebra, initial encounter for closed fracture (principal); X58.XXXA Exposure to other specified factors, initial encounter | CPT/HCPCS: 72100; 99204 ==

== ENCOUNTER 2023-11-02 14:30 | Oncology outpatient (recurring) (ONCR) | payer MEDICARE, OTHER, MEDICAID, SELFPAY ==
--- NOTE | 2023-11-02 14:30 | MR_ITS ---
WS: [id number] MRI LUMBAR SPINE NONCONTRAST HISTORY: lumbar fx COMPARISON: Lumbar spine radiograph 10/25/2023, CT reformats 09/07/2023 TECHNIQUE: Sagittal and axial multisequence imaging is submitted. Severe degenerative changes throughout the thoracic and lumbar spines with rotary scoliosis and fract ures. T9 compression fracture seen on the localizer. Fracture involves the inferior endplate with approxima tely 20% loss of height. This fracture is new since 10/26/2021. Does not appear to be present to this extent on the CT reformats of 09/07/2023. Prior vertebroplasties at T11 and T12. Severe T12 compression fracture. Severe acute appearing compression fracture L2 with approximately 40% loss of height. There is extens jean marrow edema. Vertical and horizontal fracture lines and L2. There is a small amount of acute mar row edema along the anterior inferior endplate of L1. No additional edema within the lumbar vertebral bodies. Disc spaces are all narrowed and desiccated. Conus terminates normally at L1-2 disc level. L1-L2: Severe annular disc bulging and osteophytosis. Bilateral paracentral disc protrusions, LEFT gr eater than RIGHT. Effacement of CSF. Severe central with moderate to severe bilateral subarticular re cess and foraminal stenosis. L2-L3: Marked annular disc bulging with ligamentum flavum and facet arthritis. Shallow LEFT paracentr al disc protrusion. Moderate central with bilateral subarticular recess and foraminal stenosis. L3-L4: Diffuse annular disc bulging with ligamentum flavum and facet arthritis. Moderate central, alessandra ateral subarticular recess and foraminal stenosis. L4-L5: Marked annular disc bulging with ligamentum flavum and facet arthritis. Severe central with bi lateral subarticular recess and moderate foraminal stenosis. Asymmetric disc bulging to the RIGHT con tacts the RIGHT exiting L4 nerve root. L5-S1: Diffuse annular disc bulging encroaching upon the ventral thecal sac and the S1 nerve roots, R IGHT greater than LEFT. Moderate central with bilateral subarticular recess and LEFT foraminal stenos is. Moderate to severe RIGHT foraminal stenosis. Paravertebral soft tissues are negative. MR/MR lumbar spine wo con* [id number] IMPRESSION: 1. Acute L2 compression fracture by 40%. Slight retropulsion of the posterior superior endplate. 2. Minimal acute marrow edema in the anterior inferior endplate of L1. 3. Remote T11 and T12 compression fractures with vertebroplasties. Severe T12 compression fracture. 4. Age-indeterminate but probably acute or progressed T9 compression fracture. Fracture was probably present on the CT of 09/07/2023 but may have progressed. 5. Multilevels of moderate to severe central, subarticular recess and foramina l stenosis due to combination of disc, osteophytosis and facet disease. 6. L1-2: Severe central with moderate to severe bilateral subarticular recess and foraminal stenosis. 7. L2-3 and L3-4: Moderate central with bilateral subarticular recess and fora carola stenosis. 8. L4-5: Severe central with bilateral subarticular recess and moderate forami nal stenosis. Asymmetric disc bulging. 9. L5-S1: Moderate central with bilateral subarticular recess and LEFT foramin al stenosis. Moderate to severe RIGHT foraminal stenosis.
== END 2023-11-04 23:59 | disposition home or self-care (01) ==
LOC: ONCMED 18:49
PROVIDERS: PCP Internal Medicine; Visit Provider Internal Medicine
DX: Z53.9 Procedure and treatment not carried out, unspecified reason (principal); X58.XXXA Exposure to other specified factors, initial encounter; S32.020A Wedge compression fracture of second lumbar vertebra, initial encounter for closed fracture; M51.37 Other intervertebral disc degeneration, lumbosacral region; M48.07 Spinal stenosis, lumbosacral region; M25.78 Osteophyte, vertebrae
CPT/HCPCS: 72148; 73523; 99213

== ENCOUNTER → 2023-11-08 15:34 | Outpatient (BNVA) | payer MEDICARE, OTHER, MEDICAID, SELFPAY | PROVIDERS: PCP Internal Medicine; Visit Provider Orthopaedic Surgery | DX: S32.020A Wedge compression fracture of second lumbar vertebra, initial encounter for closed fracture (principal); Z09 Encounter for follow-up examination after completed treatment for conditions other than malignant neoplasm; X58.XXXA Exposure to other specified factors, initial encounter; Z01.812 Encounter for preprocedural laboratory examination | CPT/HCPCS: 80053; 85025; 99214 ==

== ENCOUNTER 2023-11-14 09:53 | Day surgery (SDC) | payer MEDICARE, OTHER, MEDICAID, SELFPAY ==
[2023-11-14] VITALS (10 sets, daily range): BP systolic 119–158; BP diastolic 53–91; PULSE 70–77; RESP 13–21; TEMP 36.4–36.8; O2SAT 95–100; BMI 19.8
--- NOTE | 2023-11-14 10:03 | SC_ITS ---
WS: [id number] C-ARM RADIOGRAPHS SPINE; 1 IMAGES HISTORY: Surgery COMPARISON: None available. Intraoperative imaging during kyphoplasty. Kyphoplasty is performed at several adjacent levels and at the thoracolumbar junction. SC/C-arm FL for Kyphoplasty IMPRESSION: Intraoperative imaging during multilevel kyphoplasty.
[2023-11-14] MEDS: sodium chloride 0.9% 1,000 ML 30 ML IV (10:15)
--- NOTE | 2023-11-14 10:17 | W.PM.OPSUD ---
Surgery/Procedure H&P Update DATE OF PROCEDURE: November 14, 2023 DATE H&P PERFORMED: 11/08/23 H&P UPDATE INFORMATION: I have reviewed H&P completed within last 30 days, I have examined patient prior to procedure and No changes to prior documentation PREOP DIAGNOSIS: Lumbar 1 and lumbar 2 compared show osteoporotic traumatic compression frac PLANNED PROCEDURE: Operation Date: 11/14/23 15:20 Proposed Procedures p L1-L2 Kyphoplasty(Not Applicable) - Miller Sosa DO
--- NOTE | 2023-11-14 10:49 | P.ANESASSM_ITS ---
Pre-Anesthetic Assessment Height/Weight: Height 1.55 m Weight 47.627 kg Temp Pulse Resp BP Pulse Ox O2 Del Method 98 F 72 18 158/91 100 Room Air 11/14/23 10:16 11/14/23 10:16 11/14/23 10:16 11/14/23 10:16 11/14/23 10:16 11/14/23 10:16 Preop Diagnosis: Lumbar 1 and lumbar 2 compared show osteoporotic traumatic compression frac Operation Date: 11/14/23 15:20 Proposed Procedures p L1-L2 Kyphoplasty(Not Applicable) - Miller Sosa, DO Familial anesthetic complications: none Was Beta Jhonny taken within 24 hours: N/A Was Clonidine taken within 24 hours: N/A Last intake: Intake Last Liquid Date 11/13/23 Last Liquid Time 18:00 Last Solid Date 11/13/23 Last Solid Time 18:00 Social No alcohol and No tobacco Exam alert, oriented x 3, clear to auscultation bilaterally and regular rate & rhythm Airway Submandibular: within normal limits Cervical ROM: within normal limits Mallampati: Class II Dentition: false Pulmonary Asthma, Chronic Obstructive Pulmonary Disease and Sleep Apnea CV/HEM Anemia GI Gastroesophageal Reflux Disease Metabolic Hyperlipidemia and Thyroid Disease Musc/skel Lower Back Pain and Osteoarthritis/DJD Neuropsych Anxiety, Dementia and Depression Anesthetic Plan ASA status: 3 Anesthesia: General Medications/Allergies Home Medications Medication Instructions Recorded Confirmed Last Taken Type duloxetine 60 mg capsule,delayed 60 mg PO BID #180 caps 12/13/21 11/11/23 11/11/23 Rx release (Cymbalta) fluticasone propionate 50 2 spray intranasal DAILY@1999 #48 03/28/22 11/11/23 11/11/23 Rx mcg/actuation nasal grams spray,suspension potassium chloride 10 mEq 10 meq PO BID #180 tabs 03/28/22 11/11/23 11/11/23 Rx tablet,extended release rosuvastatin 10 mg tablet 10 mg PO BEDTIME@1999 #90 tabs 04/25/22 11/11/23 11/11/23 Rx acetaminophen 325 mg capsule 650 mg PO Q6H PRN Pain 12/11/22 11/11/23 11/11/23 History (Tylenol) carbidopa 25 mg-levodopa 100 mg 1 tab PO BID 12/11/22 11/11/23 11/11/23 History tablet levothyroxine 200 mcg tablet 200 mcg PO QAM 12/11/22 11/11/23 11/11/23 History melatonin 5 mg capsule 5 mg PO BEDTIME 12/11/22 11/11/23 11/11/23 History mirtazapine 15 mg tablet 30 mg PO BEDTIME 12/11/22 11/11/23 11/11/23 History topiramate 100 mg tablet (Topamax) 100 mg PO DAILY@1400 12/11/22 11/11/23 11/11/23 History acetaminophen 500 mg tablet 500 mg PO TID 03/21/23 11/11/23 11/11/23 History aluminum-mag hydroxide-simethicone 30 ml PO Q8H PRN GI upset 03/21/23 11/11/23 11/11/23 History 200 mg-200 mg-20 mg/5 mL oral susp (Katy-Lanta) bisacodyl 10 mg rectal suppository 10 mg PA DAILY PRN Constipation 03/21/23 11/11/23 11/11/23 History calcium carbonate 500 mg-vitamin 1 tab PO BID 03/21/23 11/11/23 11/11/23 History D3 10 mcg (400 unit) tablet (Calcium 500 + D) lamotrigine 150 mg tablet 150 mg PO QAM 03/21/23 11/11/23 11/11/23 History ferrous sulfate 325 mg (65 mg 325 mg PO DAILY #30 tabs 06/28/23 11/11/23 11/11/23 Rx iron) tablet (Feosol) vibegron 75 mg tablet (Gemtesa) 75 mg PO QAM 08/26/23 11/11/23 11/11/23 History Med Pass 2.0 1 ea PO BID 09/07/23 11/11/23 09/06/23 History aspirin 81 mg tablet,delayed 81 mg PO DAILY 09/07/23 11/11/23 11/05/23 History release dextran 70-hypromellose (PF) 0.1 1 drp ophthalmic (eye) Q4H PRN Dry 09/07/23 11/11/23 11/11/23 History %-0.3 % eye drops in a dropperette Eyes (Artificial Tears (PF)) docusate sodium 100 mg capsule 100 mg PO BID 0411/11/23 11/11/23 History fluticasone propionate 100 1 inh inhalation BID 09/07/23 11/11/23 11/11/23 History mcg/actuation blister powder for inhalation vitamins-iron fumarate 65 1 tab PO DAILY 09/07/23 11/11/23 11/11/23 History mg iron-folic acid 1 mg tablet tramadol 50 mg tablet 50 mg PO TID 09/07/23 11/11/23 11/11/23 History pantoprazole 40 mg tablet,delayed 40 mg PO BID #60 tabs 09/09/23 11/11/23 11/11/23 Rx release polyethylene glycol 3350 17 gram 17 g PO BID #60 ea 09/09/23 11/11/23 11/11/23 Rx oral powder packet denosumab 60 mg/mL subcutaneous See Rx Instructions .Route .COMPLEX 11/11/23 11/11/23 Unknown History syringe (Prolia) quetiapine 25 mg tablet 25 mg PO BEDTIME 11/11/23 11/11/23 11/10/23 History Allergies Allergy/AdvReac Type Severity Reaction Status Date / Time No Known Allergies Allergy Verified 11/11/23 15:59 [facility] Anesthesia Medical History Lewy body dementia Closed left hip fracture DNR no code (do not resuscitate) Osteoporosis, post-menopausal Lives in assisted living facility Spine deformity Osteoarthritis of knee Bradycardia Recurrent syncope Mixed hyperlipidemia Seasonal allergic rhinitis due to pollen Slow transit constipation Major depressive disorder, recurrent severe without psychotic features Sleep apnea Anxiety and depression Adult onset hypothyroidism Vitamin D deficiency COPD (chronic obstructive pulmonary disease) Parkinson disease CPAP (continuous positive airway pressure) dependence Dependent on walker for ambulation Surgical History Status post hip hemiarthroplasty History of repair of hiatal hernia Hx of cataract surgery Hx of right breast biopsy 1999 History of laparotomy 1972 no body parts removed History of back surgery 2016 T11-T12 History of hernia repair 2017 History of tubal ligation Left removed only 1973 History of bunionectomy bilateral 2015 Family History Mother Congestive heart failure (CHF) Clotting disorder CAD (coronary artery disease) Family/Other Lung disease Cancer Grandmother Stroke Denies family history of Diabetes Dementia Chronic kidney disease (CKD) Suicide Anesthesia complication Bleeding disorder Social History Smoking and tobacco/nicotine status: former use of tobacco/nicotine Quit status (tobacco/nicotine): has quit using Year quit tobacco: 2004 - PPD x 35 Years Second hand smoke exposure: No Alcohol intake: former Substance/Drug Use: never Adopted: No Caregiver/support person: No Lives independently: Yes Household members: none Housing: House Marital status: Unknown Number of children: 1 service: Yes branch: [employer] Current occupational status: retired and disabled Pets and animals: No Do you think of yourself as: Straight/Heterosexual Current gender identity: Female Data Anesthesia Cardiac Studies: Echocardiogram Ultrasound 03/25/20 Sestamibi Stress Test (Cardiology) 02/04 Holter Monitor 01/04/20
[2023-11-14] MEDS: ceFAZolin 2,000 MG in sodium chloride 0.9% (plus) 50 ML 100 MG IV (10:54)
[2023-11-14] MEDS: lidocaine-epi 1% 20 mL INJ INJECTION (11:38)
[2023-11-14] MEDS: iohexol 300 mg/mL 50 mL Btl XX (11:38)
--- NOTE | 2023-11-14 12:16 | PM.OP ---
Operative Report Date of procedure: November 14, 2023 Pre-op diagnosis: 1. L1 wedge osteoporotic traumatic compression fracture 2. L2 wedge osteoporotic traumatic compression fracture Post-op diagnosis: same Procedure done: 1. L1 kyphoplasty 2. L2 kyphoplasty Surgeon: Miller Sosa DO Estimated blood loss (mL): 5 Procedure: 1. L1 kyphoplasty 2. L2 kyphoplasty Patient brought the op suite after undergoing anesthesia placed in prone position. All his impingement well-padded. Patient's prepped draped in sterile fashion. Skin incision made over the left lateral pedicle. This was at L2 initially. Using biplanar fluoroscopy. The awl was inserted. Followed by the drill. The balloon was inflated inserted inflated next. Balloon was then deflated. This process was then repeated at the L1 level. Again the left pedicle was identified awl was used to go down the pedicle AP lateral fluoroscopy were used. Drill was then used to followed by the balloon. Balloon was inflated and deflated. And removed. Next tension was brought to the cement. Cement was placed in L2 started to leak through the superior endplate. I then placed the cement in L1. Had good fill of the L1 body. And then came back up and put the remaining cement into L2. AP lateral fluoroscopy ensured the cement was in good position. Wounds irrigated closed with nylon suture.
--- NOTE | 2023-11-14 13:08 | PC.NURSE ---
Iv taken out at 1245. Catheter was intact.
--- NOTE | 2023-11-14 15:53 | ANE.PACU2 ---
Inpatient post-anesthesia follow up: Airway intact: Yes Vital signs: Temperature 97.8 F Pulse Rate 75 Respiratory Rate 17 Blood Pressure 139/67 Pulse Oximetry 100 Oxygen Delivery Me thod Room Air Oxygen Flow Rate 8 Fraction of Inspir ed Oxygen Hydration adequate: Yes Nausea and vomiting: No Pain level: 2 Mental status: Baseline
== END 2023-11-14 13:08 | disposition home or self-care (01) ==
PROVIDERS: PCP Internal Medicine; Visit Provider Orthopaedic Surgery
PROC: (CPT 22514; principal; 2023-11-14 15:10)
DX: S32.010A Wedge compression fracture of first lumbar vertebra, initial encounter for closed fracture (principal); S32.020A Wedge compression fracture of second lumbar vertebra, initial encounter for closed fracture; X58.XXXA Exposure to other specified factors, initial encounter; J44.9 Chronic obstructive pulmonary disease, unspecified; G47.30 Sleep apnea, unspecified; K21.9 Gastro-esophageal reflux disease without esophagitis; M81.0 Age-related osteoporosis without current pathological fracture; Z66 Do not resuscitate; E78.2 Mixed hyperlipidemia; E03.9 Hypothyroidism, unspecified; Z87.891 Personal history of nicotine dependence
CPT/HCPCS: 22514; 22515; 72100; 76000; J0690; J1100; J2371; J2405; J2704; J3010; J3490; J7030; Q9967

== ENCOUNTER → 2023-11-29 08:45 | Outpatient (BNVA) | payer MEDICARE, OTHER, MEDICAID, SELFPAY | PROVIDERS: PCP Internal Medicine; Visit Provider Orthopaedic Surgery | DX: S32.020A Wedge compression fracture of second lumbar vertebra, initial encounter for closed fracture (principal); Z98.890 Other specified postprocedural states; X58.XXXA Exposure to other specified factors, initial encounter | CPT/HCPCS: 99024 ==

== ENCOUNTER → 2023-12-21 14:18 | Outpatient (BNVA) | payer MEDICARE, MEDICAID, SELFPAY | PROVIDERS: PCP Internal Medicine; Visit Provider Specialist | DX: G20.A1 Parkinson's disease without dyskinesia, without mention of fluctuations (principal) | CPT/HCPCS: 99214; 99215 ==

== ENCOUNTER → 2024-01-18 08:08 | Outpatient (BNVA) | payer MEDICARE, OTHER, MEDICAID, SELFPAY | PROVIDERS: PCP Internal Medicine; Visit Provider Podiatrist Foot & Ankle Surgery | DX: M79.672 Pain in left foot (principal); M20.21 Hallux rigidus, right foot; M20.22 Hallux rigidus, left foot; M20.41 Other hammer toe(s) (acquired), right foot; M20.42 Other hammer toe(s) (acquired), left foot | CPT/HCPCS: 73630; 99203 ==

== ENCOUNTER 2024-01-30 20:52 | Emergency (ER) | payer MEDICARE, OTHER, MEDICAID, SELFPAY ==
[2024-01-30 20:53] VITALS: BP 172/79; PULSE 80; RESP 18; TEMP 36.7; O2SAT 100; BMI 24.5
--- NOTE | 2024-01-30 21:10 | ED_ITS ---
HPI - General Adult General: Chief complaint: General Medical Stated complaint: lethargy Time Seen by Provider: 01/30/24 20:53 History of Present Illness: Pleasant 73-year-old female from long term presents via EMS for medical screening exam. Apparently the long term was concerned that the patient might be hypoxic. They had a pulse ox on her finger and were reading the heart rate as 99 and the pulse ox is 80 however when EMS arrived the readings were reversed and the pulse ox was 99 and the heart rate was 80. Patient herself has no complaints. senior living wanted patient to have medical screening exam. Patient has no complaints. No signs of trauma. She is pleasantly confused at baseline. She is joking and in good spirits. Denies any illness. Related Data Home Medications Medication Instructions Recorded Confirmed acetaminophen 325 mg capsule 650 mg PO Q6H PRN Pain 12/11/22 01/18/24 (Tylenol) carbidopa 25 mg-levodopa 100 mg 1 tab PO BID 12/11/22 01/18/24 tablet levothyroxine 200 mcg tablet 200 mcg PO QAM 12/11/22 01/18/24 melatonin 5 mg capsule 5 mg PO BEDTIME 12/11/22 01/18/24 mirtazapine 15 mg tablet 30 mg PO BEDTIME 12/11/22 01/18/24 topiramate 100 mg tablet (Topamax) 100 mg PO DAILY@1400 12/11/22 01/18/24 acetaminophen 500 mg tablet 500 mg PO TID 03/21/23 01/18/24 aluminum-mag hydroxide-simethicone 30 ml PO Q8H PRN GI upset 03/21/23 01/18/24 200 mg-200 mg-20 mg/5 mL oral susp (Katy-Lanta) bisacodyl 10 mg rectal suppository 10 mg MA DAILY PRN Constipation 03/21/23 01/18/24 calcium carbonate 500 mg-vitamin 1 tab PO BID 03/21/23 01/18/24 D3 10 mcg (400 unit) tablet (Calcium 500 + D) lamotrigine 150 mg tablet 150 mg PO QAM 03/21/23 01/18/24 vibegron 75 mg tablet (Gemtesa) 75 mg PO QAM 08/26/23 01/18/24 Med Pass 2.0 1 ea PO BID 09/07/23 01/18/24 aspirin 81 mg tablet,delayed 81 mg PO DAILY 09/07/23 01/18/24 release dextran 70-hypromellose (PF) 0.1 1 drp ophthalmic (eye) Q4H PRN Dry 09/07/23 01/18/24 %-0.3 % eye drops in a dropperette Eyes (Artificial Tears (PF)) docusate sodium 100 mg capsule 100 mg PO BID 09/07/23 01/18/24 fluticasone propionate 100 1 inh inhalation BID 09/07/23 01/18/24 mcg/actuation blister powder for inhalation vitamins-iron fumarate 65 1 tab PO DAILY 09/07/23 01/18/24 mg iron-folic acid 1 mg tablet tramadol 50 mg tablet 50 mg PO TID 09/07/23 01/18/24 denosumab 60 mg/mL subcutaneous See Rx Instructions .Route .COMPLEX 11/11/23 01/18/24 syringe (Prolia) quetiapine 25 mg tablet 25 mg PO BEDTIME 11/11/23 01/18/24 Previous Rx's Medication Instructions Recorded duloxetine 60 mg capsule,delayed 60 mg PO BID #180 caps 12/13/21 release (Cymbalta) fluticasone propionate 50 2 spray intranasal DAILY@1999 #48 03/28/22 mcg/actuation nasal grams spray,suspension potassium chloride 10 mEq 10 meq PO BID #180 tabs 03/28/22 tablet,extended release rosuvastatin 10 mg tablet 10 mg PO BEDTIME@1999 #90 tabs 04/25/22 ferrous sulfate 325 mg (65 mg 325 mg PO DAILY #30 tabs 06/28/23 iron) tablet (Feosol) pantoprazole 40 mg tablet,delayed 40 mg PO BID #60 tabs 09/09/23 release polyethylene glycol 3350 17 gram 17 g PO BID #60 ea 09/09/23 oral powder packet custom molded accommodative #1 ea 01/18/24 orthotics and orthopedic shoes Allergies Allergy/AdvReac Type Severity Reaction Status Date / Time No Known Allergies Allergy Verified 01/30/24 21:00 [facility] ED PFSH: Medical History Lewy body dementia Closed left hip fracture DNR no code (do not resuscitate) Osteoporosis, post-menopausal Lives in assisted living facility Spine deformity Osteoarthritis of knee Bradycardia Recurrent syncope Mixed hyperlipidemia Seasonal allergic rhinitis due to pollen Slow transit constipation Major depressive disorder, recurrent severe without psychotic features Sleep apnea Anxiety and depression Adult onset hypothyroidism Vitamin D deficiency COPD (chronic obstructive pulmonary disease) Parkinson disease CPAP (continuous positive airway pressure) dependence Dependent on walker for ambulation Surgical History Status post hip hemiarthroplasty History of repair of hiatal hernia Hx of cataract surgery Hx of right breast biopsy 1999 History of laparotomy 1972 no body parts removed History of back surgery 2016 [id number] History of hernia repair 2017 History of tubal ligation Left removed only 1973 History of bunionectomy bilateral 2015 Family History Mother Congestive heart failure (CHF) Clotting disorder CAD (coronary artery disease) Family/Other Lung disease Cancer Grandmother Stroke Denies family history of Diabetes Dementia Chronic kidney disease (CKD) Suicide Anesthesia complication Bleeding disorder Social History Smoking and tobacco/nicotine status: former use of tobacco/nicotine Quit status (tobacco/nicotine): has quit using Year quit tobacco: 2004 - PPD x 35 Years Second hand smoke exposure: No Alcohol intake: former Substance/Drug Use: never Adopted: No Caregiver/support person: No Lives independently: Yes Household members: none Housing: House Marital status: Unknown Number of children: 1 service: Yes branch: [employer] Current occupational status: retired and disabled Pets and animals: No Do you think of yourself as: Straight/Heterosexual Current gender identity: Female Physical Exam Const: COMMON NORMALS: no acute distress, average body habitus, no limitations, healthy appearing, alert and well nourished Neck/C-Spine: COMMON NORMALS: full ROM, no lymphadenopathy, supple, no meningeal signs, no JVD, Thyroid normal and No carotid bruits THYROID: Thyroid normal Resp: COMMON NORMALS: normal respiratory effort, No retractions, No use of accessory muscles, clear to auscultation bilaterally and percussion normal AUSCULTATION: clear to auscultation bilaterally PERCUSSION: percussion normal Cardio: COMMON NORMALS: no JVD, regular rate, regular rhythm, S1 normal heart sound present, S2 normal heart sound present, No gallops present (Cardio), No clicks present (Cardio), No murmurs present (Cardio), No rub (Cardio) and Peripheral pulses 2+ throughout RATE: regular rate RHYTHM: regular rhythm HEART SOUNDS: S1 normal heart sound present and S2 normal heart sound present PERIPHERAL PULSES: Peripheral pulses 2+ throughout GI: COMMON NORMALS: Normal to inspection, nondistended, normoactive bowel sounds present, Soft to palpation, non-tender, No hepatosplenomegaly present, no masses and no bruits PALPATION: Yes Soft to palpation and Yes No hepatosplenomegaly present Extremity: COMMON NORMALS: normal to inspection, full ROM, capillary refill normal, no joint enlargement, no clubbing, cyanosis or edema, no calf tenderness and no pedal edema Neuro: COMMON NORMALS: CN's II-XII intact bilaterally, moves all extremities, no focal motor deficits and no sensory deficits noted SENSORIUM/ORIENTATION: Yes alert MENINGEAL SIGNS: Yes no meningeal signs Course Vital Signs: Vital signs: Vital Signs Temperature 98.0 F 01/30/24 20:53 Pulse Rate 80 01/30/24 20:53 Respiratory Rate 18 01/30/24 20:53 Blood Pressure 172/79 01/30/24 20:53 Pulse Oximetry 100 01/30/24 20:53 Oxygen Delivery Me thod Room Air 01/30/24 20:53 MDM - General Adult Medical Decision Making Pleasant 73-year-old female from long term presents via EMS for medical screening exam. Apparently the long term was concerned that the patient might be hypoxic. They had a pulse ox on her finger and were reading the heart rate as 99 and the pulse ox is 80 however when EMS arrived the readings were reversed and the pulse ox was 99 and the heart rate was 80. Patient herself has no complaints. senior living wanted patient to have medical screening exam. Patient has no complaints. No signs of trauma. She is pleasantly confused at baseline. She is joking and in good spirits. Denies any illness. Patient with completely normal physical exam other than some mild confusion which is her baseline. Patient is laughing and joking about getting up and dancing. She has no complaints. Vitals are normal. Do not see an indication for further workup at this time. No radiology studies performed this visit Discharge Plan Discharge Patient Disposition: Home Clinical Impression: Encounter for medical screening examination Condition: Stable Prescriptions: No Action duloxetine [Cymbalta] 60 mg capsule,delayed release(DR/EC) 60 mg PO BID Qty: 180 1RF Gemtesa 75 mg tablet 75 mg PO QAM (DME) custom molded accommodative orthotics and orthopedic shoes See Rx Instructions .Route .MEDSUPPLY Qty: 1 0RF Rx Instructions: As directed fluticasone propionate 50 mcg/actuation spray,suspension 2 spray INTRANASAL DAILY@2000 Qty: 48 1RF potassium chloride 10 mEq tablet extended release 10 meq PO BID Qty: 180 1RF rosuvastatin 10 mg tablet 10 mg PO BEDTIME@2000 Qty: 90 1RF ferrous sulfate [Feosol] 325 mg (65 mg iron) tablet 325 mg PO DAILY Qty: 30 3RF lamotrigine 150 mg tablet 150 mg PO QAM calcium carbonate-vitamin D3 [Calcium 500 + D] 500 mg-10 mcg (400 unit) Tablet 1 tab PO BID bisacodyl 10 mg Suppository 10 mg MA DAILY PRN (Reason: Constipation) alum-mag hydroxide-simeth [Katy-Lanta] 200-200-20 mg/5 mL Suspension 30 ml PO Q8H PRN (Reason: GI upset) Rx Instructions: administer between meals and at bedtime acetaminophen 500 mg Tablet 500 mg PO TID aspirin 81 mg Tablet,Delayed Release (Dr/Ec) 81 mg PO DAILY tramadol 50 mg tablet 50 mg PO TID fluticasone propionate 100 mcg/actuation blister with device 1 inh INHALATION BID vit-iron fum-folic ac 65 mg iron- 1 mg Tablet 1 tab PO DAILY Artificial Tears (PF) 0.1-0.3 % Dropperette 1 drp OPHTHALMIC (EYE) Q4H PRN (Reason: Dry Eyes) Med Pass 2.0 1 ea PO BID docusate sodium 100 mg capsule 100 mg PO BID polyethylene glycol 3350 17 gram Powder In Packet 17 g PO BID Qty: 60 0RF pantoprazole 40 mg Tablet,Delayed Release (Dr/Ec) 40 mg PO BID Qty: 60 0RF carbidopa-levodopa 25-100 mg tablet 1 tab PO BID topiramate [Topamax] 100 mg tablet 100 mg PO DAILY@1400 levothyroxine 200 mcg tablet 200 mcg PO QAM mirtazapine 15 mg tablet 30 mg PO BEDTIME acetaminophen [Tylenol] 325 mg Capsule 650 mg PO Q6H PRN (Reason: Pain) melatonin 5 mg Capsule 5 mg PO BEDTIME quetiapine 25 mg Tablet 25 mg PO BEDTIME Prolia 60 mg/mL Syringe See Rx Instructions .ROUTE .COMPLEX Rx Instructions: Takes every 6 months Discharge Orders: Discharge ED (Routine); Ordered 01/30/24 Ordered By: Stuart Jain Referrals: Doe Marshall MD [Primary Care Provider] - Patient Instructions: Opioid Safety, Pain Management Coding Level of Care Code ED Clock And Watch Hands Mounter for Anthony Love
[2024-01-30 21:12] VITALS: BP 168/80; PULSE 86; RESP 18; O2SAT 100
[2024-01-30 21:19] VITALS: BP 130/89; PULSE 78; RESP 18; O2SAT 99
--- NOTE | 2024-01-30 21:43 | PC.NURSE ---
Patient had episode of urinary incontinence. Patient was cleaned, placed in clean dry depends and bedding changed as well. Patient helped back into bed, both side rails up, and given instructions on how to use call light that is within reach. Patient had no further needs or concerns at this time.
--- NOTE | 2024-01-30 22:35 | PC.NURSE ---
Updated daughter Ashley on patient's discharge status, and results from evaluation in ED. Daughter had no further questions after update.
--- NOTE | 2024-01-30 22:39 | PC.NURSE ---
This nurse spoke with Kristen at [facility]. Possible transport ETA at approximately 0300, but nurse Kristen to call back with any update.
[2024-01-30 23:10] VITALS: BP 147/91; PULSE 81; RESP 16; O2SAT 99
== END 2024-01-30 23:12 | disposition home or self-care (01) ==
PROVIDERS: Emergency Provider Emergency Medicine; PCP Internal Medicine
DX: Z03.89 Encounter for observation for other suspected diseases and conditions ruled out (principal); Z79.82 Long term (current) use of aspirin; Z87.891 Personal history of nicotine dependence; E78.2 Mixed hyperlipidemia; J44.9 Chronic obstructive pulmonary disease, unspecified; G20.A1 Parkinson's disease without dyskinesia, without mention of fluctuations
CPT/HCPCS: 99283

== ENCOUNTER 2024-02-09 03:24 | Emergency (ER) | payer MEDICARE, OTHER, MEDICAID, SELFPAY ==
[2024-02-09] VITALS (7 sets, daily range): BP systolic 104–139; BP diastolic 66–98; PULSE 71–82; RESP 18; TEMP 37; O2SAT 91–100; BMI 23.6
--- NOTE | 2024-02-09 03:31 | ED_ITS ---
HPI - General Adult 2 General: Chief complaint: GI Bleed Stated complaint: dark tarry stools History of Present Illness: Patient is brought in by EMS for complaints of dark tarry stools. They stated with nursing change the patient's briefs that were approximately 1:00 this morning she had dark tarry stools they called the doctor on-call he went stat labs they could not get stat labs so they told him to come here to be checked out. Patient has no complaints at this time. Patient does take iron supplementation and a vitamin has no anticoagulation. Related Data Home Medications Medication Instructions Recorded Confirmed acetaminophen 325 mg capsule 650 mg PO Q6H PRN Pain 12/11/22 01/18/24 (Tylenol) carbidopa 25 mg-levodopa 100 mg 1 tab PO BID 12/11/22 01/18/24 tablet levothyroxine 200 mcg tablet 200 mcg PO QAM 12/11/22 01/18/24 melatonin 5 mg capsule 5 mg PO BEDTIME 12/11/22 01/18/24 mirtazapine 15 mg tablet 30 mg PO BEDTIME 12/11/22 01/18/24 topiramate 100 mg tablet (Topamax) 100 mg PO DAILY@1400 12/11/22 01/18/24 acetaminophen 500 mg tablet 500 mg PO TID 03/21/23 01/18/24 aluminum-mag hydroxide-simethicone 30 ml PO Q8H PRN GI upset 03/21/23 01/18/24 200 mg-200 mg-20 mg/5 mL oral susp (Katy-Lanta) bisacodyl 10 mg rectal suppository 10 mg FL DAILY PRN Constipation 03/21/23 01/18/24 calcium carbonate 500 mg-vitamin 1 tab PO BID 03/21/23 01/18/24 D3 10 mcg (400 unit) tablet (Calcium 500 + D) lamotrigine 150 mg tablet 150 mg PO QAM 03/21/23 01/18/24 vibegron 75 mg tablet (Gemtesa) 75 mg PO QAM 08/26/23 01/18/24 Med Pass 2.0 1 ea PO BID 09/07/23 01/18/24 aspirin 81 mg tablet,delayed 81 mg PO DAILY 09/07/23 01/18/24 release dextran 70-hypromellose (PF) 0.1 1 drp ophthalmic (eye) Q4H PRN Dry 09/07/23 01/18/24 %-0.3 % eye drops in a dropperette Eyes (Artificial Tears (PF)) docusate sodium 100 mg capsule 100 mg PO BID 09/07/23 01/18/24 fluticasone propionate 100 1 inh inhalation BID 09/07/23 01/18/24 mcg/actuation blister powder for inhalation vitamins-iron fumarate 65 1 tab PO DAILY 09/07/23 01/18/24 mg iron-folic acid 1 mg tablet tramadol 50 mg tablet 50 mg PO TID 09/07/23 01/18/24 denosumab 60 mg/mL subcutaneous See Rx Instructions .Route .COMPLEX 11/11/23 01/18/24 syringe (Prolia) quetiapine 25 mg tablet 25 mg PO BEDTIME 11/11/23 01/18/24 Previous Rx's Medication Instructions Recorded duloxetine 60 mg capsule,delayed 60 mg PO BID #180 caps 12/13/21 release (Cymbalta) fluticasone propionate 50 2 spray intranasal DAILY@1999 #48 03/28/22 mcg/actuation nasal grams spray,suspension potassium chloride 10 mEq 10 meq PO BID #180 tabs 03/28/22 tablet,extended release rosuvastatin 10 mg tablet 10 mg PO BEDTIME@1999 #90 tabs 04/25/22 ferrous sulfate 325 mg (65 mg 325 mg PO DAILY #30 tabs 06/28/23 iron) tablet (Feosol) pantoprazole 40 mg tablet,delayed 40 mg PO BID #60 tabs 09/09/23 release polyethylene glycol 3350 17 gram 17 g PO BID #60 ea 09/09/23 oral powder packet custom molded accommodative #1 ea 01/18/24 orthotics and orthopedic shoes ciprofloxacin HCl 500 mg tablet 500 mg PO Q12H #20 tabs 02/09/24 Allergies Allergy/AdvReac Type Severity Reaction Status Date / Time No Known Allergies Allergy Verified 01/30/24 21:00 Review of Systems 2 General: Reports: 10 or more systems reviewed and unremarkable except in HPI and below PFSH ED 2 PFSH: Medical History Lewy body dementia Closed left hip fracture DNR no code (do not resuscitate) Osteoporosis, post-menopausal Lives in assisted living facility Spine deformity Osteoarthritis of knee Bradycardia Recurrent syncope Mixed hyperlipidemia Seasonal allergic rhinitis due to pollen Slow transit constipation Major depressive disorder, recurrent severe without psychotic features Sleep apnea Anxiety and depression Adult onset hypothyroidism Vitamin D deficiency COPD (chronic obstructive pulmonary disease) Parkinson disease CPAP (continuous positive airway pressure) dependence Dependent on walker for ambulation Surgical History Status post hip hemiarthroplasty History of repair of hiatal hernia Hx of cataract surgery Hx of right breast biopsy 1999 History of laparotomy 1972 no body parts removed History of back surgery 2016 T11-T12 History of hernia repair 2017 History of tubal ligation Left removed only 1973 History of bunionectomy bilateral 2015 Family History Mother Congestive heart failure (CHF) Clotting disorder CAD (coronary artery disease) Family/Other Lung disease Cancer Grandmother Stroke Denies family history of Diabetes Dementia Chronic kidney disease (CKD) Suicide Anesthesia complication Bleeding disorder Social History Smoking and tobacco/nicotine status: former use of tobacco/nicotine Quit status (tobacco/nicotine): has quit using Year quit tobacco: 2004 - PPD x 35 Years Second hand smoke exposure: No Alcohol intake: former Substance/Drug Use: never Adopted: No Caregiver/support person: No Lives independently: Yes Household members: none Housing: House Marital status: Unknown Number of children: 1 service: Yes branch: [employer] Current occupational status: retired and disabled Pets and animals: No Do you think of yourself as: Straight/Heterosexual Current gender identity: Female Physical Exam 2 Const: COMMON NORMALS: no acute distress, average body habitus, patient oriented x3, no limitations, healthy appearing, alert and well nourished HENMT: COMMON NORMALS: normocephalic, atraumatic, hearing grossly normal bilaterally, external ears normal, Normal external nose present and moist oral mucous membranes HEAD & SCALP: normocephalic and atraumatic NOSE: Normal external nose present EXTERNAL EAR: Yes external ears normal Neck/C-Spine: COMMON NORMALS: no JVD Chest: COMMONS NORMALS: normal inspection of the chest and normal palpation of entire chest wall Resp: COMMON NORMALS: normal respiratory effort, No retractions, No use of accessory muscles and clear to auscultation bilaterally AUSCULTATION: clear to auscultation bilaterally Cardio: COMMON NORMALS: no JVD, regular rate, regular rhythm, S1 normal heart sound present, S2 normal heart sound present, No gallops present (Cardio), No clicks present (Cardio), No murmurs present (Cardio) and No rub (Cardio) R ATE: regular rate RHYTHM: regular rhythm HEART SOUNDS: S1 normal heart sound present and S2 normal heart sound present GI: COMMON NORMALS: Normal to inspection, nondistended, normoactive bowel sounds present, Soft to palpation, non-tender, No hepatosplenomegaly present and no masses PALPATION: Yes Soft to palpation and Yes No hepatosplenomegaly present OTHER: Hemoccult positive Neuro: COMMON NORMALS: patient oriented x3 SENSORIUM/ORIENTATION: Yes alert Course 2 Vital Signs: Vital signs: Vital Signs Temperature 98.6 F 02/09/24 03:24 Pulse Rate 72 02/09/24 05:30 Respiratory Rate 18 02/09/24 03:24 Blood Pressure 115/73 02/09/24 05:30 Pulse Oximetry 92 02/09/24 05:30 Oxygen Delivery Me thod Room Air 02/09/24 04:30 MDM - General Adult Medical Decision Making Patient was Hemoccult positive, lab work was obtained, hemoglobin is stable, urine showed probable urinary tract infection. Patient will be given Cipro here in ER and discharged home with a prescription for Cipro and should follow-up with her PCP. Medical Records I reviewed the patient's medical records. Lab Data I reviewed the patient's lab results. 02/09/24 05:11 02/09/24 05:11 Laboratory Results WBC 8.68 10^3/uL (3.29-11.43) 02/09/24 05:11 RBC 3.33 10^6/uL (3.85-5.65) L 02/09/24 05:11 Hgb 11.40 g/dL (11.27-16.99) 02/09/24 05:11 Hct 35.3 % (36-47) L 02/09/24 05:11 MCV 106.0 fl (85-98) H 02/09/24 05:11 MCH 34.2 pg (27-33) H 02/09/24 05:11 MCHC 32.3 g/dL (30-55) 02/09/24 05:11 RDW 12.3 % (12.1-15.1) 02/09/24 05:11 Plt Count 184 10^3/cmm (157-399) 02/09/24 05:11 MPV 10.5 fL (7.4-10.4) H 02/09/24 05:11 Neut % (Auto) 67.1 % 02/09/24 05:11 Lymph % (Auto) 21.1 % 02/09/24 05:11 Menard % (Auto) 10.0 % 02/09/24 05:11 Eos % (Auto) 1.3 % 02/09/24 05:11 Baso % (Auto) 0.2 % 02/09/24 05:11 Neut # (Auto) 5.82 10^3/uL (1.8-7.7) 02/09/24 05:11 Lymph # (Auto) 1.8 10^3/uL (0.8-4.8) 02/09/24 05:11 Menard # (Auto) 0.9 10^3/uL (0.2-0.9) 02/09/24 05:11 Eos # (Auto) 0.1 10^3/uL (0.0-0.8) 02/09/24 05:11 Baso # (Auto) 0.0 10^3/uL (0.0-0.1) 02/09/24 05:11 Nucleated RBC % (auto) 0 % 02/09/24 05:11 Nucleated RBCs # 0.0 /100WBC 02/09/24 05:11 PT 13.50 SECONDS (12.1-14.9) 02/09/24 05:11 INR 1.00 (0.8-1.2) 02/09/24 05:11 Sodium 145 mmol/L (136-145) 02/09/24 05:11 Potassium 3.6 mmol/L (3.5-5.1) 02/09/24 05:11 Chloride 109 mmol/L (98-107) H 02/09/24 05:11 Carbon Dioxide 26 mmol/L (22-29) 02/09/24 05:11 Anion Gap 13.6 (5-19) 02/09/24 05:11 BUN 24 mg/dL (8-23) H 02/09/24 05:11 Creatinine 0.9 mg/dL (0.5-0.9) 02/09/24 05:11 GFR Calculation Not Reportable 02/09/24 05:11 Glucose 85 mg/dL (65-115) 02/09/24 05:11 Calculated Osmolality 303 mOsm/kg (285-295) H 02/09/24 05:11 Calcium 8.4 mg/dL (8.5-10.5) L 02/09/24 05:11 Total Bilirubin 0.3 mg/dL (0.15-1.2) 02/09/24 05:11 AST 30 U/L (0-32) 02/09/24 05:11 ALT 28 U/L (0-33) 02/09/24 05:11 Alkaline Phosphatase 81 U/L (35-105) 02/09/24 05:11 Total Protein 6.4 g/dL (6.6-8.7) L 02/09/24 05:11 Albumin 3.7 g/dL (3.5-5.2) 02/09/24 05:11 Globulin 2.7 g/dL (1.3-4.6) 02/09/24 05:11 Urine Color Yellow (Yellow) 02/09/24 03:33 Urine Appearance Cloudy (CLEAR) A 02/09/24 03:33 Urine pH 6.0 (5-7) 02/09/24 03:33 Ur Specific [facility] [place] 1.019 (1.005-1.030) 02/09/24 03:33 Urine Protein Negative (Negative) 02/09/24 03:33 Urine Glucose (UA) Negative (Normal) 02/09/24 03:33 Urine Ketones Negative (Negative) 02/09/24 03:33 Urine Blood Negative (Negative) 02/09/24 03:33 Urine Nitrate Negative (Negative) 02/09/24 03:33 Urine Bilirubin Negative (Negative) 02/09/24 03:33 Urine Urobilinogen 1.0 mg/dL (Negative) 02/09/24 03:33 Ur Leukocyte Esterase 2+ (Negative) A 02/09/24 03:33 Urine RBC 0-4 /hpf (0-2) H 02/09/24 03:33 Urine WBC 15-25 /hpf (0-5) H 02/09/24 03:33 Ur Squamous Epith Cells 10-15 /hpf (0-5) H 02/09/24 03:33 Amorphous Sediment 1+ /hpf 02/09/24 03:33 Urine Bacteria 2+ /hpf (NONE) H 02/09/24 03:33 Hyaline Casts 0-4 /lpf H 02/09/24 03:33 Urine Mucus 2+ /hpf 02/09/24 03:33 All radiology interpretation(s) finalized by discharge Discharge Plan Discharge Patient Disposition: Home Clinical Impression: Acute UTI GI bleed Qualifiers: GI bleed type/associated pathology: unspecified gastrointestinal hemorrhage type Qualified Code(s): K92.2 - Gastrointestinal hemorrhage, unspecified Condition: Stable Prescriptions: New ciprofloxacin HCl 500 mg tablet 500 mg PO Q12H Qty: 20 0RF No Action duloxetine [Cymbalta] 60 mg capsule,delayed release(DR/EC) 60 mg PO BID Qty: 180 1RF Gemtesa 75 mg tablet 75 mg PO QAM (DME) custom molded accommodative orthotics and orthopedic shoes See Rx Instructions .Route .MEDSUPPLY Qty: 1 0RF Rx Instructions: As directed fluticasone propionate 50 mcg/actuation spray,suspension 2 spray INTRANASAL DAILY@1999 Qty: 48 1RF potassium chloride 10 mEq tablet extended release 10 meq PO BID Qty: 180 1RF rosuvastatin 10 mg tablet 10 mg PO BEDTIME@1999 Qty: 90 1RF ferrous sulfate [Feosol] 325 mg (65 mg iron) tablet 325 mg PO DAILY Qty: 30 3RF lamotrigine 150 mg tablet 150 mg PO QAM calcium carbonate-vitamin D3 [Calcium 500 + D] 500 mg-10 mcg (400 unit) Tablet 1 tab PO BID bisacodyl 10 mg Suppository 10 mg FL DAILY PRN (Reason: Constipation) alum-mag hydroxide-simeth [Katy-Lanta] 200-200-20 mg/5 mL Suspension 30 ml PO Q8H PRN (Reason: GI upset) Rx Instructions: administer between meals and at bedtime acetaminophen 500 mg Tablet 500 mg PO TID aspirin 81 mg Tablet,Delayed Release (Dr/Ec) 81 mg PO DAILY tramadol 50 mg tablet 50 mg PO TID fluticasone propionate 100 mcg/actuation blister with device 1 inh INHALATION BID vit-iron fum-folic ac 65 mg iron- 1 mg Tablet 1 tab PO DAILY Artificial Tears (PF) 0.1-0.3 % Dropperette 1 drp OPHTHALMIC (EYE) Q4H PRN (Reason: Dry Eyes) Med Pass 2.0 1 ea PO BID docusate sodium 100 mg capsule 100 mg PO BID polyethylene glycol 3350 17 gram Powder In Packet 17 g PO BID Qty: 60 0RF pantoprazole 40 mg Tablet,Delayed Release (Dr/Ec) 40 mg PO BID Qty: 60 0RF carbidopa-levodopa 25-100 mg tablet 1 tab PO BID topiramate [Topamax] 100 mg tablet 100 mg PO DAILY@1400 levothyroxine 200 mcg tablet 200 mcg PO QAM mirtazapine 15 mg tablet 30 mg PO BEDTIME acetaminophen [Tylenol] 325 mg Capsule 650 mg PO Q6H PRN (Reason: Pain) melatonin 5 mg Capsule 5 mg PO BEDTIME quetiapine 25 mg Tablet 25 mg PO BEDTIME Prolia 60 mg/mL Syringe See Rx Instructions .ROUTE .COMPLEX Rx Instructions: Takes every 6 months Discharge Orders: Discharge ED (Routine); Ordered 02/09/24 Ordered By: Jose M Hyatt Referrals: Deo Marshall MD [Primary Care Provider] - 1 week Patient Instructions: Urinary Tract Infection in Older Adults (ED), GI Bleeding Activity Restrictions/Additional Instructions: Hemoglobin was stable in ER. Your urine did show you may have a urinary tract infection. You need followed up for both of these. You may end up benefiting from colonoscopy for further evaluation treatment. Please follow-up with your family practice physician as you may benefit from a referral to a general surgeon. If your bleeding worsens or you get lightheaded dizzy flocculent or pass out please return to the ER for further evaluation. Coding Level of Care Code ED Manager Philosophy for [facility] Love
[2024-02-09 03:51] LABS: Charge for UA Resulting for Rev
[2024-02-09 03:56] LABS: Bilirubin Urine Negative (Negative); Blood Urine Negative (Negative); Glucose Urine UA Negative (Normal); Ketones Urine Negative (Negative); Leukocyte Esterase Urine 2+ (Negative); Nitrate Urine Negative (Negative); Protein Urine Negative (Negative); Specific Gravity, Urine 1.019 (1.005-1.030); Urine Appearance Cloudy (CLEAR); Urine Color Yellow (Yellow)
[2024-02-09 04:03] LABS: UA Manual Slide Review YES; UA Slide Review UA Slide Review Perf
[2024-02-09 04:09] LABS: Amorphous Sediment Urine 1+ /hpf; Bacteria Urine 2+ /hpf; Mucus Urine 2+ /hpf; RBC Urine 0-4 /hpf (0-2); WBC Urine 15-25 /hpf (0-5)
[2024-02-09 04:10] LABS: Add Urine Culture? No; Hyaline Casts Urine 0-4 /lpf
[2024-02-09 05:24] LABS: Basophils % 0.2 %; Eosinophils # 0.1 10^3/uL (0.0-0.8); Eosinophils % 1.3 %; Hematocrit 35.3 % (36-47); Lymphocytes # 1.8 10^3/uL (0.8-4.8); Lymphocytes % 21.1 %; Mean Corpuscular HGB Conc 32.3 g/dL (30-55); Mean Corpuscular Hemoglobin 34.2 pg (27-33); Mean Platelet Volume 10.5 fL (7.4-10.4); Monocytes # 0.9 10^3/uL (0.2-0.9); Neutrophils # 5.82 10^3/uL (1.8-7.7); Neutrophils % 67.1 %; Nucleated Red Blood Cells % 0 %; Platelet Count 184 10^3/cmm (157-399); Red Blood Count 3.33 10^6/uL (3.85-5.65); Red Cell Distribution Width 12.3 % (12.1-15.1); White Blood Count 8.68 10^3/uL (3.29-11.43)
[2024-02-09 05:36] LABS: Alanine Aminotransferase 28 U/L (0-33); Albumin Level 3.7 g/dL (3.5-5.2); Alkaline Phosphatase 81 U/L (35-105); Anion Gap 13.6 (5-19); Aspartate Amino Transferase 30 U/L (0-32); Blood Urea Nitrogen 24 mg/dL (8-23); Calcium 8.4 mg/dL (8.5-10.5); Carbon Dioxide 26 mmol/L (22-29); Chloride 109 mmol/L (98-107); Creatinine Clr Calc Pharmacy 44.4641; Globulin 2.7 g/dL (1.3-4.6); Glucose 85 mg/dL (65-115); Osmolality Calculated 303 mOsm/kg (285-295); Potassium 3.6 mmol/L (3.5-5.1); Sodium 145 mmol/L (136-145); Total Bilirubin 0.3 mg/dL (0.15-1.2); Total Protein 6.4 g/dL (6.6-8.7)
[2024-02-09] MEDS: ciprofloxacin 500 mg Tablet PO (06:00)
== END 2024-02-09 07:33 | disposition home or self-care (01) ==
PROVIDERS: Emergency Provider Emergency Medicine; PCP Internal Medicine
DX: K92.2 Gastrointestinal hemorrhage, unspecified (principal); N39.0 Urinary tract infection, site not specified; Z79.82 Long term (current) use of aspirin; Z87.891 Personal history of nicotine dependence; G31.83 Neurocognitive disorder with Lewy bodies; G20.A1 Parkinson's disease without dyskinesia, without mention of fluctuations; F02.80 Dementia in other diseases classified elsewhere, unspecified severity, without behavioral disturbance, psychotic disturbance, mood disturbance, and anxiety; E78.2 Mixed hyperlipidemia; J44.9 Chronic obstructive pulmonary disease, unspecified
CPT/HCPCS: 80053; 81003; 81015; 85025; 85610; 99283

== ENCOUNTER 2024-02-27 15:25 | Inpatient (IN) | payer MEDICARE, OTHER, MEDICAID, SELFPAY ==
[2024-02-27 15:28] VITALS: BP 167/80; PULSE 67; RESP 17; TEMP 36.5; O2SAT 100
--- NOTE | 2024-02-27 15:29 | CTR_ITS ---
PROCEDURE INFORMATION: Exam: CT Cervical Spine Without Contrast Exam date and time: 02/27/2024 4:09 PM Age: 73 years old Clinical indication: Injury or trauma; Fall; Other: Pain; Additional info: Fall, neck pain TECHNIQUE: Imaging protocol: Computed tomography of the cervical spine without contrast. Radiation optimization: All CT scans at this facility use at least one of these dose optimization techniques: automated exposure control; mA and/or kV adjustment per patient size (includes targeted exams where dose is matched to clinical indication); or iterative reconstruction. COMPARISON: CT cervical spin wo con* [id number] 09/13/2023 8:56 PM RADIATION DOSE METRICS: Total DLP (mGy-cm): 860 FINDINGS: Bones: No acute fracture. Normal alignment. No significant disc bulge or herniation. No severe spinal canal stenosis. Lungs: Lung apices are normal. Soft tissues: Unremarkable. CT/CT cervical spin wo con* [id number] IMPRESSION: No acute findings.
--- NOTE | 2024-02-27 15:29 | XRR_ITS ---
PROCEDURE INFORMATION: Exam: XR Right Hip Exam date and time: 02/27/2024 3:58 PM Age: 73 years old Clinical indication: Injury or trauma; Fall; Blunt trauma (contusions or hematomas); Right; Hip; Additional info: Hip pain TECHNIQUE: Imaging protocol: Radiologic exam of the right hip. Views: 1 view hip with pelvis when performed. COMPARISON: CR XR hip BI m 5V wo/w pel* [id number] 10/07/2023 8:16 AM FINDINGS: Bones/joints: Intertrochanteric hip fracture with foreshortening. Soft tissues: Unremarkable. XR/XR hip RT 2-3V wo/w pel* [id number] IMPRESSION: Intertrochanteric hip fracture with foreshortening.
--- NOTE | 2024-02-27 15:29 | XRR_ITS ---
PROCEDURE INFORMATION: Exam: XR Right Shoulder Exam date and time: 02/27/2024 3:54 PM Age: 73 years old Clinical indication: Injury or trauma; Fall; Blunt trauma (contusions or hematomas); Shoulder; Right; Additional info: Fall, shoulder pain TECHNIQUE: Imaging protocol: Radiologic exam of the right shoulder. Views: 2 or more views. COMPARISON: CR XR shoulder RT min 2V* [id number] 01/27/2022 8:24 PM FINDINGS: Bones/joints: Normal. Soft tissues: Normal. XR/XR shoulder RT min 2V* [id number] IMPRESSION: No acute findings.
--- NOTE | 2024-02-27 15:29 | XRR_ITS ---
PROCEDURE INFORMATION: Exam: XR Chest Exam date and time: 02/27/2024 3:50 PM Age: 73 years old Clinical indication: Other: [place]; Additional info: Weakness TECHNIQUE: Imaging protocol: Radiologic exam of the chest. Views: 1 view. COMPARISON: CR XR chest 1V portable [id number] 09/09/2023 9:46 AM FINDINGS: Lungs: Unremarkable. No consolidation. Pleural spaces: Unremarkable. No pleural effusion. No pneumothorax. Heart/Mediastinum: Unremarkable. No cardiomegaly. Bones/joints: Kyphoplasty material noted within the lower thoracic/upper lumbar vertebral bodies. Visualized osseous structures are intact. XR/XR chest 1V portable [id number] IMPRESSION: No acute findings.
--- NOTE | 2024-02-27 15:29 | CTR_ITS ---
PROCEDURE INFORMATION: Exam: CT Head Without Contrast Exam date and time: 02/27/2024 4:09 PM Age: 73 years old Clinical indication: Injury or trauma; Fall; Other: Pain; Additional info: Fall, head injury TECHNIQUE: Imaging protocol: Computed tomography of the head without contrast. Radiation optimization: All CT scans at this facility use at least one of these dose optimization techniques: automated exposure control; mA and/or kV adjustment per patient size (includes targeted exams where dose is matched to clinical indication); or iterative reconstruction. COMPARISON: CT head wo con* [id number] 09/13/2023 8:56 PM RADIATION DOSE METRICS: Total DLP (mGy-cm): 1159 FINDINGS: Brain: No hemorrhage. No edema. Moderate diffuse cerebral atrophy and mild sequela of chronic small vessel ischemic disease. No mass effect. Cerebral ventricles: No ventriculomegaly. Paranasal sinuses: Visualized sinuses are unremarkable. No fluid levels. Mastoid air cells: Visualized mastoid air cells are well aerated. Bones: Unremarkable. No acute fracture. Soft tissues: Unremarkable. CT/CT head wo con* [id number] IMPRESSION: No acute intracranial abnormality.
[2024-02-27 16:08] VITALS: BP 152/80; PULSE 72; O2SAT 100
--- NOTE | 2024-02-27 16:33 | W.ED.EXTPRO ---
HPI - Extremity Problem General: Chief complaint: Extremity Injury, Lower Stated complaint: fall, right hip/shoulder pain Time Seen by Provider: 02/27/24 15:26 History of Present Illness: 73-year-old female with a history of Lewy body dementia assisted living, hyperlipidemia, hypertension COPD, Parkinson's, who presents emergency room after having a fall. Apparently she tripped and fell. Unknown if she hit her head. No loss of consciousness. She seems fairly alert and oriented at this point. She answers questions appropriately. She is complaining of right shoulder pain and right hip pain. She has an abrasion on the side of her head that she says is from a fall previously had not today. Related Data Home Medications Medication Instructions Recorded Confirmed acetaminophen 325 mg capsule 650 mg PO Q6H PRN Pain 12/11/22 01/18/24 (Tylenol) carbidopa 25 mg-levodopa 100 mg 1 tab PO BID 12/11/22 01/18/24 tablet levothyroxine 200 mcg tablet 200 mcg PO QAM 12/11/22 01/18/24 melatonin 5 mg capsule 5 mg PO BEDTIME 12/11/22 01/18/24 mirtazapine 15 mg tablet 30 mg PO BEDTIME 12/11/22 01/18/24 topiramate 100 mg tablet (Topamax) 100 mg PO DAILY@1400 12/11/22 01/18/24 acetaminophen 500 mg tablet 500 mg PO TID 03/21/23 01/18/24 aluminum-mag hydroxide-simethicone 30 ml PO Q8H PRN GI upset 03/21/23 01/18/24 200 mg-200 mg-20 mg/5 mL oral susp (Katy-Lanta) bisacodyl 10 mg rectal suppository [address] DAILY PRN Constipation 03/21/23 01/18/24 calcium carbonate 500 mg-vitamin 1 tab PO BID 03/21/23 01/18/24 D3 10 mcg (400 unit) tablet (Calcium 500 + D) lamotrigine 150 mg tablet 150 mg PO QAM 03/21/23 01/18/24 vibegron 75 mg tablet (Gemtesa) 75 mg PO QAM 08/26/23 01/18/24 Med Pass 2.0 1 ea PO BID 09/07/23 01/18/24 aspirin 81 mg tablet,delayed 81 mg PO DAILY 09/07/23 01/18/24 release dextran 70-hypromellose (PF) 0.1 1 drp ophthalmic (eye) Q4H PRN Dry 09/07/23 01/18/24 %-0.3 % eye drops in a dropperette Eyes (Artificial Tears (PF)) docusate sodium 100 mg capsule 100 mg PO BID 09/07/23 01/18/24 fluticasone propionate 100 1 inh inhalation BID 09/07/23 01/18/24 mcg/actuation blister powder for inhalation vitamins-iron fumarate 65 1 tab PO DAILY 09/07/23 01/18/24 mg iron-folic acid 1 mg tablet tramadol 50 mg tablet 50 mg PO TID 09/07/23 01/18/24 denosumab 60 mg/mL subcutaneous See Rx Instructions .Route .COMPLEX 11/11/23 01/18/24 syringe (Prolia) quetiapine 25 mg tablet 25 mg PO BEDTIME 11/11/23 01/18/24 Previous Rx's Medication Instructions Recorded duloxetine 60 mg capsule,delayed 60 mg PO BID #180 caps 12/13/21 release (Cymbalta) fluticasone propionate 50 2 spray intranasal DAILY@1999 #48 03/28/22 mcg/actuation nasal grams spray,suspension potassium chloride 10 mEq 10 meq PO BID #180 tabs 03/28/22 tablet,extended release rosuvastatin 10 mg tablet 10 mg PO BEDTIME@1999 #90 tabs 04/25/22 ferrous sulfate 325 mg (65 mg 325 mg PO DAILY #30 tabs 06/28/23 iron) tablet (Feosol) pantoprazole 40 mg tablet,delayed 40 mg PO BID #60 tabs 09/09/23 release polyethylene glycol 3350 17 gram 17 g PO BID #60 ea 09/09/23 oral powder packet custom molded accommodative #1 ea 01/18/24 orthotics and orthopedic shoes ciprofloxacin HCl 500 mg tablet 500 mg PO Q12H #20 tabs 02/09/24 Allergies Allergy/AdvReac Type Severity Reaction Status Date / Time No Known Allergies Allergy Verified 01/30/24 21:00 [facility] ED PFSH: Medical History Lewy body dementia Closed left hip fracture DNR no code (do not resuscitate) Osteoporosis, post-menopausal Lives in assisted living facility Spine deformity Osteoarthritis of knee Bradycardia Recurrent syncope Mixed hyperlipidemia Seasonal allergic rhinitis due to pollen Slow transit constipation Major depressive disorder, recurrent severe without psychotic features Sleep apnea Anxiety and depression Adult onset hypothyroidism Vitamin D deficiency COPD (chronic obstructive pulmonary disease) Parkinson disease CPAP (continuous positive airway pressure) dependence Dependent on walker for ambulation Surgical History Status post hip hemiarthroplasty History of repair of hiatal hernia Hx of cataract surgery Hx of right breast biopsy 1999 History of laparotomy 1972 no body parts removed History of back surgery 2016 T11-T12 History of hernia repair 2017 History of tubal ligation Left removed only 1973 History of bunionectomy bilateral 2015 Family History Mother Congestive heart failure (CHF) Clotting disorder CAD (coronary artery disease) Family/Other Lung disease Cancer Grandmother Stroke Denies family history of Diabetes Dementia Chronic kidney disease (CKD) Suicide Anesthesia complication Bleeding disorder Social History Smoking and tobacco/nicotine status: former use of tobacco/nicotine Quit status (tobacco/nicotine): has quit using Year quit tobacco: 2004 - PPD x 35 Years Second hand smoke exposure: No Alcohol intake: former Substance/Drug Use: never Adopted: No Caregiver/support person: No Lives independently: Yes Household members: none Housing: House Marital status: Unknown Number of children: 1 service: Yes branch: [employer] Current occupational status: retired and disabled Pets and animals: No Do you think of yourself as: Straight/Heterosexual Current gender identity: Female Physical Exam Narrative: EXAM NARRATIVE: General: Alert, cachectic appearing. Skin: Warm, dry. Head: Normocephalic, atraumatic. Neck: Supple, trachea midline. Eye: Extraocular movements are intact. Ears, nose, mouth and throat: Dry oral mucosa Cardiovascular: Regular, Normal peripheral perfusion. Respiratory: Lungs are clear to auscultation, respirations are non-labored, breath sounds are equal, Symmetrical chest wall expansion. Gastrointestinal: Soft, Nontender, Non distended Musculoskeletal: Shortening and rotation of the right leg with pain at the hip with movement. Some pain in the right shoulder but no deformity. She appears neurovascularly intact. Neurological: Alert, No focal neurological deficit observed. Psychiatric: Cooperative, patient is very tearful Course Vital Signs: Vital signs: Vital Signs Temperature 97.7 F 02/27/24 15:28 Pulse Rate 72 02/27/24 16:08 Respiratory Rate 17 02/27/24 15:28 Blood Pressure 152/80 02/27/24 16:08 Pulse Oximetry 100 02/27/24 16:08 Oxygen Delivery Me thod Room Air 02/27/24 15:28 MDM - Extremity (Nontraumatic) Medical Decision Making Differential diagnosis: Patient with dementia and a fall with right hip pain and right shoulder pain. X-rays were ordered to evaluate both of those. Also a CT of the head and neck as history is unreliable with her dementia. Chest x-ray: No acute process. No infiltrate. No pneumothorax. This was reviewed and interpreted by myself the ER physician. CT head: No acute intracranial process. no intracranial hemorrhage, no evidence of infarct. no evidence of acute fracture.This was reviewed and interpreted by myself the ER physician. CT of the cervical spine: No fracture. Good alignment. No step-offs. This was reviewed and interpreted by myself the emergency room physician. I also reviewed the radiologist report. X-ray of the right hip and pelvis: There is a right intertrochanteric hip fracture. This was reviewed and interpreted by myself the emergency room physician. I also reviewed the radiology report. X-ray of the right shoulder: No acute fractures or dislocations. This was reviewed and interpreted by myself the emergency room physician. I also reviewed the radiology report. Consultation: I spoke Dr. Sewell who is on-call for orthopedics. He recommends CT scan. Admission to hospitalist. N.p.o. after midnight. Likely repair tomorrow. Consultation: I spoke with Dr. Bell who is on-call for the hospitalist service and she agrees to admission. Lab work is ordered for presurgical evaluation. White count is unremarkable. Hemoglobin is normal at 12.7. BUN is considerably elevated at 39 over her baseline. Also creatinine is elevated at 1.1 over her baseline around 0.6. She does appear dehydrated. Potassium is 2.8. Assessment and plan: Intertrochanteric hip fracture. Fall. Hypokalemia Dehydration Acute renal insufficiency -Normal saline bolus, 40 mill equivalents p.o. potassium and 40 mill equivalents IV potassium -Morphine and Zofran given in the emergency room. ? I discussed the patient with the hospitalist on-call who is admitting the patient. - Discussed findings and plan with patient. Answered any questions. - All laboratory values were reviewed and interpreted personally by myself, the ER physician - All imaging was reviewed and interpreted personally by myself, the ER physician. - Evaluation and treatment of this problem were appropriate in the emergency setting Lab Data 02/27/24 17:00 02/27/24 17:00 Radiology Impressions Cervical Spine CT 02/27/24 15:29 IMPRESSION: No acute findings. Chest X-Ray 02/27/24 15:29 IMPRESSION: No acute findings. Head CT 02/27/24 15:29 IMPRESSION: No acute intracranial abnormality. Hip/Pelvis X-Ray 02/27/24 15:29 IMPRESSION: Intertrochanteric hip fracture with foreshortening. Shoulder X-Ray 02/27/24 15:29 IMPRESSION: No acute findings. Laboratory Results WBC 8.55 10^3/uL (3.29-11.43) 02/27/24 17:00 RBC 3.74 10^6/uL (3.85-5.65) L 02/27/24 17:00 Hgb 12.70 g/dL (11.27-16.99) 02/27/24 17:00 Hct 38.5 % (36-47) 02/27/24 17:00 MCV 102.9 fl (85-98) H 02/27/24 17:00 MCH 34.0 pg (27-33) H 02/27/24 17:00 MCHC 33.0 g/dL (30-55) 02/27/24 17:00 RDW 12.0 % (12.1-15.1) L 02/27/24 17:00 Plt Count 222 10^3/cmm (157-399) 02/27/24 17:00 MPV 10.7 fL (7.4-10.4) H 02/27/24 17:00 Neut % (Auto) 74.8 % 02/27/24 17:00 Lymph % (Auto) 18.4 % 02/27/24 17:00 [place] % (Auto) 5.5 % 02/27/24 17:00 Eos % (Auto) 0.2 % 02/27/24 17:00 Baso % (Auto) 0.2 % 02/27/24 17:00 Neut # (Auto) 6.39 10^3/uL (1.8-7.7) 02/27/24 17:00 Lymph # (Auto) 1.6 10^3/uL (0.8-4.8) 02/27/24 17:00 [place] # (Auto) 0.5 10^3/uL (0.2-0.9) 02/27/24 17:00 Eos # (Auto) 0.0 10^3/uL (0.0-0.8) 02/27/24 17:00 Baso # (Auto) 0.0 10^3/uL (0.0-0.1) 02/27/24 17:00 Nucleated RBC % (auto) 0 % 02/27/24 17:00 Nucleated RBCs # 0.0 /100WBC 02/27/24 17:00 PT 13.90 SECONDS (12.1-14.9) 02/27/24 17:00 INR 1.04 (0.8-1.2) 02/27/24 17:00 APTT 25.7 SECONDS (23.9-36.7) 02/27/24 17:00 Sodium 140 mmol/L (136-145) 02/27/24 17:00 Potassium 2.8 mmol/L (3.5-5.1) L* 02/27/24 17:00 Chloride 105 mmol/L (98-107) 02/27/24 17:00 Carbon Dioxide 22 mmol/L (22-29) 02/27/24 17:00 Anion Gap 15.8 (5-19) 02/27/24 17:00 BUN 39 mg/dL (8-23) H 02/27/24 17:00 Creatinine 1.1 mg/dL (0.5-0.9) H 02/27/24 17:00 GFR Calculation Not Reportable 02/27/24 17:00 Glucose 119 mg/dL (65-115) H 02/27/24 17:00 Calculated Osmolality 301 mOsm/kg (285-295) H 02/27/24 17:00 Calcium 9.6 mg/dL (8.5-10.5) 02/27/24 17:00 Total Bilirubin 0.2 mg/dL (0.15-1.2) 02/27/24 17:00 AST 25 U/L (0-32) 02/27/24 17:00 ALT 7 U/L (0-33) 02/27/24 17:00 Alkaline Phosphatase 96 U/L (35-105) 02/27/24 17:00 Total Protein 7.3 g/dL (6.6-8.7) 02/27/24 17:00 Albumin 4.6 g/dL (3.5-5.2) 02/27/24 17:00 Globulin 2.7 g/dL (1.3-4.6) 02/27/24 17:00 All radiology interpretation(s) finalized by discharge Discharge Plan Discharge Patient Disposition: Admitted As Inpatient Clinical Impression: Closed intertrochanteric fracture of right hip, Dehydration, Hypokalemia, Dementia Condition: Stable Coding Level of Care Code ED [employer] for [employer] Love
--- NOTE | 2024-02-27 16:51 | CTR_ITS ---
PROCEDURE INFORMATION: Exam: CT Pelvis Without Contrast, Skeleton Exam date and time: 02/27/2024 6:28 PM Age: 73 years old Clinical indication: Injury or trauma; Fall; Fracture of pelvis & hip; Right; Traumatic fracture; Neck of femur; Not specified; Prior surgery; Surgery date: 6+ months; Surgery type: Lt hip; Additional info: Ortho request. Hip fracture TECHNIQUE: Imaging protocol: Computed tomography of the pelvis without contrast. Exam focused on the skeleton. Radiation optimization: All CT scans at this facility use at least one of these dose optimization techniques: automated exposure control; mA and/or kV adjustment per patient size (includes targeted exams where dose is matched to clinical indication); or iterative reconstruction. COMPARISON: CT kidney stone [id number] 09/07/2023 9:06 AM RADIATION DOSE METRICS: Total DLP (mGy-cm): 300 FINDINGS: Bones/joints: Comminuted intertrochanteric right hip fracture with foreshortening. Left hip arthroplasty noted. Soft tissues: Unremarkable. CT/CT pelvis con [id number] IMPRESSION: Intertrochanteric right hip fracture with foreshortening.
[2024-02-27 17:08] LABS: Basophils % 0.2 %; Eosinophils % 0.2 %; Hematocrit 38.5 % (36-47); Lymphocytes # 1.6 10^3/uL (0.8-4.8); Lymphocytes % 18.4 %; Mean Corpuscular Volume 102.9 fl (85-98); Mean Platelet Volume 10.7 fL (7.4-10.4); Monocytes # 0.5 10^3/uL (0.2-0.9); Monocytes % 5.5 %; Neutrophils # 6.39 10^3/uL (1.8-7.7); Neutrophils % 74.8 %; Nucleated Red Blood Cells % 0 %; Platelet Count 222 10^3/cmm (157-399); Red Blood Count 3.74 10^6/uL (3.85-5.65); White Blood Count 8.55 10^3/uL (3.29-11.43)
[2024-02-27 17:20] LABS: INR 1.04 (0.8-1.2); Partial Thromboplastin Time 25.7 SECONDS (23.9-36.7)
[2024-02-27 17:28] LABS: Alanine Aminotransferase 7 U/L (0-33); Albumin Level 4.6 g/dL (3.5-5.2); Alkaline Phosphatase 96 U/L (35-105); Anion Gap 15.8 (5-19); Aspartate Amino Transferase 25 U/L (0-32); Blood Urea Nitrogen 39 mg/dL (8-23); Calcium 9.6 mg/dL (8.5-10.5); Carbon Dioxide 22 mmol/L (22-29); Chloride 105 mmol/L (98-107); Creatinine Clr Calc Pharmacy 33.2954; Globulin 2.7 g/dL (1.3-4.6); Glucose 119 mg/dL (65-115); Osmolality Calculated 301 mOsm/kg (285-295); Sodium 140 mmol/L (136-145); Total Bilirubin 0.2 mg/dL (0.15-1.2); Total Protein 7.3 g/dL (6.6-8.7)
--- NOTE | 2024-02-27 17:32 | P.CONIM_ITS ---
<Statement entered by Teo Sewell DO - 02/28/24 06:56> Reviewed PAs assessment and plan agree with PAs assessment and plan. Patient seen and evaluated this morning in the preoperative holding area. She is tender to palpation about the right hip at the site of the fracture with expected swelling appreciated. Patient unfortunately is confused and unable to follow any commands. Spoke with GEOVANNY her daughter yesterday over the phone and explained her current fracture pattern I feel this would be more amendable for a right hip trochanteric femur nail is a send intertrochanteric femur fracture with fracture extending into the greater trochanteric region. She states that time she will still be getting up so it can result for help with mobilization as well as pain control I feel as though a right hip trochanteric femur nail would be a good treatment option for this patient we talked about this in detail as far as the ins and outs procedure the risk benefits complication alternatives with surgery. Risk of surgery include not limited to make a better make it worse injury to nerves vessels or tendons, blood clot, heart attack, stroke, on the table, hardware failure. Understanding risks with surgery POChucho elects to proceed with surgical intervention for right hip trochanteric femur nail. Will proceed with surgery today. All questions have been answered at this time. Teo Sewell DO Orthopedic surgery Providers/Reason For Consult 2 Consulting Physician/Specialty*: Dr. Donato DO/orthopedic surgeon Reason for Consult*: Right hip fracture Requesting Physician: Margarette Lim MD Primary Care Provider: Gerson Marshall MD History of Present Illness History of Present Illness Crys Mir is a 73 year old female that has a history of dementia currently resides at a retirement was having right hip pain after fall. Patient is a poor historian and most of patient's history comes from ED nurse. Per retirement staff patient was found down on the floor in her room but no loss of consciousness. She is complaining of right hip pain and her roommate stated that patient got up from her bed and started walking out of the room and fell. Patient is limited mobility and will use walkers to help with transfers. Patient is not on any blood thinners currently. snf did state that patient was tested for COVID this morning and was her test came back positive. Patient does not have any symptoms currently. X-rays in the emergency department show a right hip intertrochanteric fracture. Orthopedics were consulted Review of Systems 2 Const: Denies: fever(s) or body aches ENMT: Denies: throat pain Card: Denies: chest pain or palpitations Resp: Denies: dyspnea, productive cough or wheezing GI: Denies: abdominal pain, nausea or vomiting Musc: Reports: extremity pain (right hip), joint pain (right hip) and limited range of motion (Right lower extremity) Medications/Allergies Home Medications Medication Instructions Recorded Confirmed Last Taken Type duloxetine 60 mg capsule,delayed 60 mg PO BID #180 caps 12/13/21 01/18/24 11/11/23 Rx release (Cymbalta) fluticasone propionate 50 2 spray intranasal DAILY@1999 #48 03/28/22 01/18/24 11/11/23 Rx mcg/actuation nasal grams spray,suspension potassium chloride 10 mEq 10 meq PO BID #180 tabs 03/28/22 01/18/24 11/11/23 Rx tablet,extended release rosuvastatin 10 mg tablet 10 mg PO BEDTIME@1999 #90 tabs 04/25/22 01/18/24 11/11/23 Rx acetaminophen 325 mg capsule 650 mg PO Q6H PRN Pain 12/11/22 01/18/24 11/11/23 History (Tylenol) carbidopa 25 mg-levodopa 100 mg 1 tab PO BID 12/11/22 01/18/24 11/11/23 History tablet levothyroxine 200 mcg tablet 200 mcg PO QAM 12/11/22 01/18/24 11/11/23 History melatonin 5 mg capsule 5 mg PO BEDTIME 12/11/22 01/18/24 11/11/23 History mirtazapine 15 mg tablet 30 mg PO BEDTIME 12/11/22 01/18/24 11/11/23 History topiramate 100 mg tablet (Topamax) 100 mg PO DAILY@1400 12/11/22 01/18/24 11/11/23 History acetaminophen 500 mg tablet 500 mg PO TID 03/21/23 01/18/24 11/11/23 History aluminum-mag hydroxide-simethicone 30 ml PO Q8H PRN GI upset 03/21/23 01/18/24 11/11/23 History 200 mg-200 mg-20 mg/5 mL oral susp (Katy-Lanta) bisacodyl 10 mg rectal suppository 10 mg MA DAILY PRN Constipation 03/21/23 01/18/24 11/11/23 History calcium carbonate 500 mg-vitamin 1 tab PO BID 03/21/23 01/18/24 11/11/23 History D3 10 mcg (400 unit) tablet (Calcium 500 + D) lamotrigine 150 mg tablet 150 mg PO QAM 03/21/23 01/18/24 11/11/23 History ferrous sulfate 325 mg (65 mg 325 mg PO DAILY #30 tabs 06/28/23 01/18/24 11/11/23 Rx iron) tablet (Feosol) vibegron 75 mg tablet (Gemtesa) 75 mg PO QAM 08/26/23 01/18/24 11/11/23 History Med Pass 2.0 1 ea PO BID 09/07/23 01/18/24 09/06/23 History aspirin 81 mg tablet,delayed 81 mg PO DAILY 09/07/23 01/18/24 11/05/23 History release dextran 70-hypromellose (PF) 0.1 1 drp ophthalmic (eye) Q4H PRN Dry 09/07/23 01/18/24 11/11/23 History %-0.3 % eye drops in a dropperette Eyes (Artificial Tears (PF)) docusate sodium 100 mg capsule 100 mg PO BID 09/07/23 01/18/24 11/11/23 History fluticasone propionate 100 1 inh inhalation BID 09/07/23 01/18/24 11/11/23 History mcg/actuation blister powder for inhalation vitamins-iron fumarate 65 1 tab PO DAILY 09/07/23 01/18/24 11/11/23 History mg iron-folic acid 1 mg tablet tramadol 50 mg tablet 50 mg PO TID 09/07/23 01/18/24 11/11/23 History pantoprazole 40 mg tablet,delayed 40 mg PO BID #60 tabs 09/09/23 01/18/24 11/11/23 Rx release polyethylene glycol 3350 17 gram 17 g PO BID #60 ea 09/09/23 01/18/24 11/11/23 Rx oral powder packet denosumab 60 mg/mL subcutaneous See Rx Instructions .Route .COMPLEX 11/11/23 01/18/24 Unknown History syringe (Prolia) quetiapine 25 mg tablet 25 mg PO BEDTIME 11/11/23 01/18/24 11/10/23 History custom molded accommodative #1 ea 01/18/24 01/18/24 Unknown Rx orthotics and orthopedic shoes ciprofloxacin HCl 500 mg tablet 500 mg PO Q12H #20 tabs 02/09/24 Unknown Rx Allergies Allergy/AdvReac Type Severity Reaction Status Date / Time No Known Allergies Allergy Verified 01/30/24 21:00 PFSH Acute 2 PFSH: Medical History Lewy body dementia Closed left hip fracture DNR no code (do not resuscitate) Osteoporosis, post-menopausal Lives in assisted living facility Spine deformity Osteoarthritis of knee Bradycardia Recurrent syncope Mixed hyperlipidemia Seasonal allergic rhinitis due to pollen Slow transit constipation Major depressive disorder, recurrent severe without psychotic features Sleep apnea Anxiety and depression Adult onset hypothyroidism Vitamin D deficiency COPD (chronic obstructive pulmonary disease) Parkinson disease CPAP (continuous positive airway pressure) dependence Dependent on walker for ambulation Surgical History Status post hip hemiarthroplasty History of repair of hiatal hernia Hx of cataract surgery Hx of right breast biopsy 1999 History of laparotomy 1972 no body parts removed History of back surgery 2016 T11-T12 History of hernia repair 2017 History of tubal ligation Left removed only 1973 History of bunionectomy bilateral 2015 Family History Mother Congestive heart failure (CHF) Clotting disorder CAD (coronary artery disease) Family/Other Lung disease Cancer Grandmother Stroke Denies family history of Diabetes Dementia Chronic kidney disease (CKD) Suicide Anesthesia complication Bleeding disorder Social History Smoking and tobacco/nicotine status: former use of tobacco/nicotine Quit status (tobacco/nicotine): has quit using Year quit tobacco: 2004 - PPD x 35 Years Second hand smoke exposure: No Alcohol intake: former Substance/Drug Use: never Adopted: No Caregiver/support person: No Lives independently: Yes Household members: none Housing: House Marital status: Unknown Number of children: 1 service: Yes branch: [employer] Current occupational status: retired and disabled Pets and animals: No Do you think of yourself as: Straight/Heterosexual Current gender identity: Female Vitals/I&O/Wt Last Vital Signs Temp 97.7 F 02/27/24 15:28 Pulse 72 02/27/24 16:08 Resp 17 02/27/24 15:28 BP 152/80 02/27/24 16:08 Pulse Ox 100 02/27/24 16:08 O2 Del Method Room Air 02/27/24 15:28 Weight last 48 hrs Weight 101 lb Physical Exam 2 Const: COMMON NORMALS: no acute distress and alert Resp: COMMON NORMALS: normal respiratory effort and No retractions Cardio: COMMON NORMALS: Peripheral pulses 2+ throughout PERIPHERAL PULSES: Peripheral pulses 2+ throughout Extremity: NARRATIVE EXTREMITY EXAM: (Right) lower extremity-leg is shortene d and externally rotated. Positive logroll test. Tenderness to palpation right hip. compartments are soft and compressible. Patient can Wiggle toes. Toes are warm and well-perfused. Pedal pulse 2+. Secondary assessment of other extremities. Upper extremities-no visible injuries, abrasions. Full range of motion in shoulders, elbows and wrist. no tenderness to palpation of shoulders or wrist. (Left) lower extremity-no visible injury or trauma seen. Full range of motion in hip. Negative logroll test. Patient able to perform straight leg raise and can dorsiflex plantarflex foot. Pedal pulse 2+ and patient can wiggle toes. Neuro: SENSORIUM/ORIENTATION: Yes alert Skin: GENERAL SKIN EXAM: dry skin Data 02/27/24 17:00 02/27/24 17:00 Xray Ortho: My impression: Patient: Crys Mir Unit #: [id number] : 1950 Age/Sex: 73 / F ADM Date: 02/27/24 Loc: ER Room/Bed: Attending Dr: Ordering Provider/Ordering MD: Margarette Lim MD Date of Service: 02/27/24 Procedure(s): XR hip RT 2-3V wo/w pel* [id number] Accession Number(s): [id number] Report Number: [id number] PROCEDURE INFORMATION: Exam: XR Right Hip Exam date and time: 02/27/2024 3:58 PM Age: 73 years old Clinical indication: Injury or trauma; Fall; Blunt trauma (contusions or hematomas); Right; Hip; Additional info: Hip pain TECHNIQUE: Imaging protocol: Radiologic exam of the right hip. Views: 1 view hip with pelvis when performed. COMPARISON: CR XR hip BI m 5V wo/w pel* [id number] 10/07/2023 8:16 AM FINDINGS: Bones/joints: Intertrochanteric hip fracture with foreshortening. Soft tissues: Unremarkable. XR/XR hip RT 2-3V wo/w pel* [id number] IMPRESSION: Intertrochanteric hip fracture with foreshortening. Dictated By: Renny Hooker DO A&P Assessment and plan (1) Hip fracture, right: Plan Plan: -Imaging and Labs reviewed -Hospitalist on board for medical management. -VTE prophylaxis -Nonweightbearing on right leg -Pain control -N.p.o. after midnight -Surgery tomorrow morning for Right hip Trochanteric femur nail Coding Level of Care Code Acute Code for [employer] Fwd Diagnoses Hip fracture, right S72.001A
[2024-02-27 17:38] LABS: Potassium 2.8 mmol/L (3.5-5.1)
--- NOTE | 2024-02-27 17:43 | P.HP_ITS ---
Providers/Chief Complaint 2 Primary Care Provider: Gerson Marshall MD Chief Complaint: fall, right hip/shoulder pain History of Present Illness Crys Mri is a 73 year old female with past medical history of Lewy body dementia, hyperlipidemia, Parkinson's disease, hypothyroidism, depression/anxiety, COPD, was brought in by EMS from [facility] s/p fall. She complained of severe right hip pain and right shoulder pain and hence was brought to ER for further evaluation. She has history of dementia but is able to comprehend and answer questions appropriately. During evaluation she was crying due to severe pain in right hip. She reports she has history of multiple falls in the past but today in spite of using a walker she fell and hit her right hip. In ER she was found to have right trochanteric comminuted fracture. Orthopedic surgery consulted. Her potassium was 2.8, replaced in the ER Creatinine 1.1 UA consistent with UTI Review of Systems 2 General: Reports: 10 or more systems reviewed and unremarkable except in HPI and below Medications/Allergies Home Medications Medication Instructions Recorded Confirmed Last Taken Type duloxetine 60 mg capsule,delayed 60 mg PO BID #180 caps 12/13/21 01/18/24 11/11/23 Rx release (Cymbalta) fluticasone propionate 50 2 spray intranasal DAILY@1999 #48 03/28/22 01/18/24 11/11/23 Rx mcg/actuation nasal grams spray,suspension potassium chloride 10 mEq 10 meq PO BID #180 tabs 03/28/22 01/18/24 11/11/23 Rx tablet,extended release rosuvastatin 10 mg tablet 10 mg PO BEDTIME@1999 #90 tabs 04/25/22 01/18/24 11/11/23 Rx acetaminophen 325 mg capsule 650 mg PO Q6H PRN Pain 12/11/22 01/18/24 11/11/23 History (Tylenol) carbidopa 25 mg-levodopa 100 mg 1 tab PO BID 12/11/22 01/18/24 11/11/23 History tablet levothyroxine 200 mcg tablet 200 mcg PO QAM 12/11/22 01/18/24 11/11/23 History melatonin 5 mg capsule 5 mg PO BEDTIME 12/11/22 01/18/24 11/11/23 History mirtazapine 15 mg tablet 30 mg PO BEDTIME 07/01/2601/18/24 11/11/23 History topiramate 100 mg tablet (Topamax) 100 mg PO DAILY@1400 12/11/22 01/18/24 11/11/23 History acetaminophen 500 mg tablet 500 mg PO TID 03/21/23 01/18/24 11/11/23 History aluminum-mag hydroxide-simethicone 30 ml PO Q8H PRN GI upset 03/21/23 01/18/24 11/11/23 History 200 mg-200 mg-20 mg/5 mL oral susp (Katy-Lanta) bisacodyl 10 mg rectal suppository 10 mg NV DAILY PRN Constipation 03/21/23 01/18/24 11/11/23 History calcium carbonate 500 mg-vitamin 1 tab PO BID 03/21/23 01/18/24 11/11/23 History D3 10 mcg (400 unit) tablet (Calcium 500 + D) lamotrigine 150 mg tablet 150 mg PO QAM 03/21/23 01/18/24 11/11/23 History ferrous sulfate 325 mg (65 mg 325 mg PO DAILY #30 tabs 06/28/23 01/18/24 11/11/23 Rx iron) tablet (Feosol) vibegron 75 mg tablet (Gemtesa) 75 mg PO QAM 08/26/23 01/18/24 11/11/23 History Med Pass 2.0 1 ea PO BID 09/07/23 01/18/24 09/06/23 History aspirin 81 mg tablet,delayed 81 mg PO DAILY 09/07/23 01/18/24 11/05/23 History release dextran 70-hypromellose (PF) 0.1 1 drp ophthalmic (eye) Q4H PRN Dry 09/07/23 01/18/24 11/11/23 History %-0.3 % eye drops in a dropperette Eyes (Artificial Tears (PF)) docusate sodium 100 mg capsule 100 mg PO BID 09/07/23 01/18/24 11/11/23 History fluticasone propionate 100 1 inh inhalation BID 09/07/23 01/18/24 11/11/23 History mcg/actuation blister powder for inhalation vitamins-iron fumarate 65 1 tab PO DAILY 09/07/23 01/18/24 11/11/23 History mg iron-folic acid 1 mg tablet tramadol 50 mg tablet 50 mg PO TID 09/07/23 01/18/24 11/11/23 History pantoprazole 40 mg tablet,delayed 40 mg PO BID #60 tabs 09/09/23 01/18/24 11/11/23 Rx release polyethylene glycol 3350 17 gram 17 g PO BID #60 ea 09/09/23 01/18/24 11/11/23 Rx oral powder packet denosumab 60 mg/mL subcutaneous See Rx Instructions .Route .COMPLEX 11/11/23 01/18/24 Unknown History syringe (Prolia) quetiapine 25 mg tablet 25 mg PO BEDTIME 11/11/23 01/18/24 11/10/23 History custom molded accommodative #1 ea 01/18/24 01/18/24 Unknown Rx orthotics and orthopedic shoes ciprofloxacin HCl 500 mg tablet 500 mg PO Q12H #20 tabs 02/09/24 Unknown Rx Allergies Allergy/AdvReac Type Severity Reaction Status Date / Time No Known Allergies Allergy Verified 01/30/24 21:00 PFSH Acute 2 PFSH: Medical History Lewy body dementia Closed left hip fracture DNR no code (do not resuscitate) Osteoporosis, post-menopausal Lives in assisted living facility Spine deformity Osteoarthritis of knee Bradycardia Recurrent syncope Mixed hyperlipidemia Seasonal allergic rhinitis due to pollen Slow transit constipation Major depressive disorder, recurrent severe without psychotic features Sleep apnea Anxiety and depression Adult onset hypothyroidism Vitamin D deficiency COPD (chronic obstructive pulmonary disease) Parkinson disease CPAP (continuous positive airway pressure) dependence Dependent on walker for ambulation Surgical History Status post hip hemiarthroplasty History of repair of hiatal hernia Hx of cataract surgery Hx of right breast biopsy 1999 History of laparotomy 1972 no body parts removed History of back surgery 2016 T11-T12 History of hernia repair 2017 History of tubal ligation Left removed only 1973 History of bunionectomy bilateral 2015 Family History Mother Congestive heart failure (CHF) Clotting disorder CAD (coronary artery disease) Family/Other Lung disease Cancer Grandmother Stroke Denies family history of Diabetes Dementia Chronic kidney disease (CKD) Suicide Anesthesia complication Bleeding disorder Social History Smoking and tobacco/nicotine status: former use of tobacco/nicotine Quit status (tobacco/nicotine): has quit using Year quit tobacco: 2004 - PPD x 35 Years Second hand smoke exposure: No Alcohol intake: former Substance/Drug Use: never Adopted: No Caregiver/support person: No Lives independently: Yes Household members: none Housing: House Marital status: Unknown Number of children: 1 service: Yes branch: [employer] Current occupational status: retired and disabled Pets and animals: No Do you think of yourself as: Straight/Heterosexual Current gender identity: Female Vitals/I&O/Wt Last Vital Signs Temp 97.7 F 02/27/24 15:28 Pulse 72 02/27/24 16:08 Resp 17 02/27/24 15:28 BP 152/80 02/27/24 16:08 Pulse Ox 100 02/27/24 16:08 O2 Del Method Room Air 02/27/24 15:28 Weight last 48 hrs Weight 45.813 kg Physical Exam 2 Narrative: She is alert awake oriented x 2, frail, in severe distress due to right hip pain. Lying on right side, unable to move due to pain Chest clear to auscultation bilaterally Cardiovascular normal heart sounds Abdomen NAD Extremities no edema noted bilateral lower extremity, lying on right hip and unable to move, restricted range of motion present Data 02/27/24 17:00 02/27/24 17:00 A&P Assessment and plan (1) Hypokalemia: Likely secondary to poor p.o. intake Being replaced in ER Will monitor labs in a.m. (2) Dehydration: Likely secondary to poor p.o. intake Will do IV fluids normal saline at 75 cc/h (3) UTI (urinary tract infection): UA consistent with UTI Will continue IV fluids Add IV ceftriaxone 1 g daily (4) Closed intertrochanteric fracture of right hip: Secondary to fall likely mechanical in combination with UTI Orthopedic consulted in ER Plan for corrective surgery in a.m. She will be n.p.o. past midnight Pain control with IV morphine 2 mg every 4 hours as needed P.o. Percocet 5/325 mg every 4 hours as needed Plan Hypothyroidism-continue CELL TENDER levothyroxine Parkinson's disease-continue CELL TENDER carbidopa levodopa Depression/anxiety continue CELL TENDER duloxetine Hyperlipidemia--continue CELL TENDER rosuvastatin Dementia with behavioral disturbances-continue CELL TENDER Lamictal and quetiapine Attestations 2 Medical Necessity Statement*: She needs continued hospitalization crossing more than 2 midnights for management of right hip intertrochanteric fracture with surgical correction and management of UTI with IV fluids and antibiotics Time Spent in Patient Care: 45 minutes Coding Level of Care Code Acute Code for Chg Fwd Diagnoses Hypokalemia E87.6 Dehydration E86.0 UTI (urinary tract infection) N39.0 Closed intertrochanteric fracture of right hip S72.141A Time Spent (min) 45
[2024-02-27 18:01] VITALS: RESP 18
[2024-02-27] MEDS: potassium chloride ER 20 mEq Tablet 40 MEQ PO (18:01)
[2024-02-27] MEDS: morphine 4 mg/mL SDV 1 mL IVP (18:01)
[2024-02-27] MEDS: sodium chloride 0.9% 500 ML 999 ML IV (18:01)
[2024-02-27] MEDS: ondansetron 2 mg/ML SDV 2 mL 4 MG IVP (18:01)
--- NOTE | 2024-02-27 18:09 | ECG_ITS ---
[facility] Test Date: 2024-02-27 Pat Name: Crys Mir Department: Room: Gender: Female [employer]ter [employer]: : 1950 Requested By: Margarette Negrete Order Number: [id number] [place] MD: Lonnie Torres M.D. Measurements Intervals [place] Rate: 85 P: 67 MD: 218 QRS: 43 QRSD: 149 T: 42 QT: 391 QTc: 468 Interpretive Statements SINUS RHYTHM WITH FIRST DEGREE AV BLOCK RIGHT BUNDLE BRANCH BLOCK [120+ ms QRS DURATION, UPRIGHT V1, 40+ ms S IN I/aVL/V4/V5/V6] Compared to ECG 09/13/2023 20:49:34 First degree AV block now present Sinus bradycardia no longer present Electronically Signed On 02-27-2024 23:19:06 CDT by Lonnie Torres M.D. [email or web address] general [email or web address] Exam Prep [id number]
[2024-02-27] MEDS: potassium chloride premix 100 ML 25 MEQ IV (18:18)
[2024-02-27 19:00] VITALS: RESP 16; O2SAT 94
[2024-02-27 19:36] VITALS: BP 125/88; PULSE 74; RESP 18; O2SAT 93
--- NOTE | 2024-02-27 19:47 | PC.NURSE ---
@1850 patient found to be sitting at the end of bed no longer wearing her gown and holding her iv cath in hand. Pt had KCL and NS running at time. Assistance from coworkers to get patient back in the bed. New gown and new bedding required. Pt noted to have loose stool smeared all down the bed. Pt confused and stated, I was just trying to get out of here . UC notified that a sitter is needed on Med surg floor. This was patients first attempt at getting out of bed since arrival.
[2024-02-27 20:22] LABS: Bilirubin Urine Negative (Negative); Blood Urine Negative (Negative); Glucose Urine UA Negative (Normal); Ketones Urine Trace (Negative); Leukocyte Esterase Urine Trace (Negative); Nitrate Urine Negative (Negative); Protein Urine 1+ (Negative); Specific Gravity, Urine 1.028 (1.005-1.030); Urine Appearance Cloudy (CLEAR); Urine Color Yellow (Yellow); pH Urine 5.5 (5-7)
[2024-02-27 20:25] LABS: Bacteria Urine None Seen /hpf; Hyaline Casts Urine 44.25 /lpf; RBC Urine 0-2 /hpf (0-2); Squamous Epithelial Cell Urine 0-5 /hpf (0-5); WBC Urine 0-5 /hpf (0-5)
[2024-02-27 20:40] LABS: Add Urine Culture? No; Mucus Urine 2+ /hpf
[2024-02-27 21:37] VITALS: BMI 19.1
--- NOTE | 2024-02-27 21:43 | PC.NURSE ---
Pt arrived to unit from ED with no family present. Pt is only alert to self. Per report pt resides in a shelter. Pt resting comfortably in bed at this time.
[2024-02-27] MEDS: mirtazapine 15 mg Tablet 30 MG PO (21:57)
[2024-02-27] MEDS: atorvastatin 40 mg Tablet PO (21:57)
[2024-02-27] MEDS: quetiapine 25 mg Tablet PO (21:57)
--- NOTE | 2024-02-27 22:29 | PC.NURSE ---
Pt pulled out IV shortly after arrival to the unit. This RN was unable to get another IV placed and notified the charge nurse to try to get ultrasound guided IV as the pt has poor veins.
[2024-02-28] VITALS (22 sets, daily range): BP systolic 110–160; BP diastolic 61–88; PULSE 63–96; RESP 15–20; TEMP 36.3–37.8; O2SAT 93–100; BMI 19.1
--- NOTE | 2024-02-28 | XR_ITS ---
WS: [id number] Right hip, C-arm fluoroscopy views, 02/28/2024 Clinical [facility]: [facility] Comparison: Pelvis and right hip, 02/27/2024 Findings: The intraoperative views demonstrate internal fixation of the right intertrochanteric hip fracture. XR/XR hip RT 2-3V wo/w pel* [id number] Impression: Internal fixation of intertrochanteric fracture of the right hip.
--- NOTE | 2024-02-28 | XRR_ITS ---
PROCEDURE INFORMATION: Exam: XR Right Hip Exam date and time: 02/28/2024 8:39 AM Age: 73 years old Clinical indication: Device placement; Other: R hip troch nail; Prior surgery; Surgery date: Post-operative (0-2 days); Additional info: S/P R hip troch nail TECHNIQUE: Imaging protocol: Radiologic exam of the right hip. Views: 1 view hip with pelvis when performed. COMPARISON: CT pelvis wo con [id number] 02/27/2024 6:28 PM FINDINGS: Tubes, catheters and devices: No loosening of the surgical hardware. Bones/joints: Right femur fracture surgical fixation with grossly unremarkable postsurgical alignment. Right hip joint alignment is normal. Pre-existing left hip arthroplasty grossly unremarkable. Soft tissues: Gas and edema in the proximal right thigh soft tissues. Lateral skin rossi. XR/XR hip RT 2-3V wo/w pel* [id number] IMPRESSION: Unremarkable right hip fracture postoperative assessment.
[2024-02-28] MEDS: morphine 4 mg/mL SDV 1 mL 2 MG IVP ×4 (00:51→21:04)
[2024-02-28] MEDS: sodium chloride 0.9% 1,000 ML 75 ML IV ×2 (00:52→17:05)
[2024-02-28 04:30] LABS: Basophils % 0.2 %; Hematocrit 32.5 % (36-47); Lymphocytes # 1.3 10^3/uL (0.8-4.8); Mean Corpuscular HGB Conc 33.2 g/dL (30-55); Mean Corpuscular Hemoglobin 34.4 pg (27-33); Mean Corpuscular Volume 103.5 fl (85-98); Mean Platelet Volume 11.4 fL (7.4-10.4); Monocytes # 1.1 10^3/uL (0.2-0.9); Monocytes % 8.9 %; Neutrophils # 10.27 10^3/uL (1.8-7.7); Neutrophils % 80.5 %; Nucleated Red Blood Cells % 0 %; Platelet Count 195 10^3/cmm (157-399); Red Blood Count 3.14 10^6/uL (3.85-5.65); Red Cell Distribution Width 12.1 % (12.1-15.1); White Blood Count 12.75 10^3/uL (3.29-11.43)
[2024-02-28 04:52] LABS: Anion Gap 14.4 (5-19); Blood Urea Nitrogen 33 mg/dL (8-23); Calcium 8.9 mg/dL (8.5-10.5); Carbon Dioxide 23 mmol/L (22-29); Chloride 109 mmol/L (98-107); Creatinine Clr Calc Pharmacy 40.6943; Glucose 113 mg/dL (65-115); Magnesium 2.1 mg/dL (1.7-2.3); Osmolality Calculated 304 mOsm/kg (285-295); Potassium 3.4 mmol/L (3.5-5.1); Sodium 143 mmol/L (136-145)
[2024-02-28] MEDS: levothyroxine 200 mcg Tablet PO (04:58)
[2024-02-28] MEDS: famotidine 20 mg/2 mL INJ IVP ×2 (04:58→17:11)
[2024-02-28] MEDS: lamoTRIgine 100 mg Tablet 150 MG PO (04:58)
--- NOTE | 2024-02-28 06:00 | PC.NURSE ---
This RN attempted to call daughter to fill out preop checklist, daughter did not answer and pt is only alert to self. This RN told surgery RNs when they came to pick pt up for surgery.
[2024-02-28] MEDS: acetaminophen 1,000 MG/100 ML PIGGYBACK 400 MG IV (06:46)
--- NOTE | 2024-02-28 06:48 | P.ANESASSM_ITS ---
Pre-Anesthetic Assessment Height/Weight: Height 1.55 m Weight 45.813 kg Temp Pulse Resp BP Pulse Ox O2 Del Method 97.6 F 85 18 147/69 95 Room Air 02/28/24 04:00 02/28/24 04:00 02/28/24 04:58 02/28/24 04:00 02/28/24 04:00 02/28/24 06:19 Operation Date: 02/28/24 07:30 Proposed Procedures p Trochanteric Femoral Nail(Right) - Teo [place], Last intake: > 8 hrs Social No alcohol and No tobacco Exam clear to auscultation bilaterally and regular rate & rhythm Pulmonary Asthma and Sleep Apnea Neuropsych Dementia Anesthetic Plan ASA status: 3 Anesthesia: General Risk of > 500 ml blood loss (7ml/kg in children): No Medications/Allergies Home Medications Medication Instructions Recorded Confirmed Last Taken Type duloxetine 60 mg capsule,delayed 60 mg PO BID #180 caps 12/13/21 01/18/24 11/11/23 Rx release (Cymbalta) fluticasone propionate 50 2 spray intranasal DAILY@1999 #48 03/28/22 01/18/24 11/11/23 Rx mcg/actuation nasal grams spray,suspension potassium chloride 10 mEq 10 meq PO BID #180 tabs 03/28/22 01/18/24 11/11/23 Rx tablet,extended release rosuvastatin 10 mg tablet 10 mg PO BEDTIME@1999 #90 tabs 04/25/22 01/18/24 11/11/23 Rx acetaminophen 325 mg capsule 650 mg PO Q6H PRN Pain 12/11/22 01/18/24 11/11/23 History (Tylenol) carbidopa 25 mg-levodopa 100 mg 1 tab PO BID 12/11/22 01/18/24 11/11/23 History tablet levothyroxine 200 mcg tablet 200 mcg PO QAM 12/11/22 01/18/24 11/11/23 History melatonin 5 mg capsule 5 mg PO BEDTIME 12/11/22 01/18/24 11/11/23 History mirtazapine 15 mg tablet 30 mg PO BEDTIME 12/11/22 01/18/24 11/11/23 History topiramate 100 mg tablet (Topamax) 100 mg PO DAILY@1400 12/11/22 01/18/24 11/11/23 History acetaminophen 500 mg tablet 500 mg PO TID 03/21/23 01/18/24 11/11/23 History aluminum-mag hydroxide-simethicone 30 ml PO Q8H PRN GI upset 03/21/23 01/18/24 11/11/23 History 200 mg-200 mg-20 mg/5 mL oral susp (Katy-Lanta) bisacodyl 10 mg rectal suppository 10 mg IN DAILY PRN Constipation 03/21/23 01/18/24 11/11/23 History calcium carbonate 500 mg-vitamin 1 tab PO BID 03/21/23 01/18/24 11/11/23 History D3 10 mcg (400 unit) tablet (Calcium 500 + D) lamotrigine 150 mg tablet 150 mg PO QAM 03/21/23 01/18/24 11/11/23 History ferrous sulfate 325 mg (65 mg 325 mg PO DAILY #30 tabs 06/28/23 01/18/24 11/11/23 Rx iron) tablet (Feosol) vibegron 75 mg tablet (Gemtesa) 75 mg PO QAM 08/26/23 01/18/24 11/11/23 History Med Pass 2.0 1 ea PO BID 09/07/23 01/18/24 09/06/23 History aspirin 81 mg tablet,delayed 81 mg PO DAILY 09/07/23 01/18/24 11/05/23 History release dextran 70-hypromellose (PF) 0.1 1 drp ophthalmic (eye) Q4H PRN Dry 09/07/23 01/18/24 11/11/23 History %-0.3 % eye drops in a dropperette Eyes (Artificial Tears (PF)) docusate sodium 100 mg capsule 100 mg PO BID 09/07/23 01/18/24 11/11/23 History fluticasone propionate 100 1 inh inhalation BID 09/07/23 01/18/24 11/11/23 History mcg/actuation blister powder for inhalation vitamins-iron fumarate 65 1 tab PO DAILY 09/07/23 01/18/24 11/11/23 History mg iron-folic acid 1 mg tablet tramadol 50 mg tablet 50 mg PO TID 09/07/23 01/18/24 11/11/23 History pantoprazole 40 mg tablet,delayed 40 mg PO BID #60 tabs 09/09/23 01/18/24 11/11/23 Rx release polyethylene glycol 3350 17 gram 17 g PO BID #60 ea 09/09/23 01/18/24 11/11/23 Rx oral powder packet denosumab 60 mg/mL subcutaneous See Rx Instructions .Route .COMPLEX 11/11/23 01/18/24 Unknown History syringe (Prolia) quetiapine 25 mg tablet 25 mg PO BEDTIME 11/11/23 01/18/24 11/10/23 History custom molded accommodative #1 ea 01/18/24 01/18/24 Unknown Rx orthotics and orthopedic shoes ciprofloxacin HCl 500 mg tablet 500 mg PO Q12H #20 tabs 02/09/24 Unknown Rx Allergies Allergy/AdvReac Type Severity Reaction Status Date / Time No Known Allergies Allergy Verified 01/30/24 21:00 Current Medications Generic Name Dose Route Start Last Admin Trade Name Freq PRN Reason Stop Dose Admin Atorvastatin Calcium 40 mg 02/27/24 20:00 02/27/24 21:57 Atorvastatin 40 Mg Tablet PO 40 mg BEDTIME@2000 GO Administration Budesonide 0.5 mg 02/27/24 20:00 02/27/24 20:00 Budesonide 0.5 Mg/2 Ml Neb INHALATION Not Given BID.RESPIRATORY GO Famotidine 20 mg 02/27/24 18:00 02/28/24 04:58 Famotidine 20 Mg/2 Ml Inj IVP 20 mg Q12H GO Administration Sodium Chloride 1,000 mls @ 75 mls/hr 02/27/24 18:00 02/28/24 00:52 Sodium Chloride 0.9% IV 75 mls/hr .[id number] GO Administration Lamotrigine 150 mg 02/28/24 06:00 02/28/24 04:58 Lamotrigine 100 Mg Tablet PO 150 mg QAM GO Administration Levothyroxine Sodium 200 mcg 02/28/24 06:00 02/28/24 04:58 Levothyroxine 200 Mcg Tablet PO 200 mcg QAM GO Administration Mirtazapine 30 mg 02/27/24 21:00 02/27/24 21:57 Mirtazapine 15 Mg Tablet PO 30 mg BEDTIME GO Administration Morphine Sulfate 2 mg 02/27/24 17:58 09/24/24 04:58 Morphine 4 Mg/Ml Sdv 1 Ml IVP 2 mg Q4H PRN Administration SEVERE PAIN Quetiapine Fumarate 25 mg 02/27/24 21:00 02/27/24 21:57 Quetiapine 25 Mg Tablet PO 25 mg BEDTIME GO Administration PFSH Anesthesia Medical History Lewy body dementia Closed left hip fracture DNR no code (do not resuscitate) Osteoporosis, post-menopausal Lives in assisted living facility Spine deformity Osteoarthritis of knee Bradycardia Recurrent syncope Mixed hyperlipidemia Seasonal allergic rhinitis due to pollen Slow transit constipation Major depressive disorder, recurrent severe without psychotic features Sleep apnea Anxiety and depression Adult onset hypothyroidism Vitamin D deficiency COPD (chronic obstructive pulmonary disease) Parkinson disease CPAP (continuous positive airway pressure) dependence Dependent on walker for ambulation Surgical History Status post hip hemiarthroplasty History of repair of hiatal hernia Hx of cataract surgery Hx of right breast biopsy 1999 History of laparotomy 1971 no body parts removed History of back surgery 2016 T11-T12 History of hernia repair 2017 History of tubal ligation Left removed only 1973 History of bunionectomy bilateral 2015 Family History Mother Congestive heart failure (CHF) Clotting disorder CAD (coronary artery disease) Family/Other Lung disease Cancer Grandmother Stroke Denies family history of Diabetes Dementia Chronic kidney disease (CKD) Suicide Anesthesia complication Bleeding disorder Social History Smoking and tobacco/nicotine status: former use of tobacco/nicotine Quit status (tobacco/nicotine): has quit using Year quit tobacco: 2004 - PPD x 35 Years Second hand smoke exposure: No Alcohol intake: former Substance/Drug Use: never Adopted: No Caregiver/support person: No Lives independently: Yes Household members: none Housing: House Marital status: Unknown Number of children: 1 service: Yes branch: [employer] Current occupational status: retired and disabled Pets and animals: No Do you think of yourself as: Straight/Heterosexual Current gender identity: Female Data Anesthesia 02/28/24 03:58 02/28/24 03:58 Short CBC 02/27/24 02/28/24 Range/Units 17:00 03:58 WBC 8.55 12.75 H (3.29-11.43) 10^3/uL Hgb 12.70 10.80 L (11.27-16.99) g/dL Hct 38.5 32.5 L (36-47) % MCV 102.9 H 103.5 H (85-98) fl Plt Count 222 195 (157-399) 10^3/cmm Neut % (Auto) 74.8 80.5 % Neut # (Auto) 6.39 10.27 H (1.8-7.7) 10^3/uL BMP 02/27/24 02/28/24 17:00 03:58 Sodium 140 143 Potassium 2.8 L* 3.4 L Chloride 105 109 H Carbon Dioxide 22 23 BUN 39 H 33 H Creatinine 1.1 H 0.9 Glucose 119 H 113 Calcium 9.6 8.9 Liver Function 02/27/24 Range/Units 17:00 Total Bilirubin 0.2 (0.15-1.2) mg/dL AST 25 (0-32) U/L ALT 7 (0-33) U/L Alkaline Phosphatase 96 (35-105) U/L Albumin 4.6 (3.5-5.2) g/dL Urine 02/27/24 Range/Units 19:13 Urine Color Yellow (Yellow) Urine Appearance Cloudy A (CLEAR) Urine pH 5.5 (5-7) Ur Specific [place] 1.028 (1.005-1.030) Urine Protein 1+ A (Negative) Urine Glucose (UA) Negative (Normal) Urine Ketones Trace (Negative) Urine Nitrate Negative (Negative) Urine Bilirubin Negative (Negative) Ur Leukocyte Esterase Trace A (Negative) Urine RBC 0-2 (0-2) /hpf Urine WBC 0-5 (0-5) /hpf Coags 02/27/24 17:00 PT 13.90 INR 1.04 APTT 25.7 Cardiac Studies: 2 Echocardiogram Ultrasound 03/25/20 Sestamibi Stress Test (Cardiology) 02/04 Holter Monitor 01/04/20
[2024-02-28] MEDS: ketorolac 30 mg/mL INJ IVP (06:49)
--- NOTE | 2024-02-28 06:50 | W.PM.OPSUD ---
Surgery/Procedure H&P Update DATE OF PROCEDURE: February 28, 2024 DATE H&P PERFORMED: 02/27/24 H&P UPDATE INFORMATION: I have reviewed H&P completed within last 30 days, I have examined patient prior to procedure and No changes to prior documentation CHANGES TO PREVIOUS DOCUMENTATION: Patient seen and examined this morning. Patient is unable to answer any questions or follow commands I did speak with the daughter last night with plan for a right hip trochanteric femur nail today for pain control as well as safety when she is ambulating. At that point in time she verbalized agreements to proceed with surgical intervention today for right hip trochanteric femur nail. Nursing staff this morning in preop once again called and verbal consent was given over the phone for procedure today as patient is unable to sign consent for herself today. At this point time plan to proceed with right hip trochanteric femur nail today. All questions answered with daughter who is POA over the phone. PREOP DIAGNOSIS: Right hip intertrochanteric femur fracture PRIMARY INDICATION FOR PROCEDURE: Right hip intertrochanteric femur fracture PLANNED PROCEDURE: Operation Date: 02/28/24 07:30 Proposed Procedures p Trochanteric Femoral Nail(Right) - Teo Sewell DO
[2024-02-28] MEDS: ceFAZolin 2,000 mg SDV 2000 MG IVP (07:04)
[2024-02-28] MEDS: tranexamic acid 1,000 mg/10mL SDV 1000 MG (07:39)
--- NOTE | 2024-02-28 08:10 | P.OP_ITS ---
Operative Report Date of procedure: February 28, 2024 Surgeon: Teo Sewell DO Web Programmer: Billy Sewell PA-C: PA was necessary for assistance in this case with leg positioning retraction, assistance with reduction, and assistance with instrumentation for fracture fixation, assistance with wound closure and dressing application. Procedure: Preoperative diagnosis: Right hip displaced intertrochanteric femur Post-op diagnosis: Same Procedure done: Right intertrochanteric femur fracture ORIF with cephalomedullary nail Implants: Gill gamma nail?short?11 mm x 180 mm x 125 degree Lag screw 10.5 mm x 90?mm Distal locking screw 5 mm x 32.5 mm Surgeon: Teo Sewell DO Estimated blood loss: 75 mL IV fluids: 600mL Urine output: 200 mL Complications: See operative?report Findings: See operative?report narrative Condition: stable Disposition: Floor Brief History: Patient sustained a fall and was found to have a?right intertrochanteric hip fx.?Pt has?been unable to bear weight,?right hip/lower extremity?shortened and externally?rotated.? At this point time Pt?was admitted by the hospitalist team and orthopedics was consulted.??Refer to consult note for detailed HPI.? We talked about treatment options as far as nonoperative and operative intervention with patient's POA as she was confused during our examination unable to sign consent for herself.?Recommend?Right hip?trochanteric femur nail.? At this point time patient's POA would like to pursue surgical intervention for benefits of pain control and earlier mobilization.?? Patient's POA understands the ins and o uts of procedure, the?risk benefits complication alternatives of surgical nonsurgical treatment options.? Understanding?risk of surgery patient's POA?agrees to proceed with surgical intervention all questions answered.? Consent obtained verbally over the phone Procedure: Patient seen evaluated in the preoperative holding area.? Consent was obtained over the phone with POA.? Correct extremity was then marked.? Once cleared by anesthesia and the hospitalist team patient was taken back to the operative suite.? Patient underwent anesthesia per the anesthesia department.? Once appropriately anesthetized patient was placed on a fracture [place] table.? Patient was appropriately secured to the bed.? All bony prominences were well-padded.? At this point time patient?received appropriate preoperative antibiotics.? Final timeout was performed.? Prior to beginning surgery a standard closed?reduction maneuver was placed on the [place] table and large C-arm was brought in.? After performing a closed?reduction maneuver there was able to achieve satisfactory?reduction of?right intertrochanteric femur fracture.? Fracture site did not extend into the subtrochanteric?region as?result plan was for a?shor t?nail.?? This point time the?right lower extremity was then prepped and draped in standard orthopedic fashion. A standard longitudinal incision was made just proximal to the greater?trochanter?roughly 4 cm in length sharp scalpel vision was made through skin and subcutaneous tissue.? I then utilized a blunt Ronquillo to split? fascia and mobilized directly down to the greater?trochanter.? I then inserted my starting guidewire which was placed appropriate starting position the tip of the greater?trochanter.? This was advanced in AP and lateral films to be in center center position and advanced to the level lesser?trochanter.? This was confirmed to be in center center position on AP and lateral imaging.? Once this was done I then introduced my opening?reamer which was then subsequently guide pi n?removed.? I selected a 11 mm x 180 mm x 125 degree. At this point time the nail was then loaded onto the Anderson gamma?trochanteric nail guide.? This was placed within the canal and confirmed with XR and the setscrew was then gently placed not locked.? The nail was then impacted to appropriate depth .? At this point time I then inserted my lag screw guide and subsequently made a small incision through skin and subcutaneous tissue splitting the IT band longitudinally and the guide was placed directly onto bone.? Next I then subsequently placed the guidewire in center center position in the head with an appropriate tip to apex distance this was confirmed with multiple orthogonal images.? Once I was satisfied with my planned lag screw placement I then measured which was?90?mm.? I then set my cannulated drill and subsequently?reamed this into the head at appropriate depth.? I then had my?rep open the 10.5 mm x 90 mm lag screw which was then opened on the back table and subsequently screwed into place over my cannulated drill guide.? This was placed with excellent tip to apex distance.? Next I then utilized the compressing device and subsequently compressed my fracture after I let off traction.? This had excellent fracture compression and opposition and closing down to my fracture line.? Next I then locked the nail by locking my setscrew.? This point time the guidewire as well as the sleeve was then?removed.? Next I plan for statically locking the nail distally.? This triple sleeve was then placed a small stab incision was made blunt dissection directly down to bone and the gu wilbert sleeve was placed and locked directly onto the bone.? I then inserted the drill bit and subsequently drilled bicortically measured appropriate length screw and then placed a 32.5?mm distal interlocking screw and had excellent fixation was appropriate length.? This point time is completed my construct I?remove the outer jig and took final images of AP and lateral of the?right intertrochanteric femur fracture which showed stable?reduction and stable fixation.? Incision was then thoroughly irrigated.? Hemostasis was maintained with electrocautery.? I then once again thoroughly irrigated the incisions and then subsequently closed in layered fashion of 0 Vicryl 2-0 Vicryl and rossi.? Silverlon dressings applied.? Patient was then awakened from anesthesia transported onto the hospital bed and taken to PACU in stable condition.? Patient tolerated procedure without complications. Disposition: Patient taken to PACU in stable condition.? Postoperatively,? Patient to?receive appropriate discharge instructions as well as pain medication DVT prophylaxis postoperatively.? Patient?will be allowed weightbearing as tolerated?right lower extremity.? Will?receive appropriate postoperative anti biotics, PT/OT.? Patient to follow-up in the orthopedic office in 2 weeks.? Patients family understands and agrees with current plan.? All questions answered.
--- NOTE | 2024-02-28 08:25 | XRR_ITS ---
PROCEDURE INFORMATION: Exam: XR Right Hip Exam date and time: 02/28/2024 8:39 AM Age: 73 years old Clinical indication: Device placement; Other: R hip troch nail; Prior surgery; Surgery date: Post-operative (0-2 days); Additional info: S/P R hip troch nail TECHNIQUE: Imaging protocol: Radiologic exam of the right hip. Views: 1 view hip with pelvis when performed. COMPARISON: CT pelvis con [id number] 02/27/2024 6:28 PM FINDINGS: Tubes, catheters and devices: No loosening of the surgical hardware. Bones/joints: Right femur fracture surgical fixation with grossly unremarkable postsurgical alignment. Right hip joint alignment is normal. Pre-existing left hip arthroplasty grossly unremarkable. Soft tissues: Gas and edema in the proximal right thigh soft tissues. Lateral skin rossi.
--- NOTE | 2024-02-28 08:26 | P.BOP_ITS ---
Date of Procedure: [February 28, 2024] Surgeon: [Dr. Sewell DO] Enrollment Counselor(s): [Billy Sewell PA-C] Procedure(s) performed: [Right hip Trochanteric femoral nail] Findings of the procedure(s): [Displaced right hip intertrochanteric femur fracture] Estimated blood loss: [75 ml] Specimen(s) removed: [n/a] Post-operative diagnosis: [Displaced right hip intertrochanteric femur fracture]
--- NOTE | 2024-02-28 08:30 | PM.PACU ---
PACU note Narrative: Patient is a 73-year-old female just underwent a right hip ORIF. Pt transferred to PACU in stable condition. Dressing is dry. Patient is still under anesthesia. Unable to do any further assessment on patient's sensation and motor function due to residual anesthesia. Distal pulses are palpable toes are warm and well-perfused. Cap refill is normal and under 2 seconds. Pain is controlled. Exam: unarousable Disposition: back to floor
--- NOTE | 2024-02-28 08:54 | PC.PHAR ---
Patent is from [facility]
--- NOTE | 2024-02-28 09:10 | ANE.PACU2 ---
Inpatient post-anesthesia follow up: Airway intact: Yes Vital signs: Temperature 97.6 F Pulse Rate 73 Respiratory Rate 16 Blood Pressure 135/72 Pulse Oximetry 99 Oxygen Delivery Me thod Room Air Oxygen Flow Rate 8 Fraction of Inspir ed Oxygen Hydration adequate: Yes Nausea and vomiting: No Pain level: 1 Mental status: Baseline
--- NOTE | 2024-02-28 09:29 | PC.CHAP ---
Pastoral Care Encounter/Spiritual Assessment Type of Contact [] Declined put in beat adjuster visit [] Patient/Family/Request visit [] Outpatient visit [] Follow-up visit [] Physician referral [] Code/Alert [] Routine visit [] Staff referral [] Actively dying [] Patient sleeping [] Family support [] [] Out of room [] Palliative care [] [] Receiving care in room [] Pre-surgical visit [] Trauma [] Long length of stay [] ICU visit [x] Other:No visit. Contact precautions. Relational/Emotional Strength [] Patient feels connected with others/family/visitors/staff [] Distress [] Loneliness/isolation [] Abandonment Spirituality of Patient [] Person of Katelyn [] Attends Mandaen of their Katelyn [] Believes in Prayer [] Reads Bible or Orthodoxy materials [] There are Spiritual issues to be addressed Dispatcher Tugboat Interventions [] Prayer [] Active listening [] Non-anxious presence [] Spiritual/emotional support [] Crisis/trauma care [] Spiritual counseling [] Bereavement support [] Provided bereavement packet [] Provided Bible/devotional materials [] Provided toy/stuffed animal, coloring book to patient or family member [] Provided Communion [] Anointing/[place] [] Salvation [] Completed spiritual assessment [] Other: Impact on Illness or Injury [] Angry [] Fearful [] Anxious [] Often cries [] Exhaustion [] Unable to work [] Unable to attend jehovah's witness [] Unable to walk/stand [] Unable to read [] Unable to drive [] Unable to eat/drink [] Unable to sleep [] Unable to be with family [] Patient intubated [] Other: Summary Time spent with patient
--- NOTE | 2024-02-28 10:19 | PC.NURSE ---
Patient is too groggy to take morning medications. Dr. Bell notified.
[2024-02-28] MEDS: oxyCODONE-APAP 5-325 mg Tablet 1 TAB PO ×2 (12:30→22:26)
--- NOTE | 2024-02-28 12:46 | P.PN_ITS ---
Subjective 2 Subjective: No acute overnight events noted. Patient was seen at bedside this morning, has been drowsy from postanesthesia but moving all extremities to voice command Medications: Reviewed: Yes Vitals/I&O/Wt Last Vital Signs Temp 97.6 F 02/28/24 12:19 Pulse 73 02/28/24 12:20 Resp 16 02/28/24 12:30 BP 135/72 02/28/24 12:20 Pulse Ox 99 02/28/24 12:20 O2 Del Method Room Air 02/28/24 12:20 O2 Flow Rate 8 02/28/24 08:20 02/27/24 02/28/24 02/28/24 22:59 06:59 14:59 Intake Total 593.75 / 593.75 0 / 0 Output Total 300 / 300 275 / 275 Balance 593.75 / 593.75 -300 / 293.75 -275 / -275 Weight last 48 hrs Weight 45.813 kg Weight 45.813 kg Weight 45.813 kg Physical Exam 2 Narrative: She is drowsy but moving extremities to verbal command Chest clear to auscultation bilaterally Cardiovascular normal heart sounds Abdomen NAD extremities no edema noted bilateral lower extremities, right lower extremity flexed but restricted range of motion present, patient moaning in pain on movement of right hip Urinary Catheter Management: Kurtz: Cath Placed During This Visit: yes Reason for Continuing Indwelling Catheter: Perioperative Use in Selected Surgeries Urinary Catheter Date of Insertion: 02/27/24 Urinary Catheter Time of Insertion: 18:59 Data 02/28/24 03:58 02/28/24 03:58 A&P Assessment and plan (1) Hypokalemia: Improved but still potassium 3.4 this morning likely secondary to poor p.o. intake Will do p.o. potassium 40 mEq x 2 (2) Dehydration: Likely secondary to poor p.o. intake Will do IV fluids normal saline at 75 cc/h (3) UTI (urinary tract infection): UA negative On IV cefazolin post right hip surgery as per Ortho team. (4) Closed intertrochanteric fracture of right hip: Secondary to fall likely mechanical Orthopedic consulted in ER She is s/p right hip trochanteric femoral nail Pain control with IV morphine 2 mg every 4 hours as needed P.o. Percocet 5/325 mg every 4 hours as needed Plan Hypothyroidism-continue USER INTERFACE ENGINEER levothyroxine Parkinson's disease-continue USER INTERFACE ENGINEER carbidopa levodopa Depression/anxiety continue USER INTERFACE ENGINEER duloxetine Hyperlipidemia--continue USER INTERFACE ENGINEER rosuvastatin Dementia with behavioral disturbances-continue USER INTERFACE ENGINEER Lamictal and quetiapine Attestations 2 Medical Necessity Statement*: She needs continued hospitalization crossing 2 midnights for post of management of right hip fracture. Anticipating discharge in 1 to 2 days Time Spent in Patient Care: 15 minutes Coding Level of Care Code Acute Code for [facility] Fwd Diagnoses Hypokalemia E87.6 Dehydration E86.0 UTI (urinary tract infection) N39.0 Closed intertrochanteric fracture of right hip S72.141A Time Spent (min) 15
[2024-02-28] MEDS: topiramate 100 mg Tablet PO (14:00)
[2024-02-28] MEDS: potassium chloride ER 20 mEq Tablet 40 MEQ PO (14:00)
[2024-02-28] MEDS: ceFAZolin 2,000 MG in sodium chloride 0.9% (plus) 50 ML 100 MG IV ×2 (15:04→22:26)
[2024-02-28] MEDS: tranexamic acid 1,000 MG/100 ML PREMIX 600 MG IV (15:05)
[2024-02-28] MEDS: LORazepam 2 mg/mL INJ 1 mL 0.5 MG IM (18:42)
--- NOTE | 2024-02-28 18:45 | PC.NURSE ---
Patient has been restless on and off today. This nurse was able to administer a few PO medications but not most. Dr. Bell notified. A one time order for IM ativan was just given to help patient rest.
[2024-02-28] MEDS: atorvastatin 40 mg Tablet PO (19:41)
[2024-02-28] MEDS: quetiapine 25 mg Tablet PO (20:06)
[2024-02-28] MEDS: mirtazapine 15 mg Tablet 30 MG PO (20:08)
--- NOTE | 2024-02-28 20:33 | PC.NURSE ---
COVID+ - Spoke to nurse at [facility] and pt tested positive for COVID at the [facility] the day she fell (02/26). Pt care nurse notifying physician.
[2024-02-29] VITALS (12 sets, daily range): BP systolic 114–158; BP diastolic 66–75; PULSE 76–85; RESP 12–19; TEMP 36.9–37.9; O2SAT 95–99; BMI 20.4
[2024-02-29] MEDS: morphine 4 mg/mL SDV 1 mL 2 MG IVP ×2 (01:24→15:56)
[2024-02-29] MEDS: famotidine 20 mg/2 mL INJ IVP ×2 (05:06→17:35)
[2024-02-29] MEDS: oxyCODONE-APAP 5-325 mg Tablet 1 TAB PO ×3 (05:09→17:32)
[2024-02-29] MEDS: levothyroxine 200 mcg Tablet PO (05:10)
[2024-02-29 05:52] LABS: Basophils # 0.1 10^3/uL (0.0-0.1); Basophils % 0.6 %; Eosinophils % 0.2 %; Hematocrit 28.4 % (36-47); Lymphocytes % 22.4 %; Mean Corpuscular HGB Conc 32.7 g/dL (30-55); Mean Corpuscular Hemoglobin 35.1 pg (27-33); Mean Corpuscular Volume 107.2 fl (85-98); Mean Platelet Volume 11.3 fL (7.4-10.4); Monocytes % 11.1 %; Neutrophils # 5.75 10^3/uL (1.8-7.7); Neutrophils % 65.5 %; Nucleated Red Blood Cells % 0 %; Platelet Count 159 10^3/cmm (157-399); Red Blood Count 2.65 10^6/uL (3.85-5.65); Red Cell Distribution Width 12.5 % (12.1-15.1); White Blood Count 8.79 10^3/uL (3.29-11.43)
[2024-02-29] MEDS: ceFAZolin 2,000 MG in sodium chloride 0.9% (plus) 50 ML 100 MG IV (06:08)
[2024-02-29] MEDS: sodium chloride 0.9% 1,000 ML 75 ML IV ×2 (06:09→20:37)
[2024-02-29 06:15] LABS: Anion Gap 12.9 (5-19); Blood Urea Nitrogen 22 mg/dL (8-23); Calcium 8.2 mg/dL (8.5-10.5); Carbon Dioxide 21 mmol/L (22-29); Chloride 116 mmol/L (98-107); Creatinine Clr Calc Pharmacy 47.0621; Glucose 88 mg/dL (65-115); Osmolality Calculated 305 mOsm/kg (285-295); Potassium 3.9 mmol/L (3.5-5.1); Sodium 146 mmol/L (136-145)
[2024-02-29] MEDS: budesonide 0.5 mg/2 mL Neb INHALATION ×2 (08:14→19:42)
--- NOTE | 2024-02-29 10:12 | PC.SOCIAL ---
IMM Update pg 2 of IMM updated and reviewed w/ patients daughter. Copy provided and copy dated, initialed and placed in chart.
[2024-02-29] MEDS: calcium carb-vit d 600mg/400unit 1 Tablet 1 EACH PO ×2 (10:44→17:35)
[2024-02-29] MEDS: ferrous sulfate EC 325 mg Tablet PO (10:44)
[2024-02-29] MEDS: duloxetine 60 mg Capsule PO ×2 (10:45→17:33)
[2024-02-29] MEDS: carbidopa-levodopa 25-100mg Tablet 1 EACH PO ×2 (10:45→17:33)
[2024-02-29] MEDS: aspirin 81 mg EC Tablet PO (10:45)
[2024-02-29] MEDS: multivitamin therapeutic Tablet 1 TAB PO (10:45)
[2024-02-29] MEDS: sennosides-docusate Tablet 2 TAB PO ×2 (10:45→17:34)
[2024-02-29] MEDS: mupirocin oint 22 gm 1 APPLIC NASAL ×2 (10:46→17:35)
[2024-02-29] MEDS: iron polysaccharide complex 150 mg Capsule PO ×2 (10:46→17:32)
[2024-02-29] MEDS: potassium chloride ER 10 mEq Tablet PO ×2 (10:46→17:32)
[2024-02-29] MEDS: docusate sodium 100 mg Capsule PO ×2 (10:46→17:34)
[2024-02-29] MEDS: chlorhexidine gluconate 0.12% Btl 473 mL 30 ML MUCOUS MEM (10:48)
[2024-02-29] MEDS: enoxaparin 40 mg/0.4 mL Syringe SUBCUT (11:05)
--- NOTE | 2024-02-29 13:37 | P.PN_ITS ---
Subjective 2 Subjective: No acute overnight events noted. Patient's been still confused and pulling on tubes at times. Has 1 is to 1 sitter at bedside. When asked about pain complained of pain in right hip. As per the sitter she has not been able to eat and suspect she has dentures. Will asked daughter to bring the dentures from custodial Medications: Reviewed: Yes Vitals/I&O/Wt Last Vital Signs Temp 98.4 F 02/29/24 12:00 Pulse 85 02/29/24 12:00 Resp 19 H 02/29/24 12:00 BP 114/66 02/29/24 12:00 Pulse Ox 96 02/29/24 12:00 O2 Del Method Room Air 02/29/24 12:00 O2 Flow Rate 8 02/28/24 08:20 02/28/24 02/29/24 02/29/24 22:59 06:59 14:59 Intake Total 1370 / 1490 1180 / 2670 360 / 360 Output Total 300 / 575 275 / 850 250 / 250 Balance 1070 / 915 905 / 1820 110 / 110 Weight last 48 hrs Weight 49.101 kg Weight 45.813 kg Weight 45.813 kg Weight 45.813 kg Physical Exam 2 Narrative: She is drowsy but moving extremities to verbal command Chest clear to auscultation bilaterally Cardiovascular normal heart sounds Abdomen NAD extremities no edema noted bilateral lower extremities, right lower extremity flexed but restricted range of motion present, patient moaning in pain on movement of right hip Urinary Catheter Management: Kurtz: Cath Placed During This Visit: yes Reason for Continuing Indwelling Catheter: Perioperative Use in Selected Surgeries Urinary Catheter Date of Insertion: 02/27/24 Urinary Catheter Time of Insertion: 18:59 Data 02/29/24 04:58 02/29/24 04:58 A&P Assessment and plan (1) Hypokalemia: (2) Dehydration: (3) UTI (urinary tract infection): (4) Closed intertrochanteric fracture of right hip: Secondary to fall likely mechanical Orthopedic consulted in ER She is s/p right hip trochanteric femoral nail Pain control with IV morphine 2 mg every 4 hours as needed P.o. Percocet 5/325 mg every 4 hours as needed Plan Hypokalemia and dehydration improved with IV fluids. She is s/p right hip trochanteric femoral nail. Pain control with IV morphine 2 mg every 4 hours as needed P.o. 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 Awaiting discharge in a.m. Attestations 2 Medical Necessity Statement*: She needs continued hospitalization for management of postoperative care for right hip surgery. Anticipating discharge in a.m. Time Spent in Patient Care: 15 minutes Coding Level of Care Code Acute Code for Chg Fwd Diagnoses Hypokalemia E87.6 Dehydration E86.0 UTI (urinary tract infection) N39.0 Closed intertrochanteric fracture of right hip S72.141A Time Spent (min) 15
--- NOTE | 2024-02-29 13:47 | P.PN_ITS ---
Subjective 2 Subjective: Patient seen and examined today. Patient is more awake today but still confused as to where she is at. She does remember that I had fixed her other hip and that she just had her right hip fixed. Pain appears to be controlled with medications once again given her confusion unable to obtain a full HPI Vitals/I&O/Wt Last Vital Signs Temp 98.4 F 02/29/24 12:00 Pulse 85 02/29/24 12:00 Resp 19 H 02/29/24 12:00 BP 114/66 02/29/24 12:00 Pulse Ox 96 02/29/24 12:00 O2 Del Method Room Air 02/29/24 12:00 O2 Flow Rate 8 02/28/24 08:20 02/28/24 02/29/24 02/29/24 22:59 06:59 14:59 Intake Total 1370 / 1490 1180 / 2670 360 / 360 Output Total 300 / 575 275 / 850 250 / 250 Balance 1070 / 915 905 / 1820 110 / 110 Weight last 48 hrs Weight 108 lb 4 oz Weight 101 lb Weight 101 lb Weight 101 lb Physical Exam 2 Narrative: Examination of the right lower extremity: Examination is limited due to patient's confusion she was able to respond but does not follow commands very well for full examination. Her dressing to the right hip is clean dry and intact compartments are soft and compressible toes are warm and well-perfused brisk cap refill less than 2 seconds distal pulses are palpable. She will involuntarily be wiggling her toes as well as plantarflex and dorsiflex in her ankle but unable to assess sensory secondary to her confusion. Urinary Catheter Management: Kurtz: Cath Placed During This Visit: yes Reason for Continuing Indwelling Catheter: Perioperative Use in Selected Surgeries Urinary Catheter Date of Insertion: 02/27/24 Urinary Catheter Time of Insertion: 18:59 Data 02/29/24 04:58 02/29/24 04:58 Xray Ortho: My impression: X-rays multiple views of the right hip reviewed in person interpreted by myself demonstrating a stable right hip trochanteric femur nail with reduction of the intertrochanteric femur fracture. Radiologist's impression: XR/XR hip RT 2-3V wo/w pel* [id number] IMPRESSION: Unremarkable right hip fracture postoperative assessment. A&P Assessment and plan (1) Intertrochanteric fracture of right hip: Plan Weightbearing as tolerated right lower extremity Complete?postoperative antibiotics Complete?postoperative TXA X-rays reviewed, demonstrating stable fixation Resume regular diet Pain control PT/OT DVT prophylaxis Labs reviewed Ice and elevate as needed for pain and swelling Antinausea medication as needed Patient stable from orthopedic standpoint Plan on dressing change tomorrow and likely return to rehab facility tomorrow. Attestations 2 Medical Necessity Statement*: Ongoing care status post right hip intertrochanteric femur fracture requiring surgical intervention Coding Level of Care Code Acute Code for [facility] Fwd Diagnoses Intertrochanteric fracture of right hip S72.141A Time Spent (min) 15
[2024-02-29] MEDS: topiramate 100 mg Tablet PO (15:53)
[2024-02-29] MEDS: mirtazapine 15 mg Tablet 30 MG PO (20:39)
[2024-02-29] MEDS: atorvastatin 40 mg Tablet PO (20:39)
[2024-02-29] MEDS: quetiapine 25 mg Tablet PO (20:39)
[2024-03-01] VITALS (9 sets, daily range): BP systolic 126–182; BP diastolic 63–100; PULSE 73–83; RESP 14–18; TEMP 36.9–37.2; O2SAT 96–100
[2024-03-01] MEDS: morphine 4 mg/mL SDV 1 mL 2 MG IVP (02:37)
[2024-03-01] MEDS: hyDRALAzine 20 mg/mL INJ 1 mL 5 MG IVP (04:20)
[2024-03-01 04:57] LABS: Basophils % 0.3 %; Eosinophils # 0.1 10^3/uL (0.0-0.8); Hematocrit 28.4 % (36-47); Lymphocytes # 1.5 10^3/uL (0.8-4.8); Lymphocytes % 18.9 %; Mean Corpuscular HGB Conc 32.7 g/dL (30-55); Mean Corpuscular Hemoglobin 34.8 pg (27-33); Mean Corpuscular Volume 106.4 fl (85-98); Mean Platelet Volume 10.9 fL (7.4-10.4); Monocytes # 0.9 10^3/uL (0.2-0.9); Monocytes % 11.2 %; Neutrophils # 5.22 10^3/uL (1.8-7.7); Neutrophils % 68.2 %; Nucleated Red Blood Cells % 0 %; Platelet Count 153 10^3/cmm (157-399); Red Blood Count 2.67 10^6/uL (3.85-5.65); Red Cell Distribution Width 12.5 % (12.1-15.1); White Blood Count 7.66 10^3/uL (3.29-11.43)
[2024-03-01] MEDS: oxyCODONE-APAP 5-325 mg Tablet 1 TAB PO ×2 (04:59→09:30)
[2024-03-01] MEDS: lamoTRIgine 100 mg Tablet 150 MG PO (05:00)
[2024-03-01] MEDS: levothyroxine 200 mcg Tablet PO (05:00)
[2024-03-01] MEDS: famotidine 20 mg/2 mL INJ IVP (05:00)
[2024-03-01 05:24] LABS: Anion Gap 11.6 (5-19); Blood Urea Nitrogen 19 mg/dL (8-23); Carbon Dioxide 22 mmol/L (22-29); Chloride 115 mmol/L (98-107); Creatinine Clr Calc Pharmacy 47.0621; Glucose 93 mg/dL (65-115); Osmolality Calculated 302 mOsm/kg (285-295); Potassium 3.6 mmol/L (3.5-5.1); Sodium 145 mmol/L (136-145)
[2024-03-01] MEDS: budesonide 0.5 mg/2 mL Neb INHALATION (08:46)
[2024-03-01] MEDS: calcium carb-vit d 600mg/400unit 1 Tablet 1 EACH PO (09:30)
[2024-03-01] MEDS: aspirin 81 mg EC Tablet PO (09:31)
[2024-03-01] MEDS: carbidopa-levodopa 25-100mg Tablet 1 EACH PO (09:31)
[2024-03-01] MEDS: iron polysaccharide complex 150 mg Capsule PO (09:31)
[2024-03-01] MEDS: ferrous sulfate EC 325 mg Tablet PO (09:31)
[2024-03-01] MEDS: duloxetine 60 mg Capsule PO (09:31)
[2024-03-01] MEDS: potassium chloride ER 10 mEq Tablet PO (09:31)
[2024-03-01] MEDS: docusate sodium 100 mg Capsule PO (09:32)
[2024-03-01] MEDS: sennosides-docusate Tablet 2 TAB PO (09:32)
[2024-03-01] MEDS: mupirocin oint 22 gm 1 APPLIC NASAL (09:32)
[2024-03-01] MEDS: multivitamin therapeutic Tablet 1 TAB PO (09:32)
--- NOTE | 2024-03-01 09:55 | PM.DCS ---
Discharge Providers Date of Admission: 02/27/24 17:12 Date of Discharge: March 01, 2024 Attending Provider at Admission: Cristine Bell MD Attending Provider at Discharge: Cristine Bell MD Primary Care Provider: Gerson Marshall MD Diagnoses at Discharge Discharge Diagnosis (1) Intertrochanteric fracture of right hip: Status: Acute Reason for Visit Reason for Visit: fall, right hip/shoulder pain Brief History: Crys Mir is a 73 year old female with past medical history of Lewy body dementia, hyperlipidemia, Parkinson's disease, hypothyroidism, depression/anxiety, COPD, was brought in by EMS from [facility] s/p fall. She complained of severe right hip pain and right shoulder pain and hence was brought to ER for further evaluation. She has history of dementia but is able to comprehend and answer questions appropriately. During evaluation she was crying due to severe pain in right hip. She reports she has history of multiple falls in the past but today in spite of using a walker she fell and hit her right hip. In ER she was found to have right trochanteric comminuted fracture. Orthopedic surgery consulted. Her potassium was 2.8, replaced in the ER Creatinine 1.1 UA consistent with UTI Hospital Course Hospital Course She was consulted by Dr Donato brown for right trochanteric comminuted fracture and is s/p intertrochanteric nail. She is doing well, pain controlled on prn meds. She will be on anticoagulation SQ lovenx 40mg daily for 35 days for DVT prophylaxis. Will discharge her today and follow up with ortho as an outpatient. Physical Exam Narrative: She is drowsy but moving extremities to verbal command Chest clear to auscultation bilaterally Cardiovascular normal heart sounds Abdomen NAD extremities no edema noted bilateral lower extremities, right lower extremity flexed but restricted range of motion present, patient moaning in pain on movement of right hip Urinary Catheter Management: Kurtz: Cath Placed During This Visit: yes Reason for Continuing Indwelling Catheter: Perioperative Use in Selected Surgeries Urinary Catheter Date of Insertion: 02/27/24 Urinary Catheter Time of Insertion: 18:59 Discharge Data Studies Completed and Pending Completed Studies During Hospitalization Category Date Time Status CT cervical spin wo con* [id number] Stat Cat Scan 02/27/24 15:[address] head wo con* [id number] Stat Cat Scan 02/27/24 15:[address] pelvis wo con [id number] Stat Cat Scan 02/27/24 16:51 Completed XR chest 1V portable [id number] Stat Exams 02/27/24 15:29 Completed XR hip RT 2-3V wo/w pel* [id number] Routine Exams 02/28/24 00:00 Completed XR hip RT 2-3V wo/w pel* [id number] Routine Exams 02/28/24 00:00 Completed XR hip RT 2-3V wo/w pel* [id number] Stat Exams 02/27/24 15:29 Completed XR shoulder RT min 2V* [id number] Stat Exams 02/27/24 15:29 Completed Pending at discharge Category Date Time Status Basic Metabolic Panel AM LABS Lab 03/02/24 04:00 Ordered Basic Metabolic Panel Routine Lab 02/28/24 06:14 Uncollected Complete Blood Count w/Auto AM LABS Lab 03/02/24 04:00 Ordered Complete Blood Count w/Auto Routine Lab 02/28/24 06:14 Uncollected Type and Screen Routine Lab 02/27/24 18:58 Uncollected Type and Screen Routine Lab 02/28/24 06:14 Uncollected Radiology Impressions Cervical Spine CT 02/27/24 15:29 IMPRESSION: No acute findings. Chest X-Ray 02/27/24 15:29 IMPRESSION: No acute findings. Head CT 02/27/24 15:29 IMPRESSION: No acute intracranial abnormality. Shoulder X-Ray 02/27/24 15:29 IMPRESSION: No acute findings. Pelvis CT 02/27/24 16:51 IMPRESSION: Intertrochanteric right hip fracture with foreshortening. Hip/Pelvis X-Ray 02/28/24 00:00 Impression: Internal fixation of intertrochanteric fracture of the right hip. Laboratory Results WBC 7.66 10^3/uL (3.29-11.43) 03/01/24 04:12 RBC 2.67 10^6/uL (3.85-5.65) L 03/01/24 04:12 Hgb 9.30 g/dL (11.27-16.99) L 03/01/24 04:12 Hct 28.4 % (36-47) L 03/01/24 04:12 MCV 106.4 fl (85-98) H 03/01/24 04:12 MCH 34.8 pg (27-33) H 03/01/24 04:12 MCHC 32.7 g/dL (30-55) 03/01/24 04:12 RDW 12.5 % (12.1-15.1) 03/01/24 04:12 Plt Count 153 10^3/cmm (157-399) L 03/01/24 04:12 MPV 10.9 fL (7.4-10.4) H 03/01/24 04:12 Neut % (Auto) 68.2 % 03/01/24 04:12 Lymph % (Auto) 18.9 % 03/01/24 04:12 Sutter % (Auto) 11.2 % 03/01/24 04:12 Eos % (Auto) 1.0 % 03/01/24 04:12 Baso % (Auto) 0.3 % 03/01/24 04:12 Neut # (Auto) 5.22 10^3/uL (1.8-7.7) 03/01/24 04:12 Lymph # (Auto) 1.5 10^3/uL (0.8-4.8) 03/01/24 04:12 Sutter # (Auto) 0.9 10^3/uL (0.2-0.9) 03/01/24 04:12 Eos # (Auto) 0.1 10^3/uL (0.0-0.8) 03/01/24 04:12 Baso # (Auto) 0.0 10^3/uL (0.0-0.1) 03/01/24 04:12 Nucleated RBC % (auto) 0 % 03/01/24 04:12 Nucleated RBCs # 0.0 /100WBC 03/01/24 04:12 PT 13.90 SECONDS (12.1-14.9) 02/27/24 17:00 INR 1.04 (0.8-1.2) 02/27/24 17:00 APTT 25.7 SECONDS (23.9-36.7) 02/27/24 17:00 Sodium 145 mmol/L (136-145) 03/01/24 04:12 Potassium 3.6 mmol/L (3.5-5.1) 03/01/24 04:12 Chloride 115 mmol/L (98-107) H 03/01/24 04:12 Carbon Dioxide 22 mmol/L (22-29) 03/01/24 04:12 Anion Gap 11.6 (5-19) 03/01/24 04:12 BUN 19 mg/dL (8-23) 03/01/24 04:12 Creatinine 0.6 mg/dL (0.5-0.9) 03/01/24 04:12 GFR Calculation Not Reportable 03/01/24 04:12 Glucose 93 mg/dL (65-115) 03/01/24 04:12 Calculated Osmolality 302 mOsm/kg (285-295) H 03/01/24 04:12 Calcium 8.0 mg/dL (8.5-10.5) L 03/01/24 04:12 Phosphorus 3.0 mg/dL (2.5-4.5) 02/28/24 03:58 Magnesium 2.1 mg/dL (1.7-2.3) 02/28/24 03:58 Total Bilirubin 0.2 mg/dL (0.15-1.2) 02/27/24 17:00 AST 25 U/L (0-32) 02/27/24 17:00 ALT 7 U/L (0-33) 02/27/24 17:00 Alkaline Phosphatase 96 U/L (35-105) 02/27/24 17:00 Total Protein 7.3 g/dL (6.6-8.7) 02/27/24 17:00 Albumin 4.6 g/dL (3.5-5.2) 02/27/24 17:00 Globulin 2.7 g/dL (1.3-4.6) 02/27/24 17:00 Urine Color Yellow (Yellow) 02/27/24 19:13 Urine Appearance Cloudy (CLEAR) A 02/27/24 19:13 Urine pH 5.5 (5-7) 02/27/24 19:13 Ur Specific [place] 1.028 (1.005-1.030) 02/27/24 19:13 Urine Protein 1+ (Negative) A 02/27/24 19:13 Urine Glucose (UA) Negative (Normal) 02/27/24 19:13 Urine Ketones Trace (Negative) 02/27/24 19:13 Urine Blood Negative (Negative) 02/27/24 19:13 Urine Nitrate Negative (Negative) 02/27/24 19:13 Urine Bilirubin Negative (Negative) 02/27/24 19:13 Urine Urobilinogen 1.0 mg/dL (Negative) 02/27/24 19:13 Ur Leukocyte Esterase Trace (Negative) A 02/27/24 19:13 Urine RBC 0-2 /hpf (0-2) 02/27/24 19:13 Urine WBC 0-5 /hpf (0-5) 02/27/24 19:13 Ur Squamous Epith Cells 0-5 /hpf (0-5) 02/27/24 19:13 Calcium Oxalate Crystal 5-10 /hpf H 02/27/24 19:13 Amorphous Sediment Not Reportable 02/27/24 19:13 Urine Bacteria None seen /hpf (NONE) 02/27/24 19:13 Hyaline Casts 44.25 /lpf 02/27/24 19:13 Urine Mucus 2+ /hpf 02/27/24 19:13 Blood Type A Positive 02/28/24 06:15 Rho(D) Type Rh positive 02/28/24 06:15 Antibody Screen Negative 02/28/24 06:15 Vitals Last Vital Signs Temp 99.0 F 03/01/24 07:26 Pulse 73 03/01/24 08:46 Resp 16 03/01/24 08:46 BP 136/73 03/01/24 07:26 Pulse Ox 96 03/01/24 08:46 O2 Del Method Room Air 03/01/24 08:46 O2 Flow Rate 8 02/28/24 08:20 Discharge Plan Discharge Patient Disposition: Xfer SNF Condition: Stable Prescriptions: New enoxaparin 30 mg/0.3 mL syringe 30 mg SUBCUT DAILY 35 Days Qty: 10.5 0RF ondansetron 4 mg tablet,disintegrating 4 mg PO Q8H PRN (Reason: nausea and vomiting) 3 Days Qty: 9 0RF oxycodone-acetaminophen 5-325 mg Tablet 1 tab PO Q6H PRN (Reason: Severe Pain) 7 Days Qty: 28 0RF Lovenox 30 mg/0.3 mL syringe 30 mg SUBCUT DAILY 35 Days Qty: 100 0RF Continued duloxetine [Cymbalta] 60 mg capsule,delayed release(DR/EC) 60 mg PO BID Qty: 180 1RF Gemtesa 75 mg tablet 75 mg PO QAM fluticasone propionate 50 mcg/actuation spray,suspension 2 spray INTRANASAL DAILY@2000 Qty: 48 1RF potassium chloride 10 mEq tablet extended release 10 meq PO BID Qty: 180 1RF rosuvastatin 10 mg tablet 10 mg PO BEDTIME@1999 Qty: 90 1RF ferrous sulfate [Feosol] 325 mg (65 mg iron) tablet 325 mg PO DAILY Qty: 30 3RF lamotrigine 150 mg tablet 150 mg PO QAM calcium carbonate-vitamin D3 [Calcium 500 + D] 500 mg-10 mcg (400 unit) Tablet 1 tab PO BID bisacodyl 10 mg Suppository 10 mg VT DAILY PRN (Reason: Constipation) alum-mag hydroxide-simeth [Katy-Lanta] 200-200-20 mg/5 mL Suspension 30 ml PO Q8H PRN (Reason: GI upset) Rx Instructions: administer between meals and at bedtime aspirin 81 mg Tablet,Delayed Release (Dr/Ec) 81 mg PO DAILY tramadol 50 mg tablet 50 mg PO TID vit-iron fum-folic ac 65 mg iron- 1 mg Tablet 1 tab PO DAILY Artificial Tears (PF) 0.1-0.3 % Dropperette 1 drp OPHTHALMIC (EYE) Q4H PRN (Reason: Dry Eyes) docusate sodium 100 mg capsule 100 mg PO BID polyethylene glycol 3350 17 gram Powder In Packet 17 g PO BID Qty: 60 0RF pantoprazole 40 mg Tablet,Delayed Release (Dr/Ec) 40 mg PO BID Qty: 60 0RF carbidopa-levodopa 25-100 mg tablet 1 tab PO BID Rx Instructions: pakinsons topiramate [Topamax] 100 mg tablet 100 mg PO DAILY@1400 levothyroxine 200 mcg tablet 200 mcg PO QAM mirtazapine 15 mg tablet 30 mg PO BEDTIME acetaminophen [Tylenol] 325 mg Capsule 650 mg PO Q6H PRN (Reason: Pain) melatonin 5 mg Capsule 5 mg PO BEDTIME Prolia 60 mg/mL Syringe See Rx Instructions .ROUTE .COMPLEX Rx Instructions: Takes every 6 months quetiapine 200 mg tablet 200 mg PO QPM Discontinued acetaminophen 500 mg Tablet 500 mg PO TID No Action (DME) custom molded accommodative orthotics and orthopedic shoes See Rx Instructions .Route .MEDSUPPLY Qty: 1 0RF Rx Instructions: As directed Discharge Orders: Discharge Order (Routine); Ordered 03/01/24 Ordered By: Cristine Bell Referrals: Deo Marshall MD [Primary Care Provider] - Teo Sewell DO [Physician] - Discharge Diet: Regular Discharge Activity: Use walker/crutches as instructed Patient Instructions: Acute Wound Care (DC), Opioid Safety, Post Anesthesia Care Activity Restrictions/Additional Instructions: Orthopedic discharge instructions: Weightbearing as tolerated to the operative extremity Ice as needed for pain and swelling Encourage knee and hip range of motion as tolerated PT/OT Take pain medication as prescribed Take antinausea medication as needed Supplement with Citracal vitamin D for bone health and healing Take Lovenox (blood thinner) as prescribed for blood clot prevention Take Colace as needed for constipation Leave Silverlon dressings on and in place for 7 days. After this they may be removed you may shower/rinse incisions with warm soapy water, pat dry redress with a dry dressing. Okay to sponge bath/shower with Silverlon dressings as they should be waterproof however if they do get saturated or wet please take these off dry the incision and redressed with a new dry sterile bandage. Follow-up in the orthopedic office with Dr. Sewell in 2 weeks for repeat x-rays and incision check/staple removal Contact the office for any questions or concerns (i.e. increasing redness and drainage around the incision, fevers, or chills, or severe worsening in pain/change in symptoms) Discharge Attestations Time Spent in Discharge Care*: less than 30 min Status at Discharge: Cognitive status at discharge: moderately impaired cognition, Behavioral status at discharge: cooperative, Quality Metrics Clinical Quality Measures [ No reported AMI, CVA or VTE this stay] Coding Level of Care Code Acute Code for Chg Fwd Diagnoses Intertrochanteric fracture of right hip S72.141A Time Spent (min) 20
[2024-03-01] MEDS: enoxaparin 40 mg/0.4 mL Syringe SUBCUT (10:38)
--- NOTE | 2024-03-01 11:32 | P.PN_ITS ---
Vitals/I&O/Wt Last Vital Signs Temp 99.0 F 03/01/24 07:26 Pulse 73 03/01/24 08:46 Resp 16 03/01/24 09:30 BP 136/73 03/01/24 07:26 Pulse Ox 96 03/01/24 09:30 O2 Del Method Room Air 03/01/24 08:46 O2 Flow Rate 8 02/28/24 08:20 02/29/24 03/01/24 03/01/24 22:59 06:59 14:59 Intake Total 1180 / 1540 60 / 1600 1000 / 1000 Balance 1180 / 1290 60 / 1350 1000 / 1000 Weight last 48 hrs Weight 108 lb 6.4 oz Weight 108 lb 4 oz Physical Exam 2 Urinary Catheter Management: Kurtz: Cath Placed During This Visit: yes Reason for Continuing Indwelling Catheter: Perioperative Use in Selected Surgeries Urinary Catheter Date of Insertion: 02/27/24 Urinary Catheter Time of Insertion: 18:59 Data 03/01/24 04:12 03/01/24 04:12 Coding Level of Care Code Acute Code for Chg Ivan
--- NOTE | 2024-03-01 13:49 | PC.NURSE ---
Report called to Cesia Santos by RENE Yin
== END 2024-03-01 12:10 | disposition skilled nursing facility (03) | DRG 480 ==
LOC: ER 17:41 → MEDSURG 18:59
PROVIDERS: Student in an Organized Health Care Education/Training Program; Admitting Provider Internal Medicine; Emergency Provider Emergency Medicine; PCP Internal Medicine; Visit Provider Internal Medicine
PROC: 0QS606Z Reposition Right Upper Femur with Intramedullary Internal Fixation Device, Open Approach (ICD-10-PCS; CPT 27245; principal; 2024-02-28 07:00)
DX: S72.141A Displaced intertrochanteric fracture of right femur, initial encounter for closed fracture (principal); U07.1 COVID-19; N39.0 Urinary tract infection, site not specified; E87.6 Hypokalemia; E86.0 Dehydration; G31.83 Neurocognitive disorder with Lewy bodies; F02.80 Dementia in other diseases classified elsewhere, unspecified severity, without behavioral disturbance, psychotic disturbance, mood disturbance, and anxiety; G20.C Parkinsonism, unspecified; J44.9 Chronic obstructive pulmonary disease, unspecified; E03.9 Hypothyroidism, unspecified; E78.2 Mixed hyperlipidemia; M81.0 Age-related osteoporosis without current pathological fracture; G47.30 Sleep apnea, unspecified; W01.0XXA Fall on same level from slipping, tripping and stumbling without subsequent striking against object, initial encounter; Z91.81 History of falling; Z79.899 Other long term (current) drug therapy; Z79.890 Hormone replacement therapy; Z79.82 Long term (current) use of aspirin; Z87.891 Personal history of nicotine dependence; Z99.89 Dependence on other enabling machines and devices; F41.9 Anxiety disorder, unspecified; F32.A Depression, unspecified
CPT/HCPCS: 36415; 51702; 70450; 71045; 72125; 72192; 73030; 73502; 76000; 80048; 80053; 81001; 83735; 84100; 85025; 85610; 85730; 86850; 86900; 93005; 94640; 96365; 96366; 96367; 96372; 96375; 97110; 97161; 97167; 97530; 99291; C1713; J0131; J0360; J0690; J1100; J1650; J1885; J2060; J2270; J2371; J2405; J2704; J3010; J3480; J3490; J7030; J7040; J7626

== ENCOUNTER 2024-03-13 07:57 | Oncology outpatient (recurring) (ONCR) | payer MEDICARE, OTHER, MEDICAID, SELFPAY ==
[2024-03-13] MEDS: denosumab 60 mg SDV SUBCUT (08:11)
== END 2024-04-05 23:59 | disposition home or self-care (01) ==
LOC: ONCMED 07:57
PROVIDERS: PCP Internal Medicine; Visit Provider Internal Medicine
DX: D50.8 Other iron deficiency anemias (principal); Z79.899 Other long term (current) drug therapy; S72.121A Displaced fracture of lesser trochanter of right femur, initial encounter for closed fracture; X58.XXXA Exposure to other specified factors, initial encounter
CPT/HCPCS: 73502; 96372; 99024; J0897

== ENCOUNTER → 2024-04-13 08:45 | Outpatient (BNVA) | payer MEDICARE, OTHER, MEDICAID, SELFPAY | PROVIDERS: PCP Internal Medicine; Visit Provider Physician Assistant | DX: S72.001D Fracture of unspecified part of neck of right femur, subsequent encounter for closed fracture with routine healing (principal); Z96.641 Presence of right artificial hip joint; X58.XXXD Exposure to other specified factors, subsequent encounter | CPT/HCPCS: 73522; 99024 ==

== ENCOUNTER → 2024-04-26 14:23 | Outpatient (BNVA) | payer MEDICARE, OTHER, MEDICAID, SELFPAY | PROVIDERS: PCP Internal Medicine; Visit Provider Orthopaedic Surgery | DX: S42.031A Displaced fracture of lateral end of right clavicle, initial encounter for closed fracture; X58.XXXA Exposure to other specified factors, initial encounter | CPT/HCPCS: 73000; 99213 ==

== ENCOUNTER 2024-06-14 05:59 | Emergency (ER) | payer MEDICARE, OTHER, MEDICAID, SELFPAY ==
[2024-06-14 06:00] VITALS: BP 169/119; PULSE 102; RESP 18; TEMP 36.6; O2SAT 98; BMI 18.8
--- NOTE | 2024-06-14 06:14 | W.ED.ABDPA2 ---
HPI - Abdominal Pain General: Chief Complaint: Fall Stated Complaint: ABD Pain Time Seen by Provider: 06/14/24 06:00 History of Present Illness: 73-year-old female presents emergency room via EMS from local halfway she has some mild dementia as well as Parkinson's. She fell yesterday no reported injury at the time of fall she comes in today complaining of abdominal pain she is averbal able to verbalize that she also tells her she has pain when she urinates. EMS found her to be hypoxic at the halfway she does not usually wear oxygen when she arrived here she was on 3 L by nasal cannula with reported room air sat at the halfway in the 80% range. She is at upper 90s to 100% on 3 L. She is moving all extremities purposefully. There is no facial droop. She denies vomiting or diarrhea. Denies chest pain or shortness of breath (despite her hypoxia) Associated Symptoms: Reports dysuria; Denies chills and fever(s) Related Data Home Medications Medication Instructions Recorded Confirmed carbidopa 25 mg-levodopa 100 mg 1 tab PO BID 12/11/22 06/14/24 tablet levothyroxine 200 mcg tablet 200 mcg PO QAM 12/11/22 06/14/24 melatonin 5 mg capsule 5 mg PO BEDTIME 12/11/22 06/14/24 topiramate 100 mg tablet (Topamax) 100 mg PO DAILY@1400 12/11/22 06/14/24 aluminum-mag hydroxide-simethicone 30 ml PO Q8H PRN GI upset 03/21/23 06/14/24 200 mg-200 mg-20 mg/5 mL oral susp (Katy-Lanta) bisacodyl 10 mg rectal suppository [address] DAILY PRN Constipation 03/21/23 06/14/24 calcium 500 mg (as 1 tab PO BID 03/21/23 06/14/24 carbonate)-vitamin D3 10 mcg (400 unit) tablet (Calcium 500 + D) lamotrigine 150 mg tablet 150 mg PO QAM 03/21/23 06/14/24 vibegron 75 mg tablet (Gemtesa) 75 mg PO QAM 08/26/23 06/14/24 aspirin 81 mg tablet,delayed 81 mg PO DAILY 09/07/23 06/14/24 release docusate sodium 100 mg capsule 100 mg PO BID 09/07/23 06/14/24 vitamins-iron fumarate 65 1 tab PO DAILY 09/07/23 06/14/24 mg iron-folic acid 1 mg tablet tramadol 50 mg tablet 50 mg PO TID 09/07/23 06/14/24 denosumab 60 mg/mL subcutaneous See Rx Instructions .Route .COMPLEX 11/11/23 06/14/24 syringe (Prolia) quetiapine 200 mg tablet 200 mg PO QPM 02/28/24 06/14/24 polyethylene glycol 3350 17 gram 17 g PO BID 03/13/24 06/14/24 oral powder packet acetaminophen 325 mg tablet 650 mg PO QID PRN Pain 06/14/24 06/14/24 magnesium hydroxide 400 mg/5 mL 30 ml PO DAILY PRN Constipation 06/14/24 06/14/24 oral suspension (Milk of Magnesia) mirtazapine 30 mg tablet 30 mg PO DAILY 06/14/24 06/14/24 ondansetron HCl 4 mg tablet 4 mg PO Q6H PRN Nausea And Vomiting 06/14/24 06/14/24 Previous Rx's Medication Instructions Recorded duloxetine 60 mg capsule,delayed 60 mg PO BID #180 caps 12/13/21 release (Cymbalta) fluticasone propionate 50 2 spray intranasal DAILY@1999 #48 03/28/22 mcg/actuation nasal grams spray,suspension potassium chloride 10 mEq 10 meq PO BID #180 tabs 03/28/22 tablet,extended release rosuvastatin 10 mg tablet 10 mg PO BEDTIME@1999 #90 tabs 04/25/22 ferrous sulfate 325 mg (65 mg 325 mg PO DAILY #30 tabs 06/28/23 iron) tablet (Feosol) pantoprazole 40 mg tablet,delayed 40 mg PO BID #60 tabs 09/09/23 release custom molded accommodative #1 ea 01/18/24 orthotics and orthopedic shoes atropine 1 % eye drops 4 drp sublingual Q4H PRN 06/14/24 Secretions #5 mL lorazepam 2 mg/mL oral concentrate 2 mg sublingual Q4H PRN 06/14/24 Anxiety/Seizure #30 mL morphine concentrate 100 mg/5 mL 20 mg sublingual DIRECTED PRN 06/14/24 (20 mg/mL) oral solution Pain/SOB 14 days #30 mL ondansetron 4 mg disintegrating 4 mg translingual Q4H PRN Nausea 06/14/24 tablet #5 tabs Allergies Allergy/AdvReac Type Severity Reaction Status Date / Time No Known Allergies Allergy Verified 06/14/24 06:23 Review of Systems Const: Denies: fever(s) or chills Card: Denies: chest pain Resp: Denies: dyspnea GI: Reports: abdominal pain : Reports: dysuria; Denies: urinary frequency or urinary urgency Musc: Denies: neck pain or back pain Skin/Breast: Denies: rash PFSH ED PFSH: Medical History UTI (urinary tract infection) Dementia Lewy body dementia Closed left hip fracture DNR no code (do not resuscitate) Osteoporosis, post-menopausal Lives in assisted living facility Spine deformity Osteoarthritis of knee Bradycardia Recurrent syncope Mixed hyperlipidemia Seasonal allergic rhinitis due to pollen Slow transit constipation Major depressive disorder, recurrent severe without psychotic features Sleep apnea Anxiety and depression Adult onset hypothyroidism Vitamin D deficiency COPD (chronic obstructive pulmonary disease) Parkinson disease CPAP (continuous positive airway pressure) dependence Dependent on walker for ambulation Surgical History Status post hip hemiarthroplasty History of repair of hiatal hernia Hx of cataract surgery Hx of right breast biopsy 1999 History of laparotomy 1972 no body parts removed History of back surgery 2016 T11-T12 History of hernia repair 2017 History of tubal ligation Left removed only 1973 History of bunionectomy bilateral 2015 Family History Mother Congestive heart failure (CHF) Clotting disorder CAD (coronary artery disease) Family/Other Lung disease Cancer Grandmother Stroke Denies family history of Diabetes Dementia Chronic kidney disease (CKD) Suicide Anesthesia complication Bleeding disorder Social History Smoking and tobacco/nicotine status: tobacco/nicotine user, details unknown Quit status (tobacco/nicotine): has quit using Year quit tobacco: 2004 - PPD x 35 Years Second hand smoke exposure: No Alcohol intake: former Substance/Drug Use: never Adopted: No Caregiver/support person: No Lives independently: Yes Household members: none Housing: House Marital status: Unknown Number of children: 1 service: Yes branch: [employer] Current occupational status: retired and disabled Pets and animals: No Do you think of yourself as: Straight/Heterosexual Current gender identity: Female Physical Exam Const: GENERAL APPEARANCE: cooperative NUTRITIONAL APPEARANCE: underweight ORIENTATION/CONSCIOUSNESS: Yes awake HENMT: COMMON NORMALS: normocephalic, atraumatic and hearing grossly normal bilaterally HEAD & SCALP: normocephalic and atraumatic Resp: COMMON NORMALS: normal respiratory effort, No retractions, No use of accessory muscles and clear to auscultation bilaterally AUSCULTATION: clear to auscultation bilaterally Cardio: COMMON NORMALS: regular rate, regular rhythm and No murmurs present (Cardio) RATE: regular rate RHYTHM: regular rhythm GI: INSPECTION: Yes abdominal distension AUSCULTATION: Yes Absent bowel sounds PALPATION: Yes Tenderness to palpation present (GI) PERCUSSION: tympanic to percussion Extremity: COMMON NORMALS: normal to inspection, capillary refill normal, no clubbing, cyanosis or edema, no calf tenderness and no pedal edema Skin: COMMON NORMALS: no rashes or lesions noted GENERAL SKIN EXAM: no rashes or lesions noted Course Vital Signs: Vital signs: Vital Signs Temperature 98 F 06/14/24 06:00 Pulse Rate 107 H 06/14/24 13:28 Respiratory Rate 19 H 06/14/24 08:04 Blood Pressure 128/76 06/14/24 13:28 Pulse Oximetry 100 06/14/24 13:28 Oxygen Delivery Me thod Room Air 06/14/24 12:08 Oxygen Flow Rate 3 06/14/24 06:00 MDM - Abdominal Pain Medical Decision Making Patient has urosepsis in addition to this she has a bowel obstruction. On the CT chest x-ray because he dilated loops of bowel CT done shows air-fluid levels urine was markedly infected white count elevated lactate also elevated. I suspect she has some ischemic bowel because of her body size a CT was quite difficult we did without contrast to make sure she did not have a ureteral stone. I discussed with Dr. Dixon she stated that even repeating the scan with contrast because of patient's near complete absence of intra-abdominal fat it would be difficult to see anything even with contrast. We consulted Dr. Morris. We had plan to admit the patient however after conferring with the family they ultimately decided to do comfort care. We change the admission discharge patient home with a hospice comfort care pack hospice consult she will return back to the halfway. When we are discharging the patient she had a little difficulty of breathing in the parking lot in the transportation van I went out and seen the patient what ever it was a transient is already resolved. The family member was with her in the van. We discussed the option of putting her into bed here at the hospital it is a rather long drive back to her halfway discussed with the family member there is a possibility that she passes away and route if they are uncomfortable with this we could make other arrangements. They considered it for a bit and ultimately decided to try to make it back to the halfway. Medical Records I reviewed the patient's medical records. Lab Data I reviewed the patient's lab results. 06/14/24 06:14 06/14/24 06:14 Labs/Radiology: Radiology Impressions Chest X-Ray 06/14/24 06:22 IMPRESSION: No acute cardiopulmonary abnormality. Head CT 06/14/24 06:23 IMPRESSION: 1. No acute intracranial hemorrhage or edema. 2. Moderate volume loss and small vessel disease. No acute infarct. 3. No skull fracture. Abdomen/Pelvis CT 06/14/24 07:33 IMPRESSION: 1. Severe high-grade small bowel obstruction. Transition point is not identified but is probably distal small bowel. Collapse of the distal colon. 2. Small amount of ascites. 3. There are a few foci of air which cannot definitely be placed within the GI tract. Cannot confirm or exclude GI tract perforation. 4. Study is significantly compromised by patient's cachexia and motion. 5. Large hiatal hernia. 6. No renal obstruction identified. 7. New, age-indeterminate minimal compression deformity at T9. New since 09/07/2023. Laboratory Results WBC 12.86 10^3/uL (3.29-11.43) H 06/14/24 06:14 RBC 4.72 10^6/uL (3.85-5.65) 06/14/24 06:14 Hgb 15.40 g/dL (11.27-16.99) 06/14/24 06:14 Hct 47.7 % (36-47) H 06/14/24 06:14 MCV 101.1 fl (85-98) H 06/14/24 06:14 MCH 32.6 pg (27-33) 06/14/24 06:14 MCHC 32.3 g/dL (30-55) 06/14/24 06:14 RDW 12.9 % (12.1-15.1) 06/14/24 06:14 Plt Count 265 10^3/cmm (157-399) 06/14/24 06:14 MPV 10.6 fL (7.4-10.4) H 06/14/24 06:14 Neut % (Auto) 91.4 % 06/14/24 06:14 Lymph % (Auto) 4.8 % 06/14/24 06:14 [place] % (Auto) 3.5 % 06/14/24 06:14 Eos % (Auto) 0.0 % 06/14/24 06:14 Baso % (Auto) 0.1 % 06/14/24 06:14 Neut # (Auto) 11.75 10^3/uL (1.8-7.7) H 06/14/24 06:14 Lymph # (Auto) 0.6 10^3/uL (0.8-4.8) L 06/14/24 06:14 [place] # (Auto) 0.5 10^3/uL (0.2-0.9) 06/14/24 06:14 Eos # (Auto) 0.0 10^3/uL (0.0-0.8) 06/14/24 06:14 Baso # (Auto) 0.0 10^3/uL (0.0-0.1) 06/14/24 06:14 Nucleated RBC % (auto) 0 % 06/14/24 06:14 Nucleated RBCs # 0.0 /100WBC 06/14/24 06:14 Specimen Type Arterial 06/14/24 06:50 Sample Site Brachial, right 06/14/24 06:50 ABG pH 7.41 (7.35-7.45) 06/14/24 06:50 ABG pCO2 23.1 mmHg (35-45) L 06/14/24 06:50 ABG pO2 139.0 mmHg (80.0-100.0) H 06/14/24 06:50 ABG HCO3 14.7 mmol/L (22-26) L 06/14/24 06:50 ABG O2 Saturation > 99.1 06/14/24 06:50 ABG Base Excess -7.6 mmol/L (-2.0-2.0) L 06/14/24 06:50 Alexander Test N/a 06/14/24 06:50 A-a O2 Gradient 0.0 mmHg (5-10) L 06/14/24 06:50 Hematocrit 48.3 % (37-47) H 06/14/24 06:50 Hgb O2 Saturation 98.0 % (95-100) 06/14/24 06:50 Carboxyhemoglobin 0.4 %THgb (0.4-20.1) 06/14/24 06:50 Methemoglobin 1.0 % (0.4-1.5) 06/14/24 06:50 Total Hemoglobin 15.8 g/dL (12-16) 06/14/24 06:50 Sodium 141.0 mmol/L (131-143) 06/14/24 06:50 Potassium 3.6 mmol/L (3.5-5.0) 06/14/24 06:50 Glucose 181.0 mg/dL (70-115) H 06/14/24 06:50 Ionized Calcium 1.2 mmol/L (1.1-1.4) 06/14/24 06:50 O2 Delivery Device Nc 06/14/24 06:50 O2 Liters/Min 1.0 % 06/14/24 06:50 Vehicle Safety Inspector ID [email or web address] 06/14/24 06:50 Sodium 138 mmol/L (136-145) 06/14/24 06:14 Potassium 3.8 mmol/L (3.5-5.1) 06/14/24 06:14 Chloride 102 mmol/L (98-107) 06/14/24 06:14 Carbon Dioxide 17 mmol/L (22-29) L 06/14/24 06:14 Anion Gap 22.8 (5-19) H 06/14/24 06:14 BUN 40 mg/dL (8-23) H 06/14/24 06:14 Creatinine 1.2 mg/dL (0.5-0.9) H 06/14/24 06:14 GFR Calculation Not Reportable 06/14/24 06:14 Glucose 177 mg/dL (65-115) H 06/14/24 06:14 Calculated Osmolality 300 mOsm/kg (285-295) H 06/14/24 06:14 Lactic Acid 5.5 mmol/L (0.5-2.2) H* 06/14/24 06:14 Calcium 10.0 mg/dL (8.5-10.5) 06/14/24 06:14 Total Bilirubin 0.3 mg/dL (0.15-1.2) 06/14/24 06:14 AST 27 U/L (0-32) 06/14/24 06:14 ALT 50 U/L (0-33) H 06/14/24 06:14 Alkaline Phosphatase 148 U/L (35-105) H 06/14/24 06:14 Total Protein 8.1 g/dL (6.6-8.7) 06/14/24 06:14 Albumin 4.2 g/dL (3.5-5.2) 06/14/24 06:14 Globulin 3.9 g/dL (1.3-4.6) 06/14/24 06:14 Lipase 10 U/L (13-60) L 06/14/24 06:14 Urine Color Dark yellow (Yellow) A 06/14/24 06:14 Urine Appearance Turbid (CLEAR) A 06/14/24 06:14 Urine pH 5.0 (5-7) 06/14/24 06:14 Ur Specific [place] 1.031 (1.005-1.030) H 06/14/24 06:14 Urine Protein 1+ (Negative) A 06/14/24 06:14 Urine Glucose (UA) Negative (Normal) 06/14/24 06:14 Urine Ketones Trace (Negative) 06/14/24 06:14 Urine Blood Trace (Negative) A 06/14/24 06:14 Urine Nitrate Negative (Negative) 06/14/24 06:14 Urine Bilirubin 1+ (Negative) H 06/14/24 06:14 Urine Urobilinogen 1.0 mg/dL (Negative) 06/14/24 06:14 Ur Leukocyte Esterase 2+ (Negative) A 06/14/24 06:14 Urine RBC 6-10 /hpf (0-2) 06/14/24 06:14 Urine WBC >100 /hpf (0-5) H 06/14/24 06:14 Ur Squamous Epith Cells 0-5 /hpf (0-5) 06/14/24 06:14 Amorphous Sediment Not Reportable 06/14/24 06:14 Urine Bacteria 4+ /hpf (NONE) H 06/14/24 06:14 Hyaline Casts 21.51 /lpf 06/14/24 06:14 Adenovirus (PCR) Not detected (NOT DETECT) 06/14/24 06:35 C. pneumoniae DNA (PCR) Not detected (NOT DETECT) 06/14/24 06:35 Coronavirus (PCR) Cancelled 06/14/24 06:35 Coronavirus 229E (PCR) Not detected (NOT DETECT) 06/14/24 06:35 Human Metapneumovir PCR Not detected (NOT DETECT) 06/14/24 06:35 Influenza A (H1) PCR Not detected (NOT DETECT) 06/14/24 06:35 Influenza A (PCR) Cancelled 06/14/24 06:35 Influ A (H1/09) PCR Not detected (NOT DETECT) 06/14/24 06:35 Influenza A (H3) PCR Not detected (NOT DETECT) 06/14/24 06:35 Influenza Type A (PCR) Not detected (NOT DETECT) 06/14/24 06:35 Influenza Type B (PCR) Cancelled 06/14/24 06:35 Influenza Type B (PCR) Not detected (NOT DETECT) 06/14/24 06:35 M. pneumoniae (PCR) Not detected (NOT DETECT) 06/14/24 06:35 Parainfluenza 1 (PCR) Not detected (NOT DETECT) 06/14/24 06:35 Parainfluenza 2 (PCR) Not detected (NOT DETECT) 06/14/24 06:35 Parainfluenza 3 (PCR) Not detected (NOT DETECT) 06/14/24 06:35 Parainfluenza 4 (PCR) Not detected (NOT DETECT) 06/14/24 06:35 RSV (PCR) Cancelled 06/14/24 06:35 RSV Type A (PCR) Not detected (NOT DETECT) 06/14/24 06:35 RSV Type B (PCR) Not detected (NOT DETECT) 06/14/24 06:35 Entero/Rhino (PCR) Not detected (NOT DETECT) 06/14/24 06:35 SARS-CoV-2 (PCR) Not detected (NOT DETECT) 06/14/24 06:35 All radiology interpretation(s) finalized by discharge Discharge Plan Discharge Patient Disposition: Home Clinical Impression: Sepsis, Cystitis, Bowel obstruction, Ischemia, bowel Condition: Stable Prescriptions: New morphine concentrate 100 mg/5 mL (20 mg/mL) Solution 20 mg sublingual DIRECTED MDD N/A PRN (Reason: Pain/SOB) 14 Days Qty: 30 0RF Rx Instructions: 0.25ml-1ml q1H PRN may increase to 0.5ml-1ml Q1H PRN atropine 1 % Drops 4 drp sublingual Q4H PRN (Reason: Secretions) Qty: 5 0RF Rx Instructions: 4 drops SL q 4 hours PRN for terminal congestion/excessive secretions. ondansetron 4 mg Tablet,Disintegrating 4 mg translingual Q4H PRN (Reason: Nausea) Qty: 5 0RF Rx Instructions: Dissolve 1 tablet under tongue every 4 hours PRN for nausea lorazepam 2 mg/mL Concentrate 2 mg sublingual Q4H PRN (Reason: Anxiety/Seizure) Qty: 30 0RF Rx Instructions: 0.25ml-1ml q4H PRN Anxiety/Seizure Start 0.25ml may increase to 0.5ml-1ml q4H No Action duloxetine [Cymbalta] 60 mg capsule,delayed release(DR/EC) 60 mg PO BID Qty: 180 1RF Gemtesa 75 mg tablet 75 mg PO QAM (DME) custom molded accommodative orthotics and orthopedic shoes See Rx Instructions .Route .MEDSUPPLY Qty: 1 0RF Rx Instructions: As directed polyethylene glycol 3350 17 gram powder in packet 17 g PO BID fluticasone propionate 50 mcg/actuation spray,suspension 2 spray INTRANASAL DAILY@1999 Qty: 48 1RF potassium chloride 10 mEq tablet extended release 10 meq PO BID Qty: 180 1RF rosuvastatin 10 mg tablet 10 mg PO BEDTIME@1999 Qty: 90 1RF ferrous sulfate [Feosol] 325 mg (65 mg iron) tablet 325 mg PO DAILY Qty: 30 3RF lamotrigine 150 mg tablet 150 mg PO QAM calcium carbonate-vitamin D3 [Calcium 500 + D] 500 mg-10 mcg (400 unit) Tablet 1 tab PO BID bisacodyl 10 mg Suppository [address] DAILY PRN (Reason: Constipation) alum-mag hydroxide-simeth [Katy-Lanta] 200-200-20 mg/5 mL Suspension 30 ml PO Q8H PRN (Reason: GI upset) Rx Instructions: administer between meals and at bedtime aspirin 81 mg Tablet,Delayed Release (Dr/Ec) 81 mg PO DAILY tramadol 50 mg tablet 50 mg PO TID vit-iron fum-folic ac 65 mg iron- 1 mg Tablet 1 tab PO DAILY docusate sodium 100 mg capsule 100 mg PO BID pantoprazole 40 mg Tablet,Delayed Release (Dr/Ec) 40 mg PO BID Qty: 60 0RF acetaminophen 325 mg Tablet 650 mg PO QID PRN (Reason: Pain) mirtazapine 30 mg tablet 30 mg PO DAILY ondansetron HCl 4 mg Tablet 4 mg PO Q6H PRN (Reason: Nausea And Vomiting) magnesium hydroxide [Milk of Magnesia] 400 mg/5 mL Suspension 30 ml PO DAILY PRN (Reason: Constipation) carbidopa-levodopa 25-100 mg tablet 1 tab PO BID Rx Instructions: pakinsons topiramate [Topamax] 100 mg tablet 100 mg PO DAILY@1400 levothyroxine 200 mcg tablet 200 mcg PO QAM melatonin 5 mg Capsule 5 mg PO BEDTIME Prolia 60 mg/mL Syringe See Rx Instructions .ROUTE .COMPLEX Rx Instructions: Takes every 6 months quetiapine 200 mg tablet 200 mg PO QPM Discharge Orders: Discharge ED (Routine); Ordered 06/14/24 Ordered By: Willie Cabezas Referrals: Deo Marshall MD [Primary Care Provider] - Patient Instructions: Opioid Safety, Pain Management Coding Level of Care Code ED Membership Sales Advisor for Anthony Love
[2024-06-14 06:21] LABS: Basophils % 0.1 %; Hematocrit 47.7 % (36-47); Lymphocytes # 0.6 10^3/uL (0.8-4.8); Lymphocytes % 4.8 %; Mean Corpuscular HGB Conc 32.3 g/dL (30-55); Mean Corpuscular Hemoglobin 32.6 pg (27-33); Mean Corpuscular Volume 101.1 fl (85-98); Mean Platelet Volume 10.6 fL (7.4-10.4); Monocytes # 0.5 10^3/uL (0.2-0.9); Monocytes % 3.5 %; Neutrophils # 11.75 10^3/uL (1.8-7.7); Neutrophils % 91.4 %; Nucleated Red Blood Cells % 0 %; Platelet Count 265 10^3/cmm (157-399); Red Blood Count 4.72 10^6/uL (3.85-5.65); Red Cell Distribution Width 12.9 % (12.1-15.1); White Blood Count 12.86 10^3/uL (3.29-11.43)
--- NOTE | 2024-06-14 06:22 | XRR_ITS ---
PROCEDURE INFORMATION: Exam: XR Chest Exam date and time: 06/14/2024 6:44 AM Age: 73 years old Clinical indication: Cough and dyspnea; Additional info: Dyspnea/cough TECHNIQUE: Imaging protocol: Radiologic exam of the chest. Views: 1 view. COMPARISON: CR XR chest 1V portable [id number] 02/27/2024 3:50 PM FINDINGS: Lungs: Unremarkable. No consolidation. Pleural spaces: Unremarkable. No pleural effusion. No pneumothorax. Heart/Mediastinum: Unremarkable. No cardiomegaly. Vasculature: Tortuous calcified aorta. Bones/joints: Partially visualized vertebroplasties of the lower thoracic and upper lumbar spine. XR/XR chest 1V portable [id number] IMPRESSION: No acute cardiopulmonary abnormality.
--- NOTE | 2024-06-14 06:23 | CT_ITS ---
WS: [id number] CT HEAD NONCONTRAST HISTORY: AMS recent fall TECHNIQUE: Contiguous axial imaging performed through the brain. Bone and soft tissue windows. Sagitt al and coronal reformats reviewed. All CT scans at [facility] use at least one of these dose optimization techniques: automated exposure control; mA and/or kV adjustment per patient size (includ es targeted exams where dose is matched to clinical indication); or iterative reconstruction. DLP: 1107.03 mGy.cm COMPARISON: 02/27/2024 No acute intracranial hemorrhage, midline shift or mass effect. Moderate atrophy and small vessel ischemic disease. No prior large infarct. Ventricles: Mild dilatation of the ventricles from central and peripheral atrophy. Paranasal sinuses: As visualized are clear. Mastoid air cells: Well pneumatized. Calvarium and scalp: No skull fracture. No scalp hematoma. CT/CT head wo con* [id number] IMPRESSION: 1. No acute intracranial hemorrhage or edema. 2. Moderate volume loss and small vessel disease. No acute infarct. 3. No skull fracture.
--- NOTE | 2024-06-14 06:26 | PC.NURSE ---
pt is unable to answer the SI questions at this time d/t dementia
[2024-06-14 06:34] LABS: Bilirubin Urine 1+ (Negative); Blood Urine Trace (Negative); Glucose Urine UA Negative (Normal); Ketones Urine Trace (Negative); Leukocyte Esterase Urine 2+ (Negative); Nitrate Urine Negative (Negative); Protein Urine 1+ (Negative); Urine Appearance Turbid (CLEAR); Urine Color Dark Yellow (Yellow)
[2024-06-14 06:38] LABS: Add Urine Microscopic? YES; Bacteria Urine 4+ /hpf; Hyaline Casts Urine 21.51 /lpf; Squamous Epithelial Cell Urine 0-5 /hpf (0-5); WBC Urine >100 /hpf (0-5)
[2024-06-14 06:41] LABS: Alanine Aminotransferase 50 U/L (0-33); Albumin Level 4.2 g/dL (3.5-5.2); Alkaline Phosphatase 148 U/L (35-105); Aspartate Amino Transferase 27 U/L (0-32); Blood Urea Nitrogen 40 mg/dL (8-23); Carbon Dioxide 17 mmol/L (22-29); Chloride 102 mmol/L (98-107); Creatinine Clr Calc Pharmacy 30.4028; Globulin 3.9 g/dL (1.3-4.6); Glucose 177 mg/dL (65-115); Lipase 10 U/L (13-60); Osmolality Calculated 300 mOsm/kg (285-295); Sodium 138 mmol/L (136-145); Total Bilirubin 0.3 mg/dL (0.15-1.2); Total Protein 8.1 g/dL (6.6-8.7)
[2024-06-14 06:42] LABS: Anion Gap 22.8 (5-19); Potassium 3.8 mmol/L (3.5-5.1)
[2024-06-14 06:44] LABS: Lactic Sepsis W/Reflex 5.5 mmol/L (0.5-2.2)
[2024-06-14] MEDS: sodium chloride 0.9% 1,360.77 ML 1360.77 ML IV (06:59)
[2024-06-14 07:00] LABS: ABG PCO2 23.1 mmHg (35-45); ABG PH Result 7.41 (7.35-7.45); Arterial Blood Gas Hematocrit 48.3 % (37-47); Base Excess ABG -7.6 mmol/L (-2.0-2.0); Blood Gas Sample Site Brachial, right; Blood Gas Sample Type Arterial; Carboxyhemoglobin 0.4 %THgb (0.4-20.1); HCO3 ABG 14.7 mmol/L (22-26); Ionized Calcium Level - ABG 1.2 mmol/L (1.1-1.4); Oxygen Device NC; Oxygen Saturation ABG > 99.1; Potassium Level - ABG 3.6 mmol/L (3.5-5.0); Total Hemoglobin 15.8 g/dL (12-16)
[2024-06-14 07:08] LABS: Specific Gravity, Urine 1.031 (1.005-1.030)
[2024-06-14 07:09] LABS: UA Slide Review UA Slide Review Perf
[2024-06-14 07:10] LABS: Add Urine Culture? Yes
--- NOTE | 2024-06-14 07:15 | ECG_ITS ---
[facility] Date: 2024-[facility]14 Pat Name: Crys Mir Department: Room: Gender: Female Health Benefits Specialist: : 1950 Requested By: Willie Negrete Order Number: [id number] [place] MD: Lonnie Torres M.D. Measurements Intervals [place] Rate: 94 P: 63 CO: 157 QRS: 3 QRSD: 142 T: 33 QT: 376 QTc: 471 Interpretive Statements SINUS RHYTHM RIGHT BUNDLE BRANCH BLOCK [120+ ms QRS DURATION, UPRIGHT V1, 40+ ms S IN I/aVL/V4/V5/V6] POSSIBLE SEPTAL MYOCARDIAL INFARCTION , PROBABLY OLD [30 ms Q WAVE IN V1/V2] Compared to ECG 02/27/2024 18:09:26 Myocardial infarct finding now present First degree AV block no longer present Electronically Signed On 06-14-2024 18:19:43 ELECTROCARDIOGRAM TECHNICIAN by Lonnie Torres M.D. [email or web address]
[2024-06-14] MEDS: piperacillin-tazobactam 3.375 GM in sodium chloride 0.9% (plus) 50 ML IV (07:21)
--- NOTE | 2024-06-14 07:33 | CT_ITS ---
WS: [id number] CT ABDOMEN AND PELVIS NONCONTRAST HISTORY: flank pain TECHNIQUE: Imaging performed through the abdomen and pelvis. Coronal and sagittal reformats are submi tted. All CT scans at [facility] use at least one of these dose optimization techniques: auto mated exposure control; mA and/or kV adjustment per patient size (includes targeted exams where dose is matched to clinical indication); or iterative reconstruction. DLP: 367.04 mGy.cm COMPARISON: 02/27/2024 and 09/07/2023 Lower thorax: Lung bases are hyperexpanded with changes of emphysema. Breathing motion artifact. Much improved aeration as compared to 09/07/2023. Mild dependent changes at the RIGHT lung base with bronch iectasis. Normal size heart. Large hiatal hernia. Mildly progressed since 09/07/2023. Liver: Normal size liver. No mass or bile duct dilatation. Gallbladder: Gallbladder is present and difficult to visualize due to extensive small bowel fluid and dilatation and motion artifact. Gallbladder is slightly hydropic. Pancreas: Poorly visualized. Spleen: Poorly visualized. Adrenal glands: Not visualized. Right kidney: Mild atrophy. No obvious obstruction. Left kidney: Mild atrophy with no obvious obstruction. Aorta: Moderate to severe atherosclerosis abdominal aorta. No aneurysm. Atherosclerosis continues int o the common iliac arteries. Small amount of free fluid noted in the pelvis. No adenopathy. Lymph nodes would be difficult to excl ude. GI tract: Marked distention of the small bowel with fluid and air. Stomach is also distended with flu id and air. Transition point is not identified but the descending colon is collapsed. There are sever al small foci of air which are difficult to place within the GI tract. This is due to the marked flui d distention and lack of fat. Abdominal wall: Negative. No hernia. Pelvis: Small amount of free fluid in the pelvis. Markedly distended small bowel loops. Osseous structures: T11, T12, L1 and L2 vertebroplasties. New, age-indeterminate compression fracture at T9. Minimal compression deformity is new since 09/07/2023 bilateral fixation hardware at the hips. Sclerosis in the sacrum consistent with a prior sacral insufficiency fracture. Sacral insufficiency f racture was probably present on the study of 02/27/2024 but better visualized today. CT/CT kidney stone [id number] IMPRESSION: 1. Severe high-grade small bowel obstruction. Transition point is not identifi ed but is probably distal small bowel. Collapse of the distal colon. 2. Small amount of ascites. 3. There are a few foci of air which cannot definitely be placed within the GI tract. Cannot confirm or exclude GI tract perforation. 4. Study is significantly compromised by patient's cachexia and motion. 5. Large hiatal hernia. 6. No renal obstruction identified. 7. New, age-indeterminate minimal compression deformity at T9. New since 024.
--- NOTE | 2024-06-14 07:41 | PC.PHAR ---
patient is from [facility]
[2024-06-14 07:43] VITALS: BP 172/93; PULSE 99; O2SAT 98
[2024-06-14] MEDS: meropenem 1,000 mg SDV 1000 MG IVP (08:01)
[2024-06-14 08:04] VITALS: BP 178/99; PULSE 99; RESP 19; O2SAT 99
[2024-06-14 08:17] LABS: Reflex Lactate Order REFLEX LACTIC ORDERD
[2024-06-14 08:36] LABS: Adenovirus Not Detected (NOT DETECT); Chlamydia Pneumoniae Not Detected (NOT DETECT); Coronavirus 229E,HKU1,NL63,OC4 Not Detected (NOT DETECT); Human Metapneumovirus Not Detected (NOT DETECT); Human Rhinovirus/Enterovirus Not Detected (NOT DETECT); Influenza A Not Detected (NOT DETECT); Influenza A H1 Not Detected (NOT DETECT); Influenza A H1-2009 Not Detected (NOT DETECT); Influenza A H3 Not Detected (NOT DETECT); Influenza B Not Detected (NOT DETECT); Mycoplasma Pneumoniae Not Detected (NOT DETECT); Parainfluenza Virus Type 1 Not Detected (NOT DETECT); Parainfluenza Virus Type 2 Not Detected (NOT DETECT); Parainfluenza Virus Type 3 Not Detected (NOT DETECT); Parainfluenza Virus Type 4 Not Detected (NOT DETECT); Respiratory Syncytial Virus A Not Detected (NOT DETECT); Respiratory Syncytial Virus B Not Detected (NOT DETECT); SARS-COV-2 Not Detected (NOT DETECT)
--- NOTE | 2024-06-14 09:11 | P.CONIM_ITS ---
Providers/Reason For Consult 2 Consulting Physician/Specialty*: Dr. Morris general surgery Reason for Consult*: SBO, bowel ischemia Primary Care Provider: Gerson Marshall MD History of Present Illness History of Present Illness Crys Mir is a 73 year old female who presents with an SBO and concerns for threatened bowel. Patient lives in a nursing facility. She is severely deconditioned. Her POA is her daughter and her current status is DNR/DNI. Patient does complain of abdominal pain. She has cognitive dysfunction and therefore unable to provide any additional history. Abdomen is distended, non peritonitic. Lactate is elevated. CT showed a high-grade small bowel obstruction. Patient has an ALEX and therefore held off on contrasted scan. Medications/Allergies Home Medications Medication Instructions Recorded Confirmed Last Taken Type duloxetine 60 mg capsule,delayed 60 mg PO BID #180 caps 12/13/21 06/14/24 11/11/23 Rx release (Cymbalta) fluticasone propionate 50 2 spray intranasal DAILY@1999 #48 03/28/22 06/14/24 11/11/23 Rx mcg/actuation nasal grams spray,suspension potassium chloride 10 mEq 10 meq PO BID #180 tabs 03/28/22 06/14/24 11/11/23 Rx tablet,extended release rosuvastatin 10 mg tablet 10 mg PO BEDTIME@1999 #90 tabs 04/25/22 06/14/24 11/11/23 Rx carbidopa 25 mg-levodopa 100 mg 1 tab PO BID 12/11/22 06/14/24 11/11/23 History tablet levothyroxine 200 mcg tablet 200 mcg PO QAM 12/11/22 06/14/24 11/11/23 History melatonin 5 mg capsule 5 mg PO BEDTIME 12/11/22 06/14/24 11/11/23 History topiramate 100 mg tablet (Topamax) 100 mg PO DAILY@1400 12/11/22 06/14/24 11/11/23 History aluminum-mag hydroxide-simethicone 30 ml PO Q8H PRN GI upset 03/21/23 06/14/24 11/11/23 History 200 mg-200 mg-20 mg/5 mL oral susp ([place]) bisacodyl 10 mg rectal suppository 10 mg NE DAILY PRN Constipation 03/21/23 06/14/24 11/11/23 History calcium 500 mg (as 1 tab PO BID 03/21/23 06/14/24 11/11/23 History carbonate)-vitamin D3 10 mcg (400 unit) tablet (Calcium 500 + D) lamotrigine 150 mg tablet 150 mg PO QAM 03/21/23 06/14/24 11/11/23 History ferrous sulfate 325 mg (65 mg 325 mg PO DAILY #30 tabs 06/28/23 06/14/24 11/11/23 Rx iron) tablet (Feosol) vibegron 75 mg tablet (Gemtesa) 75 mg PO QAM 08/26/23 06/14/24 11/11/23 History aspirin 81 mg tablet,delayed 81 mg PO DAILY 09/07/23 06/14/24 11/05/23 History release docusate sodium 100 mg capsule 100 mg PO BID 09/07/23 06/14/24 11/11/23 History vitamins-iron fumarate 65 1 tab PO DAILY 09/07/23 06/14/24 11/11/23 History mg iron-folic acid 1 mg tablet tramadol 50 mg tablet 50 mg PO TID 09/07/23 06/14/24 11/11/23 History pantoprazole 40 mg tablet,delayed 40 mg PO BID #60 tabs 09/09/23 06/14/24 11/11/23 Rx release denosumab 60 mg/mL subcutaneous See Rx Instructions .Route .COMPLEX 11/11/23 06/14/24 Unknown History syringe (Prolia) custom molded accommodative #1 ea 01/18/24 06/14/24 Unknown Rx orthotics and orthopedic shoes quetiapine 200 mg tablet 200 mg PO QPM 02/28/24 06/14/24 Unknown History polyethylene glycol 3350 17 gram 17 g PO BID 03/13/24 06/14/24 Unknown History oral powder packet acetaminophen 325 mg tablet 650 mg PO QID PRN Pain 06/14/24 06/14/24 Unknown History magnesium hydroxide 400 mg/5 mL 30 ml PO DAILY PRN Constipation 06/14/24 06/14/24 Unknown History oral suspension (Milk of Magnesia) mirtazapine 30 mg tablet 30 mg PO DAILY 06/14/24 06/14/24 Unknown History ondansetron HCl 4 mg tablet 4 mg PO Q6H PRN Nausea And Vomiting 06/14/24 06/14/24 Unknown History Allergies Allergy/AdvReac Type Severity Reaction Status Date / Time No Known Allergies Allergy Verified 06/14/24 06:23 PFSH Acute 2 PFSH: Medical History UTI (urinary tract infection) Dementia Lewy body dementia Closed left hip fracture DNR no code (do not resuscitate) Osteoporosis, post-menopausal Lives in assisted living facility Spine deformity Osteoarthritis of knee Bradycardia Recurrent syncope Mixed hyperlipidemia Seasonal allergic rhinitis due to pollen Slow transit constipation Major depressive disorder, recurrent severe without psychotic features Sleep apnea Anxiety and depression Adult onset hypothyroidism Vitamin D deficiency COPD (chronic obstructive pulmonary disease) Parkinson disease CPAP (continuous positive airway pressure) dependence Dependent on walker for ambulation Surgical History Status post hip hemiarthroplasty History of repair of hiatal hernia Hx of cataract surgery Hx of right breast biopsy 1999 History of laparotomy 1972 no body parts removed History of back surgery 2016 [id number] History of hernia repair 2017 History of tubal ligation Left removed only 1973 History of bunionectomy bilateral 2015 Family History Mother Congestive heart failure (CHF) Clotting disorder CAD (coronary artery disease) Family/Other Lung disease Cancer Grandmother Stroke Denies family history of Diabetes Dementia Chronic kidney disease (CKD) Suicide Anesthesia complication Bleeding disorder Social History Smoking and tobacco/nicotine status: tobacco/nicotine user, details unknown Quit status (tobacco/nicotine): has quit using Year quit tobacco: 2004 - PPD x 35 Years Second hand smoke exposure: No Alcohol intake: former Substance/Drug Use: never Adopted: No Caregiver/support person: No Lives independently: Yes Household members: none Housing: House Marital status: Unknown Number of children: 1 service: Yes branch: [employer] Current occupational status: retired and disabled Pets and animals: No Do you think of yourself as: Straight/Heterosexual Current gender identity: Female Vitals/I&O/Wt Last Vital Signs Temp 98 F 06/14/24 06:00 Pulse 99 06/14/24 08:04 Resp 19 H 06/14/24 08:04 BP 178/99 06/14/24 08:04 Pulse Ox 99 06/14/24 08:04 O2 Del Method Room Air 06/14/24 08:04 O2 Flow Rate 3 06/14/24 06:00 06/13/24 06/14/24 06/14/24 22:59 06:59 14:59 Intake Total 0 / 0 1410.77 / 1410.77 Balance 0 / 0 1410.77 / 1410.77 Weight last 48 hrs Weight 100 lb Physical Exam 2 Narrative: Chest: tachypneic on NC Heart: Regular rate and rhythm. Abdomen: Soft, diffusely tender, distended. No masses or lymphadenopathy. Data 06/14/24 06:14 06/14/24 06:14 Micro: Microbiology 06/14/24 07:00 Blood Culture - Preliminary Blood SPECIMEN COLLECTED 06/14/24 06:54 Blood Culture - Preliminary Blood SPECIMEN COLLECTED A&P Assessment and plan (1) Small bowel ischemia: Plan 73-year-old female who presented with a high-grade SBO. CT scan shows some extraluminal air. Elevated lactic acid. High suspicion for ischemic bowel. Discussed goals of care with daughter who explains that patient would not be interested in undergoing an exploratory laparotomy, and therefore POA wants to pursue comfort measures only. Discussed with hospitalist and Dr. Cabezas. Coding Level of Care Code 41274 Diagnoses Small bowel ischemia K55.9 Time Spent (min) 30
--- NOTE | 2024-06-14 11:00 | PC.NURSE ---
per verbal order from dr. munoz, order and admin morphine 4mg IVP ONCE
[2024-06-14 11:04] VITALS: O2SAT 100
[2024-06-14] MEDS: morphine 4 mg/mL SDV 1 mL IVP (11:04)
[2024-06-14 12:08] VITALS: BP 102/67; PULSE 110; O2SAT 98
--- NOTE | 2024-06-14 13:02 | PC.NURSE ---
PATIENT PLACED IN WHEELCHAIR TO MOVE TO TRANSPORT VAN. PATIENT PLACED IN TRANSPORT VAN WITH HELP OF TRANSPORTER. PATIENT IMMEDIATELY BECAME SHORT OF BREATH AND HAD SHALLOW RESPIRATIONS WITH DAZED APPEARANCE. PHYSICIAN BROUGHT BACK TO TRANSPORT VAN TO SPEAK WITH PATIENT FAMILY MEMBER. FAMILY MEMBER CURRENTLY MAKING A DECISION ON WHETHER OR NOT TO TRANSPORT BACK OR COME BACK TO BE ON COMFORT CARE. FAMILY INSTRUCTED TO LEFT THE STAFF KNOW THEIR DECISION.
[2024-06-14 13:28] VITALS: BP 128/76; PULSE 107; O2SAT 100
== END 2024-06-14 13:29 | disposition home or self-care (01) ==
PROVIDERS: Emergency Provider Family Medicine; PCP Internal Medicine
DX: A41.9 Sepsis, unspecified organism (principal); K56.609 Unspecified intestinal obstruction, unspecified as to partial versus complete obstruction; K55.9 Vascular disorder of intestine, unspecified; Z11.52 Encounter for screening for COVID-19; Z79.82 Long term (current) use of aspirin; Z87.891 Personal history of nicotine dependence; J44.9 Chronic obstructive pulmonary disease, unspecified; E78.2 Mixed hyperlipidemia
CPT/HCPCS: 36415; 70450; 71045; 74176; 80051; 80053; 81001; 82330; 82805; 83605; 83690; 85025; 87040; 87077; 87086; 87186; 87486; 87581; 87633; 93005; 96365; 96375; 99285; J2185; J2270; J2543; J7030